=== PATIENT | female | born 1945 | race African-American/Black ===

== ENCOUNTER 2016-07-22 17:06 | Inpatient (IN) | payer MEDICARE, OTHER ==
[~2016-07-22] VITALS: Ht 162.6 cm; Wt 119.9 kg
[~2016-07-22 17:06] MED LIST: AMLO10TA2 PO; BENZ0.5T PO; BUDE10.2 IH; CA C1TAB28 PO; CARV12.52 PO; CLON1PAT3 TD; DICL100G7 TOP; DICL100G7 TP; DIVA500T9 PO; DOCU-27 PO; FLUT16SP2 NS; FURO40TA4 PO; HYDR-2869 PO; IPRA3AMP23 IH; LEVE100020 PO; LEVE500T56 PO; LIPITOR80 MG PO; LISI-334 PO; NEO/5DRO5 OP; PALI6TAB3 PO; POLY17PO29 PO; POTA20TA4 PO; symbicort
[2016-07-22 17:48] LABS: BASO % 1 % (0-3); EOS % 2 % (0-3); HEMATOCRIT 29.7 % (36.0-47.0); HEMOGLOBIN 9.6 g/dL (12.0-15.5); LYMPH # 1.4 x10^3/uL (1.0-4.8); LYMPH % 23 % (24-48); MEAN CORPUSCULAR HEMOGLOBIN 27 pg (25-35); MEAN CORPUSCULAR HGB CONC 32 g/dL (31-37); MEAN CORPUSCULAR VOLUME 84 fL (79-100); MONO % 13 % (0-9); NEUT % 62 % (31-73); PLATELET COUNT 206 x10^3/uL (140-400); RED BLOOD COUNT 3.54 x10^6/uL (3.50-5.40); RED CELL DISTRIBUTION WIDTH 16.4 % (11.5-14.5); WHITE BLOOD COUNT 6.2 x10^3/uL (4.0-11.0)
[2016-07-22 17:59] LABS: CALCIUM 9.2 mg/dL (8.5-10.1); GFR 66.7; POTASSIUM 4.7 mmol/L (3.5-5.1)
[2016-07-22 18:17] LABS: PROTHROMBIN TIME PATIENT 12.1 SEC (11.7-14.0)
--- NOTE | 2016-07-22 18:21 | RAD ---
PROCEDURE Bilateral lower extremity venous Doppler ultrasound HISTORY Bilateral leg pain greater on the right COMPARISON None FINDINGS Multiple grayscale, color, and duplex spectral analysis waveform images were acquired of the lower extremity veins bilaterally. There is normal compression and color flow from the common femoral to the popliteal veins, normal phasicity. There is normal color flow of the proximal greater saphenous and profunda femoris veins. Calf veins are not well visualized due to patient's body habitus. IMPRESSION 1. There is no evidence of deep venous thrombosis from the common femoral to the popliteal veins of either lower extremity. Calf veins are not well visualized on this exam due to patient's body habitus. Electronically signed by: Deon Henderson MD (July 22, 2016 18:19:58)
--- NOTE | 2016-07-22 18:58 | PHYS DOC ---
Past Medical History Past Medical History: Arthritis, CHF, Diabetes-Type II, High Cholesterol, Hypertension, Seizure, Schizophrenia Additional Past Medical Histor: obesity Past Surgical History: Appendectomy, Cholecystectomy, Hysterectomy Additional Past Surgical Histo: hernia Alcohol Use: None Drug Use: None Adult General Chief Complaint Chief Complaint: KNEE SWELLING HPI HPI Patient is a 70 year old female who presents from primary care doctor's clinic for concern of her right greater than left lower extremity swelling. She has mild pain associated with the swelling, but really complains more about chronic joint pain. Her swelling has been gradual in onset over the past couple of weeks. Her family member is here to help her with history. She was seen by Dr. Nino today, who increased her daily Lasix from 40 mg to 80 mg. She was sent here to rule out DVT. She denies chest pain, orthopnea, palpitations, cough, hemoptysis, abdominal swelling, nausea or vomiting, fever or chills. Review of Systems Review of Systems Constitutional: Denies fever or chills [] Eyes: Denies change in visual acuity, redness, or eye pain [] HENT: Denies nasal congestion or sore throat [] Respiratory: Denies cough or shortness of breath [] Cardiovascular: No additional information not addressed in HPI [] GI: Denies abdominal pain, nausea, vomiting, bloody stools or diarrhea [] : Denies dysuria or hematuria [] Musculoskeletal: Denies back pain [] Integument: Denies rash or skin lesions [] Neurologic: Denies headache, focal weakness or sensory changes [] Endocrine: Denies polyuria or polydipsia [] Current Medications Current Medications Current Medications Medications (Trade) Dose Ordered Sig/Johnny Start Time Stop Time Status Last Admin Dose Admin Info (Do NOT chart on this entry -- for MONITORING) 1 each PRN DAILY PRN 07/22/16 19:30 07/24/16 19:29 Iohexol (Omnipaque 350 Mg/ml) 100 ml 1X ONCE 07/22/16 19:15 07/22/16 19:16 DC Allergies Allergies Allergies Coded Allergies Type Severity Reaction Last Updated Verified TIGRE Inhibitors Allergy Intermediate 07/18/13 Yes NSAIDS (Non-Steroidal Anti-Inflamma Allergy Intermediate 07/18/13 Yes alcohol Allergy Intermediate 07/18/13 Yes ibuprofen Allergy Intermediate 07/18/13 Yes lisinopril Allergy Unknown Swelling 12/21/13 Yes Physical Exam Physical Exam Constitutional: Well developed, well nourished, no acute distress, non-toxic appearance. [] HENT: Normocephalic, atraumatic, bilateral external ears normal, oropharynx moist, nose normal. [] Eyes: PERRLA, EOMI. [] Neck: Normal range of motion, supple. [] Cardiovascular:Heart rate regular rhythm [] Lungs & Thorax: Bilateral breath sounds clear to auscultation [] Abdomen: Bowel sounds normal, soft, no tenderness. [] Skin: Warm, dry, no erythema, no rash. [] Back: Normal range of motion. [] Extremities: Mild right calf tenderness, no left calf tenderness, ROM intact, right greater than left 2+ lower extremity edema, slight rubor to right leg compared to left. No induration, crepitance, or fluctuance. Compartments are soft. No pain with range of motion other than chronic joint pain. [] Neurologic: Alert and oriented X 3, normal motor function, normal sensory function, no focal deficits noted. [] Psychologic: Affect normal, judgement normal, mood normal. [] Current Patient Data Vital Signs Vital Signs Date Time Temp Pulse Resp B/P (MAP) Pulse Ox O2 Delivery O2 Flow Rate FiO2 07/22/16 18:22 66 20 147/81 (103) 97 Room Air 07/22/16 17:06 98.0 98.0 Lab Values Laboratory Tests Test 07/22/16 17:30 White Blood Count 6.2 x10^3/uL (4.0-11.0) Red Blood Count 3.54 x10^6/uL (3.50-5.40) Hemoglobin 9.6 g/dL (12.0-15.5) L Hematocrit 29.7 % (36.0-47.0) L Mean Corpuscular Volume 84 fL (79-100) Mean Corpuscular Hemoglobin 27 pg (25-35) Mean Corpuscular Hemoglobin Concent 32 g/dL (31-37) Red Cell Distribution Width 16.4 % (11.5-14.5) H Platelet Count 206 x10^3/uL (140-400) Neutrophils (%) (Auto) 62 % (31-73) Lymphocytes (%) (Auto) 23 % (24-48) L Monocytes (%) (Auto) 13 % (0-9) H Eosinophils (%) (Auto) 2 % (0-3) Basophils (%) (Auto) 1 % (0-3) Neutrophils # (Auto) 3.8 x10^3uL (1.8-7.7) Lymphocytes # (Auto) 1.4 x10^3/uL (1.0-4.8) Monocytes # (Auto) 0.8 x10^3/uL (0.0-1.1) Eosinophils # (Auto) 0.1 x10^3/uL (0.0-0.7) Basophils # (Auto) 0.0 x10^3/uL (0.0-0.2) Prothrombin Time 12.1 SEC (11.7-14.0) Prothrombin Time INR 1.0 (0.8-1.1) D-Dimer (Rosario) 1.79 ug/mlFEU (0.00-0.50) H Sodium Level 136 mmol/L (136-145) Potassium Level 4.7 mmol/L (3.5-5.1) Chloride Level 97 mmol/L (98-107) L Carbon Dioxide Level 32 mmol/L (21-32) Anion Gap 7 (6-14) Blood Urea Nitrogen 17 mg/dL (7-20) Creatinine 1.0 mg/dL (0.6-1.0) Estimated GFR (Cockcroft-Gault) 66.7 Glucose Level 108 mg/dL (70-99) H Calcium Level 9.2 mg/dL (8.5-10.1) II-Lqz-V-Type Natriuretic Peptide 124 pg/mL (0-124) Laboratory Tests 07/22/16 17:30 Laboratory Tests 07/22/16 17:30 EKG EKG EKG as interpreted by me as normal sinus rhythm, rate 68, no ST-T changes, normal intervals, no ectopy Radiology/Procedures Radiology/Procedures Chest xray as interpreted by me with no acute cardiopulmonary disease process Ultrasound venous Doppler bilateral lower extremity IMPRESSION 1. There is no evidence of deep venous thrombosis from the common femoral to the popliteal veins of either lower extremity. Calf veins are not well visualized on this exam due to patient's body habitus. Electronically signed by: Deon Henderson MD (July 22, 2016 18:19:58) CT lower extremity with contrast IMPRESSION 1. Artery and veins are not accurately evaluated on this exam. There is diffuse nonspecific edema of the soft tissues of the lower extremities bilaterally greater on the right. 2. There is advanced osteoarthritic change of the bilateral knees. Electronically signed by: Deon Henderson MD (July 22, 2016 21:56:35) Course & Med Decision Making Course & Med Decision Making Pertinent Labs and Imaging studies reviewed. (See chart for details) Has elevated d-dimer, but imaging is inconclusive and workup is otherwise unremarkable with no suspicion for PE at this time. Clinically suspect DVT. Discussed case with Dr. Nino, who will admit and recommends anticoagulation and admission for further evaluation. Dragon Disclaimer Dragon Disclaimer This electronic medical record was generated, in whole or in part, using a voice recognition dictation system. Departure Departure Impression: Primary Impression: Pain and swelling of lower leg Disposition: ADMITTED INPATIENT Condition: STABLE Referrals: JOSE NINO MD (PCP) Problem Qualifiers Primary Impression: Pain and swelling of lower leg Laterality: unspecified laterality Qualified Codes: M79.669 - Pain in unspecified lower leg; M79.89 - Other specified soft tissue disorders Lynda SIMMONS MD July 22, 2016 18:58
[2016-07-22] MEDS ORDERED: IOHEXOL 350 MG/ML 100 ML VIAL. IV ONE (19:15)
[2016-07-22] MEDS ORDERED: CONTRAST GIVEN MC PRN (19:30)
--- NOTE | 2016-07-22 21:58 | RAD ---
PROCEDURE CT lower extremities bilaterally with contrast. HISTORY Right greater than left swelling COMPARISON Venous ultrasound earlier the same day TECHNIQUE After the administration of intravenous contrast, CT imaging was performed of the lower extremities bilaterally, multiplanar reconstruction images submitted. Exposure: One or more of the following individualized dose reduction techniques were utilized for this exam: 1. Automated exposure control. 2. Adjustment of the mA and/or kV according to patient size. 3. Use of iterative reconstruction technique. Contrast: 80 cc Omnipaque 350 FINDINGS Arteries and veins are not well opacified with contrast for accurate evaluation. There is diffuse edema of the lower extremities bilaterally greater beyond the knees. No obvious focal drainable fluid collection is identified. There is advanced tricompartmental osteoarthritic change of the bilateral knees. There is some distention of the visualized urinary bladder. IMPRESSION 1. Artery and veins are not accurately evaluated on this exam. There is diffuse nonspecific edema of the soft tissues of the lower extremities bilaterally greater on the right. 2. There is advanced osteoarthritic change of the bilateral knees. Electronically signed by: Deon Henderson MD (July 22, 2016 21:56:35)
[2016-07-23] VITALS (7 sets, daily range): BP systolic 109–149; BP diastolic 59–93
[2016-07-23] MEDS ORDERED: DIVA500T9 PO (03:16)
--- NOTE | 2016-07-23 03:22 | ACF ---
Admission Forms Criteria DEEP VENOUS THROMBOSIS OF LOWER EXTREMITIES Clinical Indications for Admission to Inpatient Care ( Place 'X' for any and all applicable criteria): Admission is indicated for ANY ONE of the following (1)(2)(3)(4): [ ]I. Documented extensive thrombosis (e.g., clot in vena cava or above iliofemoral bifurcation) [ ]II. Limb-threatening thrombosis (e.g., phlegmasia cerulea dolens) [ ]III. Active bleeding [ ]IV. Recent surgery (e.g., within 6 weeks) [ ]V. Active peptic ulcer disease [ ]. Thrombosis while on anticoagulation [ ]VII. [X ]VIII. Appropriate monitoring and therapy cannot be provided in home or outpatient setting [ ]IX. Thrombolysis (e.g., catheter-directed) or pharmaco mechanical thrombectomy needed (3) [ ]X. Vena cava filter placement planned (3) [ ]XI. Severely diminished cardiopulmonary reserve (e.g., pulmonary hypertension) [ ]XII. Severe renal failure (e.g., GFR less than 30 mL/min/1.73m2 (0.5 mL/sec /1.73m2)) [ ]XIII. Known clotting abnormality or deficiency (antithrombin III, protein C , or protein S) [ ]XIV. History of heparin-induced thrombocytopenia [ ]XV . Personal or family history of bleeding tendency or familial bleeding disorder that requires inpatient admission rather than observation care (Also use Deep Venous Thrombosis of Lower Extremities: Observation Care as appropriate) because of ANY ONE of the following: [ ]a) Significant allergic, autoimmune (thrombocytopenia), or coagulopathic reaction occurs in response to anticoagulation [ ]b) Other significant finding or clinical condition judged not to be within the scope of observation care Extended stay beyond goal length of stay may be needed for(1)(19): [ ]a) Hemorrhage or recent surgery(3) [ ]b) Inadequate oral anticoagulation [ ]c) Recurrent thromboembolism(3) [ ]d) Heparin-induced thrombocytopenia(14) The original [facility] content created by [facility] has been revised. The portions of the content which have been revised are identified through the use of italic text or in bold, and [facility] has neither reviewed nor approved the modified material. All other unmodified content is copyright [facility]. Please see references footnoted in the original [facility] edition 2016 Admission Criteria Met?: Yes MOIRA ALDANA July 23, 2016 03:22
[2016-07-23] MEDS ORDERED: CYAN10005 PO (03:24)
[2016-07-23] MEDS ORDERED: TRIH2TAB3 PO (03:24)
[2016-07-23] MEDS ORDERED: FOLI1TAB16 PO (03:24)
[2016-07-23] MEDS ORDERED: BREO ELLIPTA 11 EACH IH (03:24)
[2016-07-23] MEDS ORDERED: VENTOLIN HFA18 GM INH (03:28)
--- NOTE | 2016-07-23 07:31 | EKG ---
[facility] [address] [place] [address] Test Date: 2016-07-22 Test Time: 18:19:44 Pat Name: ELSI GARCIA Department: Room: 526 1 Gender: F Geophysical Prospector: : 1945 Requested By: Lynda SIMMONS Order Number: [id number] Reading MD: Cheryl Liu Measurements Intervals Corinne Rate: 68 P: 36 RI: 184 QRS: 8 QRSD: 80 T: 47 QT: 452 QTc: 481 Interpretive Statements SINUS RHYTHM PROLONGED QT Electronically Signed On 07-25-2016 20:46:44 CDT by Cheryl Liu
--- NOTE | 2016-07-23 08:17 | RAD ---
Indication bilateral leg edema. A single view of the chest was obtained. Comparison is made to an examination 04/28/2013. Cardiomegaly is noted, stable. There is no congestive heart failure. Tortuous thoracic aorta is noted appearing similar. An acute parenchymal infiltrate is not seen. There is no significant pleural fluid. Overall there has not been a significant change compared to the previous exam IMPRESSION: No acute or focal process. No significant change.
[2016-07-23] MEDS: FLUTICASONE 50MCG/NASAL SPRAY 16GM BOTTLE. NS SCH ×2 (09:00→21:39)
[2016-07-23] MEDS ORDERED: ALBUTEROL SULFATE 2.5 MG/3 ML NEBU. NEB PRN (09:00)
[2016-07-23] MEDS ORDERED: cloNIDine TTS-3 1 PATCH PATCH.TDWK TD SCH (09:00)
[2016-07-23] MEDS ORDERED: levETIRAcetam 500 MG TABLET PO SCH (09:00)
[2016-07-23] MEDS ORDERED: FUROSEMIDE 40 MG TABLET. PO SCH (09:00)
[2016-07-23] MEDS: FUROSEMIDE 40 MG/4 ML VIAL. IVP SCH ×2 (09:34→14:00)
[2016-07-23] MEDS: POLYETHYLENE GLYCOL 3350 17 GM PACKET. PO SCH (09:36)
[2016-07-23] MEDS: levETIRAcetam 500 MG TABLET PO SCH (09:38)
[2016-07-23] MEDS: CYANOCOBALAMIN (VITAMIN B-12) 1,000 MCG TABLET. PO SCH (09:41)
[2016-07-23] MEDS: DOCUSATE SODIUM 100 MG CAPSULE. PO SCH (09:41)
[2016-07-23] MEDS: FOLIC ACID 1 MG TABLET. PO SCH (09:42)
[2016-07-23] MEDS: DIVALPROEX DELAYED RELEASE 250 MG TABLET.DR. PO SCH (09:42)
[2016-07-23] MEDS: CHOLECALCIFEROL (VITAMIN D3) 1,000 UNIT TABLET PO SCH (09:42)
[2016-07-23] MEDS: risperiDONE 1 MG TABLET. PO SCH ×2 (09:44→21:39)
[2016-07-23] MEDS: POTASSIUM CHLORIDE 20 MEQ TABLET.ER. PO SCH ×2 (09:44→17:09)
[2016-07-23] MEDS: CARVEDILOL 12.5 MG TABLET. PO SCH ×2 (09:44→17:09)
[2016-07-23] MEDS: ENOXAPARIN 40 MG/0.4 ML SYRINGE. SQ SCH ×2 (09:47→21:42)
--- NOTE | 2016-07-23 10:33 | PDOC ---
Provider Note Provider Note Pt seen, H&P to be dictated JOSE WILLINGHAM MD July 23, 2016 10:33
[2016-07-23] MEDS: IPRATRPIUM/ALBUTEROL 0.5/2.5MG 3 ML NEBU. IH SCH ×3 (12:11→20:24)
--- NOTE | 2016-07-23 12:12 | PDOC2 ---
NELLY MONTIEL [employer]OP ASSOCIATE 07/23/16 1212: CARDIAC CONSULT DATE OF CONSULT Date of Consult DATE: 07/23/16 TIME: 12:07 REASON FOR CONSULT Reason for Consult: venous insufficiency REFERRING PHYSICIAN Referring Physician: Mica SOURCE Source: Caregiver (sister), Chart review, Patient HISTORY OF PRESENT ILLNESS HISTORY OF PRESENT ILLNESS This is a pleasant 70 yo female admitted for complains of increasing leg swelling. She lives in an apartment with 24 hr caregiver care. She is sedentary and WC bound and the most activity she does is transferring from chair to bed. She has gained about 50 pounds in the last several months accdg to her sister mainly due in part to increased calorie intake. Also noted by sister is her sodium intake also has been increased mainly from processed food and snacks. Pt reports that her bilateral knee has been bothering her and she does have significant arthritis. She also noticed that both of her legs have become more swollen, more to the right and it progresses throughout the day. Denies any symptoms of paresthesia or sensory issues. She went to her PCP yesterday and has recommended to come to the hospital for further testing and to rule out any leg blood clots. Denies any SOA, palpitations, diarrhea, nausea. She does feel bloated sometimes but her appetite has not changed, ithas always been good. Denies any recent falls or injury. She does have hx of diastolic CHF and she typically takes lasix and was recently increased. The last time she was hospitalized was 4 yrs ago. She is closely supervised at home by 24 hour caregiver but also been overseen by her sister. Denies any CAD, VTE in the past. PAST MEDICAL HISTORY Cardiovascular: CHF (diastolic), HTN, Hyperlipidemia Pulmonary: COPD, Other (BATSHEVA- uses O2 at night) CENTRAL NERVOUS SYSTEM: Seizure Heme/Onc: Anemia NOS Psych: Anxiety, Bipolar, Depression, Schizophrenia Musculoskeletal: Osteoarthritis, Other (morbid obesity) Rheumatologic: No pertinent hx Infectious disease: No pertinent hx ENT: No pertinent hx Renal/: Other (hyponatremia (med induced SIADH)) Endocrine: Hypothyroidism Dermatology: No pertinent hx PAST SURGICAL HISTORY Past Surgical History: Hernia Repair, Hysterectomy, Other FAMILY HISTORY Family History: Coronary Artery Disease, Other (DVT x1 sister) SOCIAL HISTORY Smoke: No ALCOHOL: none Drugs: None Lives: Alone CURRENT MEDICATIONS CURRENT MEDICATIONS Current Medications Medications (Trade) Dose Ordered Sig/Johnny Route PRN Reason Start Time Stop Time Status Last Admin Dose Admin Enoxaparin Sodium (Lovenox 120mg Syringe) 120 mg 1X ONCE SQ 07/22/16 22:30 07/22/16 22:31 DC 07/23/16 01:12 Carvedilol (Coreg) 12.5 mg BIDWMEALS PO 07/23/16 09:00 07/23/16 09:44 Clonidine HCl (Catapres Tts-3) 1 patch WEEKLY TD 07/23/16 09:00 07/23/16 09:40 Cyanocobalamin (Vitamin B-12) 1,000 mcg DAILY PO 07/23/16 09:00 07/23/16 09:41 Divalproex Sodium (Depakote) 250 mg DAILY PO 07/23/16 09:00 07/23/16 09:42 Docusate Sodium (Colace) 100 mg DAILY PO 07/23/16 09:00 07/23/16 09:41 Folic Acid (Folic Acid) 1 mg DAILY PO 07/23/16 09:00 07/23/16 09:42 Hydralazine HCl (Apresoline) 50 mg BID PO 07/23/16 09:00 07/23/16 09:42 Polyethylene Glycol (miraLAX PACKET) 17 gm DAILY PO 07/23/16 09:00 07/23/16 09:36 Potassium Chloride (Klor-Con) 20 meq BIDWMEALS PO 07/23/16 09:00 07/23/16 09:44 Vitamin D (Vitamin D3) 1,000 unit DAILY PO 07/23/16 09:00 07/23/16 09:42 Risperidone (RisperDAL) 1 mg BID PO 07/23/16 09:00 07/23/16 09:44 Furosemide (Lasix) 40 mg BID92 IVP 07/23/16 09:00 07/23/16 09:34 Enoxaparin Sodium (Lovenox 40mg Syringe) 40 mg Q12HR SQ 07/23/16 09:30 07/23/16 09:47 Levetiracetam (Keppra) 2,000 mg BID PO 07/23/16 09:01 07/23/16 09:38 ALLERGIES ALLERGIES: Coded Allergies: TIGRE Inhibitors (Verified Allergy, Intermediate, 07/18/13) NSAIDS (Non-Steroidal Anti-Inflamma (Verified Allergy, Intermediate, ) alcohol (Verified Allergy, Intermediate, 07/18/13) ibuprofen (Verified Allergy, Intermediate, 07/18/13) lisinopril (Verified Allergy, Unknown, Swelling, 12/21/13) ROS Review of System 14 point ROS evaluated with pertinent positives noted per HPI PHYSICAL EXAM General: Alert, Oriented X3, Cooperative, No acute distress HEENT: Atraumatic, Mucous membr. moist/pink Lungs: Clear to auscultation, Normal air movement Heart: Regular rate, Normal S1, Normal S2, Other (2/6 systolic murmur to LLS border and EDVIN border) Extremities: No cyanosis, Other (2+ to RLE and 1+ to LLE; skin to bilateral LE are warm equally from feet to thigh) Skin: No breakdown, No significant lesion Neuro: Normal speech, Sensation intact Psych/Mental Status: Mental status NL, Mood NL MUSCULOSKELETAL: Osteoarthritic changes both hands, Other (possible bilateral knee effusion) VITALS VITALS Vital Signs Date Time Temp Pulse Resp B/P (MAP) Pulse Ox O2 Delivery O2 Flow Rate FiO2 07/23/16 11:00 97.4 82 18 123/67 (85) 96 Room Air 97.4 LABS Lab: Laboratory Tests Test 07/22/16 17:30 White Blood Count 6.2 x10^3/uL (4.0-11.0) Red Blood Count 3.54 x10^6/uL (3.50-5.40) Hemoglobin 9.6 g/dL (12.0-15.5) Hematocrit 29.7 % (36.0-47.0) Mean Corpuscular Volume 84 fL (79-100) Mean Corpuscular Hemoglobin 27 pg (25-35) Mean Corpuscular Hemoglobin Concent 32 g/dL (31-37) Red Cell Distribution Width 16.4 % (11.5-14.5) Platelet Count 206 x10^3/uL (140-400) Neutrophils (%) (Auto) 62 % (31-73) Lymphocytes (%) (Auto) 23 % (24-48) Monocytes (%) (Auto) 13 % (0-9) Eosinophils (%) (Auto) 2 % (0-3) Basophils (%) (Auto) 1 % (0-3) Neutrophils # (Auto) 3.8 x10^3uL (1.8-7.7) Lymphocytes # (Auto) 1.4 x10^3/uL (1.0-4.8) Monocytes # (Auto) 0.8 x10^3/uL (0.0-1.1) Eosinophils # (Auto) 0.1 x10^3/uL (0.0-0.7) Basophils # (Auto) 0.0 x10^3/uL (0.0-0.2) Prothrombin Time 12.1 SEC (11.7-14.0) Prothromb Time International Ratio 1.0 (0.8-1.1) D-Dimer (Rosario) 1.79 ug/mlFEU (0.00-0.50) Sodium Level 136 mmol/L (136-145) Potassium Level 4.7 mmol/L (3.5-5.1) Chloride Level 97 mmol/L (98-107) Carbon Dioxide Level 32 mmol/L (21-32) Anion Gap 7 (6-14) Blood Urea Nitrogen 17 mg/dL (7-20) Creatinine 1.0 mg/dL (0.6-1.0) Estimated GFR (Cockcroft-Gault) 66.7 Glucose Level 108 mg/dL (70-99) Calcium Level 9.2 mg/dL (8.5-10.1) IM-Uwg-Y-Type Natriuretic Peptide 124 pg/mL (0-124) ASSESSMENT/PLAN ASSESSMENT/PLAN 1. Leg swelling with bilateral knee pain: More to RLE than LLE. Imaging inconclusive of VTE with limitation as noted below. a. venous doppler There is no evidence of deep venous thrombosis from the common femoral to the popliteal veins of either lower extremity. Calf veins are not well visualized on this exam due to patient's body habitus. b. CT LE: basically ending up with noncontrast study due to poor opacification likely from poor IV access 2. Elevated DDIMER: 1.79, unclear etiology, defer to PCP 3. Morbid obesity/sedentary: BMI 47 4. Chronic diastolic CHF: Normal pro NT BNP. compensated 5. HTN: controlled 6. HLP 7. Hx of seizures Recommendations 1. Will obtain baseline TTE and note any contributing cardiac factors as well as to check PAP. 2. Discussed with ultrasound in regards to arterial filling and noted no inconsistency that would possibly indicate arterial defects. Leg swelling is likely multifactorial with combination of severe knee OA, weight gain, increased sodium ingestion, venous insufficiency predisposed by limited mobility and truncal obesity inducing venous compression. With inconclusive LE studies, DVT would still be part of the differential. Will discuss with staff to obtain good IV access and will consider repeat CT of LE with contrast vs venogram likely tomorrow since unclear amount of contrast injected with poor IV access, will discuss with primary machine preservative filler. Problems: RAFAELA NEGRON MD 07/23/16 2213: CARDIAC CONSULT ALLERGIES ALLERGIES: Coded Allergies: TIGRE Inhibitors (Verified Allergy, Intermediate, 07/18/13) NSAIDS (Non-Steroidal Anti-Inflamma (Verified Allergy, Intermediate, ) alcohol (Verified Allergy, Intermediate, 07/18/13) ibuprofen (Verified Allergy, Intermediate, 07/18/13) lisinopril (Verified Allergy, Unknown, Swelling, 12/21/13) ASSESSMENT/PLAN ASSESSMENT/PLAN Pt. seen and examined. Agree with above ELEVATOR REPAIRER HELPER note. 70 y.o female presenting with LE edema. R > L On exam her right leg is warm, bigger than the left. Patient has no chest pain/ dyspnea. labs/imaging reviewed. Consider anticoagulation given high risk for DVT and plan for CT LE repeat. echo pending Problems: NELLY MONTIEL APRN July 23, 2016 12:12 RAFAELA NEGRON MD July 23, 2016 22:13
[2016-07-23 12:35] LABS: ALBUMIN 2.9 g/dL (3.4-5.0); ALBUMIN/GLOBULIN RATIO 0.8 (1.0-1.7); CALCIUM 8.7 mg/dL (8.5-10.1); CREATININE 0.9 mg/dL (0.6-1.0); GFR 75.3; POTASSIUM 3.7 mmol/L (3.5-5.1); TOTAL BILIRUBIN 0.4 mg/dL (0.2-1.0); TOTAL PROTEIN 6.6 g/dL (6.4-8.2)
[2016-07-23] MEDS: BUDESONIDE 0.5 MG/2 ML NEBU. NEB SCH (20:24)
[2016-07-23] MEDS: ATORVASTATIN CALCIUM 40 MG TABLET. PO SCH (21:38)
[2016-07-23] MEDS: TRIHEXYPHENIDYL 2 MG TABLET. PO SCH (21:39)
[2016-07-23] MEDS: DIVALPROEX DELAYED RELEASE 500 MG TABLET.DR. PO SCH (21:39)
[2016-07-24 03:00] VITALS: BP 117/62
[2016-07-24 04:40] LABS: BASO % 1 % (0-3); EOS % 1 % (0-3); HEMATOCRIT 26.1 % (36.0-47.0); HEMOGLOBIN 8.8 g/dL (12.0-15.5); LYMPH # 1.4 x10^3/uL (1.0-4.8); LYMPH % 25 % (24-48); MEAN CORPUSCULAR HEMOGLOBIN 28 pg (25-35); MEAN CORPUSCULAR HGB CONC 34 g/dL (31-37); MEAN CORPUSCULAR VOLUME 82 fL (79-100); MONO % 13 % (0-9); NEUT % 60 % (31-73); PLATELET COUNT 193 x10^3/uL (140-400); RED BLOOD COUNT 3.18 x10^6/uL (3.50-5.40); RED CELL DISTRIBUTION WIDTH 16.5 % (11.5-14.5); WHITE BLOOD COUNT 5.8 x10^3/uL (4.0-11.0)
[2016-07-24 04:58] LABS: CALCIUM 8.5 mg/dL (8.5-10.1); CREATININE 1.2 mg/dL (0.6-1.0); GFR 54.1
[2016-07-24 05:16] LABS: CHOLESTEROL/HDL RATIO 2.5
[2016-07-24 07:00] VITALS: BP 121/71
--- NOTE | 2016-07-24 07:05 | HP ---
ADMIT DATE: 07/23/2016 PATIENT LOCATION: 526 REASON FOR ADMISSION TO THE HOSPITAL: Swelling, right lower extremity. HISTORY OF PRESENT ILLNESS: The patient is a 70-year-old female with a history of morbid obesity, hypertension, hyperlipidemia, diastolic heart failure, COPD, sleep apnea, seizures, depression, bipolar and hypothyroidism and she was noticed to have more swelling of the right lower leg when compared to the left leg; in fact, I measured, it was 2 inches larger than the left, 3+ edema right, 2+ on the left and there was a question of DVT, sent to the Emergency Room. Venous Doppler was negative. Had a CT of the legs, shows soft tissue edema. The patient was admitted for aggressive diuresis, was given IV Lasix. PAST MEDICAL HISTORY: As mentioned above, has morbid obesity, obstructive sleep apnea, arthritis, hypertension, hyperlipidemia, seizures and bipolar. PAST SURGICAL HISTORY: Hernia repair, hysterectomy. FAMILY HISTORY: Coronary artery disease in the sister, blood clots in 1 sister. SOCIAL HISTORY: No history of smoking, alcohol or drug abuse. ALLERGIES: NONSTEROIDALS, IBUPROFEN, ALCOHOL, LISINOPRIL, TIGRE INHIBITORS CAUSE EDEMA. MEDICATIONS AT HOME: The patient is on inhaler albuterol 2 puffs 4 times daily, atorvastatin 80 mg daily, calcium with vitamin D daily, Coreg 12.5 twice a day, clonidine once a week, TTS-3 patch, B12 1000 mcg twice a day, Depakote 500 mg at bedtime and 250 in the morning, Colace 100 mg daily, Flonase 1 spray twice a day, folic acid 1 mg daily, Lasix 40 mg daily, hydralazine 50 mg twice a day, DuoNeb 4 times daily, Keppra 1000 mg tablets 2000 mg twice a day, Invega 6 mg tablets 24 mg at bedtime, MiraLax 17 grams daily, potassium 20 mEq twice a day, resperidol 2 mg at bedtime. REVIEW OF SYMPTOMS: Complains of swelling in the lower legs, complains of pain in the knee. She was given Voltaren Gel and she has had Cardizem injections in the past. PHYSICAL EXAMINATION: VITAL SIGNS: Temperature 98, pulse 66, respirations 16, blood pressure 167/83, 95% on room air. HEENT: Head is atraumatic. Pupils equal. Oral cavity: No congestion. NECK: Supple. Thyroid not enlarged. JVD not elevated. CHEST: Symmetrical. CARDIOVASCULAR: S1, S2. LUNGS: A few crackles at the bases. ABDOMEN: Obese. No mass palpable. EXTERNAL GENITALIA: No Ji. RECTAL: Deferred. EXTREMITIES: Has 2+ edema left leg, 3+ in the right leg. Right leg is 2 inches larger than the left at calf , no ulcerations on the feet. NEUROLOGIC: Cranial nerves intact. Power 5/5 in all extremities. LABORATORY DATA: Shows a white count of 6, hemoglobin 9.6, platelets 206. Electrolytes show sodium 136, potassium 4.7, chloride 97, bicarb 32, BUN 17, creatinine 1.0, glucose 108. INR is 1.0. D-dimer 1.79. Had a chest x-ray, no acute process. Ultrasound of the lower legs, no definitive DVT. CT of the lower extremities shows edema. FINAL IMPRESSION: 1. Edema, lower extremities, more on the right than the left. 2. Morbid obesity. 3. Sleep apnea. 4. Heart failure, diastolic. 5. Hypertension. 6. Hyperlipidemia. 7. History of bipolar. PLAN: At this time, admit to the hospital, Echo, Cardiology consult. Had a venous Doppler r/o DVT, CT leg .we will give Lasix and see how the swelling comes down. Further recommendations to follow. JOSE WILLINGHAM MD DR: JUDI/shahram JOB#: [id number] / [id number] ALLISON
[2016-07-24] MEDS: BUDESONIDE 0.5 MG/2 ML NEBU. NEB SCH ×2 (08:23→19:19)
[2016-07-24] MEDS: IPRATRPIUM/ALBUTEROL 0.5/2.5MG 3 ML NEBU. IH SCH ×4 (08:23→19:19)
[2016-07-24] MEDS: FUROSEMIDE 40 MG/4 ML VIAL. IVP SCH ×2 (09:00→13:26)
[2016-07-24] MEDS: CARVEDILOL 12.5 MG TABLET. PO SCH ×2 (10:00→17:24)
[2016-07-24] MEDS ORDERED: CONTRAST GIVEN MC PRN (10:00)
[2016-07-24] MEDS: ENOXAPARIN 40 MG/0.4 ML SYRINGE. SQ SCH ×2 (10:00→21:29)
[2016-07-24] MEDS ORDERED: IOHEXOL 350 MG/ML 100 ML VIAL. IV ONE (10:00)
--- NOTE | 2016-07-24 10:27 | PDOC ---
PROGRESS NOTES Subjective Subjective swelling down ,pt smiling today Objective Objective Vital Signs Date Time Temp Pulse Resp B/P (MAP) Pulse Ox O2 Delivery O2 Flow Rate FiO2 07/24/16 08:30 96 Room Air 07/24/16 07:00 97.7 73 20 121/71 (88) 97.7 Intake and Output 07/24/16 07:00 Intake Total 1536 ml Output Total 2425 ml Balance -889 ml Intake Oral 1536 ml Output Urine Total 2425 ml # Voids 1 # Bowel Movements 1 Physical Exam Heart: Regular rate, Normal S1, Normal S2, Other (2/6 systolic murmur to LLS border and EDVIN border) Extremities: No cyanosis, Other (2+ to RLE and 1+ to LLE; skin to bilateral LE are warm equally from feet to thigh) General: Alert, Oriented X3, Cooperative, No acute distress HEENT: Atraumatic, Mucous membr. moist/pink Lungs: Clear to auscultation, Normal air movement MUSCULOSKELETAL: Osteoarthritic changes both hands, Other (possible bilateral knee effusion) Neuro: Normal speech, Sensation intact Psych/Mental Status: Mental status NL, Mood NL Skin: No breakdown, No significant lesion COMMENT leg swelling down significantly Diagnosis Problem List Problems Medical Problems: (1) Pain and swelling of lower leg Status: Acute Assessment Assessment Problems Medical Problems: (1) Pain and swelling of lower leg Status: Acute FINAL IMPRESSION: 1. Edema, lower extremities, more on the right than the left. 2. Morbid obesity. 3. Sleep apnea. 4. Heart failure, diastolic. 5. Hypertension. 6. Hyperlipidemia. 7. History of bipolar. PLAN: IV lasix pt/ot compression wraps. repeat venous doppler leg. At this time, admit to the hospital, [facility] leg neg, Cardiology consult. Had a venous Doppler, CT Leg . will give iv Lasix and see how the swelling comes down. Further recommendations to follow. started on Lovenox bid dose, scaled down dose, repeat venous doppler today. anemia of ch diseases Problems: Plan Plan of Care Problems Medical Problems: (1) Pain and swelling of lower leg Status: Acute Comment Review of Relevant I have reviewed the following items mleanie (where applicable) has been applied. Labs Laboratory Tests Test 07/23/16 11:40 07/24/16 03:13 Sodium Level 139 mmol/L (136-145) 141 mmol/L (136-145) Potassium Level 3.7 mmol/L (3.5-5.1) 4.0 mmol/L (3.5-5.1) Chloride Level 99 mmol/L (98-107) 102 mmol/L (98-107) Carbon Dioxide Level 32 mmol/L (21-32) 32 mmol/L (21-32) Anion Gap 8 (6-14) 7 (6-14) Blood Urea Nitrogen 12 mg/dL (7-20) 19 mg/dL (7-20) Creatinine 0.9 mg/dL (0.6-1.0) 1.2 mg/dL (0.6-1.0) Estimated GFR (Cockcroft-Gault) 75.3 54.1 BUN/Creatinine Ratio 13 (6-20) Glucose Level 137 mg/dL (70-99) 93 mg/dL (70-99) Hemoglobin A1c 4.7 % (4.8-5.6) Calcium Level 8.7 mg/dL (8.5-10.1) 8.5 mg/dL (8.5-10.1) Total Bilirubin 0.4 mg/dL (0.2-1.0) Aspartate Amino Transf (AST/SGOT) 14 U/L (15-37) Alanine Aminotransferase (ALT/SGPT) 16 U/L (14-59) Alkaline Phosphatase 74 U/L (46-116) Total Protein 6.6 g/dL (6.4-8.2) Albumin 2.9 g/dL (3.4-5.0) Albumin/Globulin Ratio 0.8 (1.0-1.7) White Blood Count 5.8 x10^3/uL (4.0-11.0) Red Blood Count 3.18 x10^6/uL (3.50-5.40) Hemoglobin 8.8 g/dL (12.0-15.5) Hematocrit 26.1 % (36.0-47.0) Mean Corpuscular Volume 82 fL (79-100) Mean Corpuscular Hemoglobin 28 pg (25-35) Mean Corpuscular Hemoglobin Concent 34 g/dL (31-37) Red Cell Distribution Width 16.5 % (11.5-14.5) Platelet Count 193 x10^3/uL (140-400) Neutrophils (%) (Auto) 60 % (31-73) Lymphocytes (%) (Auto) 25 % (24-48) Monocytes (%) (Auto) 13 % (0-9) Eosinophils (%) (Auto) 1 % (0-3) Basophils (%) (Auto) 1 % (0-3) Neutrophils # (Auto) 3.5 x10^3uL (1.8-7.7) Lymphocytes # (Auto) 1.4 x10^3/uL (1.0-4.8) Monocytes # (Auto) 0.8 x10^3/uL (0.0-1.1) Eosinophils # (Auto) 0.1 x10^3/uL (0.0-0.7) Basophils # (Auto) 0.0 x10^3/uL (0.0-0.2) Triglycerides Level 40 mg/dL (0-150) Cholesterol Level 154 mg/dL (0-200) LDL Cholesterol, Calculated 85 mg/dL (0-100) VLDL Cholesterol, Calculated 8 mg/dL (0-40) Non-HDL Cholesterol Calculated 93 mg/dL (0-129) HDL Cholesterol 61 mg/dL (40-60) Cholesterol/HDL Ratio 2.5 Thyroid Stimulating Hormone (TSH) 3.984 uIU/mL (0.358-3.74) Medications Current Medications Albuterol/ Ipratropium (Duoneb) 3 ml RTQID IH Last administered on 07/24/16 08 :23; Start 07/23/16 at 12:00 Atorvastatin Calcium (Lipitor) 80 mg QHS PO Last administered on 07/23/16 21: 38; Start 07/23/16 at 21:00 Budesonide (Pulmicort) 0.5 mg RTBID NEB Last administered on 07/24/16 08:23; Start 07/23/16 at 20:00 Divalproex Sodium (Depakote) 500 mg HS PO Last administered on 07/23/16 21:39 ; Start 07/23/16 at 21:00 Info (Do NOT chart on this entry -- for MONITORING) 1 each PRN DAILY PRN MC SEE COMMENTS; Start 07/24/16 at 10:00; Stop 07/26/16 at 09:59 Iohexol (Omnipaque 350 Mg/ml) 75 ml 1X ONCE IV ; Start 07/24/16 at 10:00; Stop 07/24/16 at 10:01; Status DC Trihexyphenidyl HCl (Artane) 2 mg HS PO Last administered on 07/23/16t 21:39; Start 07/23/16 at 21:00 Vitals/I & O Vital Sign - Last 24 Hours 07/23/16 07/23/16 07/23/16 07/23/16 11:00 12:11 15:00 15:09 Temp 97.4 98.3 97.4 98.3 Pulse 82 79 Resp 18 18 B/P (MAP) 123/67 (85) 121/67 (85) Pulse Ox 96 97 93 O2 Delivery Room Air Room Air Room Air Room Air 07/23/16 07/23/16 07/23/16 07/23/16 17:09 19:00 20:24 20:27 Temp 98.1 98.1 Pulse 79 79 Resp 18 B/P (MAP) 121/67 129/73 (91) Pulse Ox 95 98 98 O2 Delivery Room Air Room Air Room Air 07/23/16 07/23/16 07/24/16 07/24/16 21:39 23:00 03:00 07:00 Temp 99.5 97.9 97.7 99.5 97.9 97.7 Pulse 79 77 80 73 Resp 18 18 20 B/P (MAP) 129/73 109/59 (76) 117/62 (80) 121/71 (88) Pulse Ox 92 93 99 O2 Delivery Room Air Room Air Room Air 07/24/16 07/24/16 08:24 08:30 Pulse Ox 96 96 O2 Delivery Room Air Room Air Intake and Output 07/23/16 07/23/16 07/24/16 15:00 23:00 07:00 Intake Total 1336 ml 200 ml Output Total 800 ml 1000 ml 625 ml Balance -800 ml 336 ml -425 ml JOSE WILLINGHAM MD July 24, 2016 10:27
[2016-07-24] MEDS: DIVALPROEX DELAYED RELEASE 250 MG TABLET.DR. PO SCH (10:44)
[2016-07-24] MEDS: POLYETHYLENE GLYCOL 3350 17 GM PACKET. PO SCH (10:44)
[2016-07-24] MEDS: levETIRAcetam 500 MG TABLET PO SCH ×2 (10:44→21:19)
[2016-07-24] MEDS: DOCUSATE SODIUM 100 MG CAPSULE. PO SCH (10:45)
[2016-07-24] MEDS: FLUTICASONE 50MCG/NASAL SPRAY 16GM BOTTLE. NS SCH ×2 (10:45→21:18)
[2016-07-24] MEDS: CHOLECALCIFEROL (VITAMIN D3) 1,000 UNIT TABLET PO SCH (10:45)
[2016-07-24] MEDS: FOLIC ACID 1 MG TABLET. PO SCH (10:45)
[2016-07-24] MEDS: POTASSIUM CHLORIDE 20 MEQ TABLET.ER. PO SCH ×2 (10:45→17:25)
[2016-07-24] MEDS: risperiDONE 1 MG TABLET. PO SCH ×2 (10:45→21:18)
[2016-07-24 11:00] VITALS: BP 112/62
--- NOTE | 2016-07-24 11:09 | PDOC ---
CARDIO Progress Notes Date and Time Date of Service 07/24/2016 Time of Evaluation 1045 Subjective Subjective: No Chest Pain, No shortness of breath, No Palpitations, No Dizziness, Other (leg pain better) Vitals Vitals Vital Signs Date Time Temp Pulse Resp B/P (MAP) Pulse Ox O2 Delivery O2 Flow Rate FiO2 07/24/16 10:53 64 112/62 07/24/16 08:30 96 Room Air 07/24/16 07:00 97.7 20 97.7 Weight Weight [ ] Input and Output Intake and Output Intake and Output 07/24/16 07:00 Intake Total 1536 ml Output Total 2425 ml Balance -889 ml Intake Oral 1536 ml Output Urine Total 2425 ml # Voids 1 # Bowel Movements 1 Laboratory Labs Laboratory Tests Test 07/23/16 11:40 07/24/16 03:13 Sodium Level 139 mmol/L (136-145) 141 mmol/L (136-145) Potassium Level 3.7 mmol/L (3.5-5.1) 4.0 mmol/L (3.5-5.1) Chloride Level 99 mmol/L (98-107) 102 mmol/L (98-107) Carbon Dioxide Level 32 mmol/L (21-32) 32 mmol/L (21-32) Anion Gap 8 (6-14) 7 (6-14) Blood Urea Nitrogen 12 mg/dL (7-20) 19 mg/dL (7-20) Creatinine 0.9 mg/dL (0.6-1.0) 1.2 mg/dL (0.6-1.0) Estimated GFR (Cockcroft-Gault) 75.3 54.1 BUN/Creatinine Ratio 13 (6-20) Glucose Level 137 mg/dL (70-99) 93 mg/dL (70-99) Hemoglobin A1c 4.7 % (4.8-5.6) Calcium Level 8.7 mg/dL (8.5-10.1) 8.5 mg/dL (8.5-10.1) Total Bilirubin 0.4 mg/dL (0.2-1.0) Aspartate Amino Transf (AST/SGOT) 14 U/L (15-37) Alanine Aminotransferase (ALT/SGPT) 16 U/L (14-59) Alkaline Phosphatase 74 U/L (46-116) Total Protein 6.6 g/dL (6.4-8.2) Albumin 2.9 g/dL (3.4-5.0) Albumin/Globulin Ratio 0.8 (1.0-1.7) White Blood Count 5.8 x10^3/uL (4.0-11.0) Red Blood Count 3.18 x10^6/uL (3.50-5.40) Hemoglobin 8.8 g/dL (12.0-15.5) Hematocrit 26.1 % (36.0-47.0) Mean Corpuscular Volume 82 fL (79-100) Mean Corpuscular Hemoglobin 28 pg (25-35) Mean Corpuscular Hemoglobin Concent 34 g/dL (31-37) Red Cell Distribution Width 16.5 % (11.5-14.5) Platelet Count 193 x10^3/uL (140-400) Neutrophils (%) (Auto) 60 % (31-73) Lymphocytes (%) (Auto) 25 % (24-48) Monocytes (%) (Auto) 13 % (0-9) Eosinophils (%) (Auto) 1 % (0-3) Basophils (%) (Auto) 1 % (0-3) Neutrophils # (Auto) 3.5 x10^3uL (1.8-7.7) Lymphocytes # (Auto) 1.4 x10^3/uL (1.0-4.8) Monocytes # (Auto) 0.8 x10^3/uL (0.0-1.1) Eosinophils # (Auto) 0.1 x10^3/uL (0.0-0.7) Basophils # (Auto) 0.0 x10^3/uL (0.0-0.2) Triglycerides Level 40 mg/dL (0-150) Cholesterol Level 154 mg/dL (0-200) LDL Cholesterol, Calculated 85 mg/dL (0-100) VLDL Cholesterol, Calculated 8 mg/dL (0-40) Non-HDL Cholesterol Calculated 93 mg/dL (0-129) HDL Cholesterol 61 mg/dL (40-60) Cholesterol/HDL Ratio 2.5 Thyroid Stimulating Hormone (TSH) 3.984 uIU/mL (0.358-3.74) Physical Exam HEENT: Neck Supple W Full Motion Chest: Symmetric LUNGS: Other (diminished bases) Heart: S1S2, RRR Abdomen: Soft N/T, Other (truncal obesity) Extremities: Other (mild tenderness to bilateral LE, 2+ RLE pitting edema and 1 + to LLE) Neurology: alert, oriented, follow commands Assessment Assessment 1. Leg swelling with bilateral knee pain: RLE more to LLE Possibly multifactorial as noted previously such as weight gain/truncal obesity venous compression/OA/high salt intake but would also need to rule out VTE Limited study results as described previously. Mod to high risk wells criteria. DDIMER elevated, will rule out DVT 2. Morbid obesity/sedentary: BMI 47 3. Chronic diastolic CHF: compensated. TTE preliminary with estimated 55-60% normal wall motion, normal RV size 4. HTN: controlled 5. HLP 6. Hx of seizures Recommendations 1. Will check with PCP if PICC is ok as peripheral IV access remains to be difficult and will carry out CT to LE 2. Lasix therapy per PCP, continue with home regimen. 3. VTE prophylaxis ongoing. 4. Cr from 0.9 to 1.2. Will start on maintenance IVF in preparation to contrast. Hold IV lasix today. 5. Discussed with sister and pt in regards to possible etiologies as noted above 6. Sodium restriction, leg elevations, FRANKLIN hose once DVT ruled out. Difficult to manage any weight loss regimen due to limited LE mobility but would enforce decrease caloric intake NELLY MONTIEL APRN July 24, 2016 11:09
[2016-07-24] MEDS: IV NORMAL SALINE 1000ML BAG 1,000 ML IV SCH (11:15)
--- NOTE | 2016-07-24 11:29 | CARD ---
APPROVED REPORT EXAM: Two-dimensional and M-mode echocardiogram with Doppler and color Doppler. Other Information Quality : Technically LimitedHR: 64bpm Rhythm : NSRTechnically limited study due to positioning limitations of the patient INDICATION Congestive Heart Failure Edema RISK FACTORS Obesity 2D DIMENSIONS RVDd1.9 (2.9-3.5cm)Left Atrium(2D)2.5 (1.6-4.0cm) IVSd1.0 (0.7-1.1cm)Aortic Root(2D)3.3 (2.0-3.7cm) LVDd5.6 (3.9-5.9cm)LVOT Diameter2.0 (1.8-2.4cm) PWd0.9 (0.7-1.1cm)LVDs3.5 (2.5-4.0cm) FS (%) 37.5 %SV104.1 ml LVEF(%)66.9 (>50%) Aortic Valve AoV Peak Dm.119.8cm/sAoV VTI25.2cm AO Peak GR.5.7mmHgLVOT Peak Dm.103.4cm/s AO Mean GR.4mmHgAVA (VMAX)2.81cm2 Mitral Valve MV E Ucadskcl45.6cm/sMV E Peak Gr.3mmHg MV DECEL [id number] A Cozrspmn83.8cm/s MV E Mean Gr.1mmHgE/A Ratio0.7 MV A [id number] Pulmonary Valve PV Peak Ccjhujxb30.2cm/s LEFT VENTRICLE The left ventricle is normal size. There is normal left ventricular wall thickness. The left ventricu lar systolic function is normal and the ejection fraction is within normal range. The Ejection Fracti on is 55-60%. There is normal LV segmental wall motion. Transmitral Doppler flow pattern is Grade I-a bnormal relaxation pattern. RIGHT VENTRICLE The right ventricle is normal size. There is normal right ventricular wall thickness. The right ventr icular systolic function is normal. ATRIA The left atrium size is normal. The right atrium size is normal. The interatrial septum is intact wit h no evidence for an atrial septal defect or patent foramen ovale as noted on 2-D or Doppler imaging. AORTIC VALVE The aortic valve is mildly The aortic valve is trileaflet. Doppler and Color Flow revealed trace aort ic regurgitation. There is no significant aortic valvular stenosis. MITRAL VALVE The mitral valve is normal in structure and function. There is no evidence of mitral valve prolapse. There is no mitral valve stenosis. Doppler and Color Flow revealed no mitral valve regurgitation note d. TRICUSPID VALVE Doppler and Color Flow revealed no tricuspid valve regurgitation noted. There is no pulmonary hyperte nsion. PULMONIC VALVE Doppler and Color Flow revealed no pulmonic valvular regurgitation. There is no pulmonic valvular adam nosis. GREAT VESSELS The aortic root is normal in size. The ascending aorta is normal in size. The pulmonary artery is nor mal. The IVC was not visualized. PERICARDIAL EFFUSION There is no evidence of significant pericardial effusion. Critical Notification Critical Value: No <Conclusion> The left ventricular systolic function is normal and the ejection fraction is within normal range. Th e Ejection Fraction is 55-60%. There is normal LV segmental wall motion. The right ventricular systolic function is normal. Doppler and Color Flow revealed no tricuspid valve regurgitation noted. There is no pulmonary hyperte nsion.
--- NOTE | 2016-07-24 13:45 | RAD ---
Left lower extremity venous ultrasound, 07/24/2016 : History: Left leg pain and swelling Duplex evaluation including grayscale, color flow and spectral Doppler analysis was performed. The femoral and popliteal veins show no filling defects to suggest DVT. The visualized calf veins are unremarkable. IMPRESSION: There is no sonographic evidence of deep vein thrombosis in the left lower extremity
[2016-07-24] MEDS: CYANOCOBALAMIN (VITAMIN B-12) 1,000 MCG TABLET. PO SCH (13:59)
[2016-07-24 15:20] VITALS: BP 115/70
[2016-07-24 19:00] VITALS: BP 151/83
[2016-07-24] MEDS: DIVALPROEX DELAYED RELEASE 500 MG TABLET.DR. PO SCH (21:18)
[2016-07-24] MEDS: ATORVASTATIN CALCIUM 40 MG TABLET. PO SCH (21:18)
[2016-07-24] MEDS: TRIHEXYPHENIDYL 2 MG TABLET. PO SCH (21:19)
[2016-07-24 23:00] VITALS: BP 133/73
[2016-07-25] MEDS: IV NORMAL SALINE 1000ML BAG 1,000 ML IV SCH (00:35)
[2016-07-25 03:00] VITALS: BP 158/83
[2016-07-25 06:28] LABS: CALCIUM 9.2 mg/dL (8.5-10.1); CREATININE 0.8 mg/dL (0.6-1.0); GFR 86.3; POTASSIUM 4.2 mmol/L (3.5-5.1)
[2016-07-25 07:00] VITALS: BP 154/75
[2016-07-25] MEDS: IPRATRPIUM/ALBUTEROL 0.5/2.5MG 3 ML NEBU. IH SCH ×3 (07:43→15:38)
[2016-07-25] MEDS: BUDESONIDE 0.5 MG/2 ML NEBU. NEB SCH (07:43)
--- NOTE | 2016-07-25 08:28 | RAD ---
Right lower extremity venous ultrasound, 07/25/2016 : History: Right lower extremity swelling Duplex evaluation including grayscale, color flow and spectral Doppler analysis was performed. The femoral and popliteal veins show no filling defects to suggest DVT. The visualized calf veins are unremarkable. IMPRESSION: There is no sonographic evidence of deep vein thrombosis in the right lower extremity
[2016-07-25] MEDS: POLYETHYLENE GLYCOL 3350 17 GM PACKET. PO SCH (08:41)
[2016-07-25] MEDS: ENOXAPARIN 40 MG/0.4 ML SYRINGE. SQ SCH (08:41)
[2016-07-25] MEDS: FOLIC ACID 1 MG TABLET. PO SCH (08:42)
[2016-07-25] MEDS: CYANOCOBALAMIN (VITAMIN B-12) 1,000 MCG TABLET. PO SCH (08:42)
[2016-07-25] MEDS: CHOLECALCIFEROL (VITAMIN D3) 1,000 UNIT TABLET PO SCH (08:42)
[2016-07-25] MEDS: DOCUSATE SODIUM 100 MG CAPSULE. PO SCH (08:42)
[2016-07-25] MEDS: risperiDONE 1 MG TABLET. PO SCH (08:42)
[2016-07-25] MEDS: levETIRAcetam 500 MG TABLET PO SCH (08:42)
[2016-07-25] MEDS: CARVEDILOL 12.5 MG TABLET. PO SCH ×2 (08:43→17:00)
[2016-07-25] MEDS: POTASSIUM CHLORIDE 20 MEQ TABLET.ER. PO SCH ×2 (08:44→17:00)
[2016-07-25] MEDS: DIVALPROEX DELAYED RELEASE 250 MG TABLET.DR. PO SCH (08:44)
[2016-07-25] MEDS: FLUTICASONE 50MCG/NASAL SPRAY 16GM BOTTLE. NS SCH (09:00)
[2016-07-25 11:00] VITALS: BP 100/55
[2016-07-25 13:40] LABS: % SAT IRON 21 % (15-34); IRON,SERUM 57 ug/dL (50-170)
[2016-07-25 13:43] LABS: VITAMIN-B12 1647 pg/mL (247-911)
[2016-07-25] MEDS: FUROSEMIDE 40 MG/4 ML VIAL. IVP SCH (13:54)
[2016-07-25 14:56] LABS: FOLATE > 24.00 ng/ml (3.2-20.0)
[2016-07-25 15:00] VITALS: BP 99/60
[2016-07-25] MEDS ORDERED: FURO80TA72 PO (16:59)
--- NOTE | 2016-07-25 17:03 | PDOC ---
PROGRESS NOTES Subjective Subjective doing well,ready to g o home Objective Objective Vital Signs Date Time Temp Pulse Resp B/P (MAP) Pulse Ox O2 Delivery O2 Flow Rate FiO2 07/25/16 15:39 Room Air 07/25/16 15:00 97.7 64 16 99/60 (73) 95 97.7 Intake and Output 07/25/16 07:00 Intake Total 2580 ml Output Total 1050 ml Balance 1530 ml Intake Oral 2580 ml Output Urine Total 1050 ml Physical Exam Heart: Regular rate, Normal S1, Normal S2, Other (2/6 systolic murmur to LLS border and EDVIN border) Extremities: No cyanosis, Other (2+ to RLE and 1+ to LLE; skin to bilateral LE are warm equally from feet to thigh) General: Alert, Oriented X3, Cooperative, No acute distress HEENT: Atraumatic, Mucous membr. moist/pink Lungs: Clear to auscultation, Normal air movement MUSCULOSKELETAL: Osteoarthritic changes both hands, Other (possible bilateral knee effusion) Neuro: Normal speech, Sensation intact Psych/Mental Status: Mental status NL, Mood NL Skin: No breakdown, No significant lesion COMMENT leg swelling down significantly Diagnosis Problem List Problems Medical Problems: (1) Pain and swelling of lower leg Status: Acute Assessment Assessment Problems Medical Problems: (1) Pain and swelling of lower leg Status: Acute FINAL IMPRESSION: 1. Edema, lower extremities, improved. 2. Morbid obesity. 3. Sleep apnea. 4. Heart failure, diastolic. 5. Hypertension. 6. Hyperlipidemia. 7. History of bipolar. PLAN:po lasix 80 mg bid pt/ot compression wraps. repeat venous doppler leg neg for dvt. At this time, admit to the hospital, dopller leg neg, Cardiology consult. Had a venous Doppler, CT Leg . will give iv Lasix and see how the swelling comes down. Further recommendations to follow. started on Lovenox bid dose, scaled down dose, repeat venous doppler today. anemia of ch diseases Problems: Plan Plan of Care Problems Medical Problems: (1) Pain and swelling of lower leg Status: Acute Comment Review of Relevant I have reviewed the following items melanie (where applicable) has been applied. Labs Laboratory Tests Test 07/25/16 05:45 07/25/16 12:30 Sodium Level 137 mmol/L (136-145) Potassium Level 4.2 mmol/L (3.5-5.1) Chloride Level 100 mmol/L (98-107) Carbon Dioxide Level 28 mmol/L (21-32) Anion Gap 9 (6-14) Blood Urea Nitrogen 17 mg/dL (7-20) Creatinine 0.8 mg/dL (0.6-1.0) Estimated GFR (Cockcroft-Gault) 86.3 Glucose Level 86 mg/dL (70-99) Calcium Level 9.2 mg/dL (8.5-10.1) Reticulocyte Count (auto) 1.8 % (0.5-2.5) Iron Level 57 ug/dL (50-170) Total Iron Binding Capacity 268 ug/dL (250-450) Iron Saturation 21 % (15-34) Ferritin 376 ng/mL (8-252) Vitamin B12 Level 1647 pg/mL (247-911) Serum Folate > 24.00 ng/ml (3.2-20.0) Vitals/I & O Vital Sign - Last 24 Hours 07/24/16 07/24/16 07/24/16 07/24/16 17:24 19:00 19:20 19:21 Temp 97.5 97.5 Pulse 63 68 Resp 18 B/P (MAP) 115/70 151/83 (105) Pulse Ox 97 O2 Delivery Room Air Room Air Room Air 07/24/16 07/24/16 07/24/16 07/25/16 20:00 21:18 23:00 03:00 Temp 97.5 96.4 97.5 96.4 Pulse 68 68 69 Resp 18 18 B/P (MAP) 151/83 133/73 (93) 158/83 (108) Pulse Ox 96 99 O2 Delivery Room Air Room Air Room Air 07/25/16 07/25/16 07/25/16 07/25/16 07:00 07:44 08:00 08:43 Temp 96.4 96.4 Pulse 61 61 Resp 18 B/P (MAP) 154/75 (101) 154/75 Pulse Ox 95 96 O2 Delivery Room Air Room Air Room Air 07/25/16 07/25/16 07/25/16 07/25/16 08:43 11:00 15:00 15:39 Temp 97.7 97.7 97.7 97.7 Pulse 61 64 64 Resp 16 16 B/P (MAP) 154/75 100/55 (70) 99/60 (73) Pulse Ox 94 95 O2 Delivery Room Air Room Air Room Air Intake and Output 07/24/16 07/24/16 07/25/16 15:00 23:00 07:00 Intake Total 500 ml 2080 ml Output Total 1050 ml Balance 500 ml 2080 ml -1050 ml JOSE WILLINGHAM MD July 25, 2016 17:03
--- NOTE | 2016-07-26 02:03 | CONS ---
DATE OF CONSULTATION: 07/25/2016 REQUESTING PHYSICIAN: Dr. Del Nino. REASON FOR CONSULTATION: Anemia. HISTORY OF PRESENT ILLNESS: The patient is a 70-year-old -[place] female who has multiple comorbidities including morbid obesity, hypertension, hyperlipidemia, diastolic heart failure, COPD, sleep apnea, seizures, depression, bipolar disorder, hypothyroidism and she was admitted to [facility] on 07/23/2016 with worsening pedal edema. She underwent venous Doppler and that was negative for DVT. She also had a CT scan of the legs that showed soft tissue edema. Cardiology was also consulted. During this admission, she was noted to have anemia and hence I was consulted for further evaluation. She denies nosebleeds or gum bleeding. No hematemesis, melena, hematochezia. No hemoptysis or hematuria. No loss of weight or loss of appetite. She denies fevers, chills or night sweats. PAST MEDICAL HISTORY: Hypertension, hyperlipidemia, sleep apnea as described above. SOCIAL HISTORY: No smoking or alcohol abuse. FAMILY HISTORY: Negative for any primary hematologic disorders. REVIEW OF SYSTEMS: A 12-point review of system was performed. Pertinent positives are mentioned in the history of present illness. Rest of the system review is negative. PHYSICAL EXAMINATION: GENERAL APPEARANCE: The patient is a 70-year-old -[place] female who appears obese and in no acute cardiorespiratory distress. VITAL SIGNS: Blood pressure 99/60, temperature 97.7, heart rate 64. HEENT: Atraumatic, normocephalic. Eyes: No icterus. NECK: Supple. CHEST: Bilaterally symmetrical. No crepitations or rhonchi heard. HEART: S1, S2 normal. ABDOMEN: Soft, nontender. CENTRAL NERVOUS SYSTEM: No focal deficits. LYMPHATICS: No lymphadenopathy. SKIN: No rashes. PSYCHOLOGIC: Mood and affect are appropriate. MUSCULOSKELETAL: She has pedal edema. LABORATORY DATA: From 07/24/2016, WBC 5.8, hemoglobin 8.8, MCV 82, platelet count 193, reticulocyte count 1.8. Iron is 57, TIBC 268, iron saturation 21 and ferritin 376, B12 of 1647, folic acid more than 24. TSH 3.984, creatinine 0.8. IMPRESSION AND PLAN: 1. Normochromic, normocytic anemia secondary to anemia of chronic disease. Hemoglobin was 9.6 on 07/22/2016 and 8.8 on 07/24/2016. Review of the old records indicates that she has chronic anemia and in 2013, it was 10.5 and in 2014, it was 10.4. Considering the chronicity of the anemia and overall stable hemoglobin, I suspect that this is due to anemia of chronic disease. She has multiple comorbid conditions. Since her WBC count and platelets are normal and MCV is normal, it is unlikely that she has a primary hematologic disorder. In addition, her iron studies, B12, reticulocyte count, There is no clinical evidence to suggest hemolysis. There is no evidence of bleeding. I have advised to continue follow up with Dr. Nino for monitoring CBC as outpatient. If her hemoglobin stabilizes, then no further workup would be needed. However, if her hemoglobin gets worse, then I would consider a bone marrow biopsy to rule out a primary bone marrow disorder. I discussed in detail with the patient and she understands and agrees with the plan. I discussed with Dr. Nino. 2. Diastolic heart failure. Appreciate Cardiology consultation and management. I discussed with Dr. Nino. GRAYSON MUÑIZ MD DR: COLLINS/shahram JOB#: [id number] / [id number] ALLISON
== END 2016-07-25 17:20 | disposition home or self-care (01) | DRG 292 ==
LOC: ER 17:06 → 5 NORTH 22:15
PROVIDERS: ADMIT Internal Medicine; ATTEND Internal Medicine
DX: I11.0 Hypertensive heart disease with heart failure (principal); Z68.42 Body mass index [BMI] 45.0-49.9, adult; E44.0 Moderate protein-calorie malnutrition; I50.33 Acute on chronic diastolic (congestive) heart failure; E66.01 Morbid (severe) obesity due to excess calories; D63.8 Anemia in other chronic diseases classified elsewhere; E03.9 Hypothyroidism, unspecified; E11.9 Type 2 diabetes mellitus without complications; E78.00 Pure hypercholesterolemia, unspecified; F20.9 Schizophrenia, unspecified; E78.5 Hyperlipidemia, unspecified; F31.9 Bipolar disorder, unspecified; M25.562 Pain in left knee; M25.561 Pain in right knee; G47.33 Obstructive sleep apnea (adult) (pediatric); G89.29 Other chronic pain; G40.909 Epilepsy, unspecified, not intractable, without status epilepticus; F41.9 Anxiety disorder, unspecified; J44.9 Chronic obstructive pulmonary disease, unspecified; M19.90 Unspecified osteoarthritis, unspecified site; Z99.3 Dependence on wheelchair; Z90.710 Acquired absence of both cervix and uterus; Z90.49 Acquired absence of other specified parts of digestive tract; Z99.81 Dependence on supplemental oxygen; Z88.8 Allergy status to other drugs, medicaments and biological substances; Z91.09 Other allergy status, other than to drugs and biological substances; Z82.49 Family history of ischemic heart disease and other diseases of the circulatory system
CPT/HCPCS: 36415; 71010; 73701; 80048; 80053; 80061; 82607; 82728; 82746; 83036; 83540; 83550; 83880; 84443; 85027; 85045; 85379; 85610; 93005; 93306; 93970; 93971; 94640; J1650; J1940; J7620; 97110; 97530; 99285-25

== ENCOUNTER → 2016-11-07 | Outpatient (CLI) | payer MEDICARE, OTHER ==
[~2016-11-07] MED LIST changes: +BREO ELLIPTA 11 EACH IH; +CYAN10005 PO; +DICL100G18 TOP; +DICL100G18 TP; -DICL100G7 TOP; -DICL100G7 TP; +DOCU-109 PO; -DOCU-27 PO; +FOLI1TAB16 PO; +FURO80TA72 PO; +TRIH2TAB3 PO; +VENTOLIN HFA18 GM INH
== END | disposition home or self-care (01) ==
LOC: PMGWOUND 09:07
PROVIDERS: ATTEND Emergency Medicine Undersea and Hyperbaric Medicine
DX: E11.622 Type 2 diabetes mellitus with other skin ulcer (principal); L98.411 Non-pressure chronic ulcer of buttock limited to breakdown of skin; L89.323 Pressure ulcer of left buttock, stage 3; F41.9 Anxiety disorder, unspecified; F31.9 Bipolar disorder, unspecified; J44.9 Chronic obstructive pulmonary disease, unspecified; E78.5 Hyperlipidemia, unspecified; I11.0 Hypertensive heart disease with heart failure; I50.9 Heart failure, unspecified; E03.9 Hypothyroidism, unspecified; E66.01 Morbid (severe) obesity due to excess calories; M19.90 Unspecified osteoarthritis, unspecified site; Z68.42 Body mass index [BMI] 45.0-49.9, adult; Z99.3 Dependence on wheelchair; Z90.49 Acquired absence of other specified parts of digestive tract; Z90.710 Acquired absence of both cervix and uterus
CPT/HCPCS: 97597

== ENCOUNTER → 2016-11-21 | Outpatient (CLI) | payer MEDICARE, OTHER | END | disposition home or self-care (01) | LOC: PMGWOUND 09:33 | PROVIDERS: ATTEND Emergency Medicine Undersea and Hyperbaric Medicine | DX: L89.323 Pressure ulcer of left buttock, stage 3 (principal); E11.622 Type 2 diabetes mellitus with other skin ulcer; L98.411 Non-pressure chronic ulcer of buttock limited to breakdown of skin; F41.9 Anxiety disorder, unspecified; F31.9 Bipolar disorder, unspecified; J44.9 Chronic obstructive pulmonary disease, unspecified; I11.0 Hypertensive heart disease with heart failure; I50.9 Heart failure, unspecified; E78.5 Hyperlipidemia, unspecified; E03.9 Hypothyroidism, unspecified; E66.01 Morbid (severe) obesity due to excess calories; M19.90 Unspecified osteoarthritis, unspecified site; Z68.42 Body mass index [BMI] 45.0-49.9, adult; Z90.49 Acquired absence of other specified parts of digestive tract; Z90.710 Acquired absence of both cervix and uterus; Z99.3 Dependence on wheelchair | CPT/HCPCS: 99214 ==

== ENCOUNTER → 2016-12-12 | Outpatient (CLI) | payer OTHER ==
--- NOTE | 2016-12-12 15:22 | RAD ---
DATE: 12/12/2016 EXAM: DIGITAL SCREEN BILAT W/CAD HISTORY: Screening COMPARISON: One year earlier This study was interpreted with the benefit of Computerized Aided Detection (CAD). FINDINGS: Breast Density: SCATTERED The breast parenchyma shows scattered fibroglandular densities. Breast parenchyma level B. There has not been a significant change in the appearance of the breasts compared to the previous exam. IMPRESSION: Benign findings BI-RADS CATEGORY: 2 BENIGN FINDING(S) RECOMMENDED FOLLOW-UP: 12M 12 MONTH FOLLOW-UP PQRS compliance statement: Patient information was entered into a reminder system with a target due date 12/12/2017 for the next mammogram. Mammography is a sensitive method for finding small breast cancers, but it does not detect them all and is not a substitute for careful clinical examination. A negative mammogram does not negate a clinically suspicious finding and should not result in delay in biopsying a clinically suspicious abnormality. "Our facility is accredited by the [employer] Mammography Program."
== END | disposition home or self-care (01) ==
LOC: MAMMO 09:11
PROVIDERS: ATTEND Internal Medicine
DX: Z12.31 Encounter for screening mammogram for malignant neoplasm of breast (principal)
CPT/HCPCS: G0202; 77067

== ENCOUNTER → 2017-08-07 | Outpatient (CLI) | payer OTHER | END | disposition home or self-care (01) | LOC: PMGWOUND 08:45 | DX: L89.323 Pressure ulcer of left buttock, stage 3 (principal); F31.9 Bipolar disorder, unspecified; F41.9 Anxiety disorder, unspecified; J44.9 Chronic obstructive pulmonary disease, unspecified; E66.01 Morbid (severe) obesity due to excess calories; I11.0 Hypertensive heart disease with heart failure; I50.9 Heart failure, unspecified; E03.9 Hypothyroidism, unspecified; M19.90 Unspecified osteoarthritis, unspecified site; E78.5 Hyperlipidemia, unspecified; F32.9 Major depressive disorder, single episode, unspecified; F20.9 Schizophrenia, unspecified; I25.2 Old myocardial infarction; Z90.710 Acquired absence of both cervix and uterus; Z90.49 Acquired absence of other specified parts of digestive tract; Z68.42 Body mass index [BMI] 45.0-49.9, adult | CPT/HCPCS: 99214 ==

== ENCOUNTER → 2017-08-29 | Outpatient (CLI) | payer OTHER | END | disposition home or self-care (01) | LOC: PMGWOUND 08:37 | DX: L89.323 Pressure ulcer of left buttock, stage 3 (principal); F41.9 Anxiety disorder, unspecified; F31.9 Bipolar disorder, unspecified; J44.9 Chronic obstructive pulmonary disease, unspecified; I11.0 Hypertensive heart disease with heart failure; I50.9 Heart failure, unspecified; E78.5 Hyperlipidemia, unspecified; E03.9 Hypothyroidism, unspecified; F32.9 Major depressive disorder, single episode, unspecified; E66.01 Morbid (severe) obesity due to excess calories; I25.2 Old myocardial infarction; F20.9 Schizophrenia, unspecified; M19.90 Unspecified osteoarthritis, unspecified site; G47.30 Sleep apnea, unspecified; Z90.710 Acquired absence of both cervix and uterus; Z90.49 Acquired absence of other specified parts of digestive tract; Z68.42 Body mass index [BMI] 45.0-49.9, adult | CPT/HCPCS: 99214 ==

== ENCOUNTER → 2017-12-16 | Outpatient (CLI) | payer OTHER ==
[~2017-12-16] MED LIST changes: -AMLO10TA2 PO; +AMLO10TA6 PO; -BENZ0.5T PO; +BENZ0.5T32 PO; +DIVA-53 PO; -DIVA500T9 PO
--- NOTE | 2017-12-16 13:51 | RAD ---
DATE: December 16, 2017 EXAM: DIGITAL SCREEN BILAT W/CAD HISTORY: Screening study. COMPARISON: 2015 and 2017 This study was interpreted with the benefit of Computerized Aided Detection (CAD). FINDINGS: Breast Density: SCATTERED The breast parenchyma shows scattered fibroglandular densities. Breast parenchyma level B.. There are no dominant suspicious masses, suspicious microcalcifications or evidence of architectural distortion. IMPRESSION: No mammographic indicators for malignancy. BI-RADS CATEGORY: 1 NEGATIVE RECOMMENDED FOLLOW-UP: 12M 12 MONTH FOLLOW-UP PQRS compliance statement: Patient information was entered into a reminder system with a target due date December 17, 2018 for the next mammogram. Mammography is a sensitive method for finding small breast cancers, but it does not detect them all and is not a substitute for careful clinical examination. A negative mammogram does not negate a clinically suspicious finding and should not result in delay in biopsying a clinically suspicious abnormality. "Our facility is accredited by the [employer] Mammography Program." The patient's breast density may affect the ability of mammography to detect breast cancer. There are 4 categories of breast density, A, B, C and D. Breast density A means that most of the breast tissue is replaced with adipose tissue and therefore is not dense. Breast density B means that the breast tissue is mildly dense and scattered. Breast density C means that the breast tissue is heterogeneously dense. Breast density D means that the breast tissue is very dense. Breast densities especially C and D may decrease the sensitivity of mammography to detect breast cancer. Therefore, the patient may benefit from 3-D breast mammography (3D breast tomography) as a part of their screening mammogram. Insurance may or may not pay for this additional imaging. The patient's breast density based on today's mammogram is category B.
== END | disposition home or self-care (01) ==
LOC: MAMMO 10:22
PROVIDERS: ATTEND Internal Medicine
DX: Z12.31 Encounter for screening mammogram for malignant neoplasm of breast (principal)
CPT/HCPCS: 77067

== ENCOUNTER → 2018-12-17 | Outpatient (CLI) | payer OTHER ==
[~2018-12-17] MED LIST changes: -AMLO10TA6 PO; +AMLO10TA8 PO; +CARV12.511 PO; -CARV12.52 PO; +CYAN-25 PO; -CYAN10005 PO
--- NOTE | 2018-12-17 14:27 | RAD ---
DATE: 12/17/2018 EXAM: DIGITAL SCREEN BILAT W/CAD HISTORY: Routine screening COMPARISON: 12/06/2015, 12/12/2016, 12/16/2017 mammographic exams This study was interpreted with the benefit of Computerized Aided Detection (CAD). Breast Density: HETERO The breast parenchyma is heterogenously dense, which could reduce sensitivity of mammography. Breast parenchyma level C. FINDINGS: Benign calcifications bilaterally are present. No masses or distortion. There is suggestion of increase of a calcification cluster at the far posterior left cc image in the retroareolar aspect approximately 8.3 cm from the nipple. This was not included on multiple prior exams due to its far posterior location. IMPRESSION: Indeterminate calcifications at the far posterior left CC image. BI-RADS CATEGORY: 0 INCOMPLETE: NEEDS ADDITIONAL IMAGING EVALUATION AND/OR PRIOR MAMMOGRAMS FOR COMPARISON. RECOMMENDED FOLLOW-UP: ADD ADDITIONAL IMAGING. Spot magnification imaging is recommended in the CC projection. Additional spot magnification images may be needed. Ultrasound may be needed. PQRS compliance statement: Patient information was entered into a reminder system with a target due date for the next mammogram. Mammography is a sensitive method for finding small breast cancers, but it does not detect them all and is not a substitute for careful clinical examination. A negative mammogram does not negate a clinically suspicious finding and should not result in delay in biopsying a clinically suspicious abnormality. "Our facility is accredited by the [employer] Mammography Program."
== END | disposition home or self-care (01) ==
LOC: MAMMO 11:10
PROVIDERS: ATTEND Internal Medicine
DX: Z12.31 Encounter for screening mammogram for malignant neoplasm of breast (principal); N64.89 Other specified disorders of breast
CPT/HCPCS: 77067

== ENCOUNTER → 2018-12-28 | Outpatient (CLI) | payer OTHER ==
--- NOTE | 2018-12-28 15:54 | RAD ---
Reason for Exam: ABNORMAL MAMMOGRAM CALLBACK EXAM: DIGITAL DIAGNOSTIC LT. HISTORY: Diagnostic left breast mammogram with spot compression views.. COMPARISON: November 17, 2018.. This study was interpreted with the benefit of Computerized Aided Detection (CAD). FINDINGS: Breast Density: Heterogeneously dense, which could reduce sensitivity of mammogram. Breast parenchymal level C. Spot compression views were unable to be obtained posteriorly enough due to patient's immobility status. ML and repeat CC views demonstrated the cluster of microcalcifications within the left breast posterior depth retroareolar. ML view obtained more posteriorly in demonstrates the calcifications retroareolar. Impression: Cluster microcalcifications left breast retroareolar far posterior depth, unchanged. BI-RADS CATEGORY: BI-RADS Category 3: Probably benign finding(s). RECOMMENDED FOLLOW-UP: Short term follow up with a diagnostic left breast mammogram in 6 month is recommended. PQRS compliance statement: Patient information was entered into a reminder system. Mammography is a sensitive method for finding small breast cancers, but it does not detect them all and is not a substitute for careful clinical examination. A negative mammogram does not negate a clinically suspicious finding and should not result in delay in biopsying a clinically suspicious abnormality. "Our facility is accredited by the [employer] Mammography Program." Dictated by: Dictated Date/Time: Signed by: ROSSI BAIRD Date/Time: 12/28/2018 1:04 PM ALLISON
== END | disposition home or self-care (01) ==
LOC: MAMMO 09:58
PROVIDERS: ATTEND Internal Medicine
DX: R92.0 Mammographic microcalcification found on diagnostic imaging of breast (principal)
CPT/HCPCS: 77065

== ENCOUNTER → 2019-05-20 | Outpatient (CLI) | payer OTHER ==
--- NOTE | 2019-05-20 16:49 | RAD ---
Examination: Left digital diagnostic mammogram. INDICATION: 73-year-old woman presents for short-term follow-up left breast calcifications. Technologist reports the patient is wheelchair-bound and of limited mobility. COMPARISON: Left diagnostic mammogram of December 28, 2018, screening mammogram of December 17, 2018, December 16, 2017, December 12, 2016 and December 06, 2015. TECHNIQUE: CC and MLO views of the left breast were obtained with 2-D technique and reviewed with computer-aided detection. FINDINGS: Scattered fibroglandular densities. Multiple round and punctate calcifications scattered throughout the left breast. Some calcifications are coarse and popcorn like in morphology, consistent with benign dystrophic fat necrosis. The cluster of calcifications recalled from screening in the far posterior left breast is redemonstrated and appears to represent a coarse cluster of calcifications that likely represent a hyalinizing fibroadenoma. IMPRESSION: Probably benign cluster of calcifications in the far posterior central left breast, best seen on cc view. Recommend six-month follow-up left diagnostic mammogram. BI-RADS Category 3 Probably benign findings Six-month left mammogram recommended. Patient entered into a reminder system with target due date for next mammogram. BI-RADS 3 -- probably benign, 6-month follow-up
== END | disposition home or self-care (01) ==
LOC: MAMMO 10:25
PROVIDERS: ATTEND Internal Medicine
DX: R92.1 Mammographic calcification found on diagnostic imaging of breast (principal)
CPT/HCPCS: 77065

== ENCOUNTER 2020-11-22 11:00 | Inpatient (IN) | payer OTHER ==
[~2020-11-22] VITALS: Ht 162.6 cm; Wt 90.9 kg
[~2020-11-22 11:00] MED LIST changes: +ALBU2.5V8 IH; +AMLO-187 PO; -AMLO10TA8 PO; +ASPI-886 PO; -DICL100G18 TOP; -DICL100G18 TP; +DICL100G54 TOP; +DICL100G54 TP; +DICL150D9 TP; +ENOX40DI3 SQ; +LANS30TA6 PO; +LEVE250T30 PO; +LEVO500T8 PO; -LISI-334 PO; +LISI20TA18 PO; +POTA-121 PO; -POTA20TA4 PO; +PRED-220 PO; +VALP250S4 PO
[2020-11-22] MEDS ORDERED: IV NORMAL SALINE 1000ML BAG 1,000 ML IV ONE ×3 (11:15→15:30)
[2020-11-22] MEDS ORDERED: SUCCINYLCHOLINE 200 MG/10 ML VIAL. ONE (11:17)
[2020-11-22] MEDS ORDERED: ETOMIDATE 20 MG/10 ML VIAL. IV ONE (11:17)
--- NOTE | 2020-11-22 11:41 | PHYS DOC ---
Past Medical History Past Medical History: Arthritis, CHF, Diabetes-Type II, High Cholesterol, Hypertension, Seizure, Schizophrenia Additional Past Medical Histor: obesity Past Surgical History: Other Additional Past Surgical Histo: unknown Smoking Status: Never Smoker Alcohol Use: None Drug Use: None General Adult EDM: Chief Complaint: SEIZURE HPI: HPI: 75-year-old female presents to the ED with her sister, concern for multiple episodes of seizures earlier this morning. Shortly after ED arrival patient was actively seizing, unable to stop with IV Ativan. Review of Systems: Review of Systems: Review of systems unobtainable due to medical condition Heart Score: C/O Chest Pain: N/A Risk Factors: Risk Factors: DM, Current or recent (<one month) smoker, HTN, HLP, family history of CAD, obesity. Risk Scores: Score 0 - 3: 2.5% MACE over next 6 weeks - Discharge Home Score 4 - 6: 20.3% MACE over next 6 weeks - Admit for Clinical Observation Score 7 - 10: 72.7% MACE over next 6 weeks - Early Invasive Strategies Current Medications: Current Medications Medications (Trade) Dose Ordered Sig/Johnny Start Time Stop Time Status Last Admin Dose Admin Etomidate (Amidate) 20 mg STK-MED ONCE 11/22/20 11:17 11/22/20 11:17 DC Levetiracetam 1000 mg/Dextrose 110 ml @ 440 mls/hr 1X ONCE 11/22/20 11:45 11/22/20 11:59 Lorazepam (Ativan Inj) 2 mg STK-MED ONCE 11/22/20 11:12 11/22/20 11:12 DC Sodium Chloride 1,000 ml @ 1,000 mls/hr 1X ONCE 11/22/20 11:30 11/22/20 12:29 Succinylcholine Chloride (Anectine) 200 mg STK-MED ONCE 11/22/20 11:17 11/22/20 11:18 DC Allergies: Allergies: Allergies Coded Allergies Type Severity Reaction Last Updated Verified lisinopril Allergy Severe Swelling/angioedema 10/10/20 Yes NSAIDS (Non-Steroidal Anti-Inflamma Allergy Intermediate 07/18/13 Yes ibuprofen Allergy Intermediate 07/18/13 Yes isopropyl alcohol Allergy Intermediate 10/12/20 Yes Physical Exam: PE: Constitutional: Afebrile, postictal on arrival-nonverbal HENT: Normocephalic, atraumatic, moist mucous membranes, no teeth, no oral bleeding Eyes: PERRLA, EOMI, conjunctiva normal, no discharge. Neck: Normal range of motion, supple, Cardiovascular: S1/2 present, bradycardic Lungs & Thorax: Bilateral breath sounds upon arrival, during seizure became apneic requiring NRB and oral airway Abdomen: soft, no distention, obese Skin: Warm, dry, Extremities: No deformity, no cyanosis, Neurologic: Mild tonic-clonic seizure activity within minutes of arrival, cannot assess mental status Psychologic: Calm/no agitation : in diaper, Current Patient Data: Vital Signs: Vital Signs Date Time Temp Pulse Resp B/P (MAP) Pulse Ox O2 Delivery O2 Flow Rate FiO2 11/22/20 11:04 97.5 54 12 83/60 (68) 92 Nasal Cannula 97.5 EKG: EKG: Sinus pericardia 52 bpm, right axis right axis deviation, QTC 484, T wave inversion aVL, no ST elevation or ST depression Radiology/Procedures: Radiology/Procedures: IMAGING REPORT Signed PATIENT: ELSI GARCIA ACCOUNT: [id number] : 1945 LOCATION: ER AGE: 75 SEX: F EXAM STATUS: REG ER ORD. PHYSICIAN: CHASTITY JURADO APRN REASON: AMS, seizures/ ER to intubate first will call PROCEDURE: PORTABLE CHEST 1V XR CHEST 1V History: Reason: AMS, seizures/ ER to intubate first will call / Spl. Instructions: / History: Comparison: October 17, 2020 Findings: Status post intubation with endotracheal tube 4 cm above the cheo. Enteric tube with tip beyond the image below the diaphragm. Side-port within the distal esophagus. Small bilateral pleural effusions, right greater than left. Interstitial thickening with ill-defined opacities, right greater than left. Calcified pulmonary nodule within the left midlung, unchanged likely related to prior granulomatous disease. No pneumothorax. Impression: 1. Status post intubation. 2. Enteric tube with side-port in the distal esophagus. Consider advancement. 3. Diffuse septal thickening with ill-defined opacities, right greater than left. Findings may represent pulmonary edema or infection. 4. Small bilateral pleural effusions, right greater than left. Electronically signed by: Lebron España DO (11/22/2020 11:58 AM) [id number] DICTATED and SIGNED BY: LEBRON ESPAÑA DO DATE: 11/22/20 [id number] Indication: Respiratory failure Consent: Unable to give consent due to emergent nature. Medications Used: see nursing note Procedure: The patient was placed in the appropriate position. Intubation was performed regular endoscopy, 7 5 ET tube, secured with RTIs. Initial confirmation of placement included adequate colorimetry, bilateral breath sounds, tube fogging, adequate chest rise, adequate pulse oximetry reading. A c hest x-ray to verify correct placement of the tube showed appropriate tube position. The patient tolerated the procedure well. Complications: none. IMAGING REPORT Signed PATIENT: ELSI GARCIA ACCOUNT: [id number] : 1945 LOCATION: [address] [place] [address] AGE: 75 SEX: F EXAM STATUS: ADM IN ORD. PHYSICIAN: CHASTITY JURADO APRN REASON: AMS, seizures PROCEDURE: CT HEAD WO CONTRAST EXAMINATION: CT head without IV contrast INDICATION:75 years, Female, altered mental status, seizures. COMPARISON: MRI brain from 10/15/[address] head from 10/09/2020 TECHNIQUE: Spiral acquisition of contiguous images from the skull base to the vertex were obtained. Sagittal and coronal 2D reformatted series were provided by the technologist. Soft tissue and bone window algorithms were reviewed. Exposure: One or more of the following individualized dose reduction techniques were utilized for this examination: 1. Automated exposure control 2. Adjustment of the mA and/or kV according to patient size 3. Use of iterative reconstruction technique. FINDINGS: Neither mass, midline shift, intracranial hemorrhage, acute/subacute ischemic changes, nor extraaxial fluid collections are seen. Similar mild parenchymal volume loss. Supratentorial periventricular white matter hypodensities, indeterminate but most likely representing chronic microangiopathic disease. The paranasal sinuses, mastoid air cells, and middle ears are clear. Mucus/edil ris within the visualized nasopharynx. The orbital contents appear within normal limits. Similar postsurgical changes of the left lens IMPRESSION: 1. No evidence of acute intracranial abnormality. 2. Supratentorial periventricular white matter hypodensities, indeterminate but most likely representing chronic microangiopathic disease. Electronically signed by: Bernadette Bernal DO (11/22/2020 12:24 PM) [id number] DICTATED and SIGNED BY: BERNADETTE BERNAL DO DATE: 11/22/20 [id number] 0 Course & Med Decision Making: Course & Med Decision Making Pertinent Labs and Imaging studies reviewed. (See chart for details) Concern for status epilepticus in the setting of bradycardia and apnea that requ ired intubation for airway protection. Pt also with bradycardia but no hypotension, unclear etiology. Sister does not have medication list with her. I d/w Dr. Willingham who agrees with keppra loading dose-requests levels for Depakote and Keppra neurology consultation. Will admit to medicine for further medical management. Patient was stable at time of admission and patient's daughter agrees with this plan. I have spoken with the patient and/or caregivers. I have explained the patient's condition, diagnosis and treatment plan based on the information available to me at this time. I have answered the patient's and/or caregivers questions and answered any concerns. The patient and/or caregivers have as good an understanding of the patient's diagnosis, condition and treatment plan as can be expected at this point. The patient has been stabilized within the capability of the emergency department. The patient will be transported for further care and management or will be moved to an observation or inpatient se rvice. I have communicated with the staff or medical practitioner taking over this patient's care. Critical Care: Authorized and Performed by: Hong Feliz DO Total critical care time: approximately 45 minutes Due to a high probability of clinically significant, life threatening deterioration, the patient required my highest level of preparedness to intervene emergently and I personally spent this critical care time directly and personally managing the patient. This critical care time included obtaining a history; examining the patient; pulse oximetry; ventilator management if necessary; ordering and review of studies; arranging urgent treatment with development of a management plan; evaluation of patient's response to treatment; frequent reassessment; discussion with patient/family; and, discussions with other providers. This critical care time was performed to assess and manage the high probability of imminent, life-threatening deterioration that could result in multi-organ failure. It was exclusive of separately billable procedures and treating other patients and teaching time. Please see MDM section and the rest of the note for further information on patient assessment and treatment. Dragon Disclaimer: Dragon Disclaimer: This electronic medical record was generated, in whole or in part, using a voice recognition dictation system. Departure Departure Impression: Primary Impression: Status epilepticus Additional Impressions: Sinus bradycardia Acute respiratory failure with hypoxia Disposition: ADMITTED INPATIENT Admitting Physician: Del Willingham Condition: CRITICAL Referrals: [facility]INGHAM [facility] (PCP[facility] Nov 22, 2020 11:41
[2020-11-22] MEDS ORDERED: levETIRAcetam 1,000 MG in IV DEXTROSE 5% 100ML 100 ML IV ONE (11:45)
[2020-11-22 11:48] LABS: BASO % 0 % (0-3); EOS % 1 % (0-3); HEMATOCRIT 25.6 % (36.0-47.0); HEMOGLOBIN 8.4 g/dL (12.0-15.5); LYMPH # 0.7 x10^3/uL (1.0-4.8); LYMPH % 19 % (24-48); MEAN CORPUSCULAR HEMOGLOBIN 30 pg (25-35); MEAN CORPUSCULAR HGB CONC 33 g/dL (31-37); MEAN CORPUSCULAR VOLUME 90 fL (79-100); MONO # 0.3 x10^3/uL (0.0-1.1); MONO % 8 % (0-9); NEUT # 2.8 x10^3/uL (1.8-7.7); NEUT % 73 % (31-73); RED BLOOD COUNT 2.85 x10^6/uL (3.50-5.40); WHITE BLOOD COUNT 3.8 x10^3/uL (4.0-11.0)
--- NOTE | 2020-11-22 12:00 | RAD ---
XR CHEST 1V History: Reason: AMS, seizures/ ER to intubate first will call / Spl. Instructions: / History: Comparison: October 17, 2020 Findings: Status post intubation with endotracheal tube 4 cm above the cheo. Enteric tube with tip beyond the image below the diaphragm. Side-port within the distal esophagus. Small bilateral pleural effusions, right greater than left. Interstitial thickening with ill-defined opacities, right greater than left . Calcified pulmonary nodule within the left midlung, unchanged likely related to prior granulomatous disease. No pneumothorax. Impression: 1. Status post intubation. 2. Enteric tube with side-port in the distal esophagus. Consider advancement. 3. Diffuse septal thickening with ill-defined opacities, right greater than left. Findings may repre sent pulmonary edema or infection. 4. Small bilateral pleural effusions, right greater than left. Electronically signed by: Lebron España DO (11/22/2020 11:58 AM) [id number]
[2020-11-22 12:02] LABS: CALCIUM 8.3 mg/dL (8.5-10.1); CREATININE 0.6 mg/dL (0.6-1.0); GFR 118.6; POTASSIUM 5.3 mmol/L (3.5-5.1)
[2020-11-22 12:09] LABS: CREATINE KINASE 129 U/L (26-192)
[2020-11-22 12:10] LABS: VAL ACID 46 mcg/mL (50-100)
[2020-11-22 12:14] LABS: PLATELET COUNT 55 x10^3/uL (140-400)
[2020-11-22 12:15] LABS: ALBUMIN 2.1 g/dL (3.4-5.0); ALBUMIN/GLOBULIN RATIO 0.6 (1.0-1.7); MAGNESIUM 1.7 mg/dL (1.8-2.4); TOTAL BILIRUBIN 0.3 mg/dL (0.2-1.0); TOTAL PROTEIN 5.6 g/dL (6.4-8.2)
[2020-11-22] MEDS: MIDAZOLAM 100mg/100ml NS BAG 100 ML IV PRN (12:22)
--- NOTE | 2020-11-22 12:26 | RAD ---
EXAMINATION: CT head without IV contrast INDICATION:75 years, Female, altered mental status, seizures. COMPARISON: MRI brain from 10/15/[address] head from 10/09/2020 TECHNIQUE: Spiral acquisition of contiguous images from the skull base to the vertex were obtained. S agittal and coronal 2D reformatted series were provided by the technologist. Soft tissue and bone win mario algorithms were reviewed. Exposure: One or more of the following individualized dose reduction techniques were utilized for thi s examination: 1. Automated exposure control 2. Adjustment of the mA and/or kV according to patient size 3. Use of iterative reconstruction technique. FINDINGS: Neither mass, midline shift, intracranial hemorrhage, acute/subacute ischemic changes, nor extraaxial fluid collections are seen. Similar mild parenchymal volume loss. Supratentorial periventricular whi te matter hypodensities, indeterminate but most likely representing chronic microangiopathic disease. The paranasal sinuses, mastoid air cells, and middle ears are clear. Mucus/debris within the visualiz ed nasopharynx. The orbital contents appear within normal limits. Similar postsurgical changes of the left lens IMPRESSION: 1. No evidence of acute intracranial abnormality. 2. Supratentorial periventricular white matter hypodensities, indeterminate but most likely represen ting chronic microangiopathic disease. Electronically signed by: Kuldeep Bernal DO (11/22/2020 12:24 PM) [id number]
[2020-11-22 12:37] LABS: BILIRUBIN,URINE NEGATIVE (NEG); CLARITY,URINE CLEAR; COLOR,URINE YELLOW; NITRITE,URINE NEGATIVE (NEG); PH,URINE 6.5 (<5.0-8.0); PROTEIN,URINE NEGATIVE (NEG-TRACE); UROBILINOGEN,URINE 0.2 mg/dL (0.2 mg/dL)
[2020-11-22 12:42] LABS: BARBITURATES NEG (NEG); BENZODIAZEPINES NEG (NEG); CANNABINOIDS NEG (NEG); COCAINE NEG (NEG); METHADONE NEG (NEG); OPIATES NEG (NEG); PHENCYCLIDINE NEG (NEG)
[2020-11-22 12:45] LABS: AMPHETAMINE/METHAMPHETAMINE NEG (NEG)
[2020-11-22 13:08] LABS: BACTERIA,URINE 0 /HPF (0-FEW); RBC,URINE OCC /HPF (0-2); WBC,URINE 0 /HPF (0-4)
--- NOTE | 2020-11-22 14:40 | EKG ---
[facility] [address] [place] [address] Test Date: 2020-11-22 Test Time: 11:34:16 Pat Name: ELSI GARCIA Department: Room: Gender: F Form Stripper: : 1945 Requested By: CHASTITY JURADO Order Number: [id number] Reading MD: Measurements Intervals [place] Rate: 52 P: 90 DC: 196 QRS: 137 QRSD: 84 T: 151 QT: 518 QTc: 484 Interpretive Statements SINUS RHYTHM ABNORMAL RIGHT AXIS DEVIATION LOW LIMB LEAD VOLTAGE QRS(T) CONTOUR ABNORMALITY CONSISTENT WITH HIGH LATERAL INFARCT AGE UNDETERMINED ABNORMAL ECG RI6.02 No previous ECG available for comparison
[2020-11-22] MEDS ORDERED: VALPROIC ACID (AS SODIUM SALT) 750 MG in IV DEXTROSE 5% 50 ML IV STA (15:24)
--- NOTE | 2020-11-22 15:24 | PDOC2 ---
NEUROLOGY CONSULT Date of Service DOS: DATE: 11/22/20 TIME: 15:14 Reason for Consult Reason for Consult: status epilepticus Referring Physician Referring Physician: Dr. Nino Source Source: Chart review History of Present Illness History of Present Illness The patient is a 75-year-old right-handed female who presented this morning with several seizures and was intubated in the emergency room. I just saw her last month for metabolic encephalopathy due to hyponatremia, sepsis, bradycardia, hypotension, hypothermia, respiratory failure, thrombocytopenia, elevated transaminases, and Covid in July 2020. She has longstanding epilepsy currently on Depakote 500 mg twice daily and levetiracetam 1000 mg twice daily. At the last admission her levetiracetam level was elevated, but dose was already reduced early in the hospital stay. She also has a long history of psychiatric issues, schizophrenia, and has some tardive dyskinesia.we did a brain MRI last time, which was negative.. At baseline she lives at home with caregivers and family and is wheelchair-bound. She has a history of stroke at some point with left hemiparesis Past Medical History Cardiovascular: CAD, CHF, HTN, Hyperlipidemia Pulmonary: COPD, Pneumonia, Other (Sleep apnea) CENTRAL NERVOUS SYSTEM: CVA, Dementia, Seizure, Other (Tardive dyskinesia) Heme/Onc: Anemia NOS Psych: Schizophrenia Musculoskeletal: Osteoarthritis Endocrine: Diabetes, Hypothyroidism, Osteoporosis Past Surgical History Past Surgical History: Hysterectomy, Other (Bone marrow biopsy) Family History Family History: Hypertension, Other (Depression) Social History Social History Single, unemployed, no alcohol or tobacco Current Medications Current Medications Current Medications Lorazepam (Ativan Inj) 2 mg 1X ONCE IVP Last administered on 11/22/20at 12:23; Start 11/22/20 at 11:15; Stop 11/22/20 at 11:16; Status DC Sodium Chloride 1,000 ml @ 1,000 mls/hr 1X ONCE IV Last administered on 11/22/20at 11:15; Start 11/22/20 at 11:15; Stop 11/22/20 at 12:14; Status DC Lorazepam (Ativan Inj) 2 mg STK-MED ONCE .ROUTE ; Start 11/22/20 at 11:12; Stop 11/22/20 at 11:12; Status DC Etomidate (Amidate) 20 mg STK-MED ONCE IV ; Start 11/22/20 at 11:17; Stop 11/22/20 at 11:17; Status DC Succinylcholine Chloride (Anectine) 200 mg STK-MED ONCE .ROUTE ; Start 11/22/20 at 11:17; Stop 11/22/20 at 11:18; Status DC Sodium Chloride 1,000 ml @ 1,000 mls/hr 1X ONCE IV Last administered on 11/22/20at 11:30; Start 11/22/20 at 11:30; Stop 11/22/20 at 12:29; Status DC Levetiracetam 1000 mg/Dextrose 110 ml @ 440 mls/hr 1X ONCE IV Last administered on 11/22/20at 11:45; Start 11/22/20 at 11:45; Stop 11/22/20 at 11:59; Status DC Midazolam HCl 100 ml @ 1 mls/hr CONT PRN IV SEE I/O RECORD Last administered on 11/22/20at 12:22; Start 11/22/20 at 12:00 Active Scripts Active Prednisone (Prednisone) 10 Mg Tablet 5 Mg PO DAILY 5 Days Prevacid (Lansoprazole) 30 Mg Tab.rap.dr 30 Mg PO DAILYAC MDD 30 30 Days Valproic Acid (Valproic Acid (As Sodium Salt)) 250 Mg/5 Ml Solution 500 Mg PO BID 30 Days Keppra (Levetiracetam) 500 Mg Tablet 1,000 Mg PO BID 30 Days Enoxaparin Sodium 40 Mg/0.4 Ml Disp.syrin 40 Mg SQ Q24H 14 Days Levofloxacin 500 Mg Tablet 500 Mg PO DAILY06 5 Days Reported Proair Hfa (Albuterol Sulfate) 8.5 Gm Hfa.aer.ad 2 Puff IH PRN Q4HRS PRN 21 Days Keppra (Levetiracetam) 250 Mg Tablet 1 Tab PO BID 30 Days Furosemide 40 Mg Tablet 1 Tab PO DAILY Diclofenac Sodium 150 Ml Drops 1 Christopher TP QID 30 Days Aspirin Ec (Aspirin) 81 Mg Tablet.dr 1 Tab PO DAILY Breo Ellipta 100-25 Mcg Inh (Fluticasone/Vilanterol) 1 Each Aer.pow.ba 1 Puff IH DAILY Folic Acid 1 Mg Tablet 400 Mcg PO BID Vitamin B-12 (Cyanocobalamin (Vitamin B-12)) 1,000 Mcg Tablet 500 Mcg PO BID Trihexyphenidyl Hcl 2 Mg Tablet 2 Mg PO HS Divalproex Sodium 500 Mg Tablet.dr 250 Mg PO DAILY Lipitor (Atorvastatin Calcium) 80 Mg Tablet 80 Mg PO HS Duoneb 0.5 Mg-3 Mg/3 Ml Soln (Ipratropium/Albuterol Sulfate) 3 Ml Ampul.neb 3 Ml IH TID Miralax (Polyethylene Glycol 3350) 17 Gm Powd.pack 17 Gm PO DAILY Invega (Paliperidone) 6 Mg Tab.er.24 6 Mg PO HS Carvedilol (Carvedilol) 12.5 Mg Tablet 12.5 Mg PO BID Hydralazine Hcl 50 Mg Tablet 50 Mg PO BID Clonidine Tts-3 (Clonidine) 1 Each Patch.tdwk 1 Each TD WEEKLY Klor-Con M20 (Potassium Chloride) 20 Meq Tab.er.prt 20 Meq PO BID Divalproex Sodium 500 Mg Tablet.dr 500 Mg PO HS Amlodipine Besylate 10 Mg Tablet 10 Mg PO DAILY Vitamin D3 1,000 Unit Tablet (Ca Cmb No.1/Vit D3/B-6/Fa/B12) 1 Each Tablet 1 Each PO DAILY Flonase (Fluticasone Propionate) 16 Gm [place].susp 1 Spr NS BID Allergies Allergies: Coded Allergies: lisinopril (Verified Allergy, Severe, Swelling/angioedema, 11/22/20) NSAIDS (Non-Steroidal Anti-Inflamma (Verified Allergy, Intermediate, 11/22/20) ibuprofen (Verified Allergy, Intermediate, 11/22/20) isopropyl alcohol (Verified Allergy, Intermediate, 11/22/20) ROS Review of System Negative for fever, chills, weight loss, shortness of breath, chest pain, indigestion, hematochezia, melena, and dysuria. Full 14-point review of systems is negative. Physical Exam Physical Examination General: Well-developed, well-nourished black female in no acute distress HEENT: Normocephalic andatraumatic. emporal arteriespulsatile and nontender. Neck: Supple without bruit, no meningismus Musculoskeletal: Stability:see neurologic. Gait exam:see neurologic. Tone:see neurologic.Strength:see neurologic. Neurological: Mental Status:orientation, memory, attention span/concentration, language, fund of knowledge: Eyes open, intubated, does not respond to visual threat or verbal stimulation. Cranial Nerves:Pupils equal and reactive to light, extraocular movements areintact. There is no facial asymmetry. There are some nonrhythmic chewing movements of the face consistent with her tardive dyskinesia. All other cranial related problems are negative except as mentioned before.Reflexes:1+ and symmetric with silent plantar responses. Motor:Minimal withdrawal to pain, increased tone in both side. Coordination and gait:Not cooperative. Sensory:Not cooperative. Vitals VITALS Vital Signs Date Time Temp Pulse Resp B/P (MAP) Pulse Ox O2 Delivery O2 Flow Rate FiO2 11/22/20 14:45 44 13 111/75 (87) 99 Ventilator 11/22/20 11:22 15.0 11/22/20 11:04 97.5 97.5 Labs Labs Laboratory Tests Test 11/22/20 11:35 11/22/20 12:30 11/22/20 13:10 White Blood Count 3.8 x10^3/uL (4.0-11.0) Red Blood Count 2.85 x10^6/uL (3.50-5.40) Hemoglobin 8.4 g/dL (12.0-15.5) Hematocrit 25.6 % (36.0-47.0) Mean Corpuscular Volume 90 fL (79-100) Mean Corpuscular Hemoglobin 30 pg (25-35) Mean Corpuscular Hemoglobin Concent 33 g/dL (31-37) Red Cell Distribution Width 18.0 % (11.5-14.5) Platelet Count 55 x10^3/uL (140-400) Neutrophils (%) (Auto) 73 % (31-73) Lymphocytes (%) (Auto) 19 % (24-48) Monocytes (%) (Auto) 8 % (0-9) Eosinophils (%) (Auto) 1 % (0-3) Basophils (%) (Auto) 0 % (0-3) Neutrophils # (Auto) 2.8 x10^3/uL (1.8-7.7) Lymphocytes # (Auto) 0.7 x10^3/uL (1.0-4.8) Monocytes # (Auto) 0.3 x10^3/uL (0.0-1.1) Eosinophils # (Auto) 0.0 x10^3/uL (0.0-0.7) Basophils # (Auto) 0.0 x10^3/uL (0.0-0.2) Sodium Level 124 mmol/L (136-145) Potassium Level 5.3 mmol/L (3.5-5.1) Chloride Level 90 mmol/L (98-107) Carbon Dioxide Level 33 mmol/L (21-32) Anion Gap 1 (6-14) Blood Urea Nitrogen 10 mg/dL (7-20) Creatinine 0.6 mg/dL (0.6-1.0) Estimated GFR (Cockcroft-Gault) 118.6 BUN/Creatinine Ratio 17 (6-20) Glucose Level 86 mg/dL (70-99) Lactic Acid Level 1.0 mmol/L (0.4-2.0) Calcium Level 8.3 mg/dL (8.5-10.1) Magnesium Level 1.7 mg/dL (1.8-2.4) Total Bilirubin 0.3 mg/dL (0.2-1.0) Aspartate Amino Transf (AST/SGOT) 27 U/L (15-37) Alanine Aminotransferase (ALT/SGPT) 21 U/L (14-59) Alkaline Phosphatase 67 U/L (46-116) Creatine Kinase 129 U/L (26-192) Troponin I Quantitative < 0.017 ng/mL (0.000-0.055) ES-Bpv-U-Type Natriuretic Peptide 581 pg/mL (0-124) Total Protein 5.6 g/dL (6.4-8.2) Albumin 2.1 g/dL (3.4-5.0) Albumin/Globulin Ratio 0.6 (1.0-1.7) Procalcitonin < 0.10 ng/mL (0.00-0.10) Thyroid Stimulating Hormone (TSH) 7.883 uIU/mL (0.358-3.74) Valproic Acid (Depakene) Level 46 mcg/mL (50-100) Valproic Acid Last Dose Date 11/22/20 Valproic Acid Last Dose Time 0800 Urine Collection Type Unknown Urine Color Yellow Urine Clarity Clear Urine pH 6.5 (<5.0-8.0) Urine Specific Grants 1.010 (1.000-1.030) Urine Protein Negative mg/dL (NEG-TRACE) Urine Glucose (UA) Negative mg/dL (NEG) Urine Ketones (Stick) Negative mg/dL (NEG) Urine Blood Negative (NEG) Urine Nitrite Negative (NEG) Urine Bilirubin Negative (NEG) Urine Urobilinogen Dipstick 0.2 mg/dL (0.2 mg/dL) Urine Leukocyte Esterase Negative (NEG) Urine RBC Occ /HPF (0-2) Urine WBC 0 /HPF (0-4) Urine Squamous Epithelial Cells Occ /LPF Urine Bacteria 0 /HPF (0-FEW) Urine Opiates Screen Neg (NEG) Urine Methadone Screen Neg (NEG) Urine Barbiturates Neg (NEG) Urine Phencyclidine Screen Neg (NEG) Urine Amphetamine/Methamphetamine Neg (NEG) Urine Benzodiazepines Screen Neg (NEG) Urine Cocaine Screen Neg (NEG) Urine Cannabinoids Screen Neg (NEG) Urine Ethyl Alcohol Neg (NEG) SARS-CoV-2 Antigen (Rapid) Negative (NEGATIVE) Laboratory Tests Test 11/22/20 11:35 11/22/20 12:30 11/22/20 13:10 White Blood Count 3.8 x10^3/uL (4.0-11.0) Red Blood Count 2.85 x10^6/uL (3.50-5.40) Hemoglobin 8.4 g/dL (12.0-15.5) Hematocrit 25.6 % (36.0-47.0) Mean Corpuscular Volume 90 fL (79-100) Mean Corpuscular Hemoglobin 30 pg (25-35) Mean Corpuscular Hemoglobin Concent 33 g/dL (31-37) Red Cell Distribution Width 18.0 % (11.5-14.5) Platelet Count 55 x10^3/uL (140-400) Neutrophils (%) (Auto) 73 % (31-73) Lymphocytes (%) (Auto) 19 % (24-48) Monocytes (%) (Auto) 8 % (0-9) Eosinophils (%) (Auto) 1 % (0-3) Basophils (%) (Auto) 0 % (0-3) Neutrophils # (Auto) 2.8 x10^3/uL (1.8-7.7) Lymphocytes # (Auto) 0.7 x10^3/uL (1.0-4.8) Monocytes # (Auto) 0.3 x10^3/uL (0.0-1.1) Eosinophils # (Auto) 0.0 x10^3/uL (0.0-0.7) Basophils # (Auto) 0.0 x10^3/uL (0.0-0.2) Sodium Level 124 mmol/L (136-145) Potassium Level 5.3 mmol/L (3.5-5.1) Chloride Level 90 mmol/L (98-107) Carbon Dioxide Level 33 mmol/L (21-32) Anion Gap 1 (6-14) Blood Urea Nitrogen 10 mg/dL (7-20) Creatinine 0.6 mg/dL (0.6-1.0) Estimated GFR (Cockcroft-Gault) 118.6 BUN/Creatinine Ratio 17 (6-20) Glucose Level 86 mg/dL (70-99) Lactic Acid Level 1.0 mmol/L (0.4-2.0) Calcium Level 8.3 mg/dL (8.5-10.1) Magnesium Level 1.7 mg/dL (1.8-2.4) Total Bilirubin 0.3 mg/dL (0.2-1.0) Aspartate Amino Transf (AST/SGOT) 27 U/L (15-37) Alanine Aminotransferase (ALT/SGPT) 21 U/L (14-59) Alkaline Phosphatase 67 U/L (46-116) Creatine Kinase 129 U/L (26-192) Troponin I Quantitative < 0.017 ng/mL (0.000-0.055) DV-Juv-B-Type Natriuretic Peptide 581 pg/mL (0-124) Total Protein 5.6 g/dL (6.4-8.2) Albumin 2.1 g/dL (3.4-5.0) Albumin/Globulin Ratio 0.6 (1.0-1.7) Procalcitonin < 0.10 ng/mL (0.00-0.10) Thyroid Stimulating Hormone (TSH) 7.883 uIU/mL (0.358-3.74) Valproic Acid (Depakene) Level 46 mcg/mL (50-100) Valproic Acid Last Dose Date 11/22/20 Valproic Acid Last Dose Time 0800 Urine Collection Type Unknown Urine Color Yellow Urine Clarity Clear Urine pH 6.5 (<5.0-8.0) Urine Specific Grants 1.010 (1.000-1.030) Urine Protein Negative mg/dL (NEG-TRACE) Urine Glucose (UA) Negative mg/dL (NEG) Urine Ketones (Stick) Negative mg/dL (NEG) Urine Blood Negative (NEG) Urine Nitrite Negative (NEG) Urine Bilirubin Negative (NEG) Urine Urobilinogen Dipstick 0.2 mg/dL (0.2 mg/dL) Urine Leukocyte Esterase Negative (NEG) Urine RBC Occ /HPF (0-2) Urine WBC 0 /HPF (0-4) Urine Squamous Epithelial Cells Occ /LPF Urine Bacteria 0 /HPF (0-FEW) Urine Opiates Screen Neg (NEG) Urine Methadone Screen Neg (NEG) Urine Barbiturates Neg (NEG) Urine Phencyclidine Screen Neg (NEG) Urine Amphetamine/Methamphetamine Neg (NEG) Urine Benzodiazepines Screen Neg (NEG) Urine Cocaine Screen Neg (NEG) Urine Cannabinoids Screen Neg (NEG) Urine Ethyl Alcohol Neg (NEG) SARS-CoV-2 Antigen (Rapid) Negative (NEGATIVE) Images Images CT head without IV contrast INDICATION:75 years, Female, altered mental status, seizures. COMPARISON: MRI brain from 10/15/[address] head from 10/09/2020 TECHNIQUE: Spiral acquisition of contiguous images from the skull base to the vertex were obtained. Sagittal and coronal 2D reformatted series were provided by the technologist. Soft tissue and bone window algorithms were reviewed. Exposure: One or more of the following individualized dose reduction techniques were utilized for this examination: 1. Automated exposure control 2. Adjustment of the mA and/or kV according to patient size 3. Use of iterative reconstruction technique. FINDINGS: Neither mass, midline shift, intracranial hemorrhage, acute/subacute ischemic changes, nor extraaxial fluid collections are seen. Similar mild parenchymal volume loss. Supratentorial periventricular white matter hypodensities, indeterminate but most likely representing chronic microangiopathic disease. The paranasal sinuses, mastoid air cells, and middle ears are clear. Mucus/debris within the visualized nasopharynx. The orbital contents appear within normal limits. Similar postsurgical changes of the left lens IMPRESSION: 1. No evidence of acute intracranial abnormality. 2. Supratentorial periventricular white matter hypodensities, indeterminate but most likely representing chronic microangiopathic disease. Assessment/Plan Assessment/Plan Impression: Epilepsy, breakthrough seizures, does have a subtherapeutic valproic acid level Note hyponatremia, hyperkalemia, hypocalcemia, hypomagnesemia Recommendations: Increase Depakote dose Continue levetiracetam and await level Treat medical issues ICU monitoring Thank you for letting me help with the patient's care. KRISTINE GLEZ MD Nov 22, 2020 15:24
[2020-11-22] MEDS ORDERED: PIP/TAZO PER PHARMACY MC PRN (15:45)
[2020-11-22 15:50] LABS: BASE EXCESS ABG 10 mmol/L (-3-3); HCO3 ABG 32 mmol/L (21-28); PCO2 ABG 31 mmHg (35-46); PO2 ABG 499 mmHg (65-108); SAT O2 ABG 100 % (92-99)
[2020-11-22 16:01] LABS: FIO2 ABG 100
[2020-11-22] MEDS ORDERED: MAGNESIUM SULFATE 2GM 50 ML IV ONE (16:30)
[2020-11-22] MEDS ORDERED: methylPREDNISolone SOD SUCC PF 125 MG/2 ML VIAL. IV ONE (18:30)
[2020-11-22] MEDS ORDERED: PANTOPRAZOLE IV PUSH 40 MG VIAL. IVP ONE (18:30)
[2020-11-22] MEDS ORDERED: DEXTROSE 50% 25 GM / 50ML DISP.SYRIN. IV PRN (18:30)
--- NOTE | 2020-11-22 18:30 | NUR ---
Patient received from ED per cart to rm 114, orally intubated with OG tube present and placed to LIS after moved to ICU bed. Ji to DD. Vent settings: TV 450, AC 10, PEEP 5, 40% FiO2. Suctioned large amt clear oral secretions. Patient does not open eyes, follow commands or make any purposeful movements. Responds to painful stimuli when edema of lower extremities palpated. Pt SBrady with 1st degree block. NS infusing at 100c/hr and Versed drip at 4mg/hr.
--- NOTE | 2020-11-22 18:33 | PDOC ---
Provider Note Date of Service: DATE: 11/22/20 TIME: 18:26 Provider Note Pt seen in ER ,H&P dictated .#[id number]. Justifications for Admission Other Justification JOSE WILLINGHAM MD Nov 22, 2020 18:33
[2020-11-22 18:42] VITALS: BP 117/71
[2020-11-22 19:00] VITALS: BP 89/62
[2020-11-22 20:00] VITALS: BP 86/63
[2020-11-22] MEDS ORDERED: NOREPINEPHRINE VIAL 8 MG in IV DEXTROSE 5% 250 ML IV PRN (20:15)
--- NOTE | 2020-11-22 20:37 | HP ---
ADMIT DATE: 11/22/2020 REASON FOR ADMISSION TO THE HOSPITAL: Status epilepticus. HISTORY OF PRESENT ILLNESS: The patient is a 75-year-old female. The patient was brought to the ER because of multiple seizures, seen in the Emergency Room, was intubated in the Emergency Room and the patient had a CT scan, it was negative. The patient has a history of seizures for which she takes Depakote and Keppra and the patient was intubated, was admitted to the ICU. The patient was seen by Neurology. Depakote levels were slightly low. She was given a dose of Keppra to control seizures. PAST MEDICAL HISTORY: The patient was in the hospital last month for similar problem. She had a seizure so at that time, she was intubated, was in the ICU with hyponatremia, bradycardia, hypotension, sepsis, thrombocytopenia, all things got better over the course of 2-3 weeks and she went back to her assisted, her apartment. In the previous admission, her Keppra levels were high, so it was cut down to 1000 mg twice daily from 1500 b.i.d. She was also on Depakote 500 mg twice daily. She also has a history of schizophrenia, tardive dyskinesia, hypertension, heart failure, morbid obesity, reflux and a history of previous stroke. Past medical history as mentioned, has heart failure, hypertension, hyperlipidemia, COPD, sleep apnea, dementia, seizures, tardive dyskinesia, schizophrenia, borderline diabetes, thyroid, osteoporosis. PAST SURGICAL HISTORY: Had a hysterectomy, had a workup for anemia in the past, was anemia of chronic disease. FAMILY HISTORY: Hypertension. SOCIAL HISTORY: Lives in an apartment. She is a wheelchair level activity, has caregivers almost around the clock most of the day. No history of smoking, alcohol, drug abuse. ALLERGIES: NONSTEROIDALS, IBUPROFEN, ISOPROPYL ALCOHOL, LISINOPRIL. MEDICATIONS: In the previous admission, the patient is on Keppra 1000 b.i.d., Lasix 40 mg daily, aspirin 81 mg daily, Breo Ellipta daily, folic acid 1 mg daily, B complex 1 daily, trihexyphenidyl 2 mg at bedtime, Depakote 500 mg twice daily, Lipitor 80 mg daily, DuoNeb 4 times daily, MiraLax 17 grams daily, Invega 6 mg daily, Coreg 12.5 twice a day, hydralazine 50 mg twice a day, clonidine TTS patch weekly, potassium 20 mEq twice a day, amlodipine 10 mg daily, vitamin D 1000 daily, Flonase daily. REVIEW OF SYMPTOMS: Not able to because the patient is on the ventilator. PHYSICAL EXAMINATION: GENERAL: The patient is seen in the ER, the patient is on ventilator, unresponsive. She is on Versed. VITAL SIGNS: Temperature 95, pulse of 54, respirations 12, blood pressure 83/60 went up to 104/68, on ventilator 50% now. HEENT: Head, no injuries. Pupils very sluggish. Oral cavity, orally intubated. NECK: No mass palpable. CHEST: Symmetrical. CARDIOVASCULAR: S1, S2, crackles at the bases. ABDOMEN: Soft. No mass palpable. EXTERNAL GENITALIA: Ji present, placed in the ER. RECTAL: Deferred. EXTREMITIES: Trace edema. NEUROLOGIC: The patient is sedated, on Versed. LABORATORY DATA: Shows a white count of 3.8, hemoglobin 8.4, platelets 55. Blood gas shows pH 7.63, pCO2 of 31, pO2 499, bicarb 32, FiO2 100%. Urine negative for leukocytes, nitrites. Toxicology negative. Valproic acid is 46, normal is 50-125, slightly low. COVID test is negative. CT head negative for acute stroke. Chest x-ray, mild CHF. EKG, negative for ischemia. Sodium 124, potassium 5.3, chloride 90, bicarb 30, BUN 10, creatinine 0.6 and COVID test negative. FINAL IMPRESSION: 1. Status epilepticus. 2. Respiratory failure requiring intubation on mechanical ventilator. 3. Schizophrenia. 4. Hyponatremia 5. Hypertension. 6. Hyperlipidemia. 7. Chronic schizophrenia. 8. Anemia of chronic disease. 9. Morbid obesity. 10.Low Platelets 50,000 PLAN: At this time was admitted to the hospital, was admitted to the ICU, ventilator, Pulmonary consult. The patient seen by Neurology, Dr. Mcdonald, given extra dose of Keppra and we will give her IV fluids see how she does in the next 24 hours. The patient may start some tube feedings from tomorrow and the patient's prolactin, lactic acid was normal, does not look any infection at this time. We will hold off on the antibiotics. Prognosis is guarded. Low platelets. JUDI/HUSSAIN/ROMAINE DR: JUDI/shahram TID: [id number] MTDD
[2020-11-22] MEDS: levETIRAcetam 1,000 MG in IV DEXTROSE 5% 100ML 100 ML IV SCH (20:51)
[2020-11-22] MEDS: VALPROIC ACID (AS SODIUM SALT) 750 MG in IV DEXTROSE 5% 50 ML IV SCH (20:51)
[2020-11-22 21:00] VITALS: BP 98/58
[2020-11-22 22:00] VITALS: BP 100/55
[2020-11-22] MEDS ORDERED: LANS30CA PO (22:19)
[2020-11-22] MEDS ORDERED: DICL100G28 TP (22:19)
--- NOTE | 2020-11-22 22:35 | CONS ---
DATE OF CONSULTATION: 11/22/2020 ATTENDING PHYSICIAN: Del Nino MD REASON FOR CONSULTATION: The patient is seen in pulmonary consultation at the request of Dr. Nino for respiratory failure, vent management. HISTORY OF PRESENT ILLNESS: The patient is a 75-year-old with comorbidities of schizophrenia, mental health disorder, seizures, hypertension, hyperlipidemia, chronic heart failure. She also had COVID-19 several months back and was actually hospitalized here at [facility] back in early part of October with acute respiratory failure and encephalopathy. She had a seizure. She was postictal. She also had hyponatremia at that time. The patient was seen in the Emergency Department with respiratory failure. She is sedated. She was on 100% FiO2, 5 of PEEP. Respiratory rate of 18, tidal volume 500. No history was obtained by the patient from the patient herself. Dr. Mcdonald saw the patient in consultation for breakthrough seizures. She did have a subtherapeutic valproic acid level. The patient presented to the Emergency Room with seizures. PAST MEDICAL HISTORY: As indicated above. She has had previous admissions for seizures and encephalopathy. There is a history of chronic heart failure, mental disorder, tardive dyskinesia, CVA, pneumonia, schizophrenia, hypothyroidism, osteoporosis and diabetes. PAST SURGICAL HISTORY: Status post hysterectomy. FAMILY HISTORY: Hypertension. SOCIAL HISTORY: No history of tobacco use. CURRENT MEDICATIONS: List was reviewed. ALLERGIES: LISTED TO NONSTEROIDALS AND LISINOPRIL. PHYSICAL EXAMINATION: GENERAL: The patient was seen in the Emergency Department on the above settings on assist control ventilation, sedated with IV Versed. VITAL SIGNS: Temperature is 97.5. HEENT: Eyes, the sclerae were nonicteric. NECK: Jugular venous distention was not elevated. No lymphadenopathy. CHEST: Full expansion. LUNGS: Adequate flow with no wheezes. CARDIOVASCULAR: Regular rate and rhythm with S1, S2, no S3. ABDOMEN: Soft. EXTREMITIES: No clubbing, cyanosis or pitting edema. LABORATORY DATA: Reviewed. White count was low at 3.8, hemoglobin and hematocrit were low. Electrolytes were noted. TSH was elevated. Sodium was 124, potassium was 5.3, magnesium was low. Serology rapid test for COVID-19 was negative. Toxicology screen was negative. Valproic acid level was low. IMPRESSION: 1. Acute hypoxemic respiratory failure secondary to breakthrough seizures. 2. Breakthrough seizures. 3. Electrolyte abnormalities including hyponatremia, hypomagnesemia. 4. Severe protein malnutrition, present upon admission. 5. Multiple other comorbidities including schizophrenia, hypertension, hypothyroidism, sleep apnea, tardive dyskinesia. PLAN: 1. We will continue current vent settings. 2. Repeat arterial blood gas. 3. Follow neurology input. 4. Continue home meds. 5. Initiate normal saline. 6. Nutritional support. 7. Replace magnesium. I do appreciate the privilege in sharing in the patient's care. ANGELINA/SANDEEP DR: Neel TID: [id number]
[2020-11-22 23:00] VITALS: BP 109/64
[2020-11-22] MEDS ORDERED: C.DIFF MED SCREEN BY RX. MC ONE (23:00)
[2020-11-22] MEDS ORDERED: INFLUENZA VAX SCREEN BY RX. MC ONE (23:00)
[2020-11-22] MEDS ORDERED: INFLUENZA VAX SCREEN BY RX. MC PRN (23:15)
[2020-11-22] MEDS: PIPERACILLIN/TAZOBACTAM 3.375 GM in IV NORMAL SALINE 50ML 50 ML IV SCH ×2 (23:44→23:53)
[2020-11-22] MEDS: INSULIN LISPRO 300 UNITS/3 ML VIAL. SQ SCH (23:53)
[2020-11-23] VITALS (24 sets, daily range): BP systolic 85–140; BP diastolic 46–96
[2020-11-23 04:36] LABS: BASO % 0 % (0-3); EOS % 1 % (0-3); HEMATOCRIT 21.7 % (36.0-47.0); HEMOGLOBIN 7.3 g/dL (12.0-15.5); LYMPH # 0.6 x10^3/uL (1.0-4.8); LYMPH % 23 % (24-48); MEAN CORPUSCULAR HEMOGLOBIN 30 pg (25-35); MEAN CORPUSCULAR HGB CONC 33 g/dL (31-37); MEAN CORPUSCULAR VOLUME 89 fL (79-100); MONO # 0.3 x10^3/uL (0.0-1.1); MONO % 12 % (0-9); NEUT # 1.8 x10^3/uL (1.8-7.7); NEUT % 64 % (31-73); PLATELET COUNT 38 x10^3/uL (140-400); RED BLOOD COUNT 2.44 x10^6/uL (3.50-5.40); WHITE BLOOD COUNT 2.8 x10^3/uL (4.0-11.0)
[2020-11-23 04:56] LABS: CALCIUM 7.9 mg/dL (8.5-10.1); CREATININE 0.5 mg/dL (0.6-1.0); GFR 146.3; POTASSIUM 3.2 mmol/L (3.5-5.1)
[2020-11-23] MEDS: INSULIN LISPRO 300 UNITS/3 ML VIAL. SQ SCH ×3 (05:15→18:00)
[2020-11-23] MEDS: PIPERACILLIN/TAZOBACTAM 3.375 GM in IV NORMAL SALINE 50ML 50 ML IV SCH ×3 (05:49→18:02)
--- NOTE | 2020-11-23 07:50 | PDOC ---
PROGRESS NOTES Date of Service: DATE: 11/23/20 TIME: 07:50 Subjective Subjective on vent , hypothermia Temp 89 Objective Objective Vital Signs Date Time Temp Pulse Resp B/P (MAP) Pulse Ox O2 Delivery O2 Flow Rate FiO2 11/23/20 07:18 100 Ventilator 11/23/20 06:00 40 15 95/65 (75) 11/23/20 03:00 98.1 98.1 11/22/20 11:22 15.0 Intake and Output 11/23/20 07:00 Intake Total 196 ml Output Total 1175 ml Balance -979 ml Intake IV Total 196 ml Output Urine Total 1175 ml Physical Exam Abdomen: Soft Heart: Regular rate, Normal S1, Normal S2 Lungs: Normal air movement MUSCULOSKELETAL: No deformity, No swelling Neck: No JVD Neuro: Other (vent, unresponsive) Diagnosis Problem List Problems Medical Problems: (1) Acute respiratory failure with hypoxia Status: Acute (2) Sinus bradycardia Status: Acute (3) Status epilepticus Status: Acute Assessment Assessment Problems Medical Problems: (1) Acute respiratory failure with hypoxia Status: Acute (2) Sinus bradycardia Status: Acute (3) Status epilepticus Status: Acute FINAL IMPRESSION:Hypothermia and hypotension 1. Status epilepticus. 2. Respiratory failure requiring intubation on mechanical ventilator. 3. Schizophrenia. 4. Hyponatremia 5. Hypertension. 6. Hyperlipidemia. 7. Chronic schizophrenia. 8. Anemia of chronic disease. 9. Morbid obesity. 10.Low Platelets 50,000 PLAN: HR improved to 60 from 40. Bear hugger for hypothermia. ventilatory support. IV zosyn . low platelets 30,000 monitor. poor prognosis. At this time was admitted to the hospital, was admitted to the ICU, ventilator, Pulmonary consult. The patient seen by Neurology, Dr. Mcdonald, given extra dose of Keppra and we will give her IV fluids see how she does in the next 24 hours. The patient may start some tube feedings from tomorrow and the patient's prolactin, lactic acid was normal, does not look any infection at this time. We will hold off on the antibiotics. Prognosis is guarded. Low platelets. Plan Plan of Care Problems Medical Problems: (1) Acute respiratory failure with hypoxia Status: Acute (2) Sinus bradycardia Status: Acute (3) Status epilepticus Status: Acute Comment Review of Relevant I have reviewed the following items melanie (where applicable) has been applied. Labs Laboratory Tests Test 11/22/20 11:35 11/22/20 12:30 11/22/20 13:10 11/22/20 15:45 White Blood Count 3.8 x10^3/uL (4.0-11.0) Red Blood Count 2.85 x10^6/uL (3.50-5.40) Hemoglobin 8.4 g/dL (12.0-15.5) Hematocrit 25.6 % (36.0-47.0) Mean Corpuscular Volume 90 fL (79-100) Mean Corpuscular Hemoglobin 30 pg (25-35) Mean Corpuscular Hemoglobin Concent 33 g/dL (31-37) Red Cell Distribution Width 18.0 % (11.5-14.5) Platelet Count 55 x10^3/uL (140-400) Neutrophils (%) (Auto) 73 % (31-73) Lymphocytes (%) (Auto) 19 % (24-48) Monocytes (%) (Auto) 8 % (0-9) Eosinophils (%) (Auto) 1 % (0-3) Basophils (%) (Auto) 0 % (0-3) Neutrophils # (Auto) 2.8 x10^3/uL (1.8-7.7) Lymphocytes # (Auto) 0.7 x10^3/uL (1.0-4.8) Monocytes # (Auto) 0.3 x10^3/uL (0.0-1.1) Eosinophils # (Auto) 0.0 x10^3/uL (0.0-0.7) Basophils # (Auto) 0.0 x10^3/uL (0.0-0.2) Sodium Level 124 mmol/L (136-145) Potassium Level 5.3 mmol/L (3.5-5.1) Chloride Level 90 mmol/L (98-107) Carbon Dioxide Level 33 mmol/L (21-32) Anion Gap 1 (6-14) Blood Urea Nitrogen 10 mg/dL (7-20) Creatinine 0.6 mg/dL (0.6-1.0) Estimated GFR (Cockcroft-Gault) 118.6 BUN/Creatinine Ratio 17 (6-20) Glucose Level 86 mg/dL (70-99) Lactic Acid Level 1.0 mmol/L (0.4-2.0) Calcium Level 8.3 mg/dL (8.5-10.1) Magnesium Level 1.7 mg/dL (1.8-2.4) Total Bilirubin 0.3 mg/dL (0.2-1.0) Aspartate Amino Transf (AST/SGOT) 27 U/L (15-37) Alanine Aminotransferase (ALT/SGPT) 21 U/L (14-59) Alkaline Phosphatase 67 U/L (46-116) Creatine Kinase 129 U/L (26-192) Troponin I Quantitative < 0.017 ng/mL (0.000-0.055) [id number]-[id number]-Type Natriuretic Peptide 581 pg/mL (0-124) Total Protein 5.6 g/dL (6.4-8.2) Albumin 2.1 g/dL (3.4-5.0) Albumin/Globulin Ratio 0.6 (1.0-1.7) Procalcitonin < 0.10 ng/mL (0.00-0.10) Thyroid Stimulating Hormone (TSH) 7.883 uIU/mL (0.358-3.74) Free Triiodothyronine (T3) pg/mL 0.95 pg/mL (2.18-3.98) Valproic Acid (Depakene) Level 46 mcg/mL (50-100) Valproic Acid Last Dose Date 11/22/20 Valproic Acid Last Dose Time 0800 Urine Collection Type Unknown Urine Color Yellow Urine Clarity Clear Urine pH 6.5 (<5.0-8.0) Urine Specific [place] 1.010 (1.000-1.030) Urine Protein Negative mg/dL (NEG-TRACE) Urine Glucose (UA) Negative mg/dL (NEG) Urine Ketones (Stick) Negative mg/dL (NEG) Urine Blood Negative (NEG) Urine Nitrite Negative (NEG) Urine Bilirubin Negative (NEG) Urine Urobilinogen Dipstick 0.2 mg/dL (0.2 mg/dL) Urine Leukocyte Esterase Negative (NEG) Urine RBC Occ /HPF (0-2) Urine WBC 0 /HPF (0-4) Urine Squamous Epithelial Cells Occ /LPF Urine Bacteria 0 /HPF (0-FEW) Urine Opiates Screen Neg (NEG) Urine Methadone Screen Neg (NEG) Urine Barbiturates Neg (NEG) Urine Phencyclidine Screen Neg (NEG) Urine Amphetamine/Methamphetamine Neg (NEG) Urine Benzodiazepines Screen Neg (NEG) Urine Cocaine Screen Neg (NEG) Urine Cannabinoids Screen Neg (NEG) Urine Ethyl Alcohol Neg (NEG) SARS-CoV-2 Antigen (Rapid) Negative (NEGATIVE) O2 Saturation 100 % (92-99) Arterial Blood pH 7.63 (7.35-7.45) Arterial Blood pCO2 at Patient Temp 31 mmHg (35-46) Arterial Blood pO2 at Patient Temp 499 mmHg (65-108) Arterial Blood HCO3 32 mmol/L (21-28) Arterial Blood Base Excess 10 mmol/L (-3-3) FiO2 100 Test 11/22/20 23:48 11/23/20 04:00 Glucose (Fingerstick) 112 mg/dL (70-99) White Blood Count 2.8 x10^3/uL (4.0-11.0) Red Blood Count 2.44 x10^6/uL (3.50-5.40) Hemoglobin 7.3 g/dL (12.0-15.5) Hematocrit 21.7 % (36.0-47.0) Mean Corpuscular Volume 89 fL (79-100) Mean Corpuscular Hemoglobin 30 pg (25-35) Mean Corpuscular Hemoglobin Concent 33 g/dL (31-37) Red Cell Distribution Width 18.0 % (11.5-14.5) Platelet Count 38 x10^3/uL (140-400) Neutrophils (%) (Auto) 64 % (31-73) Lymphocytes (%) (Auto) 23 % (24-48) Monocytes (%) (Auto) 12 % (0-9) Eosinophils (%) (Auto) 1 % (0-3) Basophils (%) (Auto) 0 % (0-3) Neutrophils # (Auto) 1.8 x10^3/uL (1.8-7.7) Lymphocytes # (Auto) 0.6 x10^3/uL (1.0-4.8) Monocytes # (Auto) 0.3 x10^3/uL (0.0-1.1) Eosinophils # (Auto) 0.0 x10^3/uL (0.0-0.7) Basophils # (Auto) 0.0 x10^3/uL (0.0-0.2) Sodium Level 128 mmol/L (136-145) Potassium Level 3.2 mmol/L (3.5-5.1) Chloride Level 95 mmol/L (98-107) Carbon Dioxide Level 31 mmol/L (21-32) Anion Gap 2 (6-14) Blood Urea Nitrogen 10 mg/dL (7-20) Creatinine 0.5 mg/dL (0.6-1.0) Estimated GFR (Cockcroft-Gault) 146.3 Glucose Level 76 mg/dL (70-99) Calcium Level 7.9 mg/dL (8.5-10.1) Magnesium Level 1.8 mg/dL (1.8-2.4) Ammonia 17 mcmol/L (11-34) Troponin I Quantitative 0.023 ng/mL (0.000-0.055) Medications Current Medications Dextrose (Dextrose 50%-Water Syringe) 12.5 gm PRN Q15MIN PRN IV SEE COMMENTS; Start 11/22/20 at 18:30 Etomidate (Amidate) 20 mg STK-MED ONCE IV ; Start 11/22/20 at 11:17; Stop 11/22/20 at 11:17; Status DC Info (FLU VACCINE SCREEN per RX) 1 each 1X ONCE MC ; Start 11/22/20 at 23:00; Stop 11/22/20 at 23:01; Status Cancel Info (FLU VACCINE SCREEN per RX) 1 each PRN DAILY PRN MC SEE COMMENTS; Start 11/22/20 at 23:15 Insulin Human Lispro (HumaLOG) 0-7 UNITS Q6HRS SQ ; Start 11/23/20 at 00:00 Levetiracetam 1000 mg/Dextrose 110 ml @ 440 mls/hr 1X ONCE IV Last administered on 11/22/20at 11:45; Start 11/22/20 at 11:45; Stop 11/22/20 at 11:59; Status DC Levetiracetam 1000 mg/Dextrose 110 ml @ 440 mls/hr Q12HR IV Last administered on 11/22/20at 20:51; Start 11/22/20 at 21:00 Lorazepam (Ativan Inj) 2 mg 1X ONCE IVP Last administered on 11/22/20at 12:23; Start 11/22/20 at 11:15; Stop 11/22/20 at 11:16; Status DC Lorazepam (Ativan Inj) 2 mg STK-MED ONCE .ROUTE ; Start 11/22/20 at 11:12; Stop 11/22/20 at 11:12; Status DC Magnesium Sulfate 50 ml @ 25 mls/hr 1X ONCE IV Last administered on 11/22/20at 16:42; Start 11/22/20 at 16:30; Stop 11/22/20 at 18:29; Status DC Methylprednisolone Sodium Succinate (SOLU-Medrol 40MG VIAL) 40 mg Q12HR IV ; Start 11/23/20 at 09:00 Methylprednisolone Sodium Succinate (SOLU-Medrol 125MG VIAL) 125 mg 1X ONCE IV ; Start 11/22/20 at 18:30; Stop 11/22/20 at 18:35; Status DC Midazolam HCl 100 ml @ 1 mls/hr CONT PRN IV SEE I/O RECORD Last administered on 11/22/20at 12:22; Start 11/22/20 at 12:00 Norepinephrine Bitartrate 8 mg/ Dextrose 258 ml @ 17.996 mls/ hr CONT PRN IV PER PROTOCOL; Start 11/22/20 at 20:15 Pantoprazole Sodium (PROTONIX VIAL for IV PUSH) 40 mg 1X ONCE IVP ; Start 11/22/20 at 18:30; Stop 11/22/20 at 18:35; Status DC Pantoprazole Sodium (PROTONIX VIAL for IV PUSH) 40 mg DAILYAC IVP ; Start 11/23/20 at 07:30 Pharmacy Consult (C.diff Med Screen By Rx) 1 each 1X ONCE MC ; Start 11/22/20 at 23:00; Stop 11/22/20 at 23:01; Status DC Piperacillin Sod/ Tazobactam Sod (Zosyn Per Pharmacy) 1 each PRN DAILY PRN MC SEE COMMENTS; Start 11/22/20 at 15:45 Piperacillin Sod/ Tazobactam Sod 3.375 gm/Sodium Chloride 50 ml @ 100 mls/hr Q6HRS IV Last administered on 11/23/20at 05:49; Start 11/22/20 at 17:00 Sodium Chloride 1,000 ml @ 125 mls/hr 1X ONCE IV Last administered on 11/22/20at 15:30; Start 11/22/20 at 15:30; Stop 11/22/20 at 23:29; Status DC Sodium Chloride 1,000 ml @ 1,000 mls/hr 1X ONCE IV Last administered on 11/22/20at 11:15; Start 11/22/20 at 11:15; Stop 11/22/20 at 12:14; Status DC Sodium Chloride 1,000 ml @ 1,000 mls/hr 1X ONCE IV Last administered on 11/22/20at 11:30; Start 11/22/20 at 11:30; Stop 11/22/20 at 12:29; Status DC Succinylcholine Chloride (Anectine) 200 mg STK-MED ONCE .ROUTE ; Start 11/22/20 at 11:17; Stop 11/22/20 at 11:18; Status DC Valproic Acid 750 mg/Dextrose 57.5 ml @ 55 mls/hr 1X STAT IV Last administered on 11/22/20at 15:24; Start 11/22/20 at 15:24; Stop 11/22/20 at 16:26; Status DC Valproic Acid 750 mg/Dextrose 57.5 ml @ 55 mls/hr Q12HR IV Last administered on 11/22/20at 20:51; Start 11/22/20 at 21:00 Vitals/I & O Vital Sign - Last 24 Hours 11/22/20 11/22/20 11/22/20 11/22/20 11:04 11:20 11:22 11:39 Temp 97.5 97.5 Pulse 54 58 46 Resp 12 12 14 B/P (MAP) 83/60 (68) 71/50 (57) 91/72 (78) Pulse Ox 92 100 95 100 O2 Delivery Nasal Cannula Ventilator Bag Valve Mask Ventilator O2 Flow Rate 15.0 11/22/20 11/22/20 11/22/20 11/22/20 12:10 12:50 13:43 14:45 Pulse 44 42 44 44 Resp 13 13 13 13 B/P (MAP) 104/68 (80) 104/60 (75) 114/70 (85) 111/75 (87) Pulse Ox 100 99 100 99 O2 Delivery Ventilator Ventilator Ventilator Ventilator 11/22/20 11/22/20 11/22/20 11/22/20 15:30 16:01 17:27 18:42 Pulse 44 41 40 Resp 15 12 12 B/P (MAP) 112/76 (88) 100/56 (71) 117/71 (86) Pulse Ox 100 98 100 100 O2 Delivery Ventilator Ventilator Ventilator 11/22/20 11/22/20 11/22/20 11/22/20 19:00 20:00 20:00 20:00 Temp 98.0 98.0 Pulse 42 43 Resp 12 12 B/P (MAP) 89/62 (71) 86/63 (71) Pulse Ox 99 99 99 O2 Delivery Ventilator Ventilator Mechanical Ventilator Ventilator 11/22/20 11/22/20 11/22/20 11/22/20 21:00 22:00 22:35 23:00 Pulse 41 44 41 Resp 14 14 13 B/P (MAP) 98/58 (71) 100/55 (70) 109/64 (79) Pulse Ox 99 99 100 99 O2 Delivery Ventilator Ventilator Ventilator Ventilator 11/22/20 11/23/20 11/23/20 11/23/20 23:59 01:00 01:50 02:00 Pulse 40 44 Resp 13 16 B/P (MAP) 95/53 (67) 97/64 (75) Pulse Ox 99 100 99 O2 Delivery Mechanical Ventilator Ventilator Ventilator Ventilator 11/23/20 11/23/20 11/23/20 11/23/20 03:00 04:00 04:00 05:00 Temp 98.1 98.1 Pulse 39 42 38 Resp 16 16 12 B/P (MAP) 105/96 (99) 112/69 (83) 108/72 (84) Pulse Ox 99 99 99 O2 Delivery Ventilator Mechanical Ventilator Ventilator Ventilator 11/23/20 11/23/20 11/23/20 05:15 06:00 07:18 Pulse 40 Resp 15 B/P (MAP) 95/65 (75) Pulse Ox 100 99 100 O2 Delivery Ventilator Ventilator Ventilator l Intake and Output 11/22/20 11/22/20 11/23/20 15:00 23:00 07:00 Intake Total 196 ml Output Total 625 ml 550 ml Balance -625 ml -354 ml Justifications for Admission Other Justification JOSE WILLINGHAM MD Nov 23, 2020 07:50
[2020-11-23 07:55] LABS: BASE EXCESS ABG 5 mmol/L (-3-3); HCO3 ABG 28 mmol/L (21-28); PCO2 ABG 35 mmHg (35-46); PO2 ABG 139 mmHg (65-108); SAT O2 ABG 99 % (92-99)
[2020-11-23] MEDS ORDERED: POTASSIUM CHLORIDE 20MEQ 100 ML IV ONE (08:00)
--- NOTE | 2020-11-23 08:18 | RAD ---
XR CHEST 1V History: Reason: Seizures aspiration;114 / Spl. Instructions: / History: Comparison: November 22, 2020 Findings: Decreased interstitial thickening and ill-defined opacities. Small bilateral pleural effusions, incre ased on the left. Enlarged cardiac size, unchanged. Stable endotracheal tube. Enteric tube with tip b elow the diaphragm beyond the image and side port within the distal esophagus. No pneumothorax. Impression: 1. Decreased interstitial thickening and ill-defined opacities. 2. Small bilateral pleural effusions, increase in the left. 3. Enteric tube with side-port projecting over the distal esophagus. Consider advancement. Electronically signed by: Lebron España DO (11/23/2020 8:16 AM) [id number]
[2020-11-23 08:26] LABS: FIO2 ABG 40
[2020-11-23] MEDS: PANTOPRAZOLE IV PUSH 40 MG VIAL. IVP SCH (09:09)
[2020-11-23] MEDS: methylPREDNISolone SOD SUCC PF 40 MG/ML VIAL. IV SCH ×2 (09:09→21:55)
[2020-11-23] MEDS: levETIRAcetam 1,000 MG in IV DEXTROSE 5% 100ML 100 ML IV SCH ×2 (09:10→21:00)
[2020-11-23] MEDS: VALPROIC ACID (AS SODIUM SALT) 750 MG in IV DEXTROSE 5% 50 ML IV SCH ×2 (09:10→21:00)
[2020-11-23] MEDS: MIDAZOLAM 100mg/100ml NS BAG 100 ML IV PRN (09:11)
--- NOTE | 2020-11-23 10:12 | PDOC2 ---
[employer] 11/23/20 1012: CARDIAC CONSULT DATE OF CONSULT Date of Consult DATE: 11/23/20 TIME: 10:09 REASON FOR CONSULT Reason for Consult: CHF REFERRING PHYSICIAN Referring Physician: Dr. Nino SOURCE Source: Chart review HISTORY OF PRESENT ILLNESS HISTORY OF PRESENT ILLNESS This is a 75 yo female who presented secondary multiple seizures on morning of arrival. EMS was called. Repeat seizure following EMS arrival. IV Atvian was administered. Was intubated upon ED arrival for airway protection. PAST MEDICAL HISTORY Past Medical History Cardiovascular: CHF, HTN, Hyperlipidemia Pulmonary: COPD, Other (BATSHEVA) CENTRAL NERVOUS SYSTEM: Seizure Heme/Onc: Anemia NOS Psych: Schizophrenia Musculoskeletal: Osteoarthritis Renal/: Other (hyponatremia ) Endocrine: Diabetes, Hypothyroidism PAST SURGICAL HISTORY Past Surgical History Hernia Repair, Hysterectomy FAMILY HISTORY Family History: Heart Disease SOCIAL HISTORY Social History Smoke: No ALCOHOL: none Drugs: None Lives: with Family CURRENT MEDICATIONS CURRENT MEDICATIONS Current Medications Medications (Trade) Dose Ordered Sig/Johnny Route PRN Reason Start Time Stop Time Status Last Admin Dose Admin Lorazepam (Ativan Inj) 2 mg 1X ONCE IVP 11/22/20 11:15 11/22/20 11:16 DC 11/22/20 12:23 Sodium Chloride 1,000 ml @ 1,000 mls/hr 1X ONCE IV 11/22/20 11:15 11/22/20 12:14 DC 11/22/20 11:15 Sodium Chloride 1,000 ml @ 1,000 mls/hr 1X ONCE IV 11/22/20 11:30 11/22/20 12:29 DC 11/22/20 11:30 Levetiracetam 1000 mg/Dextrose 110 ml @ 440 mls/hr 1X ONCE IV 11/22/20 11:45 11/22/20 11:59 DC 11/22/20 11:45 Midazolam HCl 100 ml @ 1 mls/hr CONT PRN IV SEE I/O RECORD 11/22/20 12:00 11/23/20 09:11 Valproic Acid 750 mg/Dextrose 57.5 ml @ 55 mls/hr 1X STAT IV 11/22/20 15:24 11/22/20 16:26 DC 11/22/20 15:24 Valproic Acid 750 mg/Dextrose 57.5 ml @ 55 mls/hr Q12HR IV 11/22/20 21:00 11/23/20 09:10 Levetiracetam 1000 mg/Dextrose 110 ml @ 440 mls/hr Q12HR IV 11/22/20 21:00 11/23/20 09:10 Sodium Chloride 1,000 ml @ 125 mls/hr 1X ONCE IV 11/22/20 15:30 11/22/20 23:29 DC 11/22/20 15:30 Magnesium Sulfate 50 ml @ 25 mls/hr 1X ONCE IV 11/22/20 16:30 11/22/20 18:29 DC 11/22/20 16:42 Piperacillin Sod/ Tazobactam Sod 3.375 gm/Sodium Chloride 50 ml @ 100 mls/hr Q6HRS IV 11/22/20 17:00 11/23/20 05:49 Methylprednisolone Sodium Succinate (SOLU-Medrol 40MG VIAL) 40 mg Q12HR IV 11/23/20 09:00 11/23/20 09:09 Pantoprazole Sodium (PROTONIX VIAL for IV PUSH) 40 mg DAILYAC IVP 11/23/20 07:30 11/23/20 09:09 Potassium Chloride/Water 100 ml @ 100 mls/hr 1X ONCE IV 11/23/20 08:00 11/23/20 08:59 DC 11/23/20 09:11 ALLERGIES ALLERGIES: Coded Allergies: lisinopril (Verified Allergy, Severe, Swelling/angioedema, 11/22/20) NSAIDS (Non-Steroidal Anti-Inflamma (Verified Allergy, Intermediate, 11/22/20) ibuprofen (Verified Allergy, Intermediate, 11/22/20) isopropyl alcohol (Verified Allergy, Intermediate, 11/22/20) ROS Review of System unobtainable PHYSICAL EXAM General: Other (intubated ) HEENT: Atraumatic, Mucous membr. moist/pink Heart: Other (SB rate upper 30's ) Abdomen: Soft Extremities: Other (no edema ) Skin: No significant lesion Psych/Mental Status: Other (unable to assess) MUSCULOSKELETAL: Osteoarthritic changes both hands VITALS/I&O VITALS/I&O: Vital Signs Date Time Temp Pulse Resp B/P (MAP) Pulse Ox O2 Delivery O2 Flow Rate FiO2 11/23/20 10:06 100 Ventilator 11/23/20 09:00 86.5 36 10 86/64 (71) 86.5 9/22/21 11:22 15.0 I & O 11/22/20 11/22/20 11/23/20 15:00 23:00 07:00 Intake Total 196 ml Output Total 625 ml 550 ml Balance -625 ml -354 ml LABS Lab: Laboratory Tests Test 11/22/20 11:35 11/22/20 12:30 11/22/20 13:10 11/22/20 15:45 White Blood Count 3.8 x10^3/uL (4.0-11.0) L Red Blood Count 2.85 x10^6/uL (3.50-5.40) L Hemoglobin 8.4 g/dL (12.0-15.5) L Hematocrit 25.6 % (36.0-47.0) L Mean Corpuscular Volume 90 fL (79-100) Mean Corpuscular Hemoglobin 30 pg (25-35) Mean Corpuscular Hemoglobin Concent 33 g/dL (31-37) Red Cell Distribution Width 18.0 % (11.5-14.5) H Platelet Count 55 x10^3/uL (140-400) L Neutrophils (%) (Auto) 73 % (31-73) Lymphocytes (%) (Auto) 19 % (24-48) L Monocytes (%) (Auto) 8 % (0-9) Eosinophils (%) (Auto) 1 % (0-3) Basophils (%) (Auto) 0 % (0-3) Neutrophils # (Auto) 2.8 x10^3/uL (1.8-7.7) Lymphocytes # (Auto) 0.7 x10^3/uL (1.0-4.8) L Monocytes # (Auto) 0.3 x10^3/uL (0.0-1.1) Eosinophils # (Auto) 0.0 x10^3/uL (0.0-0.7) Basophils # (Auto) 0.0 x10^3/uL (0.0-0.2) Sodium Level 124 mmol/L (136-145) L Potassium Level 5.3 mmol/L (3.5-5.1) H Chloride Level 90 mmol/L (98-107) L Carbon Dioxide Level 33 mmol/L (21-32) H Anion Gap 1 (6-14) L Blood Urea Nitrogen 10 mg/dL (7-20) Creatinine 0.6 mg/dL (0.6-1.0) Estimated GFR (Cockcroft-Gault) 118.6 BUN/Creatinine Ratio 17 (6-20) Glucose Level 86 mg/dL (70-99) Lactic Acid Level 1.0 mmol/L (0.4-2.0) Calcium Level 8.3 mg/dL (8.5-10.1) L Magnesium Level 1.7 mg/dL (1.8-2.4) L Total Bilirubin 0.3 mg/dL (0.2-1.0) Aspartate Amino Transferase (AST) 27 U/L (15-37) Alanine Aminotransferase (ALT) 21 U/L (14-59) Alkaline Phosphatase 67 U/L (46-116) Creatine Kinase 129 U/L (26-192) Troponin I Quantitative < 0.017 ng/mL (0.000-0.055) ME-Prf-S-Type Natriuretic Peptide 581 pg/mL (0-124) H Total Protein 5.6 g/dL (6.4-8.2) L Albumin 2.1 g/dL (3.4-5.0) L Albumin/Globulin Ratio 0.6 (1.0-1.7) L Procalcitonin < 0.10 ng/mL (0.00-0.10) Thyroid Stimulating Hormone (TSH) 7.883 uIU/mL (0.358-3.74) H Free Triiodothyronine (T3) pg/mL 0.95 pg/mL (2.18-3.98) L Valproic Acid Level 46 mcg/mL (50-100) L Valproic Acid Last Dose Date 11/22/20 Valproic Acid Last Dose Time 0800 Urine Collection Type Unknown Urine Color Yellow Urine Clarity Clear Urine pH 6.5 (<5.0-8.0) Urine Specific [place] 1.010 (1.000-1.030) Urine Protein Negative mg/dL (NEG-TRACE) Urine Glucose (UA) Negative mg/dL (NEG) Urine Ketones (Stick) Negative mg/dL (NEG) Urine Blood Negative (NEG) Urine Nitrite Negative (NEG) Urine Bilirubin Negative (NEG) Urine Urobilinogen Dipstick 0.2 mg/dL (0.2 mg/dL) Urine Leukocyte Esterase Negative (NEG) Urine RBC Occ /HPF (0-2) Urine WBC 0 /HPF (0-4) Urine Squamous Epithelial Cells Occ /LPF Urine Bacteria 0 /HPF (0-FEW) Urine Opiates Screen Neg (NEG) Urine Methadone Screen Neg (NEG) Urine Barbiturates Neg (NEG) Urine Phencyclidine Screen Neg (NEG) Urine Amphetamine/Methamphetamine Neg (NEG) Urine Benzodiazepines Screen Neg (NEG) Urine Cocaine Screen Neg (NEG) Urine Cannabinoids Screen Neg (NEG) Urine Ethyl Alcohol Neg (NEG) SARS-CoV-2 RNA (DAVID) Negative (Negative) SARS-CoV-2 Antigen (Rapid) Negative (NEGATIVE) O2 Saturation 100 % (92-99) H Arterial Blood pH 7.63 (7.35-7.45) *H Arterial Blood pCO2 at Patient Temp 31 mmHg (35-46) L Arterial Blood pO2 at Patient Temp 499 mmHg (65-108) H Arterial Blood HCO3 32 mmol/L (21-28) H Arterial Blood Base Excess 10 mmol/L (-3-3) H FiO2 100 Test 11/22/20 23:48 11/23/20 04:00 11/23/20 07:49 Glucose (Fingerstick) 112 mg/dL (70-99) H White Blood Count 2.8 x10^3/uL (4.0-11.0) L Red Blood Count 2.44 x10^6/uL (3.50-5.40) L Hemoglobin 7.3 g/dL (12.0-15.5) L Hematocrit 21.7 % (36.0-47.0) L Mean Corpuscular Volume 89 fL (79-100) Mean Corpuscular Hemoglobin 30 pg (25-35) Mean Corpuscular Hemoglobin Concent 33 g/dL (31-37) Red Cell Distribution Width 18.0 % (11.5-14.5) H Platelet Count 38 x10^3/uL (140-400) L Neutrophils (%) (Auto) 64 % (31-73) Lymphocytes (%) (Auto) 23 % (24-48) L Monocytes (%) (Auto) 12 % (0-9) H Eosinophils (%) (Auto) 1 % (0-3) Basophils (%) (Auto) 0 % (0-3) Neutrophils # (Auto) 1.8 x10^3/uL (1.8-7.7) Lymphocytes # (Auto) 0.6 x10^3/uL (1.0-4.8) L Monocytes # (Auto) 0.3 x10^3/uL (0.0-1.1) Eosinophils # (Auto) 0.0 x10^3/uL (0.0-0.7) Basophils # (Auto) 0.0 x10^3/uL (0.0-0.2) Sodium Level 128 mmol/L (136-145) L Potassium Level 3.2 mmol/L (3.5-5.1) #L Chloride Level 95 mmol/L (98-107) L Carbon Dioxide Level 31 mmol/L (21-32) Anion Gap 2 (6-14) L Blood Urea Nitrogen 10 mg/dL (7-20) Creatinine 0.5 mg/dL (0.6-1.0) L Estimated GFR (Cockcroft-Gault) 146.3 Glucose Level 76 mg/dL (70-99) Calcium Level 7.9 mg/dL (8.5-10.1) L Magnesium Level 1.8 mg/dL (1.8-2.4) Ammonia 17 mcmol/L (11-34) Troponin I Quantitative 0.023 ng/mL (0.000-0.055) O2 Saturation 99 % (92-99) Arterial Blood pH 7.53 (7.35-7.45) H Arterial Blood pCO2 at Patient Temp 35 mmHg (35-46) Arterial Blood pO2 at Patient Temp 139 mmHg (65-108) H Arterial Blood HCO3 28 mmol/L (21-28) Arterial Blood Base Excess 5 mmol/L (-3-3) H FiO2 40 Laboratory Tests 11/22/20 11:35 11/23/20 04:00 Laboratory Tests 11/22/20 11:35 11/23/20 04:00 ECHOCARDIOGRAM ECHOCARDIOGRAM <Conclusion> Technically difficult study. The left ventricular systolic function is normal. Estimated ejection fraction 55-60%. There is normal LV segmental wall motion. Mild aortic regurgitation. Trace mitral regurgitation. Trace tricuspid regurgitation. Estimapted PAP 30-35 mmHg. There is no evidence of significant pericardial effusion. DATE: 10/11/20 [id number] 0 ASSESSMENT/PLAN ASSESSMENT/PLAN 1. Acute on chronic seizures 2. Acute respiratory failure; secondary to above. s/p intubation 3. Hypothermia; Patrizia hugger in place 4. Pancytopenia 5. Sinus bradycardia; maintaining in upper 30's, low 40's. No pauses. Likely secondary to above. No indication for PPM at this time 6. Mild acute on chronic diastolic CHF 7. Hyponatremia, hypokalemia 8. Hypertension; controlled 9. Hyperlipidemia 10. Bipolar, schizophrenia Recommendations Coreg held Remove clonidine patch now Avoid AV emir blocking agents Monitor rhythm May start Dopamine as warranted if hemodynamically unstable Rewarming Lasix PRN Follow neuro recs Supportive care MILE SCOTT MD 11/23/20 1713: CARDIAC CONSULT ASSESSMENT/PLAN ASSESSMENT/PLAN Patient seen and examined. Agree with INTERNET RESEARCHER's assessment and plan. Mild acute on chronic diastolic heart failure better compensated. Sinus bradycardia most probably secondary to hypothermia. No pauses noted on telemetry. Agree with holding Coreg Neurology following procedures Continue vent management per pulmonary team Thank you for your consultation CARMEL DIAZ APRN Nov 23, 2020 10:12 MILE SCOTT MD Nov 23, 2020 17:13
--- NOTE | 2020-11-23 10:48 | NUR ---
SS following for discharge planning. SS reviewed pt chart and discussed with pt RN. Pt is from home with 24 hour care. COVID19 negative. Pt is currently on the vent at 35%. Pt on IV Solu-Medrol, IV Keppra, IV Valproic Acid, IV Zosyn, and Versed. SS will continue to follow for discharge planning.
--- NOTE | 2020-11-23 12:17 | PDOC ---
PULMONARY PROGRESS NOTES DATE: 11/23/20 TIME: 12:17 Subjective Patient sedated on assist control ventilation Vitals Vital Signs Date Time Temp Pulse Resp B/P (MAP) Pulse Ox O2 Delivery O2 Flow Rate FiO2 11/23/20 11:37 100 Ventilator 11/23/20 11:00 86.7 36 10 100/68 (79) 86.7 11/22/20 11:22 15.0 Lungs: Clear Cardiovascular: S1 Abdomen: Soft, Non-tender Extremities: Other (Some edema) Labs Laboratory Tests Test 11/22/20 11:35 11/22/20 12:30 11/22/20 13:10 11/22/20 15:45 White Blood Count 3.8 x10^3/uL (4.0-11.0) Red Blood Count 2.85 x10^6/uL (3.50-5.40) Hemoglobin 8.4 g/dL (12.0-15.5) Hematocrit 25.6 % (36.0-47.0) Mean Corpuscular Volume 90 fL (79-100) Mean Corpuscular Hemoglobin 30 pg (25-35) Mean Corpuscular Hemoglobin Concent 33 g/dL (31-37) Red Cell Distribution Width 18.0 % (11.5-14.5) Platelet Count 55 x10^3/uL (140-400) Neutrophils (%) (Auto) 73 % (31-73) Lymphocytes (%) (Auto) 19 % (24-48) Monocytes (%) (Auto) 8 % (0-9) Eosinophils (%) (Auto) 1 % (0-3) Basophils (%) (Auto) 0 % (0-3) Neutrophils # (Auto) 2.8 x10^3/uL (1.8-7.7) Lymphocytes # (Auto) 0.7 x10^3/uL (1.0-4.8) Monocytes # (Auto) 0.3 x10^3/uL (0.0-1.1) Eosinophils # (Auto) 0.0 x10^3/uL (0.0-0.7) Basophils # (Auto) 0.0 x10^3/uL (0.0-0.2) Sodium Level 124 mmol/L (136-145) Potassium Level 5.3 mmol/L (3.5-5.1) Chloride Level 90 mmol/L (98-107) Carbon Dioxide Level 33 mmol/L (21-32) Anion Gap 1 (6-14) Blood Urea Nitrogen 10 mg/dL (7-20) Creatinine 0.6 mg/dL (0.6-1.0) Estimated GFR (Cockcroft-Gault) 118.6 BUN/Creatinine Ratio 17 (6-20) Glucose Level 86 mg/dL (70-99) Lactic Acid Level 1.0 mmol/L (0.4-2.0) Calcium Level 8.3 mg/dL (8.5-10.1) Magnesium Level 1.7 mg/dL (1.8-2.4) Total Bilirubin 0.3 mg/dL (0.2-1.0) Aspartate Amino Transf (AST/SGOT) 27 U/L (15-37) Alanine Aminotransferase (ALT/SGPT) 21 U/L (14-59) Alkaline Phosphatase 67 U/L (46-116) Creatine Kinase 129 U/L (26-192) Troponin I Quantitative < 0.017 ng/mL (0.000-0.055) FA-[place]-L-Type Natriuretic Peptide 581 pg/mL (0-124) Total Protein 5.6 g/dL (6.4-8.2) Albumin 2.1 g/dL (3.4-5.0) Albumin/Globulin Ratio 0.6 (1.0-1.7) Procalcitonin < 0.10 ng/mL (0.00-0.10) Thyroid Stimulating Hormone (TSH) 7.883 uIU/mL (0.358-3.74) Free Triiodothyronine (T3) pg/mL 0.95 pg/mL (2.18-3.98) Valproic Acid (Depakene) Level 46 mcg/mL (50-100) Valproic Acid Last Dose Date 11/22/20 Valproic Acid Last Dose Time 0800 Urine Collection Type Unknown Urine Color Yellow Urine Clarity Clear Urine pH 6.5 (<5.0-8.0) Urine Specific [place] 1.010 (1.000-1.030) Urine Protein Negative mg/dL (NEG-TRACE) Urine Glucose (UA) Negative mg/dL (NEG) Urine Ketones (Stick) Negative mg/dL (NEG) Urine Blood Negative (NEG) Urine Nitrite Negative (NEG) Urine Bilirubin Negative (NEG) Urine Urobilinogen Dipstick 0.2 mg/dL (0.2 mg/dL) Urine Leukocyte Esterase Negative (NEG) Urine RBC Occ /HPF (0-2) Urine WBC 0 /HPF (0-4) Urine Squamous Epithelial Cells Occ /LPF Urine Bacteria 0 /HPF (0-FEW) Urine Opiates Screen Neg (NEG) Urine Methadone Screen Neg (NEG) Urine Barbiturates Neg (NEG) Urine Phencyclidine Screen Neg (NEG) Urine Amphetamine/Methamphetamine Neg (NEG) Urine Benzodiazepines Screen Neg (NEG) Urine Cocaine Screen Neg (NEG) Urine Cannabinoids Screen Neg (NEG) Urine Ethyl Alcohol Neg (NEG) SARS-CoV-2 RNA (DAVID) Negative (Negative) SARS-CoV-2 Antigen (Rapid) Negative (NEGATIVE) O2 Saturation 100 % (92-99) Arterial Blood pH 7.63 (7.35-7.45) Arterial Blood pCO2 at Patient Temp 31 mmHg (35-46) Arterial Blood pO2 at Patient Temp 499 mmHg (65-108) Arterial Blood HCO3 32 mmol/L (21-28) Arterial Blood Base Excess 10 mmol/L (-3-3) FiO2 100 Test 11/22/20 23:48 11/23/20 04:00 11/23/20 07:49 Glucose (Fingerstick) 112 mg/dL (70-99) White Blood Count 2.8 x10^3/uL (4.0-11.0) Red Blood Count 2.44 x10^6/uL (3.50-5.40) Hemoglobin 7.3 g/dL (12.0-15.5) Hematocrit 21.7 % (36.0-47.0) Mean Corpuscular Volume 89 fL (79-100) Mean Corpuscular Hemoglobin 30 pg (25-35) Mean Corpuscular Hemoglobin Concent 33 g/dL (31-37) Red Cell Distribution Width 18.0 % (11.5-14.5) Platelet Count 38 x10^3/uL (140-400) Neutrophils (%) (Auto) 64 % (31-73) Lymphocytes (%) (Auto) 23 % (24-48) Monocytes (%) (Auto) 12 % (0-9) Eosinophils (%) (Auto) 1 % (0-3) Basophils (%) (Auto) 0 % (0-3) Neutrophils # (Auto) 1.8 x10^3/uL (1.8-7.7) Lymphocytes # (Auto) 0.6 x10^3/uL (1.0-4.8) Monocytes # (Auto) 0.3 x10^3/uL (0.0-1.1) Eosinophils # (Auto) 0.0 x10^3/uL (0.0-0.7) Basophils # (Auto) 0.0 x10^3/uL (0.0-0.2) Sodium Level 128 mmol/L (136-145) Potassium Level 3.2 mmol/L (3.5-5.1) Chloride Level 95 mmol/L (98-107) Carbon Dioxide Level 31 mmol/L (21-32) Anion Gap 2 (6-14) Blood Urea Nitrogen 10 mg/dL (7-20) Creatinine 0.5 mg/dL (0.6-1.0) Estimated GFR (Cockcroft-Gault) 146.3 Glucose Level 76 mg/dL (70-99) Calcium Level 7.9 mg/dL (8.5-10.1) Magnesium Level 1.8 mg/dL (1.8-2.4) Ammonia 17 mcmol/L (11-34) Troponin I Quantitative 0.023 ng/mL (0.000-0.055) O2 Saturation 99 % (92-99) Arterial Blood pH 7.53 (7.35-7.45) Arterial Blood pCO2 at Patient Temp 35 mmHg (35-46) Arterial Blood pO2 at Patient Temp 139 mmHg (65-108) Arterial Blood HCO3 28 mmol/L (21-28) Arterial Blood Base Excess 5 mmol/L (-3-3) FiO2 40 Laboratory Tests Test 11/22/20 12:30 11/22/20 13:10 11/22/20 15:45 11/22/20 23:48 Urine Collection Type Unknown Urine Color Yellow Urine Clarity Clear Urine pH 6.5 (<5.0-8.0) Urine Specific [place] 1.010 (1.000-1.030) Urine Protein Negative mg/dL (NEG-TRACE) Urine Glucose (UA) Negative mg/dL (NEG) Urine Ketones (Stick) Negative mg/dL (NEG) Urine Blood Negative (NEG) Urine Nitrite Negative (NEG) Urine Bilirubin Negative (NEG) Urine Urobilinogen Dipstick 0.2 mg/dL (0.2 mg/dL) Urine Leukocyte Esterase Negative (NEG) Urine RBC Occ /HPF (0-2) Urine WBC 0 /HPF (0-4) Urine Squamous Epithelial Cells Occ /LPF Urine Bacteria 0 /HPF (0-FEW) Urine Opiates Screen Neg (NEG) Urine Methadone Screen Neg (NEG) Urine Barbiturates Neg (NEG) Urine Phencyclidine Screen Neg (NEG) Urine Amphetamine/Methamphetamine Neg (NEG) Urine Benzodiazepines Screen Neg (NEG) Urine Cocaine Screen Neg (NEG) Urine Cannabinoids Screen Neg (NEG) Urine Ethyl Alcohol Neg (NEG) SARS-CoV-2 RNA (DAVID) Negative (Negative) SARS-CoV-2 Antigen (Rapid) Negative (NEGATIVE) O2 Saturation 100 % (92-99) Arterial Blood pH 7.63 (7.35-7.45) Arterial Blood pCO2 at Patient Temp 31 mmHg (35-46) Arterial Blood pO2 at Patient Temp 499 mmHg (65-108) Arterial Blood HCO3 32 mmol/L (21-28) Arterial Blood Base Excess 10 mmol/L (-3-3) FiO2 100 Glucose (Fingerstick) 112 mg/dL (70-99) Test 11/23/20 04:00 11/23/20 07:49 White Blood Count 2.8 x10^3/uL (4.0-11.0) Red Blood Count 2.44 x10^6/uL (3.50-5.40) Hemoglobin 7.3 g/dL (12.0-15.5) Hematocrit 21.7 % (36.0-47.0) Mean Corpuscular Volume 89 fL (79-100) Mean Corpuscular Hemoglobin 30 pg (25-35) Mean Corpuscular Hemoglobin Concent 33 g/dL (31-37) Red Cell Distribution Width 18.0 % (11.5-14.5) Platelet Count 38 x10^3/uL (140-400) Neutrophils (%) (Auto) 64 % (31-73) Lymphocytes (%) (Auto) 23 % (24-48) Monocytes (%) (Auto) 12 % (0-9) Eosinophils (%) (Auto) 1 % (0-3) Basophils (%) (Auto) 0 % (0-3) Neutrophils # (Auto) 1.8 x10^3/uL (1.8-7.7) Lymphocytes # (Auto) 0.6 x10^3/uL (1.0-4.8) Monocytes # (Auto) 0.3 x10^3/uL (0.0-1.1) Eosinophils # (Auto) 0.0 x10^3/uL (0.0-0.7) Basophils # (Auto) 0.0 x10^3/uL (0.0-0.2) Sodium Level 128 mmol/L (136-145) Potassium Level 3.2 mmol/L (3.5-5.1) Chloride Level 95 mmol/L (98-107) Carbon Dioxide Level 31 mmol/L (21-32) Anion Gap 2 (6-14) Blood Urea Nitrogen 10 mg/dL (7-20) Creatinine 0.5 mg/dL (0.6-1.0) Estimated GFR (Cockcroft-Gault) 146.3 Glucose Level 76 mg/dL (70-99) Calcium Level 7.9 mg/dL (8.5-10.1) Magnesium Level 1.8 mg/dL (1.8-2.4) Ammonia 17 mcmol/L (11-34) Troponin I Quantitative 0.023 ng/mL (0.000-0.055) O2 Saturation 99 % (92-99) Arterial Blood pH 7.53 (7.35-7.45) Arterial Blood pCO2 at Patient Temp 35 mmHg (35-46) Arterial Blood pO2 at Patient Temp 139 mmHg (65-108) Arterial Blood HCO3 28 mmol/L (21-28) Arterial Blood Base Excess 5 mmol/L (-3-3) FiO2 40 Medications Active Scripts Medications Dose Route/Sig Max Daily Dose Days Date Category Lansoprazole 30 Mg Capsule.dr 1 Cap PO DAILY 11/22/20 Reported Diclofenac Sodium 100 Gm Gel..gram. 4 Gm TP QID 11/22/20 Reported Prednisone (Prednisone) 10 Mg Tablet 5 Mg PO DAILY 5 10/26/20 Rx Valproic Acid (Valproic Acid (As Sodium Salt)) 250 Mg/5 Ml Solution 500 Mg PO BID 30 10/26/20 Rx Keppra (Levetiracetam) 500 Mg Tablet 1,000 Mg PO BID 10/26/20 Rx Proair Hfa (Albuterol Sulfate) 8.5 Gm Hfa.aer.ad 2 Puff IH PRN Q4HRS PRN 21 10/10/20 Reported Keppra (Levetiracetam) 250 Mg Tablet 1 Tab PO BID 30 10/10/20 Reported Furosemide 40 Mg Tablet 1 Tab PO DAILY 10/10/20 Reported Aspirin Ec (Aspirin) 81 Mg Tablet.dr 1 Tab PO DAILY 10/10/20 Reported Breo Ellipta 100-25 Mcg Inh (Fluticasone/Vilanterol) 1 Each Aer.pow.ba 1 Puff IH DAILY 07/23/16 Reported Folic Acid 1 Mg Tablet 400 Mcg PO BID 07/23/16 Reported Vitamin B-12 (Cyanocobalamin (Vitamin B-12)) 1,000 Mcg Tablet 500 Mcg PO BID 07/23/16 Reported Trihexyphenidyl Hcl 2 Mg Tablet 2 Mg PO HS 07/23/16 Reported Divalproex Sodium 500 Mg Tablet. 250 Mg PO DAILY 07/23/16 Reported Lipitor (Atorvastatin Calcium) 80 Mg Tablet 80 Mg PO HS 12/21/13 Reported Duoneb 0.5 Mg-3 Mg/3 Ml Soln (Ipratropium/Albuterol Sulfate) 3 Ml Ampul.neb 3 Ml IH TID 04/28/13 Reported Miralax (Polyethylene Glycol 3350) 17 Gm Powd.pack 17 Gm PO DAILY 04/28/13 Reported Invega (Paliperidone) 6 Mg Tab.er.24 6 Mg PO HS 04/28/13 Reported Carvedilol (Carvedilol) 12.5 Mg Tablet 12.5 Mg PO BID 04/28/13 Reported Hydralazine Hcl 50 Mg Tablet 50 Mg PO BID 04/28/13 Reported Clonidine Tts-3 (Clonidine) 1 Each Patch.tdwk 1 Each TD WEEKLY 04/28/13 Reported Klor-Con M20 (Potassium Chloride) 20 Meq Tab.er.prt 20 Meq PO BID 04/28/13 Reported Divalproex Sodium 500 Mg Tablet.dr 500 Mg PO HS 04/28/13 Reported Amlodipine Besylate 10 Mg Tablet 10 Mg PO DAILY 04/28/13 Reported Vitamin D3 1,000 Unit Tablet (Ca Cmb No.1/Vit D3/B-6/Fa/B12) 1 Each Tablet 1 Each PO DAILY 04/28/13 Reported Flonase (Fluticasone Propionate) 16 Gm [place].susp 1 Spr NS BID 04/28/13 Reported Impression . IMPRESSION: 1. Acute hypoxemic respiratory failure secondary to breakthrough seizures. 2. Breakthrough seizures. 3. Electrolyte abnormalities including hyponatremia, hypomagnesemia. 4. Severe protein malnutrition, present upon admission. 5. Multiple other comorbidities including schizophrenia, hypertension, hypothyroidism, sleep apnea, tardive dyskinesia. Plan . Updated 11/23 Continue current support Follow neurology input Replace electrolyte Monitor H&H ABG noted pH is 7.53 adjustments were made on vent settings Sodium today 128 PLAN: 11/22 1. We will continue current vent settings. 2. Repeat arterial blood gas. 3. Follow neurology input. 4. Continue home meds. 5. Initiate normal saline. 6. Nutritional support. 7. Replace magnesium. I do appreciate the privilege in sharing in the patient's care. PETER GARDUNO MD Nov 23, 2020 12:17
--- NOTE | 2020-11-23 13:42 | PDOC ---
PROGRESS NOTES Date of Service DATE: 11/23/20 TIME: 13:39 Assessment Problems Medical Problems: (1) Acute respiratory failure with hypoxia Status: Acute (2) Sinus bradycardia Status: Acute (3) Status epilepticus Status: Acute Epilepsy, breakthrough seizures, had a subtherapeutic valproic acid level, levetiracetam level pending This morning has developed severe hypothermia and bradycardia At admission had hyponatremia, hyperkalemia, hypocalcemia, hypomagnesemia Plan Increased Depakote dose Continue levetiracetam and await level Treat medical issues ICU monitoring Subjective None Objective Vital Signs Date Time Temp Pulse Resp B/P (MAP) Pulse Ox O2 Delivery O2 Flow Rate FiO2 11/23/20 12:00 88.2 48 10 118/85 (96) 100 Ventilator 88.2 11/22/20 11:22 15.0 Intake and Output 11/23/20 07:00 Intake Total 196 ml Output Total 1175 ml Balance -979 ml Intake IV Total 196 ml Output Urine Total 1175 ml PHYSICAL EXAM On vent, mildly sedated, still hypothermic PERRL. EOMI. CN: no focal findings. Muscle tone: normal. Muscle strength: No withdrawal to pain DTR: 1+ Plantar reflex: Silent Gait: not examined in bed. Sensory exam: Not cooperative. Cerebellar: not cooperative Review of Relevant I have reviewed the following items melanie (where applicable) has been applied. Labs Laboratory Tests Test 11/22/20 11:35 11/22/20 12:30 11/22/20 13:10 11/22/20 15:45 White Blood Count 3.8 x10^3/uL (4.0-11.0) Red Blood Count 2.85 x10^6/uL (3.50-5.40) Hemoglobin 8.4 g/dL (12.0-15.5) Hematocrit 25.6 % (36.0-47.0) Mean Corpuscular Volume 90 fL (79-100) Mean Corpuscular Hemoglobin 30 pg (25-35) Mean Corpuscular Hemoglobin Concent 33 g/dL (31-37) Red Cell Distribution Width 18.0 % (11.5-14.5) Platelet Count 55 x10^3/uL (140-400) Neutrophils (%) (Auto) 73 % (31-73) Lymphocytes (%) (Auto) 19 % (24-48) Monocytes (%) (Auto) 8 % (0-9) Eosinophils (%) (Auto) 1 % (0-3) Basophils (%) (Auto) 0 % (0-3) Neutrophils # (Auto) 2.8 x10^3/uL (1.8-7.7) Lymphocytes # (Auto) 0.7 x10^3/uL (1.0-4.8) Monocytes # (Auto) 0.3 x10^3/uL (0.0-1.1) Eosinophils # (Auto) 0.0 x10^3/uL (0.0-0.7) Basophils # (Auto) 0.0 x10^3/uL (0.0-0.2) Sodium Level 124 mmol/L (136-145) Potassium Level 5.3 mmol/L (3.5-5.1) Chloride Level 90 mmol/L (98-107) Carbon Dioxide Level 33 mmol/L (21-32) Anion Gap 1 (6-14) Blood Urea Nitrogen 10 mg/dL (7-20) Creatinine 0.6 mg/dL (0.6-1.0) Estimated GFR (Cockcroft-Gault) 118.6 BUN/Creatinine Ratio 17 (6-20) Glucose Level 86 mg/dL (70-99) Lactic Acid Level 1.0 mmol/L (0.4-2.0) Calcium Level 8.3 mg/dL (8.5-10.1) Magnesium Level 1.7 mg/dL (1.8-2.4) Total Bilirubin 0.3 mg/dL (0.2-1.0) Aspartate Amino Transf (AST/SGOT) 27 U/L (15-37) Alanine Aminotransferase (ALT/SGPT) 21 U/L (14-59) Alkaline Phosphatase 67 U/L (46-116) Creatine Kinase 129 U/L (26-192) Troponin I Quantitative < 0.017 ng/mL (0.000-0.055) RL-Omi-E-Type Natriuretic Peptide 581 pg/mL (0-124) Total Protein 5.6 g/dL (6.4-8.2) Albumin 2.1 g/dL (3.4-5.0) Albumin/Globulin Ratio 0.6 (1.0-1.7) Procalcitonin < 0.10 ng/mL (0.00-0.10) Thyroid Stimulating Hormone (TSH) 7.883 uIU/mL (0.358-3.74) Free Triiodothyronine (T3) pg/mL 0.95 pg/mL (2.18-3.98) Valproic Acid (Depakene) Level 46 mcg/mL (50-100) Valproic Acid Last Dose Date 11/22/20 Valproic Acid Last Dose Time 0800 Urine Collection Type Unknown Urine Color Yellow Urine Clarity Clear Urine pH 6.5 (<5.0-8.0) Urine Specific [place] 1.010 (1.000-1.030) Urine Protein Negative mg/dL (NEG-TRACE) Urine Glucose (UA) Negative mg/dL (NEG) Urine Ketones (Stick) Negative mg/dL (NEG) Urine Blood Negative (NEG) Urine Nitrite Negative (NEG) Urine Bilirubin Negative (NEG) Urine Urobilinogen Dipstick 0.2 mg/dL (0.2 mg/dL) Urine Leukocyte Esterase Negative (NEG) Urine RBC Occ /HPF (0-2) Urine WBC 0 /HPF (0-4) Urine Squamous Epithelial Cells Occ /LPF Urine Bacteria 0 /HPF (0-FEW) Urine Opiates Screen Neg (NEG) Urine Methadone Screen Neg (NEG) Urine Barbiturates Neg (NEG) Urine Phencyclidine Screen Neg (NEG) Urine Amphetamine/Methamphetamine Neg (NEG) Urine Benzodiazepines Screen Neg (NEG) Urine Cocaine Screen Neg (NEG) Urine Cannabinoids Screen Neg (NEG) Urine Ethyl Alcohol Neg (NEG) SARS-CoV-2 RNA (DAVID) Negative (Negative) SARS-CoV-2 Antigen (Rapid) Negative (NEGATIVE) O2 Saturation 100 % (92-99) Arterial Blood pH 7.63 (7.35-7.45) Arterial Blood pCO2 at Patient Temp 31 mmHg (35-46) Arterial Blood pO2 at Patient Temp 499 mmHg (65-108) Arterial Blood HCO3 32 mmol/L (21-28) Arterial Blood Base Excess 10 mmol/L (-3-3) FiO2 100 Test 11/22/20 23:48 11/23/20 04:00 11/23/20 07:49 11/23/20 13:33 Glucose (Fingerstick) 112 mg/dL (70-99) 86 mg/dL (70-99) White Blood Count 2.8 x10^3/uL (4.0-11.0) Red Blood Count 2.44 x10^6/uL (3.50-5.40) Hemoglobin 7.3 g/dL (12.0-15.5) Hematocrit 21.7 % (36.0-47.0) Mean Corpuscular Volume 89 fL (79-100) Mean Corpuscular Hemoglobin 30 pg (25-35) Mean Corpuscular Hemoglobin Concent 33 g/dL (31-37) Red Cell Distribution Width 18.0 % (11.5-14.5) Platelet Count 38 x10^3/uL (140-400) Neutrophils (%) (Auto) 64 % (31-73) Lymphocytes (%) (Auto) 23 % (24-48) Monocytes (%) (Auto) 12 % (0-9) Eosinophils (%) (Auto) 1 % (0-3) Basophils (%) (Auto) 0 % (0-3) Neutrophils # (Auto) 1.8 x10^3/uL (1.8-7.7) Lymphocytes # (Auto) 0.6 x10^3/uL (1.0-4.8) Monocytes # (Auto) 0.3 x10^3/uL (0.0-1.1) Eosinophils # (Auto) 0.0 x10^3/uL (0.0-0.7) Basophils # (Auto) 0.0 x10^3/uL (0.0-0.2) Sodium Level 128 mmol/L (136-145) Potassium Level 3.2 mmol/L (3.5-5.1) Chloride Level 95 mmol/L (98-107) Carbon Dioxide Level 31 mmol/L (21-32) Anion Gap 2 (6-14) Blood Urea Nitrogen 10 mg/dL (7-20) Creatinine 0.5 mg/dL (0.6-1.0) Estimated GFR (Cockcroft-Gault) 146.3 Glucose Level 76 mg/dL (70-99) Calcium Level 7.9 mg/dL (8.5-10.1) Magnesium Level 1.8 mg/dL (1.8-2.4) Ammonia 17 mcmol/L (11-34) Troponin I Quantitative 0.023 ng/mL (0.000-0.055) O2 Saturation 99 % (92-99) Arterial Blood pH 7.53 (7.35-7.45) Arterial Blood pCO2 at Patient Temp 35 mmHg (35-46) Arterial Blood pO2 at Patient Temp 139 mmHg (65-108) Arterial Blood HCO3 28 mmol/L (21-28) Arterial Blood Base Excess 5 mmol/L (-3-3) FiO2 40 Laboratory Tests Test 11/22/20 15:45 11/22/20 23:48 11/23/20 04:00 11/23/20 07:49 O2 Saturation 100 % (92-99) 99 % (92-99) Arterial Blood pH 7.63 (7.35-7.45) 7.53 (7.35-7.45) Arterial Blood pCO2 at Patient Temp 31 mmHg (35-46) 35 mmHg (35-46) Arterial Blood pO2 at Patient Temp 499 mmHg (65-108) 139 mmHg (65-108) Arterial Blood HCO3 32 mmol/L (21-28) 28 mmol/L (21-28) Arterial Blood Base Excess 10 mmol/L (-3-3) 5 mmol/L (-3-3) FiO2 100 40 Glucose (Fingerstick) 112 mg/dL (70-99) White Blood Count 2.8 x10^3/uL (4.0-11.0) Red Blood Count 2.44 x10^6/uL (3.50-5.40) Hemoglobin 7.3 g/dL (12.0-15.5) Hematocrit 21.7 % (36.0-47.0) Mean Corpuscular Volume 89 fL (79-100) Mean Corpuscular Hemoglobin 30 pg (25-35) Mean Corpuscular Hemoglobin Concent 33 g/dL (31-37) Red Cell Distribution Width 18.0 % (11.5-14.5) Platelet Count 38 x10^3/uL (140-400) Neutrophils (%) (Auto) 64 % (31-73) Lymphocytes (%) (Auto) 23 % (24-48) Monocytes (%) (Auto) 12 % (0-9) Eosinophils (%) (Auto) 1 % (0-3) Basophils (%) (Auto) 0 % (0-3) Neutrophils # (Auto) 1.8 x10^3/uL (1.8-7.7) Lymphocytes # (Auto) 0.6 x10^3/uL (1.0-4.8) Monocytes # (Auto) 0.3 x10^3/uL (0.0-1.1) Eosinophils # (Auto) 0.0 x10^3/uL (0.0-0.7) Basophils # (Auto) 0.0 x10^3/uL (0.0-0.2) Sodium Level 128 mmol/L (136-145) Potassium Level 3.2 mmol/L (3.5-5.1) Chloride Level 95 mmol/L (98-107) Carbon Dioxide Level 31 mmol/L (21-32) Anion Gap 2 (6-14) Blood Urea Nitrogen 10 mg/dL (7-20) Creatinine 0.5 mg/dL (0.6-1.0) Estimated GFR (Cockcroft-Gault) 146.3 Glucose Level 76 mg/dL (70-99) Calcium Level 7.9 mg/dL (8.5-10.1) Magnesium Level 1.8 mg/dL (1.8-2.4) Ammonia 17 mcmol/L (11-34) Troponin I Quantitative 0.023 ng/mL (0.000-0.055) Test 11/23/20 13:33 Glucose (Fingerstick) 86 mg/dL (70-99) Medications Current Medications Lorazepam (Ativan Inj) 2 mg 1X ONCE IVP Last administered on 11/22/20at 12:23; Start 11/22/20 at 11:15; Stop 11/22/20 at 11:16; Status DC Sodium Chloride 1,000 ml @ 1,000 mls/hr 1X ONCE IV Last administered on 11/22/20at 11:15; Start 11/22/20 at 11:15; Stop 11/22/20 at 12:14; Status DC Lorazepam (Ativan Inj) 2 mg STK-MED ONCE .ROUTE ; Start 11/22/20 at 11:12; Stop 11/22/20 at 11:12; Status DC Etomidate (Amidate) 20 mg STK-MED ONCE IV ; Start 11/22/20 at 11:17; Stop 11/22/20 at 11:17; Status DC Succinylcholine Chloride (Anectine) 200 mg STK-MED ONCE .ROUTE ; Start 11/22/20 at 11:17; Stop 11/22/20 at 11:18; Status DC Sodium Chloride 1,000 ml @ 1,000 mls/hr 1X ONCE IV Last administered on 11/22/20at 11:30; Start 11/22/20 at 11:30; Stop 11/22/20 at 12:29; Status DC Levetiracetam 1000 mg/Dextrose 110 ml @ 440 mls/hr 1X ONCE IV Last administered on 11/22/20at 11:45; Start 11/22/20 at 11:45; Stop 11/22/20 at 11:59; Status DC Midazolam HCl 100 ml @ 1 mls/hr CONT PRN IV SEE I/O RECORD Last administered on 11/23/20at 09:11; Start 11/22/20 at 12:00 Valproic Acid 750 mg/Dextrose 57.5 ml @ 55 mls/hr 1X STAT IV Last administered on 11/22/20at 15:24; Start 11/22/20 at 15:24; Stop 11/22/20 at 16:26; Status DC Valproic Acid 750 mg/Dextrose 57.5 ml @ 55 mls/hr Q12HR IV Last administered on 11/23/20at 09:10; Start 11/22/20 at 21:00 Levetiracetam 1000 mg/Dextrose 110 ml @ 440 mls/hr Q12HR IV Last administered on 11/23/20at 09:10; Start 11/22/20 at 21:00 Sodium Chloride 1,000 ml @ 125 mls/hr 1X ONCE IV Last administered on 11/22/20at 15:30; Start 11/22/20 at 15:30; Stop 11/22/20 at 23:29; Status DC Magnesium Sulfate 50 ml @ 25 mls/hr 1X ONCE IV Last administered on 11/22/20at 16:42; Start 11/22/20 at 16:30; Stop 11/22/20 at 18:29; Status DC Piperacillin Sod/ Tazobactam Sod (Zosyn Per Pharmacy) 1 each PRN DAILY PRN MC SEE COMMENTS; Start 11/22/20 at 15:45 Piperacillin Sod/ Tazobactam Sod 3.375 gm/Sodium Chloride 50 ml @ 100 mls/hr Q6HRS IV Last administered on 11/23/20at 13:25; Start 11/22/20 at 17:00 Methylprednisolone Sodium Succinate (SOLU-Medrol 125MG VIAL) 125 mg 1X ONCE IV ; Start 11/22/20 at 18:30; Stop 11/22/20 at 18:35; Status DC Methylprednisolone Sodium Succinate (SOLU-Medrol 40MG VIAL) 40 mg Q12HR IV Last administered on 11/23/20at 09:09; Start 11/23/20 at 09:00 Pantoprazole Sodium (PROTONIX VIAL for IV PUSH) 40 mg DAILYAC IVP Last administered on 11/23/20at 09:09; Start 11/23/20 at 07:30 Pantoprazole Sodium (PROTONIX VIAL for IV PUSH) 40 mg 1X ONCE IVP ; Start 11/22/20 at 18:30; Stop 11/22/20 at 18:35; Status DC Insulin Human Lispro (HumaLOG) 0-7 UNITS Q6HRS SQ ; Start 11/23/20 at 00:00 Dextrose (Dextrose 50%-Water Syringe) 12.5 gm PRN Q15MIN PRN IV SEE COMMENTS; Start 11/22/20 at 18:30 Norepinephrine Bitartrate 8 mg/ Dextrose 258 ml @ 17.996 mls/ hr CONT PRN IV PER PROTOCOL; Start 11/22/20 at 20:15 Info (FLU VACCINE SCREEN per RX) 1 each 1X ONCE MC ; Start 11/22/20 at 23:00; Stop 11/22/20 at 23:01; Status Cancel Pharmacy Consult (C.diff Med Screen By Rx) 1 each 1X ONCE MC ; Start 11/22/20 at 23:00; Stop 11/22/20 at 23:01; Status DC Info (FLU VACCINE SCREEN per RX) 1 each PRN DAILY PRN MC SEE COMMENTS; Start 11/22/20 at 23:15 Potassium Chloride/Water 100 ml @ 100 mls/hr 1X ONCE IV Last administered on 11/23/20at 09:11; Start 11/23/20 at 08:00; Stop 11/23/20 at 08:59; Status DC Active Scripts Active Prednisone (Prednisone) 10 Mg Tablet 5 Mg PO DAILY 5 Days Valproic Acid (Valproic Acid (As Sodium Salt)) 250 Mg/5 Ml Solution 500 Mg PO BID 30 Days Keppra (Levetiracetam) 500 Mg Tablet 1,000 Mg PO BID 30 Days Reported Lansoprazole 30 Mg Capsule.dr 1 Cap PO DAILY Diclofenac Sodium 100 Gm Gel..gram. 4 Gm TP QID Proair Hfa (Albuterol Sulfate) 8.5 Gm Hfa.aer.ad 2 Puff IH PRN Q4HRS PRN 21 Days Keppra (Levetiracetam) 250 Mg Tablet 1 Tab PO BID 30 Days Furosemide 40 Mg Tablet 1 Tab PO DAILY Aspirin Ec (Aspirin) 81 Mg Tablet.dr 1 Tab PO DAILY Breo Ellipta 100-25 Mcg Inh (Fluticasone/Vilanterol) 1 Each Aer.pow.ba 1 Puff IH DAILY Folic Acid 1 Mg Tablet 400 Mcg PO BID Vitamin B-12 (Cyanocobalamin (Vitamin B-12)) 1,000 Mcg Tablet 500 Mcg PO BID Trihexyphenidyl Hcl 2 Mg Tablet 2 Mg PO HS Divalproex Sodium 500 Mg Tablet.dr 250 Mg PO DAILY Lipitor (Atorvastatin Calcium) 80 Mg Tablet 80 Mg PO HS Duoneb 0.5 Mg-3 Mg/3 Ml Soln (Ipratropium/Albuterol Sulfate) 3 Ml Ampul.neb 3 Ml IH TID Miralax (Polyethylene Glycol 3350) 17 Gm Powd.pack 17 Gm PO DAILY Invega (Paliperidone) 6 Mg Tab.er.24 6 Mg PO HS Carvedilol (Carvedilol) 12.5 Mg Tablet 12.5 Mg PO BID Hydralazine Hcl 50 Mg Tablet 50 Mg PO BID Clonidine Tts-3 (Clonidine) 1 Each Patch.tdwk 1 Each TD WEEKLY Klor-Con M20 (Potassium Chloride) 20 Meq Tab.er.prt 20 Meq PO BID Divalproex Sodium 500 Mg Tablet.dr 500 Mg PO HS Amlodipine Besylate 10 Mg Tablet 10 Mg PO DAILY Vitamin D3 1,000 Unit Tablet (Ca Cmb No.1/Vit D3/B-6/Fa/B12) 1 Each Tablet 1 Each PO DAILY Flonase (Fluticasone Propionate) 16 Gm [place].susp 1 Spr NS BID Vitals/I & O Vital Sign - Last 24 Hours 11/22/20 11/22/20 11/22/20 11/22/20 13:43 14:45 15:30 16:01 Pulse 44 44 44 Resp 13 13 15 B/P (MAP) 114/70 (85) 111/75 (87) 112/76 (88) Pulse Ox 100 99 100 98 O2 Delivery Ventilator Ventilator Ventilator 11/22/20 11/22/20 11/22/20 11/22/20 17:27 18:42 19:00 20:00 Temp 98.0 98.0 Pulse 41 40 42 Resp 12 12 12 B/P (MAP) 100/56 (71) 117/71 (86) 89/62 (71) Pulse Ox 100 100 99 99 O2 Delivery Ventilator Ventilator Ventilator Ventilator 11/22/20 11/22/20 11/22/20 11/22/20 20:00 20:00 21:00 22:00 Pulse 43 41 44 Resp 12 14 14 B/P (MAP) 86/63 (71) 98/58 (71) 100/55 (70) Pulse Ox 99 99 99 O2 Delivery Mechanical Ventilator Ventilator Ventilator Ventilator 11/22/20 11/22/20 11/22/20 11/23/20 22:35 23:00 23:59 01:00 Pulse 41 40 Resp 13 13 B/P (MAP) 109/64 (79) 95/53 (67) Pulse Ox 100 99 99 O2 Delivery Ventilator Ventilator Mechanical Ventilator Ventilator 11/23/20 11/23/20 11/23/20 11/23/20 01:50 02:00 03:00 04:00 Temp 98.1 98.1 Pulse 44 39 Resp 16 16 B/P (MAP) 97/64 (75) 105/96 (99) Pulse Ox 100 99 99 O2 Delivery Ventilator Ventilator Ventilator Mechanical Ventilator 11/23/20 11/23/20 11/23/20 11/23/20 04:00 05:00 05:15 06:00 Pulse 42 38 40 Resp 16 12 15 B/P (MAP) 112/69 (83) 108/72 (84) 95/65 (75) Pulse Ox 99 99 100 99 O2 Delivery Ventilator Ventilator Ventilator Ventilator 11/23/20 11/23/20 11/23/20 11/23/20 07:00 07:18 08:00 08:00 Pulse 36 36 Resp 10 10 B/P (MAP) 85/61 (69) 92/69 (77) Pulse Ox 100 100 100 O2 Delivery Ventilator Ventilator Ventilator Mechanical Ventilator 11/23/20 11/23/20 11/23/20/23/21 09:00 10:00 10:06 11:00 Temp 86.5 86.4 86.7 86.5 86.4 86.7 Pulse 36 36 36 Resp 10 10 10 B/P (MAP) 86/64 (71) 97/62 (74) 100/68 (79) Pulse Ox 100 100 100 100 O2 Delivery Ventilator Ventilator Ventilator Ventilator 11/23/20 11/23/20 11/23/20 11:37 12:00 12:00 Temp 88.2 88.2 Pulse 48 Resp 10 B/P (MAP) 118/85 (96) Pulse Ox 100 100 O2 Delivery Ventilator Mechanical Ventilator Ventilator Intake and Output 11/22/20 11/22/20 11/23/20 15:00 23:00 07:00 Intake Total 196 ml Output Total 625 ml 550 ml Balance -625 ml -354 ml Justicifation of Admission Dx: Justifications for Admission: Justification of Admission Dx: Yes KRISTINE GLEZ MD Nov 23, 2020 13:42
--- NOTE | 2020-11-23 15:51 | NUR ---
Wound/Ostomy Care Wound Type/Assessment: Patient seen per wound care consult. See wound assessment. Tube feeding placed on hold. Patient has a stage III pressure ulcer to coccyx. Wound is sloughy, but does have some granulation and epithelization showing. Wound cleansed and assessed. Treatment Recommendations/Plan: Recommendations for honey alginate to wound bed and cover with foam dressing. Change on 11/26/20 and 11/28/20. Education provided: Unable to educated due to vent. Offloading surface/device: Patient is currently on an ICU bed. Recommended Referrals/Tests: N/A Discharge Recommendations for dressings: Continue current treatment. Dressing change instructions left in room as well as honey alginate. No other wounds noted. Wound care will follow up on 11/30/20.
[2020-11-24] VITALS (22 sets, daily range): BP systolic 80–109; BP diastolic 50–72
[2020-11-24] MEDS: PIPERACILLIN/TAZOBACTAM 3.375 GM in IV NORMAL SALINE 50ML 50 ML IV SCH ×4 (00:02→18:01)
[2020-11-24 05:44] LABS: BASO % 0 % (0-3); EOS % 0 % (0-3); HEMATOCRIT 25.6 % (36.0-47.0); HEMOGLOBIN 8.5 g/dL (12.0-15.5); LYMPH # 0.4 x10^3/uL (1.0-4.8); LYMPH % 9 % (24-48); MEAN CORPUSCULAR HEMOGLOBIN 30 pg (25-35); MEAN CORPUSCULAR HGB CONC 33 g/dL (31-37); MEAN CORPUSCULAR VOLUME 89 fL (79-100); MONO # 0.1 x10^3/uL (0.0-1.1); MONO % 1 % (0-9); NEUT # 4.2 x10^3/uL (1.8-7.7); NEUT % 90 % (31-73); PLATELET COUNT 51 x10^3/uL (140-400); RED BLOOD COUNT 2.86 x10^6/uL (3.50-5.40); RED CELL DISTRIBUTION WIDTH 18.2 % (11.5-14.5); WHITE BLOOD COUNT 4.7 x10^3/uL (4.0-11.0)
[2020-11-24 05:45] LABS: CALCIUM 8.1 mg/dL (8.5-10.1); GFR 65.8; POTASSIUM 3.8 mmol/L (3.5-5.1)
[2020-11-24] MEDS: INSULIN LISPRO 300 UNITS/3 ML VIAL. SQ SCH ×4 (05:48→18:00)
--- NOTE | 2020-11-24 07:53 | RAD ---
XR CHEST 1V INDICATION: pneumonia 114 / Spl. Instructions: / History: . COMPARISON STUDY: 11/23/2020. FINDINGS: Life Support Devices: Stable endotracheal tube. Enteric tube courses into the stomach and beyond the inferior [id number]. Lungs: Normal lung volume. Stable bilateral basilar predominant opacities. Pleura: Stable small bilateral pleural effusions. Heart and Mediastinum: Stable cardiomediastinal silhouette and great vessels. Bones and Soft Tissues: Stable regional skeleton and soft tissues. IMPRESSION: 1. Stable bilateral basilar predominant opacities. 2. Stable small bilateral pleural effusions. 3. Life support devices as above Electronically signed by: Rory Narayanan MD (11/24/2020 7:51 AM) [id number]
[2020-11-24 08:13] LABS: BASE EXCESS ABG 2 mmol/L (-3-3); HCO3 ABG 26 mmol/L (21-28); PCO2 ABG 36 mmHg (35-46); PO2 ABG 92 mmHg (65-108); SAT O2 ABG 97 % (92-99)
[2020-11-24 08:32] LABS: FIO2 ABG 30
--- NOTE | 2020-11-24 08:48 | PDOC ---
PULMONARY PROGRESS NOTES DATE: 11/24/20 TIME: 08:48 Subjective Patient currently on assist control, sedated, no overnight events no seizures Vitals Vital Signs Date Time Temp Pulse Resp B/P (MAP) Pulse Ox O2 Delivery O2 Flow Rate FiO2 11/24/20 07:38 99 Ventilator 11/24/20 06:00 65 10 80/51 (61) 11/24/20 04:00 99.1 99.1 Lungs: Clear Cardiovascular: S1 Abdomen: Soft, Non-tender Extremities: Other (Some edema) Labs Laboratory Tests Test 11/22/20 11:35 11/22/20 12:30 11/22/20 13:10 11/22/20 15:45 White Blood Count 3.8 x10^3/uL (4.0-11.0) Red Blood Count 2.85 x10^6/uL (3.50-5.40) Hemoglobin 8.4 g/dL (12.0-15.5) Hematocrit 25.6 % (36.0-47.0) Mean Corpuscular Volume 90 fL (79-100) Mean Corpuscular Hemoglobin 30 pg (25-35) Mean Corpuscular Hemoglobin Concent 33 g/dL (31-37) Red Cell Distribution Width 18.0 % (11.5-14.5) Platelet Count 55 x10^3/uL (140-400) Neutrophils (%) (Auto) 73 % (31-73) Lymphocytes (%) (Auto) 19 % (24-48) Monocytes (%) (Auto) 8 % (0-9) Eosinophils (%) (Auto) 1 % (0-3) Basophils (%) (Auto) 0 % (0-3) Neutrophils # (Auto) 2.8 x10^3/uL (1.8-7.7) Lymphocytes # (Auto) 0.7 x10^3/uL (1.0-4.8) Monocytes # (Auto) 0.3 x10^3/uL (0.0-1.1) Eosinophils # (Auto) 0.0 x10^3/uL (0.0-0.7) Basophils # (Auto) 0.0 x10^3/uL (0.0-0.2) Sodium Level 124 mmol/L (136-145) Potassium Level 5.3 mmol/L (3.5-5.1) Chloride Level 90 mmol/L (98-107) Carbon Dioxide Level 33 mmol/L (21-32) Anion Gap 1 (6-14) Blood Urea Nitrogen 10 mg/dL (7-20) Creatinine 0.6 mg/dL (0.6-1.0) Estimated GFR (Cockcroft-Gault) 118.6 BUN/Creatinine Ratio 17 (6-20) Glucose Level 86 mg/dL (70-99) Lactic Acid Level 1.0 mmol/L (0.4-2.0) Calcium Level 8.3 mg/dL (8.5-10.1) Magnesium Level 1.7 mg/dL (1.8-2.4) Total Bilirubin 0.3 mg/dL (0.2-1.0) Aspartate Amino Transf (AST/SGOT) 27 U/L (15-37) Alanine Aminotransferase (ALT/SGPT) 21 U/L (14-59) Alkaline Phosphatase 67 U/L (46-116) Creatine Kinase 129 U/L (26-192) Troponin I Quantitative < 0.017 ng/mL (0.000-0.055) IP-Aml-C-Type Natriuretic Peptide 581 pg/mL (0-124) Total Protein 5.6 g/dL (6.4-8.2) Albumin 2.1 g/dL (3.4-5.0) Albumin/Globulin Ratio 0.6 (1.0-1.7) Procalcitonin < 0.10 ng/mL (0.00-0.10) Thyroid Stimulating Hormone (TSH) 7.883 uIU/mL (0.358-3.74) Free Triiodothyronine (T3) pg/mL 0.95 pg/mL (2.18-3.98) Valproic Acid (Depakene) Level 46 mcg/mL (50-100) Valproic Acid Last Dose Date 11/22/20 Valproic Acid Last Dose Time 0800 Urine Collection Type Unknown Urine Color Yellow Urine Clarity Clear Urine pH 6.5 (<5.0-8.0) Urine Specific [place] 1.010 (1.000-1.030) Urine Protein Negative mg/dL (NEG-TRACE) Urine Glucose (UA) Negative mg/dL (NEG) Urine Ketones (Stick) Negative mg/dL (NEG) Urine Blood Negative (NEG) Urine Nitrite Negative (NEG) Urine Bilirubin Negative (NEG) Urine Urobilinogen Dipstick 0.2 mg/dL (0.2 mg/dL) Urine Leukocyte Esterase Negative (NEG) Urine RBC Occ /HPF (0-2) Urine WBC 0 /HPF (0-4) Urine Squamous Epithelial Cells Occ /LPF Urine Bacteria 0 /HPF (0-FEW) Urine Opiates Screen Neg (NEG) Urine Methadone Screen Neg (NEG) Urine Barbiturates Neg (NEG) Urine Phencyclidine Screen Neg (NEG) Urine Amphetamine/Methamphetamine Neg (NEG) Urine Benzodiazepines Screen Neg (NEG) Urine Cocaine Screen Neg (NEG) Urine Cannabinoids Screen Neg (NEG) Urine Ethyl Alcohol Neg (NEG) SARS-CoV-2 RNA (DAVID) Negative (Negative) SARS-CoV-2 Antigen (Rapid) Negative (NEGATIVE) O2 Saturation 100 % (92-99) Arterial Blood pH 7.63 (7.35-7.45) Arterial Blood pCO2 at Patient Temp 31 mmHg (35-46) Arterial Blood pO2 at Patient Temp 499 mmHg (65-108) Arterial Blood HCO3 32 mmol/L (21-28) Arterial Blood Base Excess 10 mmol/L (-3-3) FiO2 100 Test 11/22/20 23:48 11/23/20 04:00 11/23/20 07:49 11/23/20 13:33 Glucose (Fingerstick) 112 mg/dL (70-99) 86 mg/dL (70-99) White Blood Count 2.8 x10^3/uL (4.0-11.0) Red Blood Count 2.44 x10^6/uL (3.50-5.40) Hemoglobin 7.3 g/dL (12.0-15.5) Hematocrit 21.7 % (36.0-47.0) Mean Corpuscular Volume 89 fL (79-100) Mean Corpuscular Hemoglobin 30 pg (25-35) Mean Corpuscular Hemoglobin Concent 33 g/dL (31-37) Red Cell Distribution Width 18.0 % (11.5-14.5) Platelet Count 38 x10^3/uL (140-400) Neutrophils (%) (Auto) 64 % (31-73) Lymphocytes (%) (Auto) 23 % (24-48) Monocytes (%) (Auto) 12 % (0-9) Eosinophils (%) (Auto) 1 % (0-3) Basophils (%) (Auto) 0 % (0-3) Neutrophils # (Auto) 1.8 x10^3/uL (1.8-7.7) Lymphocytes # (Auto) 0.6 x10^3/uL (1.0-4.8) Monocytes # (Auto) 0.3 x10^3/uL (0.0-1.1) Eosinophils # (Auto) 0.0 x10^3/uL (0.0-0.7) Basophils # (Auto) 0.0 x10^3/uL (0.0-0.2) Sodium Level 128 mmol/L (136-145) Potassium Level 3.2 mmol/L (3.5-5.1) Chloride Level 95 mmol/L (98-107) Carbon Dioxide Level 31 mmol/L (21-32) Anion Gap 2 (6-14) Blood Urea Nitrogen 10 mg/dL (7-20) Creatinine 0.5 mg/dL (0.6-1.0) Estimated GFR (Cockcroft-Gault) 146.3 Glucose Level 76 mg/dL (70-99) Calcium Level 7.9 mg/dL (8.5-10.1) Magnesium Level 1.8 mg/dL (1.8-2.4) Ammonia 17 mcmol/L (11-34) Troponin I Quantitative 0.023 ng/mL (0.000-0.055) O2 Saturation 99 % (92-99) Arterial Blood pH 7.53 (7.35-7.45) Arterial Blood pCO2 at Patient Temp 35 mmHg (35-46) Arterial Blood pO2 at Patient Temp 139 mmHg (65-108) Arterial Blood HCO3 28 mmol/L (21-28) Arterial Blood Base Excess 5 mmol/L (-3-3) FiO2 40 Test 11/23/20 18:05 11/24/20 00:00 11/24/20 04:45 11/24/20 08:07 Glucose (Fingerstick) 106 mg/dL (70-99) 134 mg/dL (70-99) White Blood Count 4.7 x10^3/uL (4.0-11.0) Red Blood Count 2.86 x10^6/uL (3.50-5.40) Hemoglobin 8.5 g/dL (12.0-15.5) Hematocrit 25.6 % (36.0-47.0) Mean Corpuscular Volume 89 fL (79-100) Mean Corpuscular Hemoglobin 30 pg (25-35) Mean Corpuscular Hemoglobin Concent 33 g/dL (31-37) Red Cell Distribution Width 18.2 % (11.5-14.5) Platelet Count 51 x10^3/uL (140-400) Neutrophils (%) (Auto) 90 % (31-73) Lymphocytes (%) (Auto) 9 % (24-48) Monocytes (%) (Auto) 1 % (0-9) Eosinophils (%) (Auto) 0 % (0-3) Basophils (%) (Auto) 0 % (0-3) Neutrophils # (Auto) 4.2 x10^3/uL (1.8-7.7) Lymphocytes # (Auto) 0.4 x10^3/uL (1.0-4.8) Monocytes # (Auto) 0.1 x10^3/uL (0.0-1.1) Eosinophils # (Auto) 0.0 x10^3/uL (0.0-0.7) Basophils # (Auto) 0.0 x10^3/uL (0.0-0.2) Sodium Level 131 mmol/L (136-145) Potassium Level 3.8 mmol/L (3.5-5.1) Chloride Level 97 mmol/L (98-107) Carbon Dioxide Level 28 mmol/L (21-32) Anion Gap 6 (6-14) Blood Urea Nitrogen 12 mg/dL (7-20) Creatinine 1.0 mg/dL (0.6-1.0) Estimated GFR (Cockcroft-Gault) 65.8 Glucose Level 117 mg/dL (70-99) Calcium Level 8.1 mg/dL (8.5-10.1) O2 Saturation 97 % (92-99) Arterial Blood pH 7.48 (7.35-7.45) Arterial Blood pCO2 at Patient Temp 36 mmHg (35-46) Arterial Blood pO2 at Patient Temp 92 mmHg (65-108) Arterial Blood HCO3 26 mmol/L (21-28) Arterial Blood Base Excess 2 mmol/L (-3-3) FiO2 30 Laboratory Tests Test 11/23/20 13:33 11/23/20 18:05 11/24/20 00:00 11/24/20 04:45 Glucose (Fingerstick) 86 mg/dL (70-99) 106 mg/dL (70-99) 134 mg/dL (70-99) White Blood Count 4.7 x10^3/uL (4.0-11.0) Red Blood Count 2.86 x10^6/uL (3.50-5.40) Hemoglobin 8.5 g/dL (12.0-15.5) Hematocrit 25.6 % (36.0-47.0) Mean Corpuscular Volume 89 fL (79-100) Mean Corpuscular Hemoglobin 30 pg (25-35) Mean Corpuscular Hemoglobin Concent 33 g/dL (31-37) Red Cell Distribution Width 18.2 % (11.5-14.5) Platelet Count 51 x10^3/uL (140-400) Neutrophils (%) (Auto) 90 % (31-73) Lymphocytes (%) (Auto) 9 % (24-48) Monocytes (%) (Auto) 1 % (0-9) Eosinophils (%) (Auto) 0 % (0-3) Basophils (%) (Auto) 0 % (0-3) Neutrophils # (Auto) 4.2 x10^3/uL (1.8-7.7) Lymphocytes # (Auto) 0.4 x10^3/uL (1.0-4.8) Monocytes # (Auto) 0.1 x10^3/uL (0.0-1.1) Eosinophils # (Auto) 0.0 x10^3/uL (0.0-0.7) Basophils # (Auto) 0.0 x10^3/uL (0.0-0.2) Sodium Level 131 mmol/L (136-145) Potassium Level 3.8 mmol/L (3.5-5.1) Chloride Level 97 mmol/L (98-107) Carbon Dioxide Level 28 mmol/L (21-32) Anion Gap 6 (6-14) Blood Urea Nitrogen 12 mg/dL (7-20) Creatinine 1.0 mg/dL (0.6-1.0) Estimated GFR (Cockcroft-Gault) 65.8 Glucose Level 117 mg/dL (70-99) Calcium Level 8.1 mg/dL (8.5-10.1) Test 11/24/20 08:07 O2 Saturation 97 % (92-99) Arterial Blood pH 7.48 (7.35-7.45) Arterial Blood pCO2 at Patient Temp 36 mmHg (35-46) Arterial Blood pO2 at Patient Temp 92 mmHg (65-108) Arterial Blood HCO3 26 mmol/L (21-28) Arterial Blood Base Excess 2 mmol/L (-3-3) FiO2 30 Medications Active Scripts Medications Dose Route/Sig Max Daily Dose Days Date Category Lansoprazole 30 Mg Capsule.dr 1 Cap PO DAILY 11/22/20 Reported Diclofenac Sodium 100 Gm Gel..gram. 4 Gm TP QID 11/22/20 Reported Prednisone (Prednisone) 10 Mg Tablet 5 Mg PO DAILY 10/26/20 Rx Valproic Acid (Valproic Acid (As Sodium Salt)) 250 Mg/5 Ml Solution 500 Mg PO BID 30 10/26/20 Rx Keppra (Levetiracetam) 500 Mg Tablet 1,000 Mg PO BID 30 10/26/20 Rx Proair Hfa (Albuterol Sulfate) 8.5 Gm Hfa.aer.ad 2 Puff IH PRN Q4HRS PRN 10/10/20 Reported Keppra (Levetiracetam) 250 Mg Tablet 1 Tab PO BID 30 10/10/20 Reported Furosemide 40 Mg Tablet 1 Tab PO DAILY 10/10/20 Reported Aspirin Ec (Aspirin) 81 Mg Tablet.dr 1 Tab PO DAILY 10/10/20 Reported Breo Ellipta 100-25 Mcg Inh (Fluticasone/Vilanterol) 1 Each Aer.pow.ba 1 Puff IH DAILY 07/23/16 Reported Folic Acid 1 Mg Tablet 400 Mcg PO BID 07/23/16 Reported Vitamin B-12 (Cyanocobalamin (Vitamin B-12)) 1,000 Mcg Tablet 500 Mcg PO BID 07/23/16 Reported Trihexyphenidyl Hcl 2 Mg Tablet 2 Mg PO HS 07/23/16 Reported Divalproex Sodium 500 Mg Tablet. 250 Mg PO DAILY 07/23/16 Reported Lipitor (Atorvastatin Calcium) 80 Mg Tablet 80 Mg PO HS 12/21/13 Reported Duoneb 0.5 Mg-3 Mg/3 Ml Soln (Ipratropium/Albuterol Sulfate) 3 Ml Ampul.neb 3 Ml IH TID 04/28/13 Reported Miralax (Polyethylene Glycol 3350) 17 Gm Powd.pack 17 Gm PO DAILY 04/28/13 Reported Invega (Paliperidone) 6 Mg Tab.er.24 6 Mg PO HS 04/28/13 Reported Carvedilol (Carvedilol) 12.5 Mg Tablet 12.5 Mg PO BID 04/28/13 Reported Hydralazine Hcl 50 Mg Tablet 50 Mg PO BID 04/28/13 Reported Clonidine Tts-3 (Clonidine) 1 Each Patch.tdwk 1 Each TD WEEKLY 04/28/13 Reported Klor-Con M20 (Potassium Chloride) 20 Meq Tab.er.prt 20 Meq PO BID 04/28/13 Reported Divalproex Sodium 500 Mg Tablet.dr 500 Mg PO HS 04/28/13 Reported Amlodipine Besylate 10 Mg Tablet 10 Mg PO DAILY 04/28/13 Reported Vitamin D3 1,000 Unit Tablet (Ca Cmb No.1/Vit D3/B-6/Fa/B12) 1 Each Tablet 1 Each PO DAILY 04/28/13 Reported Flonase (Fluticasone Propionate) 16 Gm [place].susp 1 Spr NS BID 04/28/13 Reported Impression . IMPRESSION: 1. Acute hypoxemic respiratory failure secondary to breakthrough seizures. 2. Breakthrough seizures. 3. Electrolyte abnormalities including hyponatremia, hypomagnesemia. 4. Severe protein malnutrition, present upon admission. 5. Multiple other comorbidities including schizophrenia, hypertension, hypothyroidism, sleep apnea, tardive dyskinesia. Plan . Updated 11/24 Discussed with RN and RT will DC sedation trial Follow neurology input Monitor electrolytes ABG noted Updated 11/23 Continue current support Follow neurology input Replace electrolyte Monitor H&H ABG noted pH is 7.53 adjustments were made on vent settings Sodium today 128 PLAN: 11/22 1. We will continue current vent settings. 2. Repeat arterial blood gas. 3. Follow neurology input. 4. Continue home meds. 5. Initiate normal saline. 6. Nutritional support. 7. Replace magnesium. I do appreciate the privilege in sharing in the patient's care. PETER GARDUNO MD Nov 24, 2020 08:48
[2020-11-24] MEDS: PANTOPRAZOLE IV PUSH 40 MG VIAL. IVP SCH (08:49)
[2020-11-24] MEDS: levETIRAcetam 1,000 MG in IV DEXTROSE 5% 100ML 100 ML IV SCH ×2 (08:50→21:09)
[2020-11-24] MEDS: methylPREDNISolone SOD SUCC PF 40 MG/ML VIAL. IV SCH ×2 (08:50→21:09)
[2020-11-24] MEDS: VALPROIC ACID (AS SODIUM SALT) 750 MG in IV DEXTROSE 5% 50 ML IV SCH ×2 (08:51→21:09)
--- NOTE | 2020-11-24 09:23 | PDOC ---
PROGRESS NOTES Date of Service DATE: 11/24/20 TIME: 09: Assessment Problems Medical Problems: (1) Acute respiratory failure with hypoxia Status: Acute (2) Sinus bradycardia Status: Acute (3) Status epilepticus Status: Acute Epilepsy, breakthrough seizures, had a subtherapeutic valproic acid level, levetiracetam level pending Morning of 11/23 developed severe hypothermia and bradycardia At admission had hyponatremia, hyperkalemia, hypocalcemia, hypomagnesemia Plan Increased Depakote dose Continue levetiracetam and await level Treat medical issues ICU monitoring Subjective none Objective Vital Signs Date Time Temp Pulse Resp B/P (MAP) Pulse Ox O2 Delivery O2 Flow Rate FiO2 11/24/20 07:38 99 Ventilator 11/24/20 06:00 65 10 80/51 (61) 11/24/20 04:00 99.1 99.1 Intake and Output 11/24/20 07:00 Intake Total 1396.5 ml Output Total 1280 ml Balance 116.5 ml Intake IV Total 516.5 ml Tube Feeding 780 ml Blood Product 100 ml Output Urine Total 1280 ml PHYSICAL EXAM On vent, mildly sedated Opens eyes to voice, eyes are in upgaze PERRL. EOMI. CN: no focal findings. Muscle tone: normal. Muscle strength: No withdrawal to pain DTR: 1+ Plantar reflex: Silent Gait: not examined in bed. Sensory exam: Not cooperative. Cerebellar: not cooperative Review of Relevant I have reviewed the following items melanie (where applicable) has been applied. Labs Laboratory Tests Test 11/22/20 11:35 11/22/20 12:30 11/22/20 13:10 11/22/20 15:45 White Blood Count 3.8 x10^3/uL (4.0-11.0) Red Blood Count 2.85 x10^6/uL (3.50-5.40) Hemoglobin 8.4 g/dL (12.0-15.5) Hematocrit 25.6 % (36.0-47.0) Mean Corpuscular Volume 90 fL (79-100) Mean Corpuscular Hemoglobin 30 pg (25-35) Mean Corpuscular Hemoglobin Concent 33 g/dL (31-37) Red Cell Distribution Width 18.0 % (11.5-14.5) Platelet Count 55 x10^3/uL (140-400) Neutrophils (%) (Auto) 73 % (31-73) Lymphocytes (%) (Auto) 19 % (24-48) Monocytes (%) (Auto) 8 % (0-9) Eosinophils (%) (Auto) 1 % (0-3) Basophils (%) (Auto) 0 % (0-3) Neutrophils # (Auto) 2.8 x10^3/uL (1.8-7.7) Lymphocytes # (Auto) 0.7 x10^3/uL (1.0-4.8) Monocytes # (Auto) 0.3 x10^3/uL (0.0-1.1) Eosinophils # (Auto) 0.0 x10^3/uL (0.0-0.7) Basophils # (Auto) 0.0 x10^3/uL (0.0-0.2) Sodium Level 124 mmol/L (136-145) Potassium Level 5.3 mmol/L (3.5-5.1) Chloride Level 90 mmol/L (98-107) Carbon Dioxide Level 33 mmol/L (21-32) Anion Gap 1 (6-14) Blood Urea Nitrogen 10 mg/dL (7-20) Creatinine 0.6 mg/dL (0.6-1.0) Estimated GFR (Cockcroft-Gault) 118.6 BUN/Creatinine Ratio 17 (6-20) Glucose Level 86 mg/dL (70-99) Lactic Acid Level 1.0 mmol/L (0.4-2.0) Calcium Level 8.3 mg/dL (8.5-10.1) Magnesium Level 1.7 mg/dL (1.8-2.4) Total Bilirubin 0.3 mg/dL (0.2-1.0) Aspartate Amino Transf (AST/SGOT) 27 U/L (15-37) Alanine Aminotransferase (ALT/SGPT) 21 U/L (14-59) Alkaline Phosphatase 67 U/L (46-116) Creatine Kinase 129 U/L (26-192) Troponin I Quantitative < 0.017 ng/mL (0.000-0.055) JW-Uhq-A-Type Natriuretic Peptide 581 pg/mL (0-124) Total Protein 5.6 g/dL (6.4-8.2) Albumin 2.1 g/dL (3.4-5.0) Albumin/Globulin Ratio 0.6 (1.0-1.7) Procalcitonin < 0.10 ng/mL (0.00-0.10) Thyroid Stimulating Hormone (TSH) 7.883 uIU/mL (0.358-3.74) Free Triiodothyronine (T3) pg/mL 0.95 pg/mL (2.18-3.98) Valproic Acid (Depakene) Level 46 mcg/mL (50-100) Valproic Acid Last Dose Date 11/22/20 Valproic Acid Last Dose Time 0800 Urine Collection Type Unknown Urine Color Yellow Urine Clarity Clear Urine pH 6.5 (<5.0-8.0) Urine Specific [place] 1.010 (1.000-1.030) Urine Protein Negative mg/dL (NEG-TRACE) Urine Glucose (UA) Negative mg/dL (NEG) Urine Ketones (Stick) Negative mg/dL (NEG) Urine Blood Negative (NEG) Urine Nitrite Negative (NEG) Urine Bilirubin Negative (NEG) Urine Urobilinogen Dipstick 0.2 mg/dL (0.2 mg/dL) Urine Leukocyte Esterase Negative (NEG) Urine RBC Occ /HPF (0-2) Urine WBC 0 /HPF (0-4) Urine Squamous Epithelial Cells Occ /LPF Urine Bacteria 0 /HPF (0-FEW) Urine Opiates Screen Neg (NEG) Urine Methadone Screen Neg (NEG) Urine Barbiturates Neg (NEG) Urine Phencyclidine Screen Neg (NEG) Urine Amphetamine/Methamphetamine Neg (NEG) Urine Benzodiazepines Screen Neg (NEG) Urine Cocaine Screen Neg (NEG) Urine Cannabinoids Screen Neg (NEG) Urine Ethyl Alcohol Neg (NEG) SARS-CoV-2 RNA (DAVID) Negative (Negative) SARS-CoV-2 Antigen (Rapid) Negative (NEGATIVE) O2 Saturation 100 % (92-99) Arterial Blood pH 7.63 (7.35-7.45) Arterial Blood pCO2 at Patient Temp 31 mmHg (35-46) Arterial Blood pO2 at Patient Temp 499 mmHg (65-108) Arterial Blood HCO3 32 mmol/L (21-28) Arterial Blood Base Excess 10 mmol/L (-3-3) FiO2 100 Test 11/22/20 23:48 11/23/20 04:00 11/23/20 07:49 11/23/20 13:33 Glucose (Fingerstick) 112 mg/dL (70-99) 86 mg/dL (70-99) White Blood Count 2.8 x10^3/uL (4.0-11.0) Red Blood Count 2.44 x10^6/uL (3.50-5.40) Hemoglobin 7.3 g/dL (12.0-15.5) Hematocrit 21.7 % (36.0-47.0) Mean Corpuscular Volume 89 fL (79-100) Mean Corpuscular Hemoglobin 30 pg (25-35) Mean Corpuscular Hemoglobin Concent 33 g/dL (31-37) Red Cell Distribution Width 18.0 % (11.5-14.5) Platelet Count 38 x10^3/uL (140-400) Neutrophils (%) (Auto) 64 % (31-73) Lymphocytes (%) (Auto) 23 % (24-48) Monocytes (%) (Auto) 12 % (0-9) Eosinophils (%) (Auto) 1 % (0-3) Basophils (%) (Auto) 0 % (0-3) Neutrophils # (Auto) 1.8 x10^3/uL (1.8-7.7) Lymphocytes # (Auto) 0.6 x10^3/uL (1.0-4.8) Monocytes # (Auto) 0.3 x10^3/uL (0.0-1.1) Eosinophils # (Auto) 0.0 x10^3/uL (0.0-0.7) Basophils # (Auto) 0.0 x10^3/uL (0.0-0.2) Sodium Level 128 mmol/L (136-145) Potassium Level 3.2 mmol/L (3.5-5.1) Chloride Level 95 mmol/L (98-107) Carbon Dioxide Level 31 mmol/L (21-32) Anion Gap 2 (6-14) Blood Urea Nitrogen 10 mg/dL (7-20) Creatinine 0.5 mg/dL (0.6-1.0) Estimated GFR (Cockcroft-Gault) 146.3 Glucose Level 76 mg/dL (70-99) Calcium Level 7.9 mg/dL (8.5-10.1) Magnesium Level 1.8 mg/dL (1.8-2.4) Ammonia 17 mcmol/L (11-34) Troponin I Quantitative 0.023 ng/mL (0.000-0.055) O2 Saturation 99 % (92-99) Arterial Blood pH 7.53 (7.35-7.45) Arterial Blood pCO2 at Patient Temp 35 mmHg (35-46) Arterial Blood pO2 at Patient Temp 139 mmHg (65-108) Arterial Blood HCO3 28 mmol/L (21-28) Arterial Blood Base Excess 5 mmol/L (-3-3) FiO2 40 Test 11/23/20 18:05 11/24/20 00:00 11/24/20 04:45 11/24/20 08:07 Glucose (Fingerstick) 106 mg/dL (70-99) 134 mg/dL (70-99) White Blood Count 4.7 x10^3/uL (4.0-11.0) Red Blood Count 2.86 x10^6/uL (3.50-5.40) Hemoglobin 8.5 g/dL (12.0-15.5) Hematocrit 25.6 % (36.0-47.0) Mean Corpuscular Volume 89 fL (79-100) Mean Corpuscular Hemoglobin 30 pg (25-35) Mean Corpuscular Hemoglobin Concent 33 g/dL (31-37) Red Cell Distribution Width 18.2 % (11.5-14.5) Platelet Count 51 x10^3/uL (140-400) Neutrophils (%) (Auto) 90 % (31-73) Lymphocytes (%) (Auto) 9 % (24-48) Monocytes (%) (Auto) 1 % (0-9) Eosinophils (%) (Auto) 0 % (0-3) Basophils (%) (Auto) 0 % (0-3) Neutrophils # (Auto) 4.2 x10^3/uL (1.8-7.7) Lymphocytes # (Auto) 0.4 x10^3/uL (1.0-4.8) Monocytes # (Auto) 0.1 x10^3/uL (0.0-1.1) Eosinophils # (Auto) 0.0 x10^3/uL (0.0-0.7) Basophils # (Auto) 0.0 x10^3/uL (0.0-0.2) Sodium Level 131 mmol/L (136-145) Potassium Level 3.8 mmol/L (3.5-5.1) Chloride Level 97 mmol/L (98-107) Carbon Dioxide Level 28 mmol/L (21-32) Anion Gap 6 (6-14) Blood Urea Nitrogen 12 mg/dL (7-20) Creatinine 1.0 mg/dL (0.6-1.0) Estimated GFR (Cockcroft-Gault) 65.8 Glucose Level 117 mg/dL (70-99) Calcium Level 8.1 mg/dL (8.5-10.1) O2 Saturation 97 % (92-99) Arterial Blood pH 7.48 (7.35-7.45) Arterial Blood pCO2 at Patient Temp 36 mmHg (35-46) Arterial Blood pO2 at Patient Temp 92 mmHg (65-108) Arterial Blood HCO3 26 mmol/L (21-28) Arterial Blood Base Excess 2 mmol/L (-3-3) FiO2 30 Laboratory Tests Test 11/23/20 13:33 11/23/20 18:05 11/24/20 00:00 11/24/20 04:45 Glucose (Fingerstick) 86 mg/dL (70-99) 106 mg/dL (70-99) 134 mg/dL (70-99) White Blood Count 4.7 x10^3/uL (4.0-11.0) Red Blood Count 2.86 x10^6/uL (3.50-5.40) Hemoglobin 8.5 g/dL (12.0-15.5) Hematocrit 25.6 % (36.0-47.0) Mean Corpuscular Volume 89 fL (79-100) Mean Corpuscular Hemoglobin 30 pg (25-35) Mean Corpuscular Hemoglobin Concent 33 g/dL (31-37) Red Cell Distribution Width 18.2 % (11.5-14.5) Platelet Count 51 x10^3/uL (140-400) Neutrophils (%) (Auto) 90 % (31-73) Lymphocytes (%) (Auto) 9 % (24-48) Monocytes (%) (Auto) 1 % (0-9) Eosinophils (%) (Auto) 0 % (0-3) Basophils (%) (Auto) 0 % (0-3) Neutrophils # (Auto) 4.2 x10^3/uL (1.8-7.7) Lymphocytes # (Auto) 0.4 x10^3/uL (1.0-4.8) Monocytes # (Auto) 0.1 x10^3/uL (0.0-1.1) Eosinophils # (Auto) 0.0 x10^3/uL (0.0-0.7) Basophils # (Auto) 0.0 x10^3/uL (0.0-0.2) Sodium Level 131 mmol/L (136-145) Potassium Level 3.8 mmol/L (3.5-5.1) Chloride Level 97 mmol/L (98-107) Carbon Dioxide Level 28 mmol/L (21-32) Anion Gap 6 (6-14) Blood Urea Nitrogen 12 mg/dL (7-20) Creatinine 1.0 mg/dL (0.6-1.0) Estimated GFR (Cockcroft-Gault) 65.8 Glucose Level 117 mg/dL (70-99) Calcium Level 8.1 mg/dL (8.5-10.1) Test 11/24/20 08:07 O2 Saturation 97 % (92-99) Arterial Blood pH 7.48 (7.35-7.45) Arterial Blood pCO2 at Patient Temp 36 mmHg (35-46) Arterial Blood pO2 at Patient Temp 92 mmHg (65-108) Arterial Blood HCO3 26 mmol/L (21-28) Arterial Blood Base Excess 2 mmol/L (-3-3) FiO2 30 Microbiology 11/22/20 Blood Culture - Preliminary, Resulted NO GROWTH AFTER 1 DAY Medications Current Medications Lorazepam (Ativan Inj) 2 mg 1X ONCE IVP Last administered on 11/22/20at 12:23; Start 11/22/20 at 11:15; Stop 11/22/20 at 11:16; Status DC Sodium Chloride 1,000 ml @ 1,000 mls/hr 1X ONCE IV Last administered on 11/22/20at 11:15; Start 11/22/20 at 11:15; Stop 11/22/20 at 12:14; Status DC Lorazepam (Ativan Inj) 2 mg STK-MED ONCE .ROUTE ; Start 11/22/20 at 11:12; Stop 11/22/20 at 11:12; Status DC Etomidate (Amidate) 20 mg STK-MED ONCE IV ; Start 11/22/20 at 11:17; Stop 11/22/20 at 11:17; Status DC Succinylcholine Chloride (Anectine) 200 mg STK-MED ONCE .ROUTE ; Start 11/22/20 at 11:17; Stop 11/22/20 at 11:18; Status DC Sodium Chloride 1,000 ml @ 1,000 mls/hr 1X ONCE IV Last administered on 11/22/20at 11:30; Start 11/22/20 at 11:30; Stop 11/22/20 at 12:29; Status DC Levetiracetam 1000 mg/Dextrose 110 ml @ 440 mls/hr 1X ONCE IV Last administered on 11/22/20at 11:45; Start 11/22/20 at 11:45; Stop 11/22/20 at 11:59 ; Status DC Midazolam HCl 100 ml @ 1 mls/hr CONT PRN IV SEE I/O RECORD Last administered on 11/23/20at 09:11; Start 11/22/20 at 12:00 Valproic Acid 750 mg/Dextrose 57.5 ml @ 55 mls/hr 1X STAT IV Last administered on 11/22/20at 15:24; Start 11/22/20 at 15:24; Stop 11/22/20 at 16:26; Status DC Valproic Acid 750 mg/Dextrose 57.5 ml @ 55 mls/hr Q12HR IV Last administered on 11/24/20at 08:51; Start 11/22/20 at 21:00 Levetiracetam 1000 mg/Dextrose 110 ml @ 440 mls/hr Q12HR IV Last administered on 11/24/20at 08:50; Start 11/22/20 at 21:00 Sodium Chloride 1,000 ml @ 125 mls/hr 1X ONCE IV Last administered on 11/22/20at 15:30; Start 11/22/20 at 15:30; Stop 11/22/20 at 23:29; Status DC Magnesium Sulfate 50 ml @ 25 mls/hr 1X ONCE IV Last administered on 11/22/20at 16:42; Start 11/22/20 at 16:30; Stop 11/22/20 at 18:29; Status DC Piperacillin Sod/ Tazobactam Sod (Zosyn Per Pharmacy) 1 each PRN DAILY PRN MC SEE COMMENTS; Start 11/22/20 at 15:45 Piperacillin Sod/ Tazobactam Sod 3.375 gm/Sodium Chloride 50 ml @ 100 mls/hr Q6HRS IV Last administered on 11/24/20at 05:49; Start 11/22/20 at 17:00 Methylprednisolone Sodium Succinate (SOLU-Medrol 125MG VIAL) 125 mg 1X ONCE IV ; Start 11/22/20 at 18:30; Stop 11/22/20 at 18:35; Status DC Methylprednisolone Sodium Succinate (SOLU-Medrol 40MG VIAL) 40 mg Q12HR IV Last administered on 11/24/20at 08:50; Start 11/23/20 at 09:00 Pantoprazole Sodium (PROTONIX VIAL for IV PUSH) 40 mg DAILYAC IVP Last administered on 11/24/20at 08:49; Start 11/23/20 at 07:30 Pantoprazole Sodium (PROTONIX VIAL for IV PUSH) 40 mg 1X ONCE IVP ; Start 11/22/20 at 18:30; Stop 11/22/20 at 18:35; Status DC Insulin Human Lispro (HumaLOG) 0-7 UNITS Q6HRS SQ ; Start 11/23/20 at 00:00 Dextrose (Dextrose 50%-Water Syringe) 12.5 gm PRN Q15MIN PRN IV SEE COMMENTS; Start 11/22/20 at 18:30 Norepinephrine Bitartrate 8 mg/ Dextrose 258 ml @ 17.996 mls/ hr CONT PRN IV PER PROTOCOL; Start 11/22/20 at 20:15 Info (FLU VACCINE SCREEN per RX) 1 each 1X ONCE MC ; Start 11/22/20 at 23:00; Stop 11/22/20 at 23:01; Status Cancel Pharmacy Consult (C.diff Med Screen By Rx) 1 each 1X ONCE MC ; Start 11/22/20 at 23:00; Stop 11/22/20 at 23:01; Status DC Info (FLU VACCINE SCREEN per RX) 1 each PRN DAILY PRN MC SEE COMMENTS; Start 11/22/20 at 23:15 Potassium Chloride/Water 100 ml @ 100 mls/hr 1X ONCE IV Last administered on 11/23/20at 09:11; Start 11/23/20 at 08:00; Stop 11/23/20 at 08:59; Status DC Active Scripts Active Prednisone (Prednisone) 10 Mg Tablet 5 Mg PO DAILY 5 Days Valproic Acid (Valproic Acid (As Sodium Salt)) 250 Mg/5 Ml Solution 500 Mg PO BID 30 Days Keppra (Levetiracetam) 500 Mg Tablet 1,000 Mg PO BID 30 Days Reported Lansoprazole 30 Mg Capsule.dr 1 Cap PO DAILY Diclofenac Sodium 100 Gm Gel..gram. 4 Gm TP QID Proair Hfa (Albuterol Sulfate) 8.5 Gm Hfa.aer.ad 2 Puff IH PRN Q4HRS PRN 21 Days Keppra (Levetiracetam) 250 Mg Tablet 1 Tab PO BID 30 Days Furosemide 40 Mg Tablet 1 Tab PO DAILY Aspirin Ec (Aspirin) 81 Mg Tablet.dr 1 Tab PO DAILY Breo Ellipta 100-25 Mcg Inh (Fluticasone/Vilanterol) 1 Each Aer.pow.ba 1 Puff IH DAILY Folic Acid 1 Mg Tablet 400 Mcg PO BID Vitamin B-12 (Cyanocobalamin (Vitamin B-12)) 1,000 Mcg Tablet 500 Mcg PO BID Trihexyphenidyl Hcl 2 Mg Tablet 2 Mg PO HS Divalproex Sodium 500 Mg Tablet. 250 Mg PO DAILY Lipitor (Atorvastatin Calcium) 80 Mg Tablet 80 Mg PO HS Duoneb 0.5 Mg-3 Mg/3 Ml Soln (Ipratropium/Albuterol Sulfate) 3 Ml Ampul.neb 3 Ml IH TID Miralax (Polyethylene Glycol 3350) 17 Gm Powd.pack 17 Gm PO DAILY Invega (Paliperidone) 6 Mg Tab.er.24 6 Mg PO HS Carvedilol (Carvedilol) 12.5 Mg Tablet 12.5 Mg PO BID Hydralazine Hcl 50 Mg Tablet 50 Mg PO BID Clonidine Tts-3 (Clonidine) 1 Each Patch.tdwk 1 Each TD WEEKLY Klor-Con M20 (Potassium Chloride) 20 Meq Tab.er.prt 20 Meq PO BID Divalproex Sodium 500 Mg Tablet.dr 500 Mg PO HS Amlodipine Besylate 10 Mg Tablet 10 Mg PO DAILY Vitamin D3 1,000 Unit Tablet (Ca Cmb No.1/Vit D3/B-6/Fa/B12) 1 Each Tablet 1 Each PO DAILY Flonase (Fluticasone Propionate) 16 Gm Anderson.susp 1 Spr NS BID Vitals/I & O Vital Sign - Last 24 Hours 11/23/20 11/23/20 11/23/20 11/23/20 10:00 10:06 11:00 11:37 Temp 86.4 86.7 86.4 86.7 Pulse 36 36 Resp 10 10 B/P (MAP) 97/62 (74) 100/68 (79) Pulse Ox 100 100 100 100 O2 Delivery Ventilator Ventilator Ventilator Ventilator 11/23/20 11/23/20 11/23/20 11/23/20 12:00 12:00 13:00 13:20 Temp 88.2 88.7 88.2 88.7 Pulse 48 47 Resp 10 10 B/P (MAP) 118/85 (96) 120/82 (95) Pulse Ox 100 99 100 O2 Delivery Mechanical Ventilator Ventilator Ventilator Ventilator 11/23/20 11/23/20 11/23/20 11/23/20 14:00 15:00 15:36 16:00 Temp 89.8 90.3 89.8 90.3 Pulse 48 54 Resp 10 10 B/P (MAP) 95/64 (74) 104/71 (82) Pulse Ox 99 100 100 O2 Delivery Ventilator Ventilator Ventilator Mechanical Ventilator 11/23/20 11/23/20 11/23/20 11/23/20 16:00 17:00 17:20 18:00 Temp 91.0 92.5 93.2 91.0 92.5 93.2 Pulse 54 59 62 Resp 10 10 10 B/P (MAP) 106/73 (84) 105/69 (81) 99/68 (78) Pulse Ox 100 100 100 100 O2 Delivery Ventilator Ventilator Ventilator Ventilator 11/23/20 11/23/20 11/23/20 11/23/20 19:00 20:00 20:00 21:00 Temp 94.0 94.0 Pulse 50 68 64 Resp 10 10 10 B/P (MAP) 99/64 (76) 97/71 (80) 88/60 (69) Pulse Ox 99 99 99 O2 Delivery Ventilator Ventilator Mechanical Ventilator Ventilator 11/23/20 11/23/20 11/23/20 11/23/20 21:05 22:00 23:00 23:29 Temp 97.5 97.5 Pulse 63 65 Resp 10 10 B/P (MAP) 95/46 (62) 140/57 (84) Pulse Ox 100 100 100 100 O2 Delivery Ventilator Ventilator Ventilator Ventilator 11/23/20 11/23/20 11/24/20 11/24/20 23:59 23:59 01:00 01:15 Temp 97.9 97.9 Pulse 61 64 Resp 10 10 B/P (MAP) 96/59 (71) 96/62 (73) Pulse Ox 100 100 100 O2 Delivery Mechanical Ventilator Ventilator Ventilator Ventilator 11/24/20 11/24/20 11/24/20 11/24/20 02:00 03:00 03:42 04:00 Temp 99.1 99.1 Pulse 64 64 68 Resp 10 12 10 B/P (MAP) 94/62 (73) 92/58 (69) 90/58 (69) Pulse Ox 100 100 99 100 O2 Delivery Ventilator Ventilator Ventilator Ventilator 11/24/20 11/24/20 11/24/20 11/24/20 04:00 05:00 06:00 07:38 Pulse 50 65 Resp 10 10 B/P (MAP) 98/52 (67) 80/51 (61) Pulse Ox 100 100 99 O2 Delivery Mechanical Ventilator Ventilator Ventilator Ventilator Intake and Output 11/23/20 11/23/20 11/24/20 15:00 23:00 07:00 Intake Total 100 ml 799.5 ml 497 ml Output Total 645 ml 345 ml 290 ml Balance -545 ml 454.5 ml 207 ml Justicifation of Admission Dx: Justifications for Admission: Justification of Admission Dx: Yes KRISTINE GLEZ MD Nov 24, 2020 09:23
--- NOTE | 2020-11-24 09:44 | PDOC ---
PROGRESS NOTES Date of Service: DATE: 11/24/20 TIME: 09:41 Subjective Subjective on vent Objective Objective Vital Signs Date Time Temp Pulse Resp B/P (MAP) Pulse Ox O2 Delivery O2 Flow Rate FiO2 11/24/20 07:38 99 Ventilator 11/24/20 06:00 65 10 80/51 (61) 11/24/20 04:00 99.1 99.1 Intake and Output 11/24/20 07:00 Intake Total 1396.5 ml Output Total 1280 ml Balance 116.5 ml Intake IV Total 516.5 ml Tube Feeding 780 ml Blood Product 100 ml Output Urine Total 1280 ml Physical Exam Abdomen: Soft Heart: Regular rate, Normal S1, Normal S2 Extremities: Other (no edema ) General: Other (intubated ) HEENT: Atraumatic, Mucous membr. moist/pink Lungs: Normal air movement MUSCULOSKELETAL: Osteoarthritic changes both hands Neck: No JVD Neuro: Other (vent, unresponsive) Psych/Mental Status: Other (unable to assess) Skin: No significant lesion Diagnosis Problem List Problems Medical Problems: (1) Acute respiratory failure with hypoxia Status: Acute (2) Sinus bradycardia Status: Acute (3) Status epilepticus Status: Acute Assessment Assessment Problems Medical Problems: (1) Acute respiratory failure with hypoxia Status: Acute (2) Sinus bradycardia Status: Acute (3) Status epilepticus Status: Acute FINAL IMPRESSION:Hypothermia and hypotension resolved 1. Status epilepticus. 2. Respiratory failure requiring intubation on mechanical ventilator. 3. Schizophrenia. 4. Hyponatremia 5. Hypertension. 6. Hyperlipidemia. 7. Chronic schizophrenia. 8. Anemia of chronic disease. 9. Morbid obesity. 10.Low Platelets 50,000 PLAN: BP improving hypothermia improved platelets 51,000 improving spoke with sister at bed side HR improved to 60 from 40. tube feedings started ventilatory support. IV zosyn . iv keppra +Depokate poor prognosis. At this time was admitted to the hospital, was admitted to the ICU, ventilator, Pulmonary consult. The patient seen by Neurology, Dr. Mcdonald, given extra dose of Keppra and we will give her IV fluids see how she does in the next 24 hours. The patient may start some tube feedings from tomorrow and the patient's prolactin, lactic acid was normal, does not look any infection at this time. We will hold off on the antibiotics. Prognosis is guarded. Low platelets. Plan Plan of Care Problems Medical Problems: (1) Acute respiratory failure with hypoxia Status: Acute (2) Sinus bradycardia Status: Acute (3) Status epilepticus Status: Acute Comment Review of Relevant I have reviewed the following items melanie (where applicable) has been applied. Labs Laboratory Tests Test 11/23/20 13:33 11/23/20 18:05 11/24/20 00:00 11/24/20 04:45 Glucose (Fingerstick) 86 mg/dL (70-99) 106 mg/dL (70-99) 134 mg/dL (70-99) White Blood Count 4.7 x10^3/uL (4.0-11.0) Red Blood Count 2.86 x10^6/uL (3.50-5.40) Hemoglobin 8.5 g/dL (12.0-15.5) Hematocrit 25.6 % (36.0-47.0) Mean Corpuscular Volume 89 fL (79-100) Mean Corpuscular Hemoglobin 30 pg (25-35) Mean Corpuscular Hemoglobin Concent 33 g/dL (31-37) Red Cell Distribution Width 18.2 % (11.5-14.5) Platelet Count 51 x10^3/uL (140-400) Neutrophils (%) (Auto) 90 % (31-73) Lymphocytes (%) (Auto) 9 % (24-48) Monocytes (%) (Auto) 1 % (0-9) Eosinophils (%) (Auto) 0 % (0-3) Basophils (%) (Auto) 0 % (0-3) Neutrophils # (Auto) 4.2 x10^3/uL (1.8-7.7) Lymphocytes # (Auto) 0.4 x10^3/uL (1.0-4.8) Monocytes # (Auto) 0.1 x10^3/uL (0.0-1.1) Eosinophils # (Auto) 0.0 x10^3/uL (0.0-0.7) Basophils # (Auto) 0.0 x10^3/uL (0.0-0.2) Sodium Level 131 mmol/L (136-145) Potassium Level 3.8 mmol/L (3.5-5.1) Chloride Level 97 mmol/L (98-107) Carbon Dioxide Level 28 mmol/L (21-32) Anion Gap 6 (6-14) Blood Urea Nitrogen 12 mg/dL (7-20) Creatinine 1.0 mg/dL (0.6-1.0) Estimated GFR (Cockcroft-Gault) 65.8 Glucose Level 117 mg/dL (70-99) Calcium Level 8.1 mg/dL (8.5-10.1) Test 11/24/20 08:07 O2 Saturation 97 % (92-99) Arterial Blood pH 7.48 (7.35-7.45) Arterial Blood pCO2 at Patient Temp 36 mmHg (35-46) Arterial Blood pO2 at Patient Temp 92 mmHg (65-108) Arterial Blood HCO3 26 mmol/L (21-28) Arterial Blood Base Excess 2 mmol/L (-3-3) FiO2 30 Microbiology 11/22/20 Blood Culture - Preliminary, Resulted NO GROWTH AFTER 1 DAY Vitals/I & O Vital Sign - Last 24 Hours 11/23/20 11/23/20 11/23/20 11/23/20 10:00 10:06 11:00 11:37 Temp 86.4 86.7 86.4 86.7 Pulse 36 36 Resp 10 10 B/P (MAP) 97/62 (74) 100/68 (79) Pulse Ox 100 100 100 100 O2 Delivery Ventilator Ventilator Ventilator Ventilator 11/23/20 11/23/20 11/23/20 11/23/20 12:00 12:00 13:00 13:20 Temp 88.2 88.7 88.2 88.7 Pulse 48 47 Resp 10 10 B/P (MAP) 118/85 (96) 120/82 (95) Pulse Ox 100 99 100 O2 Delivery Mechanical Ventilator Ventilator Ventilator Ventilator 11/23/20 11/23/20 11/23/20 11/23/20 14:00 15:00 15:36 16:00 Temp 89.8 90.3 89.8 90.3 Pulse 48 54 Resp 10 10 B/P (MAP) 95/64 (74) 104/71 (82) Pulse Ox 99 100 100 O2 Delivery Ventilator Ventilator Ventilator Mechanical Ventilator 11/23/20 11/23/20 11/23/20 11/23/20 16:00 17:00 17:20 18:00 Temp 91.0 92.5 93.2 91.0 92.5 93.2 Pulse 54 59 62 Resp 10 10 10 B/P (MAP) 106/73 (84) 105/69 (81) 99/68 (78) Pulse Ox 100 100 100 100 O2 Delivery Ventilator Ventilator Ventilator Ventilator 11/23/20 11/23/20 11/23/20 11/23/20 19:00 20:00 20:00 21:00 Temp 94.0 94.0 Pulse 50 68 64 Resp 10 10 10 B/P (MAP) 99/64 (76) 97/71 (80) 88/60 (69) Pulse Ox 99 99 99 O2 Delivery Ventilator Ventilator Mechanical Ventilator Ventilator 11/23/20 11/23/20 11/23/20 11/23/20 21:05 22:00 23:00 23:29 Temp 97.5 97.5 Pulse 63 65 Resp 10 10 B/P (MAP) 95/46 (62) 140/57 (84) Pulse Ox 100 100 100 100 O2 Delivery Ventilator Ventilator Ventilator Ventilator 11/23/20 11/23/20 11/24/20 11/24/20 23:59 23:59 01:00 01:15 Temp 97.9 97.9 Pulse 61 64 Resp 10 10 B/P (MAP) 96/59 (71) 96/62 (73) Pulse Ox 100 100 100 O2 Delivery Mechanical Ventilator Ventilator Ventilator Ventilator 11/24/20 11/24/20 11/24/20 11/24/20 02:00 03:00 03:42 04:00 Temp 99.1 99.1 Pulse 64 64 68 Resp 10 12 10 B/P (MAP) 94/62 (73) 92/58 (69) 90/58 (69) Pulse Ox 100 100 99 100 O2 Delivery Ventilator Ventilator Ventilator Ventilator 11/24/20 11/24/20 11/24/20 11/24/20 04:00 05:00 06:00 07:38 Pulse 50 65 Resp 10 10 B/P (MAP) 98/52 (67) 80/51 (61) Pulse Ox 100 100 99 O2 Delivery Mechanical Ventilator Ventilator Ventilator Ventilator Intake and Output 11/23/20 11/23/20 11/24/20 15:00 23:00 07:00 Intake Total 100 ml 799.5 ml 497 ml Output Total 645 ml 345 ml 290 ml Balance -545 ml 454.5 ml 207 ml Justifications for Admission Other Justification JOSE WILLINGHAM MD Nov 24, 2020 09:44
[2020-11-24] MEDS: IV NORMAL SALINE 1000ML BAG 1,000 ML IV SCH ×2 (10:00→17:10)
--- NOTE | 2020-11-24 12:29 | PDOC ---
PROGRESS NOTES Date of Service: DATE: 11/24/20 TIME: 12:29 Subjective Subjective Intubated Objective Objective Vital Signs Date Time Temp Pulse Resp B/P (MAP) Pulse Ox O2 Delivery O2 Flow Rate FiO2 11/24/20 11:40 99 Ventilator 11/24/20 11:00 65 10 87/58 (68) 11/24/20 10:00 97.5 97.5 Intake and Output 11/24/20 07:00 Intake Total 1396.5 ml Output Total 1280 ml Balance 116.5 ml Intake IV Total 516.5 ml Tube Feeding 780 ml Blood Product 100 ml Output Urine Total 1280 ml Physical Exam Abdomen: Soft Heart: Regular rate, Normal S1, Normal S2 Extremities: Other (no edema ) General: Other (intubated ) HEENT: Atraumatic Lungs: Normal air movement Neck: No JVD Neuro: Other (vent, unresponsive) Psych/Mental Status: Other (unable to assess) Skin: No significant lesion Assessment Assessment 1. Seizures - neuro following 2. Acute respiratory failure; secondary to above. s/p intubation 3. Hypothermia; 4. Pancytopenia 5. Sinus bradycardia; probably due to hypothermia - tele did not show any pauses or evidence for SSS 6. Mild acute on chronic diastolic CHF - better compensated 7. Hyponatremia, hypokalemia - per IM 8. Hypertension; controlled 9. Hyperlipidemia 10. Bipolar, schizophrenia Plan Plan of Care Problems Medical Problems: (1) Acute respiratory failure with hypoxia Status: Acute (2) Sinus bradycardia Status: Acute (3) Status epilepticus Status: Acute Comment Review of Relevant I have reviewed the following items melanie (where applicable) has been applied. Labs Laboratory Tests Test 11/23/20 13:33 11/23/20 18:05 11/24/20 00:00 11/24/20 04:45 Glucose (Fingerstick) 86 mg/dL (70-99) 106 mg/dL (70-99) 134 mg/dL (70-99) White Blood Count 4.7 x10^3/uL (4.0-11.0) Red Blood Count 2.86 x10^6/uL (3.50-5.40) Hemoglobin 8.5 g/dL (12.0-15.5) Hematocrit 25.6 % (36.0-47.0) Mean Corpuscular Volume 89 fL (79-100) Mean Corpuscular Hemoglobin 30 pg (25-35) Mean Corpuscular Hemoglobin Concent 33 g/dL (31-37) Red Cell Distribution Width 18.2 % (11.5-14.5) Platelet Count 51 x10^3/uL (140-400) Neutrophils (%) (Auto) 90 % (31-73) Lymphocytes (%) (Auto) 9 % (24-48) Monocytes (%) (Auto) 1 % (0-9) Eosinophils (%) (Auto) 0 % (0-3) Basophils (%) (Auto) 0 % (0-3) Neutrophils # (Auto) 4.2 x10^3/uL (1.8-7.7) Lymphocytes # (Auto) 0.4 x10^3/uL (1.0-4.8) Monocytes # (Auto) 0.1 x10^3/uL (0.0-1.1) Eosinophils # (Auto) 0.0 x10^3/uL (0.0-0.7) Basophils # (Auto) 0.0 x10^3/uL (0.0-0.2) Sodium Level 131 mmol/L (136-145) Potassium Level 3.8 mmol/L (3.5-5.1) Chloride Level 97 mmol/L (98-107) Carbon Dioxide Level 28 mmol/L (21-32) Anion Gap 6 (6-14) Blood Urea Nitrogen 12 mg/dL (7-20) Creatinine 1.0 mg/dL (0.6-1.0) Estimated GFR (Cockcroft-Gault) 65.8 Glucose Level 117 mg/dL (70-99) Calcium Level 8.1 mg/dL (8.5-10.1) Test 11/24/20 08:07 O2 Saturation 97 % (92-99) Arterial Blood pH 7.48 (7.35-7.45) Arterial Blood pCO2 at Patient Temp 36 mmHg (35-46) Arterial Blood pO2 at Patient Temp 92 mmHg (65-108) Arterial Blood HCO3 26 mmol/L (21-28) Arterial Blood Base Excess 2 mmol/L (-3-3) FiO2 30 Microbiology 11/22/20 Blood Culture - Preliminary, Resulted NO GROWTH AFTER 1 DAY Vitals/I & O Vital Sign - Last 24 Hours 9/2311/23/20 11/23/20 11/23/20 13:00 13:20 14:00 15:00 Temp 88.7 89.8 90.3 88.7 89.8 90.3 Pulse 47 48 54 Resp 10 10 10 B/P (MAP) 120/82 (95) 95/64 (74) 104/71 (82) Pulse Ox 99 100 99 100 O2 Delivery Ventilator Ventilator Ventilator Ventilator 11/23/20 11/23/20 11/23/20 11/23/20 15:36 16:00 16:00 17:00 Temp 91.0 92.5 91.0 92.5 Pulse 54 59 Resp 10 10 B/P (MAP) 106/73 (84) 105/69 (81) Pulse Ox 100 100 100 O2 Delivery Ventilator Mechanical Ventilator Ventilator Ventilator 11/23/20 11/23/20 11/23/20 11/23/20 17:20 18:00 19:00 20:00 Temp 93.2 94.0 93.2 94.0 Pulse 62 50 68 Resp 10 10 10 B/P (MAP) 99/68 (78) 99/64 (76) 97/71 (80) Pulse Ox 100 100 99 99 O2 Delivery Ventilator Ventilator Ventilator Ventilator 11/23/20 11/23/20 11/23/20 11/23/20 20:00 21:00 21:05 22:00 Pulse 64 63 Resp 10 10 B/P (MAP) 88/60 (69) 95/46 (62) Pulse Ox 99 100 100 O2 Delivery Mechanical Ventilator Ventilator Ventilator Ventilator 11/23/20 11/23/20 11/23/20 11/23/20 23:00 23:29 23:59 23:59 Temp 97.5 97.9 97.5 97.9 Pulse 65 61 Resp 10 10 B/P (MAP) 140/57 (84) 96/59 (71) Pulse Ox 100 100 100 O2 Delivery Ventilator Ventilator Mechanical Ventilator Ventilator 11/24/20 11/24/20 11/24/20 11/24/20 01:00 01:15 02:00 03:00 Pulse 64 64 64 Resp 10 10 12 B/P (MAP) 96/62 (73) 94/62 (73) 92/58 (69) Pulse Ox 100 100 100 100 O2 Delivery Ventilator Ventilator Ventilator Ventilator 11/24/20 11/24/20 11/24/2021 03:42 04:00 04:00 05:00 Temp 99.1 99.1 Pulse 68 50 Resp 10 10 B/P (MAP) 90/58 (69) 98/52 (67) Pulse Ox 99 100 100 O2 Delivery Ventilator Ventilator Mechanical Ventilator Ventilator 11/24/20 11/24/20 11/24/20 11/24/20 06:00 07:38 08:00 08:00 Temp 98.2 98.2 Pulse 65 65 Resp 10 10 B/P (MAP) 80/51 (61) 82/54 (63) Pulse Ox 100 99 99 O2 Delivery Ventilator Ventilator Ventilator Mechanical Ventilator 11/24/20 11/24/20 11/24/20 11/24/20 09:00 10:00 11:00 11:40 Temp 97.5 97.5 Pulse 65 65 65 Resp 10 10 10 B/P (MAP) 81/56 (64) 87/50 (62) 87/58 (68) Pulse Ox 100 100 99 99 O2 Delivery Ventilator Ventilator Ventilator Ventilator Intake and Output 11/23/20 11/23/20 11/24/20 15:00 23:00 07:00 Intake Total 100 ml 799.5 ml 497 ml Output Total 645 ml 345 ml 290 ml Balance -545 ml 454.5 ml 207 ml MILE SCOTT MD Nov 24, 2020 12:29
--- NOTE | 2020-11-24 15:53 | NUR ---
SS following up with discharge planning. SS reviewed pt chart and discussed with pt RN. Pt is currently on the vent at 30%. COVID19 negative. Pt on IV Solu-Medrol, IV Keppra, IV Valproic Acid, and IV Zosyn. Sedation off. SS will continue to follow for discharge planning.
[2020-11-25] VITALS (25 sets, daily range): BP systolic 106–155; BP diastolic 70–87
[2020-11-25] MEDS: PIPERACILLIN/TAZOBACTAM 3.375 GM in IV NORMAL SALINE 50ML 50 ML IV SCH ×4 (00:09→18:15)
[2020-11-25 04:42] LABS: BASO % 0 % (0-3); EOS % 0 % (0-3); HEMATOCRIT 25.6 % (36.0-47.0); HEMOGLOBIN 8.7 g/dL (12.0-15.5); LYMPH # 0.5 x10^3/uL (1.0-4.8); LYMPH % 8 % (24-48); MEAN CORPUSCULAR HEMOGLOBIN 31 pg (25-35); MEAN CORPUSCULAR HGB CONC 34 g/dL (31-37); MEAN CORPUSCULAR VOLUME 90 fL (79-100); MONO # 0.1 x10^3/uL (0.0-1.1); MONO % 2 % (0-9); NEUT # 5.8 x10^3/uL (1.8-7.7); NEUT % 90 % (31-73); PLATELET COUNT 46 x10^3/uL (140-400); RED BLOOD COUNT 2.85 x10^6/uL (3.50-5.40); RED CELL DISTRIBUTION WIDTH 18.7 % (11.5-14.5); WHITE BLOOD COUNT 6.4 x10^3/uL (4.0-11.0)
[2020-11-25 04:58] LABS: CALCIUM 7.8 mg/dL (8.5-10.1); CREATININE 0.9 mg/dL (0.6-1.0); GFR 74.3; MAGNESIUM 1.9 mg/dL (1.8-2.4); POTASSIUM 3.7 mmol/L (3.5-5.1)
[2020-11-25] MEDS: INSULIN LISPRO 300 UNITS/3 ML VIAL. SQ SCH ×4 (06:00→18:00)
--- NOTE | 2020-11-25 06:52 | PDOC ---
PULMONARY PROGRESS NOTES DATE: 11/25/20 TIME: 06:49 Subjective Patient currently on assist control, peep 5 fio2 30% large ett secretion ? sz last night Vitals Vital Signs Date Time Temp Pulse Resp B/P (MAP) Pulse Ox O2 Delivery O2 Flow Rate FiO2 11/25/20 06:00 60 10 138/81 (100) 100 Ventilator 11/25/20 04:00 97.6 97.6 Comments ros unable to obtain on vent HEENT: Other (nc at perrl nose clear orally intubated neck no lad no thyromegaly) Lungs: Clear Cardiovascular: S1 Abdomen: Soft, Non-tender Extremities: Other (Some edema) Skin: Warm Labs Laboratory Tests Test 11/23/20 07:49 11/23/20 13:33 11/23/20 18:05 11/24/20 00:00 O2 Saturation 99 % (92-99) Arterial Blood pH 7.53 (7.35-7.45) Arterial Blood pCO2 at Patient Temp 35 mmHg (35-46) Arterial Blood pO2 at Patient Temp 139 mmHg (65-108) Arterial Blood HCO3 28 mmol/L (21-28) Arterial Blood Base Excess 5 mmol/L (-3-3) FiO2 40 Glucose (Fingerstick) 86 mg/dL (70-99) 106 mg/dL (70-99) 134 mg/dL (70-99) Test 11/24/20 04:45 11/24/20 08:07 11/24/20 14:52 11/24/20 18:04 White Blood Count 4.7 x10^3/uL (4.0-11.0) Red Blood Count 2.86 x10^6/uL (3.50-5.40) Hemoglobin 8.5 g/dL (12.0-15.5) Hematocrit 25.6 % (36.0-47.0) Mean Corpuscular Volume 89 fL (79-100) Mean Corpuscular Hemoglobin 30 pg (25-35) Mean Corpuscular Hemoglobin Concent 33 g/dL (31-37) Red Cell Distribution Width 18.2 % (11.5-14.5) Platelet Count 51 x10^3/uL (140-400) Neutrophils (%) (Auto) 90 % (31-73) Lymphocytes (%) (Auto) 9 % (24-48) Monocytes (%) (Auto) 1 % (0-9) Eosinophils (%) (Auto) 0 % (0-3) Basophils (%) (Auto) 0 % (0-3) Neutrophils # (Auto) 4.2 x10^3/uL (1.8-7.7) Lymphocytes # (Auto) 0.4 x10^3/uL (1.0-4.8) Monocytes # (Auto) 0.1 x10^3/uL (0.0-1.1) Eosinophils # (Auto) 0.0 x10^3/uL (0.0-0.7) Basophils # (Auto) 0.0 x10^3/uL (0.0-0.2) Sodium Level 131 mmol/L (136-145) Potassium Level 3.8 mmol/L (3.5-5.1) Chloride Level 97 mmol/L (98-107) Carbon Dioxide Level 28 mmol/L (21-32) Anion Gap 6 (6-14) Blood Urea Nitrogen 12 mg/dL (7-20) Creatinine 1.0 mg/dL (0.6-1.0) Estimated GFR (Cockcroft-Gault) 65.8 Glucose Level 117 mg/dL (70-99) Calcium Level 8.1 mg/dL (8.5-10.1) O2 Saturation 97 % (92-99) Arterial Blood pH 7.48 (7.35-7.45) Arterial Blood pCO2 at Patient Temp 36 mmHg (35-46) Arterial Blood pO2 at Patient Temp 92 mmHg (65-108) Arterial Blood HCO3 26 mmol/L (21-28) Arterial Blood Base Excess 2 mmol/L (-3-3) FiO2 30 Glucose (Fingerstick) 127 mg/dL (70-99) 124 mg/dL (70-99) Test 11/24/20 23:41 11/25/20 00:12 11/25/20 04:30 Glucose (Fingerstick) 160 mg/dL (70-99) 133 mg/dL (70-99) White Blood Count 6.4 x10^3/uL (4.0-11.0) Red Blood Count 2.85 x10^6/uL (3.50-5.40) Hemoglobin 8.7 g/dL (12.0-15.5) Hematocrit 25.6 % (36.0-47.0) Mean Corpuscular Volume 90 fL (79-100) Mean Corpuscular Hemoglobin 31 pg (25-35) Mean Corpuscular Hemoglobin Concent 34 g/dL (31-37) Red Cell Distribution Width 18.7 % (11.5-14.5) Platelet Count 46 x10^3/uL (140-400) Neutrophils (%) (Auto) 90 % (31-73) Lymphocytes (%) (Auto) 8 % (24-48) Monocytes (%) (Auto) 2 % (0-9) Eosinophils (%) (Auto) 0 % (0-3) Basophils (%) (Auto) 0 % (0-3) Neutrophils # (Auto) 5.8 x10^3/uL (1.8-7.7) Lymphocytes # (Auto) 0.5 x10^3/uL (1.0-4.8) Monocytes # (Auto) 0.1 x10^3/uL (0.0-1.1) Eosinophils # (Auto) 0.0 x10^3/uL (0.0-0.7) Basophils # (Auto) 0.0 x10^3/uL (0.0-0.2) Sodium Level 134 mmol/L (136-145) Potassium Level 3.7 mmol/L (3.5-5.1) Chloride Level 99 mmol/L (98-107) Carbon Dioxide Level 29 mmol/L (21-32) Anion Gap 6 (6-14) Blood Urea Nitrogen 15 mg/dL (7-20) Creatinine 0.9 mg/dL (0.6-1.0) Estimated GFR (Cockcroft-Gault) 74.3 Glucose Level 120 mg/dL (70-99) Calcium Level 7.8 mg/dL (8.5-10.1) Magnesium Level 1.9 mg/dL (1.8-2.4) Laboratory Tests Test 11/24/20 08:07 11/24/20 14:52 11/24/20 18:04 11/24/20 23:41 O2 Saturation 97 % (92-99) Arterial Blood pH 7.48 (7.35-7.45) Arterial Blood pCO2 at Patient Temp 36 mmHg (35-46) Arterial Blood pO2 at Patient Temp 92 mmHg (65-108) Arterial Blood HCO3 26 mmol/L (21-28) Arterial Blood Base Excess 2 mmol/L (-3-3) FiO2 30 Glucose (Fingerstick) 127 mg/dL (70-99) 124 mg/dL (70-99) 160 mg/dL (70-99) Test 11/25/20 00:12 11/25/20 04:30 Glucose (Fingerstick) 133 mg/dL (70-99) White Blood Count 6.4 x10^3/uL (4.0-11.0) Red Blood Count 2.85 x10^6/uL (3.50-5.40) Hemoglobin 8.7 g/dL (12.0-15.5) Hematocrit 25.6 % (36.0-47.0) Mean Corpuscular Volume 90 fL (79-100) Mean Corpuscular Hemoglobin 31 pg (25-35) Mean Corpuscular Hemoglobin Concent 34 g/dL (31-37) Red Cell Distribution Width 18.7 % (11.5-14.5) Platelet Count 46 x10^3/uL (140-400) Neutrophils (%) (Auto) 90 % (31-73) Lymphocytes (%) (Auto) 8 % (24-48) Monocytes (%) (Auto) 2 % (0-9) Eosinophils (%) (Auto) 0 % (0-3) Basophils (%) (Auto) 0 % (0-3) Neutrophils # (Auto) 5.8 x10^3/uL (1.8-7.7) Lymphocytes # (Auto) 0.5 x10^3/uL (1.0-4.8) Monocytes # (Auto) 0.1 x10^3/uL (0.0-1.1) Eosinophils # (Auto) 0.0 x10^3/uL (0.0-0.7) Basophils # (Auto) 0.0 x10^3/uL (0.0-0.2) Sodium Level 134 mmol/L (136-145) Potassium Level 3.7 mmol/L (3.5-5.1) Chloride Level 99 mmol/L (98-107) Carbon Dioxide Level 29 mmol/L (21-32) Anion Gap 6 (6-14) Blood Urea Nitrogen 15 mg/dL (7-20) Creatinine 0.9 mg/dL (0.6-1.0) Estimated GFR (Cockcroft-Gault) 74.3 Glucose Level 120 mg/dL (70-99) Calcium Level 7.8 mg/dL (8.5-10.1) Magnesium Level 1.9 mg/dL (1.8-2.4) Medications Active Scripts Medications Dose Route/Sig Max Daily Dose Days Date Category Lansoprazole 30 Mg Capsule.dr 1 Cap PO DAILY 11/22/20 Reported Diclofenac Sodium 100 Gm Gel..gram. 4 Gm TP QID 11/22/20 Reported Prednisone (Prednisone) 10 Mg Tablet 5 Mg PO DAILY 5 10/26/20 Rx Valproic Acid (Valproic Acid (As Sodium Salt)) 250 Mg/5 Ml Solution 500 Mg PO BID 30 10/26/20 Rx Keppra (Levetiracetam) 500 Mg Tablet 1,000 Mg PO BID 30 10/26/20 Rx Proair Hfa (Albuterol Sulfate) 8.5 Gm Hfa.aer.ad 2 Puff IH PRN Q4HRS PRN 21 10/10/20 Reported Keppra (Levetiracetam) 250 Mg Tablet 1 Tab PO BID 30 10/10/20 Reported Furosemide 40 Mg Tablet 1 Tab PO DAILY 10/10/20 Reported Aspirin Ec (Aspirin) 81 Mg Tablet.dr 1 Tab PO DAILY 10/10/20 Reported Breo Ellipta 100-25 Mcg Inh (Fluticasone/Vilanterol) 1 Each Aer.pow.ba 1 Puff IH DAILY 07/23/16 Reported Folic Acid 1 Mg Tablet 400 Mcg PO BID 07/23/16 Reported Vitamin B-12 (Cyanocobalamin (Vitamin B-12)) 1,000 Mcg Tablet 500 Mcg PO BID 07/23/16 Reported Trihexyphenidyl Hcl 2 Mg Tablet 2 Mg PO HS 07/23/16 Reported Divalproex Sodium 500 Mg Tablet. 250 Mg PO DAILY 07/23/16 Reported Lipitor (Atorvastatin Calcium) 80 Mg Tablet 80 Mg PO HS 12/21/13 Reported Duoneb 0.5 Mg-3 Mg/3 Ml Soln (Ipratropium/Albuterol Sulfate) 3 Ml Ampul.neb 3 Ml IH TID 04/28/13 Reported Miralax (Polyethylene Glycol 3350) 17 Gm Powd.pack 17 Gm PO DAILY 04/28/13 Reported Invega (Paliperidone) 6 Mg Tab.er.24 6 Mg PO HS 04/28/13 Reported Carvedilol (Carvedilol) 12.5 Mg Tablet 12.5 Mg PO BID 04/28/13 Reported Hydralazine Hcl 50 Mg Tablet 50 Mg PO BID 04/28/13 Reported Clonidine Tts-3 (Clonidine) 1 Each Patch.tdwk 1 Each TD WEEKLY 04/28/13 Reported Klor-Con M20 (Potassium Chloride) 20 Meq Tab.er.prt 20 Meq PO BID 04/28/13 Reported Divalproex Sodium 500 Mg Tablet.dr 500 Mg PO HS 04/28/13 Reported Amlodipine Besylate 10 Mg Tablet 10 Mg PO DAILY 04/28/13 Reported Vitamin D3 1,000 Unit Tablet (Ca Cmb No.1/Vit D3/B-6/Fa/B12) 1 Each Tablet 1 Each PO DAILY 04/28/13 Reported Flonase (Fluticasone Propionate) 16 Gm Valier.susp 1 Spr NS BID 04/28/13 Reported Comments cxr 11/24 reviewed 1. Stable bilateral basilar predominant opacities. 2. Stable small bilateral pleural effusions. ett ok Impression . IMPRESSION: 1. Acute hypoxemic respiratory failure secondary to breakthrough seizures. 2. Breakthrough seizures. 3. Electrolyte abnormalities including hyponatremia, hypomagnesemia. 4. Severe protein malnutrition, present upon admission. 5. Multiple other comorbidities including schizophrenia, hypertension, hypothyroidism, sleep apnea, tardive dyskinesia. Plan . 11/25 cont vent support setting reviewed off sedation sbt when fully awake Follow neurology input solumedrol 40 bid stress ulcer dvt prophylaxis elevate hob ABX discussed w rn rt Updated 11/24 Discussed with RN and RT will DC sedation trial Follow neurology input Monitor electrolytes ABG noted Updated 11/23 Continue current support Follow neurology input Replace electrolyte Monitor H&H ABG noted pH is 7.53 adjustments were made on vent settings Sodium today 128 PLAN: 11/22 1. We will continue current vent settings. 2. Repeat arterial blood gas. 3. Follow neurology input. 4. Continue home meds. 5. Initiate normal saline. 6. Nutritional support. 7. Replace magnesium. I do appreciate the privilege in sharing in the patient's care. CHRISTIANO MOORE MD Nov 25, 2020 06:52
[2020-11-25 07:53] LABS: BASE EXCESS ABG 5 mmol/L (-3-3); HCO3 ABG 30 mmol/L (21-28); PCO2 ABG 48 mmHg (35-46); PO2 ABG 89 mmHg (65-108); SAT O2 ABG 96 % (92-99)
[2020-11-25 07:55] LABS: FIO2 ABG 30% VENT
[2020-11-25] MEDS: PANTOPRAZOLE IV PUSH 40 MG VIAL. IVP SCH (09:32)
[2020-11-25] MEDS: levETIRAcetam 1,000 MG in IV DEXTROSE 5% 100ML 100 ML IV SCH ×2 (09:33→22:11)
[2020-11-25] MEDS: methylPREDNISolone SOD SUCC PF 40 MG/ML VIAL. IV SCH ×2 (09:34→22:09)
[2020-11-25] MEDS: VALPROIC ACID (AS SODIUM SALT) 750 MG in IV DEXTROSE 5% 50 ML IV SCH ×2 (09:34→23:07)
--- NOTE | 2020-11-25 10:33 | PDOC ---
PROGRESS NOTES Date of Service: DATE: 11/25/20 TIME: 10:30 Subjective Subjective weaning off sedation,on ventilator Objective Objective Vital Signs Date Time Temp Pulse Resp B/P (MAP) Pulse Ox O2 Delivery O2 Flow Rate FiO2 11/25/20 08:13 100 Ventilator 11/25/20 06:00 60 10 138/81 (100) 11/25/20 04:00 97.6 97.6 Intake and Output 11/25/20 07:00 Intake Total 5059.5 ml Output Total 1765 ml Balance 3294.5 ml Intake IV Total 3282.5 ml Tube Feeding 1477 ml Blood Product 300 ml Output Urine Total 1765 ml Physical Exam Physical Exam orally intubated Abdomen: Soft Heart: Regular rate, Normal S1, Normal S2 Extremities: Other (no edema ) General: Other (intubated ) HEENT: Atraumatic Lungs: Normal air movement Neck: No JVD Neuro: Other (vent, unresponsive) Psych/Mental Status: Other (unable to assess) Skin: No significant lesion Diagnosis Problem List Problems Medical Problems: (1) Acute respiratory failure with hypoxia Status: Acute (2) Sinus bradycardia Status: Acute (3) Status epilepticus Status: Acute Assessment Assessment Problems Medical Problems: (1) Acute respiratory failure with hypoxia Status: Acute (2) Sinus bradycardia Status: Acute (3) Status epilepticus Status: Acute FINAL IMPRESSION:Hypothermia and hypotension resolved 1. Status epilepticus. 2. Respiratory failure requiring intubation on mechanical ventilator. 3. Schizophrenia. 4. Hyponatremia 5. Hypertension. 6. Hyperlipidemia. 7. Chronic schizophrenia. 8. Anemia of chronic disease. 9. Morbid obesity. 10.Low Platelets 50,000 PLAN: weaning off sedation. still on ventilator. BP improved hypothermia improved platelets 48,000 still low spoke with RN HR improved to 60 from 40. tolerating tube feedings . ventilatory support. IV zosyn . iv keppra +Depokate poor prognosis. At this time was admitted to the hospital, was admitted to the ICU, ventilator, Pulmonary consult. The patient seen by Neurology, Dr. Mcdonald, given extra dose of Keppra and we will give her IV fluids see how she does in the next 24 hours. The patient may start some tube feedings from tomorrow and the patient's prolactin, lactic acid was normal, does not look any infection at this time. We will hold off on the antibiotics. Prognosis is guarded. Low platelets. Plan Plan of Care Problems Medical Problems: (1) Acute respiratory failure with hypoxia Status: Acute (2) Sinus bradycardia Status: Acute (3) Status epilepticus Status: Acute Comment Review of Relevant I have reviewed the following items melanie (where applicable) has been applied. Labs Laboratory Tests Test 11/24/20 14:52 11/24/20 18:04 11/24/20 23:41 11/25/20 00:12 Glucose (Fingerstick) 127 mg/dL (70-99) 124 mg/dL (70-99) 160 mg/dL (70-99) 133 mg/dL (70-99) Test 11/25/20 04:30 11/25/20 07:50 White Blood Count 6.4 x10^3/uL (4.0-11.0) Red Blood Count 2.85 x10^6/uL (3.50-5.40) Hemoglobin 8.7 g/dL (12.0-15.5) Hematocrit 25.6 % (36.0-47.0) Mean Corpuscular Volume 90 fL (79-100) Mean Corpuscular Hemoglobin 31 pg (25-35) Mean Corpuscular Hemoglobin Concent 34 g/dL (31-37) Red Cell Distribution Width 18.7 % (11.5-14.5) Platelet Count 46 x10^3/uL (140-400) Neutrophils (%) (Auto) 90 % (31-73) Lymphocytes (%) (Auto) 8 % (24-48) Monocytes (%) (Auto) 2 % (0-9) Eosinophils (%) (Auto) 0 % (0-3) Basophils (%) (Auto) 0 % (0-3) Neutrophils # (Auto) 5.8 x10^3/uL (1.8-7.7) Lymphocytes # (Auto) 0.5 x10^3/uL (1.0-4.8) Monocytes # (Auto) 0.1 x10^3/uL (0.0-1.1) Eosinophils # (Auto) 0.0 x10^3/uL (0.0-0.7) Basophils # (Auto) 0.0 x10^3/uL (0.0-0.2) Sodium Level 134 mmol/L (136-145) Potassium Level 3.7 mmol/L (3.5-5.1) Chloride Level 99 mmol/L (98-107) Carbon Dioxide Level 29 mmol/L (21-32) Anion Gap 6 (6-14) Blood Urea Nitrogen 15 mg/dL (7-20) Creatinine 0.9 mg/dL (0.6-1.0) Estimated GFR (Cockcroft-Gault) 74.3 Glucose Level 120 mg/dL (70-99) Calcium Level 7.8 mg/dL (8.5-10.1) Magnesium Level 1.9 mg/dL (1.8-2.4) O2 Saturation 96 % (92-99) Arterial Blood pH 7.41 (7.35-7.45) Arterial Blood pCO2 at Patient Temp 48 mmHg (35-46) Arterial Blood pO2 at Patient Temp 89 mmHg (65-108) Arterial Blood HCO3 30 mmol/L (21-28) Arterial Blood Base Excess 5 mmol/L (-3-3) FiO2 30% vent Microbiology 11/22/20 Blood Culture - Preliminary, Resulted NO GROWTH AFTER 2 DAYS Vitals/I & O Vital Sign - Last 24 Hours 11/24/20 11/24/20 11/24/20 11/24/20 11:00 11:40 12:00 12:00 Temp 97.9 97.9 Pulse 65 60 Resp 10 10 B/P (MAP) 87/58 (68) 102/65 (77) Pulse Ox 99 99 100 O2 Delivery Ventilator Ventilator Ventilator Mechanical Ventilator 11/24/20 11/24/20 11/24/20 11/24/20 12:40 13:00 14:00 15:00 Pulse 56 56 56 Resp 10 10 10 B/P (MAP) 95/62 (73) 99/67 (78) 106/70 (82) Pulse Ox 99 99 100 98 O2 Delivery Ventilator Ventilator Ventilator Ventilator 11/24/20 11/24/20 11/24/20 11/24/20 15:57 16:00 16:00 17:00 Temp 98.0 98.0 Pulse 65 54 Resp 10 10 B/P (MAP) 106/70 (82) 106/69 (81) Pulse Ox 98 99 100 O2 Delivery Ventilator Mechanical Ventilator Ventilator Ventilator 11/24/20 11/24/20 11/24/20 11/24/20 18:00 18:04 19:00 20:00 Pulse 52 61 Resp 10 10 B/P (MAP) 100/63 (75) 87/54 (65) Pulse Ox 100 99 100 O2 Delivery Ventilator Ventilator Ventilator Mechanical Ventilator 11/24/20 11/24/20 11/24/20 11/24/20 20:00 20:00 21:00 22:00 Temp 97.5 97.5 Pulse 59 60 59 Resp 10 10 10 B/P (MAP) 91/54 (66) 99/61 (74) 103/64 (77) Pulse Ox 99 100 100 100 O2 Delivery Ventilator Ventilator Ventilator Ventilator 11/24/20 11/24/20 11/24/20 11/25/20 23:00 23:50 23:59 00:00 Temp 97.8 97.8 Pulse 51 62 Resp 10 10 B/P (MAP) 109/72 (84) 124/75 (91) Pulse Ox 100 100 100 O2 Delivery Ventilator Ventilator Mechanical Ventilator Ventilator 11/25/20 11/25/20 11/25/20 11/25/20 01:00 02:00 02:00 03:00 Pulse 67 59 55 Resp 14 16 16 B/P (MAP) 106/79 (88) 123/75 (91) 125/76 (92) Pulse Ox 99 100 100 100 O2 Delivery Ventilator Ventilator Ventilator Ventilator 11/25/20 11/25/20 11/25/20 11/25/20 04:00 04:00 04:00 05:00 Temp 97.6 97.6 Pulse 49 57 Resp 16 16 B/P (MAP) 126/75 (92) 125/76 (92) Pulse Ox 100 100 100 O2 Delivery Ventilator Ventilator Mechanical Ventilator Ventilator 11/25/20 11/25/20 06:00 08:13 Pulse 60 Resp 10 B/P (MAP) 138/81 (100) Pulse Ox 100 100 O2 Delivery Ventilator Ventilator Intake and Output 11/24/20 11/24/20 11/25/20 15:00 23:00 07:00 Intake Total 417.5 ml 3038 ml 1604 ml Output Total 235 ml 850 ml 680 ml Balance 182.5 ml 2188 ml 924 ml Justifications for Admission Other Justification JOSE WILLINGHAM MD Nov 25, 2020 10:33
[2020-11-25 12:35] LABS: BASE EXCESS ABG 3 mmol/L (-3-3); HCO3 ABG 29 mmol/L (21-28); PCO2 ABG 51 mmHg (35-46); PO2 ABG 81 mmHg (65-108); SAT O2 ABG 95 % (92-99)
[2020-11-25 12:36] LABS: FIO2 ABG 30% PS 5 PEEP 5
[2020-11-25] MEDS ORDERED: FUROSEMIDE 20 MG/2 ML VIAL. IVP ONE (13:00)
[2020-11-26] VITALS (14 sets, daily range): BP systolic 135–173; BP diastolic 34–98
[2020-11-26] MEDS: INSULIN LISPRO 300 UNITS/3 ML VIAL. SQ SCH ×5 (00:16→23:58)
[2020-11-26] MEDS: PIPERACILLIN/TAZOBACTAM 3.375 GM in IV NORMAL SALINE 50ML 50 ML IV SCH ×5 (00:17→23:54)
[2020-11-26 05:44] LABS: BASO % 0 % (0-3); EOS % 0 % (0-3); HEMATOCRIT 26.1 % (36.0-47.0); HEMOGLOBIN 8.7 g/dL (12.0-15.5); LYMPH # 0.6 x10^3/uL (1.0-4.8); LYMPH % 8 % (24-48); MEAN CORPUSCULAR HEMOGLOBIN 30 pg (25-35); MEAN CORPUSCULAR HGB CONC 33 g/dL (31-37); MEAN CORPUSCULAR VOLUME 91 fL (79-100); MONO # 0.2 x10^3/uL (0.0-1.1); MONO % 2 % (0-9); NEUT # 6.6 x10^3/uL (1.8-7.7); NEUT % 89 % (31-73); PLATELET COUNT 57 x10^3/uL (140-400); RED BLOOD COUNT 2.88 x10^6/uL (3.50-5.40); RED CELL DISTRIBUTION WIDTH 18.9 % (11.5-14.5); WHITE BLOOD COUNT 7.4 x10^3/uL (4.0-11.0)
[2020-11-26 05:50] LABS: CALCIUM 8.6 mg/dL (8.5-10.1); CREATININE 0.8 mg/dL (0.6-1.0); GFR 85.1; POTASSIUM 3.4 mmol/L (3.5-5.1)
--- NOTE | 2020-11-26 07:05 | PDOC ---
PULMONARY PROGRESS NOTES DATE: 11/26/20 TIME: 07:03 Subjective extubated 11/25 on 02 1 lpm says she is ok slow in response Vitals Vital Signs Date Time Temp Pulse Resp B/P (MAP) Pulse Ox O2 Delivery O2 Flow Rate FiO2 11/26/20 07:00 77 16 151/76 (101) 98 Nasal Cannula 1.0 11/26/20 04:00 97.6 97.6 ROS: No Nausea General: Alert, No acute distress HEENT: Other (nc at perrl nose clear neck no lad no thyromegaly) Lungs: Clear Cardiovascular: S1 Abdomen: Soft, Non-tender Extremities: Other (Some edema) Skin: Warm Labs Laboratory Tests Test 11/24/20 08:07 11/24/20 14:52 11/24/20 18:04 11/24/20 23:41 O2 Saturation 97 % (92-99) Arterial Blood pH 7.48 (7.35-7.45) Arterial Blood pCO2 at Patient Temp 36 mmHg (35-46) Arterial Blood pO2 at Patient Temp 92 mmHg (65-108) Arterial Blood HCO3 26 mmol/L (21-28) Arterial Blood Base Excess 2 mmol/L (-3-3) FiO2 30 Glucose (Fingerstick) 127 mg/dL (70-99) 124 mg/dL (70-99) 160 mg/dL (70-99) Test 11/25/20 00:12 11/25/20 04:30 11/25/20 07:50 11/25/20 12:24 Glucose (Fingerstick) 133 mg/dL (70-99) White Blood Count 6.4 x10^3/uL (4.0-11.0) Red Blood Count 2.85 x10^6/uL (3.50-5.40) Hemoglobin 8.7 g/dL (12.0-15.5) Hematocrit 25.6 % (36.0-47.0) Mean Corpuscular Volume 90 fL (79-100) Mean Corpuscular Hemoglobin 31 pg (25-35) Mean Corpuscular Hemoglobin Concent 34 g/dL (31-37) Red Cell Distribution Width 18.7 % (11.5-14.5) Platelet Count 46 x10^3/uL (140-400) Neutrophils (%) (Auto) 90 % (31-73) Lymphocytes (%) (Auto) 8 % (24-48) Monocytes (%) (Auto) 2 % (0-9) Eosinophils (%) (Auto) 0 % (0-3) Basophils (%) (Auto) 0 % (0-3) Neutrophils # (Auto) 5.8 x10^3/uL (1.8-7.7) Lymphocytes # (Auto) 0.5 x10^3/uL (1.0-4.8) Monocytes # (Auto) 0.1 x10^3/uL (0.0-1.1) Eosinophils # (Auto) 0.0 x10^3/uL (0.0-0.7) Basophils # (Auto) 0.0 x10^3/uL (0.0-0.2) Sodium Level 134 mmol/L (136-145) Potassium Level 3.7 mmol/L (3.5-5.1) Chloride Level 99 mmol/L (98-107) Carbon Dioxide Level 29 mmol/L (21-32) Anion Gap 6 (6-14) Blood Urea Nitrogen 15 mg/dL (7-20) Creatinine 0.9 mg/dL (0.6-1.0) Estimated GFR (Cockcroft-Gault) 74.3 Glucose Level 120 mg/dL (70-99) Calcium Level 7.8 mg/dL (8.5-10.1) Magnesium Level 1.9 mg/dL (1.8-2.4) O2 Saturation 96 % (92-99) 95 % (92-99) Arterial Blood pH 7.41 (7.35-7.45) 7.38 (7.35-7.45) Arterial Blood pCO2 at Patient Temp 48 mmHg (35-46) 51 mmHg (35-46) Arterial Blood pO2 at Patient Temp 89 mmHg (65-108) 81 mmHg (65-108) Arterial Blood HCO3 30 mmol/L (21-28) 29 mmol/L (21-28) Arterial Blood Base Excess 5 mmol/L (-3-3) 3 mmol/L (-3-3) FiO2 30% vent 30% ps 5 peep 5 Test 11/25/20 13:33 11/25/20 18:19 11/26/20 00:16 11/26/20 05:10 Glucose (Fingerstick) 136 mg/dL (70-99) 120 mg/dL (70-99) 114 mg/dL (70-99) White Blood Count 7.4 x10^3/uL (4.0-11.0) Red Blood Count 2.88 x10^6/uL (3.50-5.40) Hemoglobin 8.7 g/dL (12.0-15.5) Hematocrit 26.1 % (36.0-47.0) Mean Corpuscular Volume 91 fL (79-100) Mean Corpuscular Hemoglobin 30 pg (25-35) Mean Corpuscular Hemoglobin Concent 33 g/dL (31-37) Red Cell Distribution Width 18.9 % (11.5-14.5) Platelet Count 57 x10^3/uL (140-400) Neutrophils (%) (Auto) 89 % (31-73) Lymphocytes (%) (Auto) 8 % (24-48) Monocytes (%) (Auto) 2 % (0-9) Eosinophils (%) (Auto) 0 % (0-3) Basophils (%) (Auto) 0 % (0-3) Neutrophils # (Auto) 6.6 x10^3/uL (1.8-7.7) Lymphocytes # (Auto) 0.6 x10^3/uL (1.0-4.8) Monocytes # (Auto) 0.2 x10^3/uL (0.0-1.1) Eosinophils # (Auto) 0.0 x10^3/uL (0.0-0.7) Basophils # (Auto) 0.0 x10^3/uL (0.0-0.2) Sodium Level 138 mmol/L (136-145) Potassium Level 3.4 mmol/L (3.5-5.1) Chloride Level 100 mmol/L (98-107) Carbon Dioxide Level 34 mmol/L (21-32) Anion Gap 4 (6-14) Blood Urea Nitrogen 11 mg/dL (7-20) Creatinine 0.8 mg/dL (0.6-1.0) Estimated GFR (Cockcroft-Gault) 85.1 Glucose Level 103 mg/dL (70-99) Calcium Level 8.6 mg/dL (8.5-10.1) Laboratory Tests Test 11/25/20 07:50 11/25/20 12:24 11/25/20 13:33 11/25/20 18:19 O2 Saturation 96 % (92-99) 95 % (92-99) Arterial Blood pH 7.41 (7.35-7.45) 7.38 (7.35-7.45) Arterial Blood pCO2 at Patient Temp 48 mmHg (35-46) 51 mmHg (35-46) Arterial Blood pO2 at Patient Temp 89 mmHg (65-108) 81 mmHg (65-108) Arterial Blood HCO3 30 mmol/L (21-28) 29 mmol/L (21-28) Arterial Blood Base Excess 5 mmol/L (-3-3) 3 mmol/L (-3-3) FiO2 30% vent 30% ps 5 peep 5 Glucose (Fingerstick) 136 mg/dL (70-99) 120 mg/dL (70-99) Test 11/26/20 00:16 11/26/20 05:10 Glucose (Fingerstick) 114 mg/dL (70-99) White Blood Count 7.4 x10^3/uL (4.0-11.0) Red Blood Count 2.88 x10^6/uL (3.50-5.40) Hemoglobin 8.7 g/dL (12.0-15.5) Hematocrit 26.1 % (36.0-47.0) Mean Corpuscular Volume 91 fL (79-100) Mean Corpuscular Hemoglobin 30 pg (25-35) Mean Corpuscular Hemoglobin Concent 33 g/dL (31-37) Red Cell Distribution Width 18.9 % (11.5-14.5) Platelet Count 57 x10^3/uL (140-400) Neutrophils (%) (Auto) 89 % (31-73) Lymphocytes (%) (Auto) 8 % (24-48) Monocytes (%) (Auto) 2 % (0-9) Eosinophils (%) (Auto) 0 % (0-3) Basophils (%) (Auto) 0 % (0-3) Neutrophils # (Auto) 6.6 x10^3/uL (1.8-7.7) Lymphocytes # (Auto) 0.6 x10^3/uL (1.0-4.8) Monocytes # (Auto) 0.2 x10^3/uL (0.0-1.1) Eosinophils # (Auto) 0.0 x10^3/uL (0.0-0.7) Basophils # (Auto) 0.0 x10^3/uL (0.0-0.2) Sodium Level 138 mmol/L (136-145) Potassium Level 3.4 mmol/L (3.5-5.1) Chloride Level 100 mmol/L (98-107) Carbon Dioxide Level 34 mmol/L (21-32) Anion Gap 4 (6-14) Blood Urea Nitrogen 11 mg/dL (7-20) Creatinine 0.8 mg/dL (0.6-1.0) Estimated GFR (Cockcroft-Gault) 85.1 Glucose Level 103 mg/dL (70-99) Calcium Level 8.6 mg/dL (8.5-10.1) Medications Active Scripts Medications Dose Route/Sig Max Daily Dose Days Date Category Lansoprazole 30 Mg Capsule. 1 Cap PO DAILY 11/22/20 Reported Diclofenac Sodium 100 Gm Gel..gram. 4 Gm TP QID 11/22/20 Reported Prednisone (Prednisone) 10 Mg Tablet 5 Mg PO DAILY 10/26/20 Rx Valproic Acid (Valproic Acid (As Sodium Salt)) 250 Mg/5 Ml Solution 500 Mg PO BID 10/26/20 Rx Keppra (Levetiracetam) 500 Mg Tablet 1,000 Mg PO BID 10/26/20 Rx Proair Hfa (Albuterol Sulfate) 8.5 Gm Hfa.aer.ad 2 Puff IH PRN Q4HRS PRN 10/10/20 Reported Keppra (Levetiracetam) 250 Mg Tablet 1 Tab PO BID 30 10/10/20 Reported Furosemide 40 Mg Tablet 1 Tab PO DAILY 10/10/20 Reported Aspirin Ec (Aspirin) 81 Mg Tablet. 1 Tab PO DAILY 10/10/20 Reported Breo Ellipta 100-25 Mcg Inh (Fluticasone/Vilanterol) 1 Each Aer.pow.ba 1 Puff IH DAILY 07/23/16 Reported Folic Acid 1 Mg Tablet 400 Mcg PO BID 07/23/16 Reported Vitamin B-12 (Cyanocobalamin (Vitamin B-12)) 1,000 Mcg Tablet 500 Mcg PO BID 07/23/16 Reported Trihexyphenidyl Hcl 2 Mg Tablet 2 Mg PO HS 07/23/16 Reported Divalproex Sodium 500 Mg Tablet.dr 250 Mg PO DAILY 07/23/16 Reported Lipitor (Atorvastatin Calcium) 80 Mg Tablet 80 Mg PO HS 12/21/13 Reported Duoneb 0.5 Mg-3 Mg/3 Ml Soln (Ipratropium/Albuterol Sulfate) 3 Ml Ampul.neb 3 Ml IH TID 04/28/13 Reported Miralax (Polyethylene Glycol 3350) 17 Gm Powd.pack 17 Gm PO DAILY 04/28/13 Reported Invega (Paliperidone) 6 Mg Tab.er.24 6 Mg PO HS 04/28/13 Reported Carvedilol (Carvedilol) 12.5 Mg Tablet 12.5 Mg PO BID 04/28/13 Reported Hydralazine Hcl 50 Mg Tablet 50 Mg PO BID 04/28/13 Reported Clonidine Tts-3 (Clonidine) 1 Each Patch.tdwk 1 Each TD WEEKLY 04/28/13 Reported Klor-Con M20 (Potassium Chloride) 20 Meq Tab.er.prt 20 Meq PO BID 04/28/13 Reported Divalproex Sodium 500 Mg Tablet.dr 500 Mg PO HS 04/28/13 Reported Amlodipine Besylate 10 Mg Tablet 10 Mg PO DAILY 04/28/13 Reported Vitamin D3 1,000 Unit Tablet (Ca Cmb No.1/Vit D3/B-6/Fa/B12) 1 Each Tablet 1 Each PO DAILY 04/28/13 Reported Flonase (Fluticasone Propionate) 16 Gm [place].susp 1 Spr NS BID 04/28/13 Reported Comments cxr 11/24 reviewed 1. Stable bilateral basilar predominant opacities. 2. Stable small bilateral pleural effusions. ett ok Impression . IMPRESSION: 1. Acute hypoxemic respiratory failure secondary to breakthrough seizures. 2. Breakthrough seizures. 3. Electrolyte abnormalities including hyponatremia, hypomagnesemia. 4. Severe protein malnutrition, present upon admission. 5. Multiple other comorbidities including schizophrenia, hypertension, hypothyroidism, sleep apnea, tardive dyskinesia. Plan . 11/26 extubated 11/25 on 02 1 lpm speech eval Follow neurology input solumedrol 40 bid stress ulcer dvt prophylaxis elevate hob ABX ? joselyn psg as out pt discussed w rn rt 11/25 cont vent support setting reviewed off sedation sbt when fully awake Follow neurology input solumedrol 40 bid stress ulcer dvt prophylaxis elevate hob ABX discussed w rn rt Updated 11/24 Discussed with RN and RT will DC sedation trial Follow neurology input Monitor electrolytes ABG noted Updated 11/23 Continue current support Follow neurology input Replace electrolyte Monitor H&H ABG noted pH is 7.53 adjustments were made on vent settings Sodium today 128 PLAN: 11/22 1. We will continue current vent settings. 2. Repeat arterial blood gas. 3. Follow neurology input. 4. Continue home meds. 5. Initiate normal saline. 6. Nutritional support. 7. Replace magnesium. I do appreciate the privilege in sharing in the patient's care. CHRISTIANO MOORE MD Nov 26, 2020 07:05
[2020-11-26] MEDS ORDERED: POTASSIUM CHLORIDE 20 MEQ TABLET.ER. PO SCH (09:15)
--- NOTE | 2020-11-26 09:16 | PDOC ---
IM PROGRESS NOTES- Subjective Subjective Patient is confused and nonverbal and not following any commands. Unable to do systems review. She was extubated this morning. She is on oxygen by nasal cannula. Objective Vitals/I&O Vital Signs Date Time Temp Pulse Resp B/P (MAP) Pulse Ox O2 Delivery O2 Flow Rate FiO2 11/26/20 07:00 77 16 151/76 (101) 98 Nasal Cannula 1.0 11/26/20 04:00 97.6 97.6 I & O 11/25/20 11/25/20 11/26/20 15:00 23:00 07:00 Intake Total 250 ml 630 ml 107.5 ml Output Total 1850 ml 1500 ml 1500 ml Balance -1600 ml -870 ml -1392.5 ml Physical Exam Physical Exam General Appearance -alert but confused. Nonverbal. She is moving her extremities without any purpose. Not following commands. Status post extubation on oxygen by nasal cannula. Chest - decreased breath sounds at bases Heart - S1 and S2 normal Abdomen - soft, non tender Neurological confused Musculoskeletal - generalized weakness Extremities - no edema Labs Laboratory Tests Test 11/25/20 12:24 11/25/20 13:33 11/25/20 18:19 11/26/20 00:16 O2 Saturation 95 % (92-99) Arterial Blood pH 7.38 (7.35-7.45) Arterial Blood pCO2 at Patient Temp 51 mmHg (35-46) H Arterial Blood pO2 at Patient Temp 81 mmHg (65-108) Arterial Blood HCO3 29 mmol/L (21-28) H Arterial Blood Base Excess 3 mmol/L (-3-3) FiO2 30% ps 5 peep 5 Glucose (Fingerstick) 136 mg/dL (70-99) H 120 mg/dL (70-99) H 114 mg/dL (70-99) H Test 11/26/20 05:10 White Blood Count 7.4 x10^3/uL (4.0-11.0) Red Blood Count 2.88 x10^6/uL (3.50-5.40) L Hemoglobin 8.7 g/dL (12.0-15.5) L Hematocrit 26.1 % (36.0-47.0) L Mean Corpuscular Volume 91 fL (79-100) Mean Corpuscular Hemoglobin 30 pg (25-35) Mean Corpuscular Hemoglobin Concent 33 g/dL (31-37) Red Cell Distribution Width 18.9 % (11.5-14.5) H Platelet Count 57 x10^3/uL (140-400) L Neutrophils (%) (Auto) 89 % (31-73) H Lymphocytes (%) (Auto) 8 % (24-48) L Monocytes (%) (Auto) 2 % (0-9) Eosinophils (%) (Auto) 0 % (0-3) Basophils (%) (Auto) 0 % (0-3) Neutrophils # (Auto) 6.6 x10^3/uL (1.8-7.7) Lymphocytes # (Auto) 0.6 x10^3/uL (1.0-4.8) L Monocytes # (Auto) 0.2 x10^3/uL (0.0-1.1) Eosinophils # (Auto) 0.0 x10^3/uL (0.0-0.7) Basophils # (Auto) 0.0 x10^3/uL (0.0-0.2) Sodium Level 138 mmol/L (136-145) Potassium Level 3.4 mmol/L (3.5-5.1) L Chloride Level 100 mmol/L (98-107) Carbon Dioxide Level 34 mmol/L (21-32) H Anion Gap 4 (6-14) L Blood Urea Nitrogen 11 mg/dL (7-20) Creatinine 0.8 mg/dL (0.6-1.0) Estimated GFR (Cockcroft-Gault) 85.1 Glucose Level 103 mg/dL (70-99) H Calcium Level 8.6 mg/dL (8.5-10.1) Laboratory Tests 11/26/20 05:10 Laboratory Tests 11/26/20 05:10 Meds Current Medications Medications (Trade) Dose Ordered Sig/Johnny Route PRN Reason Start Time Stop Time Status Last Admin Dose Admin Furosemide (Lasix) 20 mg 1X ONCE IVP 11/25/20 13:00 11/25/20 13:03 DC 11/25/20 13:28 Assessment Assessment Problems Medical Problems: (1) Acute respiratory failure with hypoxia Status: Acute (2) Sinus bradycardia Status: Acute (3) Status epilepticus Status: Acute FINAL IMPRESSION:Hypothermia and hypotension resolved 1. Status epilepticus. 2. Respiratory failure requiring intubation on mechanical ventilator. 3. Schizophrenia. 4. Hyponatremia 5. Hypertension. 6. Hyperlipidemia. 7. Chronic schizophrenia. 8. Anemia of chronic disease. 9. Morbid obesity. 10.Low Platelets 50,000 PLAN: Pneumonia -IV zosyn . Acute hypoxic respiratory failure-she has been extubated and is now on oxygen by nasal cannula. Continue IV steroids. Seizure disorder - iv keppra +Depokate Hypokalemia-replace potassium thrombocytopenia. Platelet count is 57,000. Hold DVT prophylaxis. Order SCDs. Prognosis of this patient is very poor. Continue ICU management. For details please refer to the orders. Plan Plan For more details regarding further plans, please refer to the orders. Justifications for Admission Other Justification VIKTOR FOLEY MD Nov 26, 2020 09:16
[2020-11-26] MEDS: PANTOPRAZOLE IV PUSH 40 MG VIAL. IVP SCH (09:34)
[2020-11-26] MEDS: VALPROIC ACID (AS SODIUM SALT) 750 MG in IV DEXTROSE 5% 50 ML IV SCH ×2 (09:34→21:44)
[2020-11-26] MEDS: methylPREDNISolone SOD SUCC PF 40 MG/ML VIAL. IV SCH ×2 (09:34→21:00)
[2020-11-26] MEDS: levETIRAcetam 1,000 MG in IV DEXTROSE 5% 100ML 100 ML IV SCH ×2 (09:35→21:01)
[2020-11-26] MEDS: POTASSIUM BICARB 20 MEQ EFFERVESCENT TABLET. PO SCH ×2 (11:00→17:00)
[2020-11-27] VITALS: BP 164/97
[2020-11-27 03:38] LABS: BASO % 0 % (0-3); EOS % 0 % (0-3); HEMOGLOBIN 9.7 g/dL (12.0-15.5); LYMPH # 0.9 x10^3/uL (1.0-4.8); LYMPH % 11 % (24-48); MEAN CORPUSCULAR HEMOGLOBIN 30 pg (25-35); MEAN CORPUSCULAR HGB CONC 33 g/dL (31-37); MEAN CORPUSCULAR VOLUME 91 fL (79-100); MONO # 0.2 x10^3/uL (0.0-1.1); MONO % 3 % (0-9); NEUT # 7.2 x10^3/uL (1.8-7.7); NEUT % 86 % (31-73); PLATELET COUNT 72 x10^3/uL (140-400); RED CELL DISTRIBUTION WIDTH 18.4 % (11.5-14.5); WHITE BLOOD COUNT 8.4 x10^3/uL (4.0-11.0)
[2020-11-27 03:56] LABS: ALBUMIN 2.1 g/dL (3.4-5.0); ALBUMIN/GLOBULIN RATIO 0.5 (1.0-1.7); CALCIUM 9.2 mg/dL (8.5-10.1); CREATININE 0.7 mg/dL (0.6-1.0); GFR 99.2; POTASSIUM 3.7 mmol/L (3.5-5.1); TOTAL BILIRUBIN 0.5 mg/dL (0.2-1.0); TOTAL PROTEIN 6.6 g/dL (6.4-8.2)
[2020-11-27 04:00] VITALS: BP 175/95
[2020-11-27 04:26] LABS: % BANDS 1 % (0-9); % LYMPHS 15 % (24-48); % MONOS 1 % (0-10); % SEGS 83 % (35-66); ANISOCYTOSIS SLIGHT; HYPOCHROMIA SLIGHT; NUCLEATED RBC 12; PLT ESTIMATE DECREASED (ADEQUATE); POIKILOCYTOSIS SLIGHT; POLYCHROMASIA SLIGHT; SPHEROCYTES OCC; TARGET CELLS OCC
[2020-11-27 04:27] LABS: BURR CELLS FEW; TOXIC GRANULATION MOD; TOXIC VACUOLATION SLIGHT
[2020-11-27] MEDS: PIPERACILLIN/TAZOBACTAM 3.375 GM in IV NORMAL SALINE 50ML 50 ML IV SCH ×3 (05:57→18:00)
[2020-11-27] MEDS: INSULIN LISPRO 300 UNITS/3 ML VIAL. SQ SCH ×3 (05:58→18:00)
[2020-11-27 08:00] VITALS: BP 179/86
--- NOTE | 2020-11-27 08:03 | PDOC ---
PULMONARY PROGRESS NOTES DATE: 11/27/20 TIME: 08:03 Subjective extubated 11/25 Patient now more short of Vitals Vital Signs Date Time Temp Pulse Resp B/P (MAP) Pulse Ox O2 Delivery O2 Flow Rate FiO2 11/27/20 04:00 97.4 62 15 175/95 (121) 100 Nasal Cannula 2.0 97.4 ROS: No Nausea, No Chest Pain, No Increase Cough General: Alert, No acute distress Lungs: Clear Cardiovascular: S1 Abdomen: Soft, Non-tender Extremities: Other (Some edema) Skin: Warm Labs Laboratory Tests Test 11/25/20 12:24 11/25/20 13:33 11/25/20 18:19 11/26/20 00:16 O2 Saturation 95 % (92-99) Arterial Blood pH 7.38 (7.35-7.45) Arterial Blood pCO2 at Patient Temp 51 mmHg (35-46) Arterial Blood pO2 at Patient Temp 81 mmHg (65-108) Arterial Blood HCO3 29 mmol/L (21-28) Arterial Blood Base Excess 3 mmol/L (-3-3) FiO2 30% ps 5 peep 5 Glucose (Fingerstick) 136 mg/dL (70-99) 120 mg/dL (70-99) 114 mg/dL (70-99) Test 11/26/20 05:10 11/26/20 12:27 11/26/20 23:57 11/27/20 03:25 White Blood Count 7.4 x10^3/uL (4.0-11.0) 8.4 x10^3/uL (4.0-11.0) Red Blood Count 2.88 x10^6/uL (3.50-5.40) 3.30 x10^6/uL (3.50-5.40) Hemoglobin 8.7 g/dL (12.0-15.5) 9.7 g/dL (12.0-15.5) Hematocrit 26.1 % (36.0-47.0) 30.0 % (36.0-47.0) Mean Corpuscular Volume 91 fL (79-100) 91 fL (79-100) Mean Corpuscular Hemoglobin 30 pg (25-35) 30 pg (25-35) Mean Corpuscular Hemoglobin Concent 33 g/dL (31-37) 33 g/dL (31-37) Red Cell Distribution Width 18.9 % (11.5-14.5) 18.4 % (11.5-14.5) Platelet Count 57 x10^3/uL (140-400) 72 x10^3/uL (140-400) Neutrophils (%) (Auto) 89 % (31-73) 86 % (31-73) Lymphocytes (%) (Auto) 8 % (24-48) 11 % (24-48) Monocytes (%) (Auto) 2 % (0-9) 3 % (0-9) Eosinophils (%) (Auto) 0 % (0-3) 0 % (0-3) Basophils (%) (Auto) 0 % (0-3) 0 % (0-3) Neutrophils # (Auto) 6.6 x10^3/uL (1.8-7.7) 7.2 x10^3/uL (1.8-7.7) Lymphocytes # (Auto) 0.6 x10^3/uL (1.0-4.8) 0.9 x10^3/uL (1.0-4.8) Monocytes # (Auto) 0.2 x10^3/uL (0.0-1.1) 0.2 x10^3/uL (0.0-1.1) Eosinophils # (Auto) 0.0 x10^3/uL (0.0-0.7) 0.0 x10^3/uL (0.0-0.7) Basophils # (Auto) 0.0 x10^3/uL (0.0-0.2) 0.0 x10^3/uL (0.0-0.2) Sodium Level 138 mmol/L (136-145) 134 mmol/L (136-145) Potassium Level 3.4 mmol/L (3.5-5.1) 3.7 mmol/L (3.5-5.1) Chloride Level 100 mmol/L (98-107) 97 mmol/L (98-107) Carbon Dioxide Level 34 mmol/L (21-32) 33 mmol/L (21-32) Anion Gap 4 (6-14) 4 (6-14) Blood Urea Nitrogen 11 mg/dL (7-20) 10 mg/dL (7-20) Creatinine 0.8 mg/dL (0.6-1.0) 0.7 mg/dL (0.6-1.0) Estimated GFR (Cockcroft-Gault) 85.1 99.2 Glucose Level 103 mg/dL (70-99) 102 mg/dL (70-99) Calcium Level 8.6 mg/dL (8.5-10.1) 9.2 mg/dL (8.5-10.1) Glucose (Fingerstick) 123 mg/dL (70-99) 100 mg/dL (70-99) Segmented Neutrophils % 83 % (35-66) Band Neutrophils % 1 % (0-9) Lymphocytes % 15 % (24-48) Monocytes % 1 % (0-10) Nucleated Red Blood Cells 12 Toxic Granulation Mod Toxic Vacuolation Slight Platelet Estimate Decreased (ADEQUATE) Polychromasia Slight Hypochromasia Slight Poikilocytosis Slight Basophilic Stippling Present Anisocytosis Slight Spherocytes Occ Target Cells Occ Zachery Cells Few Crenated Cell Present BUN/Creatinine Ratio 14 (6-20) Total Bilirubin 0.5 mg/dL (0.2-1.0) Aspartate Amino Transf (AST/SGOT) 36 U/L (15-37) Alanine Aminotransferase (ALT/SGPT) 30 U/L (14-59) Alkaline Phosphatase 55 U/L (46-116) Total Protein 6.6 g/dL (6.4-8.2) Albumin 2.1 g/dL (3.4-5.0) Albumin/Globulin Ratio 0.5 (1.0-1.7) Laboratory Tests Test 11/26/20 12:27 11/26/20 23:57 11/27/20 03:25 Glucose (Fingerstick) 123 mg/dL (70-99) 100 mg/dL (70-99) White Blood Count 8.4 x10^3/uL (4.0-11.0) Red Blood Count 3.30 x10^6/uL (3.50-5.40) Hemoglobin 9.7 g/dL (12.0-15.5) Hematocrit 30.0 % (36.0-47.0) Mean Corpuscular Volume 91 fL (79-100) Mean Corpuscular Hemoglobin 30 pg (25-35) Mean Corpuscular Hemoglobin Concent 33 g/dL (31-37) Red Cell Distribution Width 18.4 % (11.5-14.5) Platelet Count 72 x10^3/uL (140-400) Neutrophils (%) (Auto) 86 % (31-73) Lymphocytes (%) (Auto) 11 % (24-48) Monocytes (%) (Auto) 3 % (0-9) Eosinophils (%) (Auto) 0 % (0-3) Basophils (%) (Auto) 0 % (0-3) Neutrophils # (Auto) 7.2 x10^3/uL (1.8-7.7) Lymphocytes # (Auto) 0.9 x10^3/uL (1.0-4.8) Monocytes # (Auto) 0.2 x10^3/uL (0.0-1.1) Eosinophils # (Auto) 0.0 x10^3/uL (0.0-0.7) Basophils # (Auto) 0.0 x10^3/uL (0.0-0.2) Segmented Neutrophils % 83 % (35-66) Band Neutrophils % 1 % (0-9) Lymphocytes % 15 % (24-48) Monocytes % 1 % (0-10) Nucleated Red Blood Cells 12 Toxic Granulation Mod Toxic Vacuolation Slight Platelet Estimate Decreased (ADEQUATE) Polychromasia Slight Hypochromasia Slight Poikilocytosis Slight Basophilic Stippling Present Anisocytosis Slight Spherocytes Occ Target Cells Occ Zachery Cells Few Crenated Cell Present Sodium Level 134 mmol/L (136-145) Potassium Level 3.7 mmol/L (3.5-5.1) Chloride Level 97 mmol/L (98-107) Carbon Dioxide Level 33 mmol/L (21-32) Anion Gap 4 (6-14) Blood Urea Nitrogen 10 mg/dL (7-20) Creatinine 0.7 mg/dL (0.6-1.0) Estimated GFR (Cockcroft-Gault) 99.2 BUN/Creatinine Ratio 14 (6-20) Glucose Level 102 mg/dL (70-99) Calcium Level 9.2 mg/dL (8.5-10.1) Total Bilirubin 0.5 mg/dL (0.2-1.0) Aspartate Amino Transf (AST/SGOT) 36 U/L (15-37) Alanine Aminotransferase (ALT/SGPT) 30 U/L (14-59) Alkaline Phosphatase 55 U/L (46-116) Total Protein 6.6 g/dL (6.4-8.2) Albumin 2.1 g/dL (3.4-5.0) Albumin/Globulin Ratio 0.5 (1.0-1.7) Medications Active Scripts Medications Dose Route/Sig Max Daily Dose Days Date Category Lansoprazole 30 Mg Capsule.dr 1 Cap PO DAILY 11/22/20 Reported Diclofenac Sodium 100 Gm Gel..gram. 4 Gm TP QID 11/22/20 Reported Prednisone (Prednisone) 10 Mg Tablet 5 Mg PO DAILY 5 10/26/20 Rx Valproic Acid (Valproic Acid (As Sodium Salt)) 250 Mg/5 Ml Solution 500 Mg PO BID 30 10/26/20 Rx Keppra (Levetiracetam) 500 Mg Tablet 1,000 Mg PO BID 30 10/26/20 Rx Proair Hfa (Albuterol Sulfate) 8.5 Gm Hfa.aer.ad 2 Puff IH PRN Q4HRS PRN 21 10/10/20 Reported Keppra (Levetiracetam) 250 Mg Tablet 1 Tab PO BID 30 10/10/20 Reported Furosemide 40 Mg Tablet 1 Tab PO DAILY 10/10/20 Reported Aspirin Ec (Aspirin) 81 Mg Tablet.dr 1 Tab PO DAILY 10/10/20 Reported Breo Ellipta 100-25 Mcg Inh (Fluticasone/Vilanterol) 1 Each Aer.pow.ba 1 Puff IH DAILY 07/23/16 Reported Folic Acid 1 Mg Tablet 400 Mcg PO BID 07/23/16 Reported Vitamin B-12 (Cyanocobalamin (Vitamin B-12)) 1,000 Mcg Tablet 500 Mcg PO BID 07/23/16 Reported Trihexyphenidyl Hcl 2 Mg Tablet 2 Mg PO HS 07/23/16 Reported Divalproex Sodium 500 Mg Tablet. 250 Mg PO DAILY 07/23/16 Reported Lipitor (Atorvastatin Calcium) 80 Mg Tablet 80 Mg PO HS 12/21/13 Reported Duoneb 0.5 Mg-3 Mg/3 Ml Soln (Ipratropium/Albuterol Sulfate) 3 Ml Ampul.neb 3 Ml IH TID 04/28/13 Reported Miralax (Polyethylene Glycol 3350) 17 Gm Powd.pack 17 Gm PO DAILY 04/28/13 Reported Invega (Paliperidone) 6 Mg Tab.er.24 6 Mg PO HS 04/28/13 Reported Carvedilol (Carvedilol) 12.5 Mg Tablet 12.5 Mg PO BID 04/28/13 Reported Hydralazine Hcl 50 Mg Tablet 50 Mg PO BID 04/28/13 Reported Clonidine Tts-3 (Clonidine) 1 Each Patch.tdwk 1 Each TD WEEKLY 04/28/13 Reported Klor-Con M20 (Potassium Chloride) 20 Meq Tab.er.prt 20 Meq PO BID 04/28/13 Reported Divalproex Sodium 500 Mg Tablet.dr 500 Mg PO HS 04/28/13 Reported Amlodipine Besylate 10 Mg Tablet 10 Mg PO DAILY 04/28/13 Reported Vitamin D3 1,000 Unit Tablet (Ca Cmb No.1/Vit D3/B-6/Fa/B12) 1 Each Tablet 1 Each PO DAILY 04/28/13 Reported Flonase (Fluticasone Propionate) 16 Gm [place].susp 1 Spr NS BID 04/28/13 Reported Comments cxr 11/24 reviewed 1. Stable bilateral basilar predominant opacities. 2. Stable small bilateral pleural effusions. ett ok Impression . IMPRESSION: 1. Acute hypoxemic respiratory failure secondary to breakthrough seizures. 2. Breakthrough seizures. 3. Electrolyte abnormalities including hyponatremia, hypomagnesemia. 4. Severe protein malnutrition, present upon admission. 5. Multiple other comorbidities including schizophrenia, hypertension, hypothyroidism, sleep apnea, tardive dyskinesia. Plan . 11/02 26 Patient extubated 925 Transferred to the floor Advance diet Currently on oxygen supplementation per nasal cannula 11/26 extubated 11/25 on 02 1 lpm speech eval Follow neurology input solumedrol 40 bid stress ulcer dvt prophylaxis elevate hob ABX ? joselyn psg as out pt discussed w rn rt 11/25 cont vent support setting reviewed off sedation sbt when fully awake Follow neurology input solumedrol 40 bid stress ulcer dvt prophylaxis elevate hob ABX discussed w rn rt Updated 11/24 Discussed with RN and RT will DC sedation trial Follow neurology input Monitor electrolytes ABG noted PETER GARDUNO MD Nov 27, 2020 08:03
--- NOTE | 2020-11-27 08:59 | PDOC ---
PROGRESS NOTES Date of Service: DATE: 11/27/20 TIME: 08:55 Subjective Subjective extubated friday,pt awake saying one word answers Objective Objective Vital Signs Date Time Temp Pulse Resp B/P (MAP) Pulse Ox O2 Delivery O2 Flow Rate FiO2 11/27/20 08:00 97.6 78 14 179/86 (117) 92 Room Air 97.6 11/27/20 04:00 2.0 Intake and Output 11/27/20 07:00 Intake Total 685 ml Output Total 4570 ml Balance -3885 ml Intake Oral 200 ml IV Total 485 ml Output Urine Total 4570 ml Physical Exam Abdomen: Soft Heart: Regular rate, Normal S1, Normal S2 Extremities: Other (no edema ) General: Other (intubated ) HEENT: Atraumatic Lungs: Normal air movement Neck: No JVD Neuro: Other (vent, unresponsive) Psych/Mental Status: Mood NL, Other Skin: No significant lesion COMMENT pérez Diagnosis Problem List Problems Medical Problems: (1) Acute respiratory failure with hypoxia Status: Acute (2) Sinus bradycardia Status: Acute (3) Status epilepticus Status: Acute Assessment Assessment Problems Medical Problems: (1) Acute respiratory failure with hypoxia Status: Acute (2) Sinus bradycardia Status: Acute (3) Status epilepticus Status: Acute FINAL IMPRESSION:Hypothermia and hypotension resolved 1. Status epilepticus. 2. Respiratory failure requiring intubation on mechanical ventilator. 3. Schizophrenia. 4. Hyponatremia 5. Hypertension. 6. Hyperlipidemia. 7. Chronic schizophrenia. 8. Anemia of chronic disease. 9. Morbid obesity. 10.Low Platelets PLAN: Extubated over the weekend. speech consult cxr improvement. lab s noted platelets trending up 70,000 continue iv antibiotics keppra+depokate keppra leves 70 Continue ICU management. For details please refer to the orders. Plan Plan of Care Problems Medical Problems: (1) Acute respiratory failure with hypoxia Status: Acute (2) Sinus bradycardia Status: Acute (3) Status epilepticus Status: Acute Comment Review of Relevant I have reviewed the following items melanie (where applicable) has been applied. Labs Laboratory Tests Test 11/26/20 12:27 11/26/20 23:57 11/27/20 03:25 Glucose (Fingerstick) 123 mg/dL (70-99) 100 mg/dL (70-99) White Blood Count 8.4 x10^3/uL (4.0-11.0) Red Blood Count 3.30 x10^6/uL (3.50-5.40) Hemoglobin 9.7 g/dL (12.0-15.5) Hematocrit 30.0 % (36.0-47.0) Mean Corpuscular Volume 91 fL (79-100) Mean Corpuscular Hemoglobin 30 pg (25-35) Mean Corpuscular Hemoglobin Concent 33 g/dL (31-37) Red Cell Distribution Width 18.4 % (11.5-14.5) Platelet Count 72 x10^3/uL (140-400) Neutrophils (%) (Auto) 86 % (31-73) Lymphocytes (%) (Auto) 11 % (24-48) Monocytes (%) (Auto) 3 % (0-9) Eosinophils (%) (Auto) 0 % (0-3) Basophils (%) (Auto) 0 % (0-3) Neutrophils # (Auto) 7.2 x10^3/uL (1.8-7.7) Lymphocytes # (Auto) 0.9 x10^3/uL (1.0-4.8) Monocytes # (Auto) 0.2 x10^3/uL (0.0-1.1) Eosinophils # (Auto) 0.0 x10^3/uL (0.0-0.7) Basophils # (Auto) 0.0 x10^3/uL (0.0-0.2) Segmented Neutrophils % 83 % (35-66) Band Neutrophils % 1 % (0-9) Lymphocytes % 15 % (24-48) Monocytes % 1 % (0-10) Nucleated Red Blood Cells 12 Toxic Granulation Mod Toxic Vacuolation Slight Platelet Estimate Decreased (ADEQUATE) Polychromasia Slight Hypochromasia Slight Poikilocytosis Slight Basophilic Stippling Present Anisocytosis Slight Spherocytes Occ Target Cells Occ Beaver Cells Few Crenated Cell Present Sodium Level 134 mmol/L (136-145) Potassium Level 3.7 mmol/L (3.5-5.1) Chloride Level 97 mmol/L (98-107) Carbon Dioxide Level 33 mmol/L (21-32) Anion Gap 4 (6-14) Blood Urea Nitrogen 10 mg/dL (7-20) Creatinine 0.7 mg/dL (0.6-1.0) Estimated GFR (Cockcroft-Gault) 99.2 BUN/Creatinine Ratio 14 (6-20) Glucose Level 102 mg/dL (70-99) Calcium Level 9.2 mg/dL (8.5-10.1) Total Bilirubin 0.5 mg/dL (0.2-1.0) Aspartate Amino Transf (AST/SGOT) 36 U/L (15-37) Alanine Aminotransferase (ALT/SGPT) 30 U/L (14-59) Alkaline Phosphatase 55 U/L (46-116) Total Protein 6.6 g/dL (6.4-8.2) Albumin 2.1 g/dL (3.4-5.0) Albumin/Globulin Ratio 0.5 (1.0-1.7) Microbiology 11/22/20 Blood Culture - Preliminary, Resulted NO GROWTH AFTER 4 DAYS Medications Current Medications Levetiracetam 750 mg/Dextrose 107.5 ml @ 420 mls/hr Q12HR IV ; Start 11/27/20 at 21:00 Potassium Bicarbonate (Potassium Effervescent Tablet) 20 meq BIDWMEALS PO Last administered on 11/26/20at 17:00; Start 11/26/20 at 11:00 Potassium Chloride (Klor-Con) 20 meq BID92 PO Last administered on 11/26/20at 09:51; Start 11/26/20 at 09:15; Stop 11/26/20 at 10:12; Status DC Vitals/I & O Vital Sign - Last 24 Hours 11/26/20 11/26/20 11/26/20 11/26/20 09:00 10:00 12:00 12:00 Temp 97.5 97.5 Pulse 74 86 64 Resp 18 20 22 B/P (MAP) 143/88 (106) 137/85 (102) 162/89 (113) Pulse Ox 99 100 96 O2 Delivery Nasal Cannula Nasal Cannula Nasal Cannula Nasal Cannula O2 Flow Rate 1.0 1.0 1.0 1.0 11/26/20 11/26/20 11/26/20 11/26/20 13:00 16:00 20:00 20:00 Temp 97.6 98.2 97.6 98.2 Pulse 86 86 62 Resp 23 16 12 B/P (MAP) 159/78 (105) 173/68 (103) 158/90 (112) Pulse Ox 98 97 91 O2 Delivery Nasal Cannula Nasal Cannula Room Air Room Air O2 Flow Rate 1.0 1.0 11/27/20 11/27/20 11/27/20 00:00 04:00 08:00 Temp 97.6 97.4 97.6 97.6 97.4 97.6 Pulse 70 62 78 Resp 15 15 14 B/P (MAP) 164/97 (119) 175/95 (121) 179/86 (117) Pulse Ox 100 100 92 O2 Delivery Nasal Cannula Nasal Cannula Room Air O2 Flow Rate 2.0 2.0 Intake and Output 11/26/20 11/26/20 11/27/20 15:00 23:00 07:00 Intake Total 685 ml Output Total 1050 ml 2450 ml 1070 ml Balance -1050 ml -1765 ml -1070 ml Justifications for Admission Other Justification JOSE WILLINGHAM MD Nov 27, 2020 08:59
--- NOTE | 2020-11-27 09:28 | PDOC ---
PROGRESS NOTES Date of Service DATE: 11/27/20 TIME: 09:27 Assessment Problems Medical Problems: (1) Acute respiratory failure with hypoxia Status: Acute (2) Sinus bradycardia Status: Acute (3) Status epilepticus Status: Acute Epilepsy, breakthrough seizures, had a subtherapeutic valproic acid level, levetiracetam level elevated Morning of 11/23 developed severe hypothermia and bradycardia At admission had hyponatremia, hyperkalemia, hypocalcemia, hypomagnesemia Respiratory failure, extubated on 11/25 History of schizophrenia and tardive dyskinesia Plan Increased Depakote dose Decreased levetiracetam dose Treat medical issues Subjective Does not indicate any pain Objective Vital Signs Date Time Temp Pulse Resp B/P (MAP) Pulse Ox O2 Delivery O2 Flow Rate FiO2 11/27/20 08:00 97.6 78 14 179/86 (117) 92 Room Air 97.6 11/27/20 04:00 2.0 Intake and Output 11/27/20 07:00 Intake Total 685 ml Output Total 4570 ml Balance -3885 ml Intake Oral 200 ml IV Total 485 ml Output Urine Total 4570 ml PHYSICAL EXAM Alert, voices her name, follows commands, does not know date or location PERRL. EOMI. CN: no focal findings. Muscle tone: normal. Muscle strength: 3/5, weaker on left DTR: 1+ Plantar reflex: flexor Gait: not examined in bed. Sensory exam: no abnormal findings. No cerebellar signs elicited. Minimal oral dyskinesias. Review of Relevant I have reviewed the following items melanie (where applicable) has been applied. Labs Laboratory Tests Test 11/25/20 12:24 11/25/20 13:33 11/25/20 18:19 11/26/20 00:16 O2 Saturation 95 % (92-99) Arterial Blood pH 7.38 (7.35-7.45) Arterial Blood pCO2 at Patient Temp 51 mmHg (35-46) Arterial Blood pO2 at Patient Temp 81 mmHg (65-108) Arterial Blood HCO3 29 mmol/L (21-28) Arterial Blood Base Excess 3 mmol/L (-3-3) FiO2 30% ps 5 peep 5 Glucose (Fingerstick) 136 mg/dL (70-99) 120 mg/dL (70-99) 114 mg/dL (70-99) Test 11/26/20 05:10 11/26/20 12:27 11/26/20 23:57 11/27/20 03:25 White Blood Count 7.4 x10^3/uL (4.0-11.0) 8.4 x10^3/uL (4.0-11.0) Red Blood Count 2.88 x10^6/uL (3.50-5.40) 3.30 x10^6/uL (3.50-5.40) Hemoglobin 8.7 g/dL (12.0-15.5) 9.7 g/dL (12.0-15.5) Hematocrit 26.1 % (36.0-47.0) 30.0 % (36.0-47.0) Mean Corpuscular Volume 91 fL (79-100) 91 fL (79-100) Mean Corpuscular Hemoglobin 30 pg (25-35) 30 pg (25-35) Mean Corpuscular Hemoglobin Concent 33 g/dL (31-37) 33 g/dL (31-37) Red Cell Distribution Width 18.9 % (11.5-14.5) 18.4 % (11.5-14.5) Platelet Count 57 x10^3/uL (140-400) 72 x10^3/uL (140-400) Neutrophils (%) (Auto) 89 % (31-73) 86 % (31-73) Lymphocytes (%) (Auto) 8 % (24-48) 11 % (24-48) Monocytes (%) (Auto) 2 % (0-9) 3 % (0-9) Eosinophils (%) (Auto) 0 % (0-3) 0 % (0-3) Basophils (%) (Auto) 0 % (0-3) 0 % (0-3) Neutrophils # (Auto) 6.6 x10^3/uL (1.8-7.7) 7.2 x10^3/uL (1.8-7.7) Lymphocytes # (Auto) 0.6 x10^3/uL (1.0-4.8) 0.9 x10^3/uL (1.0-4.8) Monocytes # (Auto) 0.2 x10^3/uL (0.0-1.1) 0.2 x10^3/uL (0.0-1.1) Eosinophils # (Auto) 0.0 x10^3/uL (0.0-0.7) 0.0 x10^3/uL (0.0-0.7) Basophils # (Auto) 0.0 x10^3/uL (0.0-0.2) 0.0 x10^3/uL (0.0-0.2) Sodium Level 138 mmol/L (136-145) 134 mmol/L (136-145) Potassium Level 3.4 mmol/L (3.5-5.1) 3.7 mmol/L (3.5-5.1) Chloride Level 100 mmol/L (98-107) 97 mmol/L (98-107) Carbon Dioxide Level 34 mmol/L (21-32) 33 mmol/L (21-32) Anion Gap 4 (6-14) 4 (6-14) Blood Urea Nitrogen 11 mg/dL (7-20) 10 mg/dL (7-20) Creatinine 0.8 mg/dL (0.6-1.0) 0.7 mg/dL (0.6-1.0) Estimated GFR (Cockcroft-Gault) 85.1 99.2 Glucose Level 103 mg/dL (70-99) 102 mg/dL (70-99) Calcium Level 8.6 mg/dL (8.5-10.1) 9.2 mg/dL (8.5-10.1) Glucose (Fingerstick) 123 mg/dL (70-99) 100 mg/dL (70-99) Segmented Neutrophils % 83 % (35-66) Band Neutrophils % 1 % (0-9) Lymphocytes % 15 % (24-48) Monocytes % 1 % (0-10) Nucleated Red Blood Cells 12 Toxic Granulation Mod Toxic Vacuolation Slight Platelet Estimate Decreased (ADEQUATE) Polychromasia Slight Hypochromasia Slight Poikilocytosis Slight Basophilic Stippling Present Anisocytosis Slight Spherocytes Occ Target Cells Occ Reynolds Cells Few Crenated Cell Present BUN/Creatinine Ratio 14 (6-20) Total Bilirubin 0.5 mg/dL (0.2-1.0) Aspartate Amino Transf (AST/SGOT) 36 U/L (15-37) Alanine Aminotransferase (ALT/SGPT) 30 U/L (14-59) Alkaline Phosphatase 55 U/L (46-116) Total Protein 6.6 g/dL (6.4-8.2) Albumin 2.1 g/dL (3.4-5.0) Albumin/Globulin Ratio 0.5 (1.0-1.7) Laboratory Tests Test 11/26/20 12:27 11/26/20 23:57 11/27/20 03:25 Glucose (Fingerstick) 123 mg/dL (70-99) 100 mg/dL (70-99) White Blood Count 8.4 x10^3/uL (4.0-11.0) Red Blood Count 3.30 x10^6/uL (3.50-5.40) Hemoglobin 9.7 g/dL (12.0-15.5) Hematocrit 30.0 % (36.0-47.0) Mean Corpuscular Volume 91 fL (79-100) Mean Corpuscular Hemoglobin 30 pg (25-35) Mean Corpuscular Hemoglobin Concent 33 g/dL (31-37) Red Cell Distribution Width 18.4 % (11.5-14.5) Platelet Count 72 x10^3/uL (140-400) Neutrophils (%) (Auto) 86 % (31-73) Lymphocytes (%) (Auto) 11 % (24-48) Monocytes (%) (Auto) 3 % (0-9) Eosinophils (%) (Auto) 0 % (0-3) Basophils (%) (Auto) 0 % (0-3) Neutrophils # (Auto) 7.2 x10^3/uL (1.8-7.7) Lymphocytes # (Auto) 0.9 x10^3/uL (1.0-4.8) Monocytes # (Auto) 0.2 x10^3/uL (0.0-1.1) Eosinophils # (Auto) 0.0 x10^3/uL (0.0-0.7) Basophils # (Auto) 0.0 x10^3/uL (0.0-0.2) Segmented Neutrophils % 83 % (35-66) Band Neutrophils % 1 % (0-9) Lymphocytes % 15 % (24-48) Monocytes % 1 % (0-10) Nucleated Red Blood Cells 12 Toxic Granulation Mod Toxic Vacuolation Slight Platelet Estimate Decreased (ADEQUATE) Polychromasia Slight Hypochromasia Slight Poikilocytosis Slight Basophilic Stippling Present Anisocytosis Slight Spherocytes Occ Target Cells Occ Zachery Cells Few Crenated Cell Present Sodium Level 134 mmol/L (136-145) Potassium Level 3.7 mmol/L (3.5-5.1) Chloride Level 97 mmol/L (98-107) Carbon Dioxide Level 33 mmol/L (21-32) Anion Gap 4 (6-14) Blood Urea Nitrogen 10 mg/dL (7-20) Creatinine 0.7 mg/dL (0.6-1.0) Estimated GFR (Cockcroft-Gault) 99.2 BUN/Creatinine Ratio 14 (6-20) Glucose Level 102 mg/dL (70-99) Calcium Level 9.2 mg/dL (8.5-10.1) Total Bilirubin 0.5 mg/dL (0.2-1.0) Aspartate Amino Transf (AST/SGOT) 36 U/L (15-37) Alanine Aminotransferase (ALT/SGPT) 30 U/L (14-59) Alkaline Phosphatase 55 U/L (46-116) Total Protein 6.6 g/dL (6.4-8.2) Albumin 2.1 g/dL (3.4-5.0) Albumin/Globulin Ratio 0.5 (1.0-1.7) Microbiology 11/22/20 Blood Culture - Preliminary, Resulted NO GROWTH AFTER 4 DAYS Medications Current Medications Lorazepam (Ativan Inj) 2 mg 1X ONCE IVP Last administered on 11/22/20at 12:23; Start 11/22/20 at 11:15; Stop 11/22/20 at 11:16; Status DC Sodium Chloride 1,000 ml @ 1,000 mls/hr 1X ONCE IV Last administered on 11/22/20at 11:15; Start 11/22/20 at 11:15; Stop 11/22/20 at 12:14; Status DC Lorazepam (Ativan Inj) 2 mg STK-MED ONCE .ROUTE ; Start 11/22/20 at 11:12; Stop 11/22/20 at 11:12; Status DC Etomidate (Amidate) 20 mg STK-MED ONCE IV ; Start 11/22/20 at 11:17; Stop 11/22/20 at 11:17; Status DC Succinylcholine Chloride (Anectine) 200 mg STK-MED ONCE .ROUTE ; Start 11/22/20 at 11:17; Stop 11/22/20 at 11:18; Status DC Sodium Chloride 1,000 ml @ 1,000 mls/hr 1X ONCE IV Last administered on 11/22/20at 11:30; Start 11/22/20 at 11:30; Stop 11/22/20 at 12:29; Status DC Levetiracetam 1000 mg/Dextrose 110 ml @ 440 mls/hr 1X ONCE IV Last administered on 11/22/20at 11:45; Start 11/22/20 at 11:45; Stop 11/22/20 at 11:59; Status DC Midazolam HCl 100 ml @ 1 mls/hr CONT PRN IV SEE I/O RECORD Last administered on 11/23/20at 09:11; Start 11/22/20 at 12:00 Valproic Acid 750 mg/Dextrose 57.5 ml @ 55 mls/hr 1X STAT IV Last administered on 11/22/20at 15:24; Start 11/22/20 at 15:24; Stop 11/22/20 at 16:26; Status DC Valproic Acid 750 mg/Dextrose 57.5 ml @ 55 mls/hr Q12HR IV Last administered on 11/26/20at 21:44; Start 11/22/20 at 21:00 Levetiracetam 1000 mg/Dextrose 110 ml @ 440 mls/hr Q12HR IV Last administered on 11/26/20at 21:01; Start 11/22/20 at 21:00; Stop 11/26/20 at 23:44; Status DC Sodium Chloride 1,000 ml @ 125 mls/hr 1X ONCE IV Last administered on 11/22/20at 15:30; Start 11/22/20 at 15:30; Stop 11/22/20 at 23:29; Status DC Magnesium Sulfate 50 ml @ 25 mls/hr 1X ONCE IV Last administered on 11/22/20at 16:42; Start 11/22/20 at 16:30; Stop 11/22/20 at 18:29; Status DC Piperacillin Sod/ Tazobactam Sod (Zosyn Per Pharmacy) 1 each PRN DAILY PRN MC SEE COMMENTS; Start 11/22/20 at 15:45 Piperacillin Sod/ Tazobactam Sod 3.375 gm/Sodium Chloride 50 ml @ 100 mls/hr Q6HRS IV Last administered on 11/27/20at 05:57; Start 11/22/20 at 17:00 Methylprednisolone Sodium Succinate (SOLU-Medrol 125MG VIAL) 125 mg 1X ONCE IV ; Start 11/22/20 at 18:30; Stop 11/22/20 at 18:35; Status DC Methylprednisolone Sodium Succinate (SOLU-Medrol 40MG VIAL) 40 mg Q12HR IV Last administered on 11/26/20at 21:00; Start 11/23/20 at 09:00; Stop 11/27/20 at 21:00 Pantoprazole Sodium (PROTONIX VIAL for IV PUSH) 40 mg DAILYAC IVP Last administered on 11/26/20at 09:34; Start 11/23/20 at 07:30 Pantoprazole Sodium (PROTONIX VIAL for IV PUSH) 40 mg 1X ONCE IVP ; Start 11/22/20 at 18:30; Stop 11/22/20 at 18:35; Status DC Insulin Human Lispro (HumaLOG) 0-7 UNITS Q6HRS SQ ; Start 11/23/20 at 00:00 Dextrose (Dextrose 50%-Water Syringe) 12.5 gm PRN Q15MIN PRN IV SEE COMMENTS; Start 11/22/20 at 18:30 Norepinephrine Bitartrate 8 mg/ Dextrose 258 ml @ 17.996 mls/ hr CONT PRN IV PER PROTOCOL; Start 11/22/20 at 20:15 Info (FLU VACCINE SCREEN per RX) 1 each 1X ONCE MC ; Start 11/22/20 at 23:00; Stop 11/22/20 at 23:01; Status Cancel Pharmacy Consult (C.diff Med Screen By Rx) 1 each 1X ONCE MC ; Start 11/22/20 at 23:00; Stop 11/22/20 at 23:01; Status DC Info (FLU VACCINE SCREEN per RX) 1 each PRN DAILY PRN MC SEE COMMENTS; Start 11/22/20 at 23:15 Potassium Chloride/Water 100 ml @ 100 mls/hr 1X ONCE IV Last administered on 11/23/20at 09:11; Start 11/23/20 at 08:00; Stop 11/23/20 at 08:59; Status DC Sodium Chloride 1,000 ml @ 75 mls/hr [id number] IV Last administered on 11/24/20at 17:10; Start 11/24/20 at 10:00; Stop 11/25/20 at 11:13; Status DC Furosemide (Lasix) 20 mg 1X ONCE IVP Last administered on 11/25/20at 13:28; Start 11/25/20 at 13:00; Stop 11/25/20 at 13:03; Status DC Potassium Chloride (Klor-Con) 20 meq BID92 PO Last administered on 11/26/20at 09:51; Start 11/26/20 at 09:15; Stop 11/26/20 at 10:12; Status DC Potassium Bicarbonate (Potassium Effervescent Tablet) 20 meq BIDWMEALS PO Last administered on 11/26/20at 17:00; Start 11/26/20 at 11:00 Levetiracetam 750 mg/Dextrose 107.5 ml @ 420 mls/hr Q12HR IV ; Start 11/27/20 at 21:00 Methylprednisolone Sodium Succinate (SOLU-Medrol 40MG VIAL) 40 mg DAILY IV ; Start 11/28/20 at 09:00; Status UNV Active Scripts Active Prednisone (Prednisone) 10 Mg Tablet 5 Mg PO DAILY 5 Days Valproic Acid (Valproic Acid (As Sodium Salt)) 250 Mg/5 Ml Solution 500 Mg PO BID 30 Days Keppra (Levetiracetam) 500 Mg Tablet 1,000 Mg PO BID 30 Days Reported Lansoprazole 30 Mg Capsule.dr 1 Cap PO DAILY Diclofenac Sodium 100 Gm Gel..gram. 4 Gm TP QID Proair Hfa (Albuterol Sulfate) 8.5 Gm Hfa.aer.ad 2 Puff IH PRN Q4HRS PRN 21 Days Keppra (Levetiracetam) 250 Mg Tablet 1 Tab PO BID 30 Days Furosemide 40 Mg Tablet 1 Tab PO DAILY Aspirin Ec (Aspirin) 81 Mg Tablet.dr 1 Tab PO DAILY Breo Ellipta 100-25 Mcg Inh (Fluticasone/Vilanterol) 1 Each Aer.pow.ba 1 Puff IH DAILY Folic Acid 1 Mg Tablet 400 Mcg PO BID Vitamin B-12 (Cyanocobalamin (Vitamin B-12)) 1,000 Mcg Tablet 500 Mcg PO BID Trihexyphenidyl Hcl 2 Mg Tablet 2 Mg PO HS Divalproex Sodium 500 Mg Tablet.dr 250 Mg PO DAILY Lipitor (Atorvastatin Calcium) 80 Mg Tablet 80 Mg PO HS Duoneb 0.5 Mg-3 Mg/3 Ml Soln (Ipratropium/Albuterol Sulfate) 3 Ml Ampul.neb 3 Ml IH TID Miralax (Polyethylene Glycol 3350) 17 Gm Powd.pack 17 Gm PO DAILY Invega (Paliperidone) 6 Mg Tab.er.24 6 Mg PO HS Carvedilol (Carvedilol) 12.5 Mg Tablet 12.5 Mg PO BID Hydralazine Hcl 50 Mg Tablet 50 Mg PO BID Clonidine Tts-3 (Clonidine) 1 Each Patch.tdwk 1 Each TD WEEKLY Klor-Con M20 (Potassium Chloride) 20 Meq Tab.er.prt 20 Meq PO BID Divalproex Sodium 500 Mg Tablet.dr 500 Mg PO HS Amlodipine Besylate 10 Mg Tablet 10 Mg PO DAILY Vitamin D3 1,000 Unit Tablet (Ca Cmb No.1/Vit D3/B-6/Fa/B12) 1 Each Tablet 1 Each PO DAILY Flonase (Fluticasone Propionate) 16 Gm [place].susp 1 Spr NS BID Vitals/I & O Vital Sign - Last 24 Hours 11/26/20 11/26/20 11/26/20 11/26/20 10:00 12:00 12:00 13:00 Temp 97.5 97.5 Pulse 86 64 86 Resp 20 22 23 B/P (MAP) 137/85 (102) 162/89 (113) 159/78 (105) Pulse Ox 100 96 98 O2 Delivery Nasal Cannula Nasal Cannula Nasal Cannula Nasal Cannula O2 Flow Rate 1.0 1.0 1.0 1.0 11/26/20 11/26/20 11/26/20 11/27/20 16:00 20:00 20:00 00:00 Temp 97.6 98.2 97.6 97.6 98.2 97.6 Pulse 86 62 70 Resp 16 12 15 B/P (MAP) 173/68 (103) 158/90 (112) 164/97 (119) Pulse Ox 97 91 100 O2 Delivery Nasal Cannula Room Air Room Air Nasal Cannula O2 Flow Rate 1.0 2.0 11/27/20 11/27/20 04:00 08:00 Temp 97.4 97.6 97.4 97.6 Pulse 62 78 Resp 15 14 B/P (MAP) 175/95 (121) 179/86 (117) Pulse Ox 100 92 O2 Delivery Nasal Cannula Room Air O2 Flow Rate 2.0 Intake and Output 11/26/20 11/26/20 11/27/20 15:00 23:00 07:00 Intake Total 685 ml Output Total 1050 ml 2450 ml 1070 ml Balance -1050 ml -1765 ml -1070 ml Justicifation of Admission Dx: Justifications for Admission: Justification of Admission Dx: Yes KRISTINE GLEZ MD Nov 27, 2020 09:28
[2020-11-27] MEDS: PANTOPRAZOLE IV PUSH 40 MG VIAL. IVP SCH (09:35)
[2020-11-27] MEDS: POTASSIUM BICARB 20 MEQ EFFERVESCENT TABLET. PO SCH ×2 (09:35→17:00)
[2020-11-27] MEDS: methylPREDNISolone SOD SUCC PF 40 MG/ML VIAL. IV SCH ×2 (09:35→21:15)
[2020-11-27] MEDS: VALPROIC ACID (AS SODIUM SALT) 750 MG in IV DEXTROSE 5% 50 ML IV SCH ×2 (09:36→21:00)
--- NOTE | 2020-11-27 10:20 | NUR ---
SS following up with discharge planning. SS reviewed pt chart and discussed with pt RN. Pt is extubated and is currently requiring oxygen at two liters nasal canula. COVID19 negative. Pt on IV Solu-Medrol, IV Keppra, IV Valproic Acid, and IV Zosyn. ST ordered. Probable need for PT/OT when medically ready to participate. Pt upgraded to Med Tele. SS will continue to follow for discharge planning.
--- NOTE | 2020-11-27 11:04 | RAD ---
XR CHEST 1V INDICATION: pneumonia/chf f/u COMPARISON STUDY: 11/24/2020. FINDINGS: Life Support Devices: Endotracheal and enteric tube have been removed. Lungs: Normal lung volume. Improving bilateral opacities. Pleura: Improving small bilateral pleural effusions. Heart and Mediastinum: Stable cardiomediastinal silhouette and great vessels. IMPRESSION: Improving bilateral opacities and small pleural effusions Electronically signed by: Rory Narayanan MD (11/27/2020 11:01 AM) [id number]
--- NOTE | 2020-11-27 12:15 | NUR ---
Patient arrived on the unit per bed, comfort measures given, patient makes eye contact occasionally but no verbal responses given at this time. patient has a occasional moist cough (secretions swallowed), patient to remain npo until seen by the speech therapist to evaluate her swallow.
--- NOTE | 2020-11-27 13:10 | NUR ---
PATIENT SEEN BY SPEECH THERAPIST, TO REMAIN NPO AT THIS TIME, WILL REVISIT ON TOMORROW.
[2020-11-27] MEDS: IV DEXTROSE 5% - 0.9 % NACL 1,000 ML IV SCH (14:47)
[2020-11-27 16:00] VITALS: BP 173/104
[2020-11-27 19:00] VITALS: BP 143/88
[2020-11-27] MEDS: levETIRAcetam 750 MG in IV DEXTROSE 5% 100ML 100 ML IV SCH (21:00)
[2020-11-27 23:00] VITALS: BP 147/90
[2020-11-28 03:00] VITALS: BP 138/80
[2020-11-28] MEDS: PIPERACILLIN/TAZOBACTAM 3.375 GM in IV NORMAL SALINE 50ML 50 ML IV SCH ×4 (05:56→18:06)
[2020-11-28] MEDS: INSULIN LISPRO 300 UNITS/3 ML VIAL. SQ SCH ×4 (06:00→18:00)
[2020-11-28 07:29] LABS: BASO % 0 % (0-3); EOS % 0 % (0-3); HEMATOCRIT 29.4 % (36.0-47.0); HEMOGLOBIN 9.7 g/dL (12.0-15.5); LYMPH # 1.6 x10^3/uL (1.0-4.8); LYMPH % 20 % (24-48); MEAN CORPUSCULAR HEMOGLOBIN 30 pg (25-35); MEAN CORPUSCULAR HGB CONC 33 g/dL (31-37); MEAN CORPUSCULAR VOLUME 91 fL (79-100); MONO # 0.8 x10^3/uL (0.0-1.1); MONO % 10 % (0-9); NEUT # 5.6 x10^3/uL (1.8-7.7); NEUT % 69 % (31-73); PLATELET COUNT 67 x10^3/uL (140-400); RED BLOOD COUNT 3.23 x10^6/uL (3.50-5.40); RED CELL DISTRIBUTION WIDTH 18.7 % (11.5-14.5); WHITE BLOOD COUNT 8.1 x10^3/uL (4.0-11.0)
[2020-11-28 07:41] LABS: GFR 65.8; POTASSIUM 3.3 mmol/L (3.5-5.1)
[2020-11-28 08:00] VITALS: BP 137/82
[2020-11-28] MEDS: POTASSIUM BICARB 20 MEQ EFFERVESCENT TABLET. PO SCH (08:00)
--- NOTE | 2020-11-28 08:46 | PDOC ---
PROGRESS NOTES Date of Service DATE: 11/28/20 TIME: 08:45 Assessment Problems Medical Problems: (1) Acute respiratory failure with hypoxia Status: Acute (2) Sinus bradycardia Status: Acute (3) Status epilepticus Status: Acute Epilepsy, breakthrough seizures, had a subtherapeutic valproic acid level, levetiracetam level elevated Morning of 11/23 developed severe hypothermia and bradycardia At admission had hyponatremia, hyperkalemia, hypocalcemia, hypomagnesemia Respiratory failure, extubated on 11/25 History of schizophrenia and tardive dyskinesia Plan Increased Depakote dose Decreased levetiracetam dose Treat medical issues Subjective None Objective Vital Signs Date Time Temp Pulse Resp B/P (MAP) Pulse Ox O2 Delivery O2 Flow Rate FiO2 11/28/20 08:00 97.4 76 18 137/82 (100) 96 97.4 11/27/20 20:00 Nasal Cannula 2.0 Intake and Output 11/28/20 07:00 Intake Total 215.0 ml Output Total 3125 ml Balance -2910.0 ml IV Total 215.0 ml Output Urine Total 3125 ml PHYSICAL EXAM Alert, keeps repeating her name, follows commands, does not know date or location PERRL. EOMI. CN: no focal findings. Muscle tone: normal. Muscle strength: 3/5, weaker on left DTR: 1+ Plantar reflex: flexor Gait: not examined in bed. Sensory exam: no abnormal findings. No cerebellar signs elicited. Minimal oral dyskinesias. Review of Relevant I have reviewed the following items melanie (where applicable) has been applied. Labs Laboratory Tests Test 11/26/20 12:27 11/26/20 23:57 11/27/20 03:25 11/27/20 12:12 Glucose (Fingerstick) 123 mg/dL (70-99) 100 mg/dL (70-99) 102 mg/dL (70-99) White Blood Count 8.4 x10^3/uL (4.0-11.0) Red Blood Count 3.30 x10^6/uL (3.50-5.40) Hemoglobin 9.7 g/dL (12.0-15.5) Hematocrit 30.0 % (36.0-47.0) Mean Corpuscular Volume 91 fL (79-100) Mean Corpuscular Hemoglobin 30 pg (25-35) Mean Corpuscular Hemoglobin Concent 33 g/dL (31-37) Red Cell Distribution Width 18.4 % (11.5-14.5) Platelet Count 72 x10^3/uL (140-400) Neutrophils (%) (Auto) 86 % (31-73) Lymphocytes (%) (Auto) 11 % (24-48) Monocytes (%) (Auto) 3 % (0-9) Eosinophils (%) (Auto) 0 % (0-3) Basophils (%) (Auto) 0 % (0-3) Neutrophils # (Auto) 7.2 x10^3/uL (1.8-7.7) Lymphocytes # (Auto) 0.9 x10^3/uL (1.0-4.8) Monocytes # (Auto) 0.2 x10^3/uL (0.0-1.1) Eosinophils # (Auto) 0.0 x10^3/uL (0.0-0.7) Basophils # (Auto) 0.0 x10^3/uL (0.0-0.2) Segmented Neutrophils % 83 % (35-66) Band Neutrophils % 1 % (0-9) Lymphocytes % 15 % (24-48) Monocytes % 1 % (0-10) Nucleated Red Blood Cells 12 Toxic Granulation Mod Toxic Vacuolation Slight Platelet Estimate Decreased (ADEQUATE) Polychromasia Slight Hypochromasia Slight Poikilocytosis Slight Basophilic Stippling Present Anisocytosis Slight Spherocytes Occ Target Cells Occ Zachery Cells Few Crenated Cell Present Sodium Level 134 mmol/L (136-145) Potassium Level 3.7 mmol/L (3.5-5.1) Chloride Level 97 mmol/L (98-107) Carbon Dioxide Level 33 mmol/L (21-32) Anion Gap 4 (6-14) Blood Urea Nitrogen 10 mg/dL (7-20) Creatinine 0.7 mg/dL (0.6-1.0) Estimated GFR (Cockcroft-Gault) 99.2 BUN/Creatinine Ratio 14 (6-20) Glucose Level 102 mg/dL (70-99) Calcium Level 9.2 mg/dL (8.5-10.1) Total Bilirubin 0.5 mg/dL (0.2-1.0) Aspartate Amino Transf (AST/SGOT) 36 U/L (15-37) Alanine Aminotransferase (ALT/SGPT) 30 U/L (14-59) Alkaline Phosphatase 55 U/L (46-116) Total Protein 6.6 g/dL (6.4-8.2) Albumin 2.1 g/dL (3.4-5.0) Albumin/Globulin Ratio 0.5 (1.0-1.7) Test 11/27/20 18:35 11/27/20 19:04 11/28/20 00:08 11/28/20 06:15 Glucose (Fingerstick) 125 mg/dL (70-99) 81 mg/dL (70-99) 98 mg/dL (70-99) White Blood Count 8.1 x10^3/uL (4.0-11.0) Red Blood Count 3.23 x10^6/uL (3.50-5.40) Hemoglobin 9.7 g/dL (12.0-15.5) Hematocrit 29.4 % (36.0-47.0) Mean Corpuscular Volume 91 fL (79-100) Mean Corpuscular Hemoglobin 30 pg (25-35) Mean Corpuscular Hemoglobin Concent 33 g/dL (31-37) Red Cell Distribution Width 18.7 % (11.5-14.5) Platelet Count 67 x10^3/uL (140-400) Neutrophils (%) (Auto) 69 % (31-73) Lymphocytes (%) (Auto) 20 % (24-48) Monocytes (%) (Auto) 10 % (0-9) Eosinophils (%) (Auto) 0 % (0-3) Basophils (%) (Auto) 0 % (0-3) Neutrophils # (Auto) 5.6 x10^3/uL (1.8-7.7) Lymphocytes # (Auto) 1.6 x10^3/uL (1.0-4.8) Monocytes # (Auto) 0.8 x10^3/uL (0.0-1.1) Eosinophils # (Auto) 0.0 x10^3/uL (0.0-0.7) Basophils # (Auto) 0.0 x10^3/uL (0.0-0.2) Sodium Level 136 mmol/L (136-145) Potassium Level 3.3 mmol/L (3.5-5.1) Chloride Level 98 mmol/L (98-107) Carbon Dioxide Level 33 mmol/L (21-32) Anion Gap 5 (6-14) Blood Urea Nitrogen 22 mg/dL (7-20) Creatinine 1.0 mg/dL (0.6-1.0) Estimated GFR (Cockcroft-Gault) 65.8 Glucose Level 83 mg/dL (70-99) Calcium Level 9.0 mg/dL (8.5-10.1) Laboratory Tests Test 11/27/20 12:12 11/27/20 18:35 11/27/20 19:04 11/28/20 00:08 Glucose (Fingerstick) 102 mg/dL (70-99) 125 mg/dL (70-99) 81 mg/dL (70-99) 98 mg/dL (70-99) Test 11/28/20 06:15 White Blood Count 8.1 x10^3/uL (4.0-11.0) Red Blood Count 3.23 x10^6/uL (3.50-5.40) Hemoglobin 9.7 g/dL (12.0-15.5) Hematocrit 29.4 % (36.0-47.0) Mean Corpuscular Volume 91 fL (79-100) Mean Corpuscular Hemoglobin 30 pg (25-35) Mean Corpuscular Hemoglobin Concent 33 g/dL (31-37) Red Cell Distribution Width 18.7 % (11.5-14.5) Platelet Count 67 x10^3/uL (140-400) Neutrophils (%) (Auto) 69 % (31-73) Lymphocytes (%) (Auto) 20 % (24-48) Monocytes (%) (Auto) 10 % (0-9) Eosinophils (%) (Auto) 0 % (0-3) Basophils (%) (Auto) 0 % (0-3) Neutrophils # (Auto) 5.6 x10^3/uL (1.8-7.7) Lymphocytes # (Auto) 1.6 x10^3/uL (1.0-4.8) Monocytes # (Auto) 0.8 x10^3/uL (0.0-1.1) Eosinophils # (Auto) 0.0 x10^3/uL (0.0-0.7) Basophils # (Auto) 0.0 x10^3/uL (0.0-0.2) Sodium Level 136 mmol/L (136-145) Potassium Level 3.3 mmol/L (3.5-5.1) Chloride Level 98 mmol/L (98-107) Carbon Dioxide Level 33 mmol/L (21-32) Anion Gap 5 (6-14) Blood Urea Nitrogen 22 mg/dL (7-20) Creatinine 1.0 mg/dL (0.6-1.0) Estimated GFR (Cockcroft-Gault) 65.8 Glucose Level 83 mg/dL (70-99) Calcium Level 9.0 mg/dL (8.5-10.1) Microbiology 11/22/20 Blood Culture - Final, Complete NO GROWTH AFTER 5 DAYS Medications Current Medications Lorazepam (Ativan Inj) 2 mg 1X ONCE IVP Last administered on 11/22/20at 12:23; Start 11/22/20 at 11:15; Stop 11/22/20 at 11:16; Status DC Sodium Chloride 1,000 ml @ 1,000 mls/hr 1X ONCE IV Last administered on at 11:15; Start 11/22/20 at 11:15; Stop 11/22/20 at 12:14; Status DC Lorazepam (Ativan Inj) 2 mg STK-MED ONCE .ROUTE ; Start 11/22/20 at 11:12; Stop 11/22/20 at 11:12; Status DC Etomidate (Amidate) 20 mg STK-MED ONCE IV ; Start 11/22/20 at 11:17; Stop 11/22/20 at 11:17; Status DC Succinylcholine Chloride (Anectine) 200 mg STK-MED ONCE .ROUTE ; Start 11/22/20 at 11:17; Stop 11/22/20 at 11:18; Status DC Sodium Chloride 1,000 ml @ 1,000 mls/hr 1X ONCE IV Last administered on 11/22/20at 11:30; Start 11/22/20 at 11:30; Stop 11/22/20 at 12:29; Status DC Levetiracetam 1000 mg/Dextrose 110 ml @ 440 mls/hr 1X ONCE IV Last admi nistered on 11/22/20at 11:45; Start 11/22/20 at 11:45; Stop 11/22/20 at 11:59; Status DC Midazolam HCl 100 ml @ 1 mls/hr CONT PRN IV SEE I/O RECORD Last administered on 11/23/20at 09:11; Start 11/22/20 at 12:00; Stop 11/27/20 at 11:56; Status DC Valproic Acid 750 mg/Dextrose 57.5 ml @ 55 mls/hr 1X STAT IV Last administered on 11/22/20at 15:24; Start 11/22/20 at 15:24; Stop 11/22/20 at 16:26; Status DC Valproic Acid 750 mg/Dextrose 57.5 ml @ 55 mls/hr Q12HR IV Last administered on 11/27/20at 21:00; Start 11/22/20 at 21:00 Levetiracetam 1000 mg/Dextrose 110 ml @ 440 mls/hr Q12HR IV Last administered on 11/26/20at 21:01; Start 11/22/20 at 21:00; Stop 11/26/20 at 23:44; Status DC Sodium Chloride 1,000 ml @ 125 mls/hr 1X ONCE IV Last administered on 11/02 04/23at 15:30; Start 11/22/20 at 15:30; Stop 11/22/20 at 23:29; Status DC Magnesium Sulfate 50 ml @ 25 mls/hr 1X ONCE IV Last administered on 11/22/20at 16:42; Start 11/22/20 at 16:30; Stop 11/22/20 at 18:29; Status DC Piperacillin Sod/ Tazobactam Sod (Zosyn Per Pharmacy) 1 each PRN DAILY PRN MC SEE COMMENTS; Start 11/22/20 at 15:45 Piperacillin Sod/ Tazobactam Sod 3.375 gm/Sodium Chloride 50 ml @ 100 mls/hr Q6HRS IV Last administered on 11/28/20at 05:56; Start 11/22/20 at 17:00 Methylprednisolone Sodium Succinate (SOLU-Medrol 125MG VIAL) 125 mg 1X ONCE IV ; Start 11/22/20 at 18:30; Stop 11/22/20 at 18:35; Status DC Methylprednisolone Sodium Succinate (SOLU-Medrol 40MG VIAL) 40 mg Q12HR IV Last administered on 11/27/20at 21:15; Start 11/23/20 at 09:00; Stop 11/27/20 at 21:00; Status DC Pantoprazole Sodium (PROTONIX VIAL for IV PUSH) 40 mg DAILYAC IVP Last administered on 11/27/20at 09:35; Start 11/23/20 at 07:30 Pantoprazole Sodium (PROTONIX VIAL for IV PUSH) 40 mg 1X ONCE IVP ; Start 11/22/20 at 18:30; Stop 11/22/20 at 18:35; Status DC Insulin Human Lispro (HumaLOG) 0-7 UNITS Q6HRS SQ ; Start 11/23/20 at 00:00 Dextrose (Dextrose 50%-Water Syringe) 12.5 gm PRN Q15MIN PRN IV SEE COMMENTS; Start 11/22/20 at 18:30 Norepinephrine Bitartrate 8 mg/ Dextrose 258 ml @ 17.996 mls/ hr CONT PRN IV PER PROTOCOL; Start 11/22/20 at 20:15; Stop 11/27/20 at 11:56; Status DC Info (FLU VACCINE SCREEN per RX) 1 each 1X ONCE MC ; Start 11/22/20 at 23:00; Stop 11/22/20 at 23:01; Status Cancel Pharmacy Consult (C.diff Med Screen By Rx) 1 each 1X ONCE MC ; Start 11/22/20 at 23:00; Stop 11/22/20 at 23:01; Status DC Info (FLU VACCINE SCREEN per RX) 1 each PRN DAILY PRN MC SEE COMMENTS; Start 11/22/20 at 23:15 Potassium Chloride/Water 100 ml @ 100 mls/hr 1X ONCE IV Last administered on 11/23/20at 09:11; Start 11/23/20 at 08:00; Stop 11/23/20 at 08:59; Status DC Sodium Chloride 1,000 ml @ 75 mls/hr [id number] IV Last administered on 11/24/20at 17:10; Start 11/24/20 at 10:00; Stop 11/25/20 at 11:13; Status DC Furosemide (Lasix) 20 mg 1X ONCE IVP Last administered on 11/25/20at 13:28; Start 11/25/20 at 13:00; Stop 11/25/20 at 13:03; Status DC Potassium Chloride (Klor-Con) 20 meq [id number] PO Last administered on 11/26/20at 09:51; Start 11/26/20 at 09:15; Stop 11/26/20 at 10:12; Status DC Potassium Bicarbonate (Potassium Effervescent Tablet) 20 meq [id number] PO Last administered on 11/27/20at 09:35; Start 11/26/20 at 11:00 Levetiracetam 750 mg/Dextrose 107.5 ml @ 420 mls/hr Q12HR IV Last administered on 11/27/20at 21:00; Start 11/27/20 at 21:00 Methylprednisolone Sodium Succinate (SOLU-Medrol 40MG VIAL) 40 mg DAILY IV ; Start 11/28/20 at 09:00 Dextrose/Sodium Chloride 1,000 ml @ 75 mls/hr [id number] IV Last administered on 11/27/20at 14:47; Start 11/27/20 at 14:45 Active Scripts Active Prednisone (Prednisone) 10 Mg Tablet 5 Mg PO DAILY 5 Days Valproic Acid (Valproic Acid (As Sodium Salt)) 250 Mg/5 Ml Solution 500 Mg PO BID 30 Days Keppra (Levetiracetam) 500 Mg Tablet 1,000 Mg PO BID 30 Days Reported Lansoprazole 30 Mg Capsule.dr 1 Cap PO DAILY Diclofenac Sodium 100 Gm Gel..gram. 4 Gm TP QID Proair Hfa (Albuterol Sulfate) 8.5 Gm Hfa.aer.ad 2 Puff IH PRN Q4HRS PRN 21 Days Keppra (Levetiracetam) 250 Mg Tablet 1 Tab PO BID 30 Days Furosemide 40 Mg Tablet 1 Tab PO DAILY Aspirin Ec (Aspirin) 81 Mg Tablet.dr 1 Tab PO DAILY Breo Ellipta 100-25 Mcg Inh (Fluticasone/Vilanterol) 1 Each Aer.pow.ba 1 Puff IH DAILY Folic Acid 1 Mg Tablet 400 Mcg PO BID Vitamin B-12 (Cyanocobalamin (Vitamin B-12)) 1,000 Mcg Tablet 500 Mcg PO BID Trihexyphenidyl Hcl 2 Mg Tablet 2 Mg PO HS Divalproex Sodium 500 Mg Tablet.dr 250 Mg PO DAILY Lipitor (Atorvastatin Calcium) 80 Mg Tablet 80 Mg PO HS Duoneb 0.5 Mg-3 Mg/3 Ml Soln (Ipratropium/Albuterol Sulfate) 3 Ml Ampul.neb 3 Ml IH TID Miralax (Polyethylene Glycol 3350) 17 Gm Powd.pack 17 Gm PO DAILY Invega (Paliperidone) 6 Mg Tab.er.24 6 Mg PO HS Carvedilol (Carvedilol) 12.5 Mg Tablet 12.5 Mg PO BID Hydralazine Hcl 50 Mg Tablet 50 Mg PO BID Clonidine Tts-3 (Clonidine) 1 Each Patch.tdwk 1 Each TD WEEKLY Klor-Con M20 (Potassium Chloride) 20 Meq Tab.er.prt 20 Meq PO BID Divalproex Sodium 500 Mg Tablet.dr 500 Mg PO HS Amlodipine Besylate 10 Mg Tablet 10 Mg PO DAILY Vitamin D3 1,000 Unit Tablet (Ca Cmb No.1/Vit D3/B-6/Fa/B12) 1 Each Tablet 1 Each PO DAILY Flonase (Fluticasone Propionate) 16 Gm [place].susp 1 Spr NS BID Vitals/I & O Vital Sign - Last 24 Hours 11/27/20 11/27/20 11/27/20 11/27/20 16:00 19:00 20:00 23:00 Temp 97.5 98.0 97.5 98.0 Pulse 78 77 67 Resp 14 20 18 B/P (MAP) 173/104 (127) 143/88 (106) 147/90 (109) Pulse Ox 90 93 100 O2 Delivery Nasal Cannula O2 Flow Rate 2.0 11/28/20 11/28/20 03:00 08:00 Temp 98.3 97.4 98.3 97.4 Pulse 69 76 Resp 18 18 B/P (MAP) 138/80 (99) 137/82 (100) Pulse Ox 94 96 Intake and Output 11/27/20 11/27/20 11/28/20 15:00 23:00 07:00 Intake Total 215.0 ml Output Total 1850 ml 900 ml 375 ml Balance -1850 ml -900 ml -160.0 ml Justicifation of Admission Dx: Justifications for Admission: Justification of Admission Dx: Yes KRISTINE GLEZ MD Nov 28, 2020 08:46
[2020-11-28] MEDS: VALPROIC ACID (AS SODIUM SALT) 750 MG in IV DEXTROSE 5% 50 ML IV SCH ×2 (09:00→22:31)
[2020-11-28] MEDS: levETIRAcetam 750 MG in IV DEXTROSE 5% 100ML 100 ML IV SCH ×2 (09:00→21:00)
[2020-11-28] MEDS: methylPREDNISolone SOD SUCC PF 40 MG/ML VIAL. IV SCH (09:01)
[2020-11-28] MEDS: PANTOPRAZOLE IV PUSH 40 MG VIAL. IVP SCH (09:01)
--- NOTE | 2020-11-28 09:10 | PDOC ---
PROGRESS NOTES Date of Service: DATE: 11/28/20 TIME: 09:06 Subjective Subjective pt is more awake and talking Objective Objective Vital Signs Date Time Temp Pulse Resp B/P (MAP) Pulse Ox O2 Delivery O2 Flow Rate FiO2 11/28/20 08:00 97.4 76 18 137/82 (100) 96 97.4 11/27/20 20:00 Nasal Cannula 2.0 Intake and Output 11/28/20 07:00 Intake Total 215.0 ml Output Total 3125 ml Balance -2910.0 ml IV Total 215.0 ml Output Urine Total 3125 ml Physical Exam Abdomen: Soft Heart: Regular rate, Normal S1, Normal S2 Extremities: Other (no edema ) General: Other (intubated ) HEENT: Atraumatic Lungs: Normal air movement Neck: No JVD Neuro: Other (vent, unresponsive) Psych/Mental Status: Mood NL, Other Skin: No significant lesion COMMENT pérez Diagnosis Problem List Problems Medical Problems: (1) Acute respiratory failure with hypoxia Status: Acute (2) Sinus bradycardia Status: Acute (3) Status epilepticus Status: Acute Assessment Assessment Problems Medical Problems: (1) Acute respiratory failure with hypoxia Status: Acute (2) Sinus bradycardia Status: Acute (3) Status epilepticus Status: Acute FINAL IMPRESSION:Hypothermia and hypotension resolved 1. Status epilepticus. 2. Respiratory failure requiring intubation on mechanical ventilator. 3. Schizophrenia. 4. Hyponatremia 5. Hypertension. 6. Hyperlipidemia. 7. Chronic schizophrenia. 8. Anemia of chronic disease. 9. Morbid obesity. 10.Low Platelets PLAN:NPO for now Extubated over the weekend. speech consult cxr improvement. lab s noted , pot 3.2 replace , platelets trending up 66,000 d/c iv antibiotics completed 7 days of antibiotics , c/s neg keppra+depokate iv keppra leves 70, dose decreased moved out of ICU For details please refer to the orders. Plan Plan of Care Problems Medical Problems: (1) Acute respiratory failure with hypoxia Status: Acute (2) Sinus bradycardia Status: Acute (3) Status epilepticus Status: Acute Comment Review of Relevant I have reviewed the following items melanie (where applicable) has been applied. Labs Laboratory Tests Test 11/27/20 12:12 11/27/20 18:35 11/27/20 19:04 11/28/20 00:08 Glucose (Fingerstick) 102 mg/dL (70-99) 125 mg/dL (70-99) 81 mg/dL (70-99) 98 mg/dL (70-99) Test 11/28/20 06:15 White Blood Count 8.1 x10^3/uL (4.0-11.0) Red Blood Count 3.23 x10^6/uL (3.50-5.40) Hemoglobin 9.7 g/dL (12.0-15.5) Hematocrit 29.4 % (36.0-47.0) Mean Corpuscular Volume 91 fL (79-100) Mean Corpuscular Hemoglobin 30 pg (25-35) Mean Corpuscular Hemoglobin Concent 33 g/dL (31-37) Red Cell Distribution Width 18.7 % (11.5-14.5) Platelet Count 67 x10^3/uL (140-400) Neutrophils (%) (Auto) 69 % (31-73) Lymphocytes (%) (Auto) 20 % (24-48) Monocytes (%) (Auto) 10 % (0-9) Eosinophils (%) (Auto) 0 % (0-3) Basophils (%) (Auto) 0 % (0-3) Neutrophils # (Auto) 5.6 x10^3/uL (1.8-7.7) Lymphocytes # (Auto) 1.6 x10^3/uL (1.0-4.8) Monocytes # (Auto) 0.8 x10^3/uL (0.0-1.1) Eosinophils # (Auto) 0.0 x10^3/uL (0.0-0.7) Basophils # (Auto) 0.0 x10^3/uL (0.0-0.2) Sodium Level 136 mmol/L (136-145) Potassium Level 3.3 mmol/L (3.5-5.1) Chloride Level 98 mmol/L (98-107) Carbon Dioxide Level 33 mmol/L (21-32) Anion Gap 5 (6-14) Blood Urea Nitrogen 22 mg/dL (7-20) Creatinine 1.0 mg/dL (0.6-1.0) Estimated GFR (Cockcroft-Gault) 65.8 Glucose Level 83 mg/dL (70-99) Calcium Level 9.0 mg/dL (8.5-10.1) Microbiology 9/22/21 Blood Culture - Final, Complete NO GROWTH AFTER 5 DAYS Medications Current Medications Dextrose/Sodium Chloride 1,000 ml @ 75 mls/hr [id number] IV Last administered on 11/27/20at 14:47; Start 11/27/20 at 14:45 Levetiracetam 750 mg/Dextrose 107.5 ml @ 420 mls/hr Q12HR IV Last administered on 11/28/20at 09:00; Start 11/27/20 at 21:00 Methylprednisolone Sodium Succinate (SOLU-Medrol 40MG VIAL) 40 mg DAILY IV Last administered on 11/28/20at 09:01; Start 11/28/20 at 09:00 Vitals/I & O Vital Sign - Last 24 Hours 11/27/20 11/27/20 11/27/20 11/27/20 16:00 19:00 20:00 23:00 Temp 97.5 98.0 97.5 98.0 Pulse 78 77 67 Resp 14 20 18 B/P (MAP) 173/104 (127) 143/88 (106) 147/90 (109) Pulse Ox 90 93 100 O2 Delivery Nasal Cannula O2 Flow Rate 2.0 11/28/20 11/28/20 03:00 08:00 Temp 98.3 97.4 98.3 97.4 Pulse 69 76 Resp 18 18 B/P (MAP) 138/80 (99) 137/82 (100) Pulse Ox 94 96 Intake and Output 11/27/20 11/27/20 11/28/20 15:00 23:00 07:00 Intake Total 215.0 ml Output Total 1850 ml 900 ml 375 ml Balance -1850 ml -900 ml -160.0 ml Justifications for Admission Other Justification JOSE WILLINGHAM MD Nov 28, 2020 09:10
[2020-11-28] MEDS ORDERED: POTASSIUM CHLORIDE 20MEQ 100 ML IV ONE (09:15)
[2020-11-28] MEDS: POTASSIUM CHLORIDE 10MEQ 100 ML IV SCH ×2 (10:14→12:34)
--- NOTE | 2020-11-28 10:27 | PDOC ---
PULMONARY PROGRESS NOTES DATE: 11/28/20 TIME: 10:26 Subjective extubated 11/25 on RA, NO SOA Vitals Vital Signs Date Time Temp Pulse Resp B/P (MAP) Pulse Ox O2 Delivery O2 Flow Rate FiO2 11/28/20 08:00 97.4 76 18 137/82 (100) 96 97.4 11/27/20 20:00 Nasal Cannula 2.0 ROS: No Nausea, No Chest Pain, No Increase Cough General: Alert, No acute distress Lungs: Clear Cardiovascular: S1 Abdomen: Soft, Non-tender Extremities: Other (Some edema) Skin: Warm Labs Laboratory Tests Test 11/26/20 12:27 11/26/20 23:57 11/27/20 03:25 11/27/20 12:12 Glucose (Fingerstick) 123 mg/dL (70-99) 100 mg/dL (70-99) 102 mg/dL (70-99) White Blood Count 8.4 x10^3/uL (4.0-11.0) Red Blood Count 3.30 x10^6/uL (3.50-5.40) Hemoglobin 9.7 g/dL (12.0-15.5) Hematocrit 30.0 % (36.0-47.0) Mean Corpuscular Volume 91 fL (79-100) Mean Corpuscular Hemoglobin 30 pg (25-35) Mean Corpuscular Hemoglobin Concent 33 g/dL (31-37) Red Cell Distribution Width 18.4 % (11.5-14.5) Platelet Count 72 x10^3/uL (140-400) Neutrophils (%) (Auto) 86 % (31-73) Lymphocytes (%) (Auto) 11 % (24-48) Monocytes (%) (Auto) 3 % (0-9) Eosinophils (%) (Auto) 0 % (0-3) Basophils (%) (Auto) 0 % (0-3) Neutrophils # (Auto) 7.2 x10^3/uL (1.8-7.7) Lymphocytes # (Auto) 0.9 x10^3/uL (1.0-4.8) Monocytes # (Auto) 0.2 x10^3/uL (0.0-1.1) Eosinophils # (Auto) 0.0 x10^3/uL (0.0-0.7) Basophils # (Auto) 0.0 x10^3/uL (0.0-0.2) Segmented Neutrophils % 83 % (35-66) Band Neutrophils % 1 % (0-9) Lymphocytes % 15 % (24-48) Monocytes % 1 % (0-10) Nucleated Red Blood Cells 12 Toxic Granulation Mod Toxic Vacuolation Slight Platelet Estimate Decreased (ADEQUATE) Polychromasia Slight Hypochromasia Slight Poikilocytosis Slight Basophilic Stippling Present Anisocytosis Slight Spherocytes Occ Target Cells Occ [place] Cells Few Crenated Cell Present Sodium Level 134 mmol/L (136-145) Potassium Level 3.7 mmol/L (3.5-5.1) Chloride Level 97 mmol/L (98-107) Carbon Dioxide Level 33 mmol/L (21-32) Anion Gap 4 (6-14) Blood Urea Nitrogen 10 mg/dL (7-20) Creatinine 0.7 mg/dL (0.6-1.0) Estimated GFR (Cockcroft-Gault) 99.2 BUN/Creatinine Ratio 14 (6-20) Glucose Level 102 mg/dL (70-99) Calcium Level 9.2 mg/dL (8.5-10.1) Total Bilirubin 0.5 mg/dL (0.2-1.0) Aspartate Amino Transf (AST/SGOT) 36 U/L (15-37) Alanine Aminotransferase (ALT/SGPT) 30 U/L (14-59) Alkaline Phosphatase 55 U/L (46-116) Total Protein 6.6 g/dL (6.4-8.2) Albumin 2.1 g/dL (3.4-5.0) Albumin/Globulin Ratio 0.5 (1.0-1.7) Test 11/27/20 18:35 11/27/20 19:04 11/28/20 00:08 11/28/20 06:15 Glucose (Fingerstick) 125 mg/dL (70-99) 81 mg/dL (70-99) 98 mg/dL (70-99) White Blood Count 8.1 x10^3/uL (4.0-11.0) Red Blood Count 3.23 x10^6/uL (3.50-5.40) Hemoglobin 9.7 g/dL (12.0-15.5) Hematocrit 29.4 % (36.0-47.0) Mean Corpuscular Volume 91 fL (79-100) Mean Corpuscular Hemoglobin 30 pg (25-35) Mean Corpuscular Hemoglobin Concent 33 g/dL (31-37) Red Cell Distribution Width 18.7 % (11.5-14.5) Platelet Count 67 x10^3/uL (140-400) Neutrophils (%) (Auto) 69 % (31-73) Lymphocytes (%) (Auto) 20 % (24-48) Monocytes (%) (Auto) 10 % (0-9) Eosinophils (%) (Auto) 0 % (0-3) Basophils (%) (Auto) 0 % (0-3) Neutrophils # (Auto) 5.6 x10^3/uL (1.8-7.7) Lymphocytes # (Auto) 1.6 x10^3/uL (1.0-4.8) Monocytes # (Auto) 0.8 x10^3/uL (0.0-1.1) Eosinophils # (Auto) 0.0 x10^3/uL (0.0-0.7) Basophils # (Auto) 0.0 x10^3/uL (0.0-0.2) Sodium Level 136 mmol/L (136-145) Potassium Level 3.3 mmol/L (3.5-5.1) Chloride Level 98 mmol/L (98-107) Carbon Dioxide Level 33 mmol/L (21-32) Anion Gap 5 (6-14) Blood Urea Nitrogen 22 mg/dL (7-20) Creatinine 1.0 mg/dL (0.6-1.0) Estimated GFR (Cockcroft-Gault) 65.8 Glucose Level 83 mg/dL (70-99) Calcium Level 9.0 mg/dL (8.5-10.1) Laboratory Tests Test 11/27/20 12:12 11/27/20 18:35 11/27/20 19:04 11/28/20 00:08 Glucose (Fingerstick) 102 mg/dL (70-99) 125 mg/dL (70-99) 81 mg/dL (70-99) 98 mg/dL (70-99) Test 11/28/20 06:15 White Blood Count 8.1 x10^3/uL (4.0-11.0) Red Blood Count 3.23 x10^6/uL (3.50-5.40) Hemoglobin 9.7 g/dL (12.0-15.5) Hematocrit 29.4 % (36.0-47.0) Mean Corpuscular Volume 91 fL (79-100) Mean Corpuscular Hemoglobin 30 pg (25-35) Mean Corpuscular Hemoglobin Concent 33 g/dL (31-37) Red Cell Distribution Width 18.7 % (11.5-14.5) Platelet Count 67 x10^3/uL (140-400) Neutrophils (%) (Auto) 69 % (31-73) Lymphocytes (%) (Auto) 20 % (24-48) Monocytes (%) (Auto) 10 % (0-9) Eosinophils (%) (Auto) 0 % (0-3) Basophils (%) (Auto) 0 % (0-3) Neutrophils # (Auto) 5.6 x10^3/uL (1.8-7.7) Lymphocytes # (Auto) 1.6 x10^3/uL (1.0-4.8) Monocytes # (Auto) 0.8 x10^3/uL (0.0-1.1) Eosinophils # (Auto) 0.0 x10^3/uL (0.0-0.7) Basophils # (Auto) 0.0 x10^3/uL (0.0-0.2) Sodium Level 136 mmol/L (136-145) Potassium Level 3.3 mmol/L (3.5-5.1) Chloride Level 98 mmol/L (98-107) Carbon Dioxide Level 33 mmol/L (21-32) Anion Gap 5 (6-14) Blood Urea Nitrogen 22 mg/dL (7-20) Creatinine 1.0 mg/dL (0.6-1.0) Estimated GFR (Cockcroft-Gault) 65.8 Glucose Level 83 mg/dL (70-99) Calcium Level 9.0 mg/dL (8.5-10.1) Medications Active Scripts Medications Dose Route/Sig Max Daily Dose Days Date Category Lansoprazole 30 Mg Capsule.dr 1 Cap PO DAILY 11/22/20 Reported Diclofenac Sodium 100 Gm Gel..gram. 4 Gm TP QID 11/22/20 Reported Prednisone (Prednisone) 10 Mg Tablet 5 Mg PO DAILY 5 10/26/20 Rx Valproic Acid (Valproic Acid (As Sodium Salt)) 250 Mg/5 Ml Solution 500 Mg PO BID 30 10/26/20 Rx Keppra (Levetiracetam) 500 Mg Tablet 1,000 Mg PO BID 30 10/26/20 Rx Proair Hfa (Albuterol Sulfate) 8.5 Gm Hfa.aer.ad 2 Puff IH PRN Q4HRS PRN 21 10/10/20 Reported Keppra (Levetiracetam) 250 Mg Tablet 1 Tab PO BID 30 10/10/20 Reported Furosemide 40 Mg Tablet 1 Tab PO DAILY 10/10/20 Reported Aspirin Ec (Aspirin) 81 Mg Tablet.dr 1 Tab PO DAILY 10/10/20 Reported Breo Ellipta 100-25 Mcg Inh (Fluticasone/Vilanterol) 1 Each Aer.pow.ba 1 Puff IH DAILY 07/23/16 Reported Folic Acid 1 Mg Tablet 400 Mcg PO BID 07/23/16 Reported Vitamin B-12 (Cyanocobalamin (Vitamin B-12)) 1,000 Mcg Tablet 500 Mcg PO BID 07/23/16 Reported Trihexyphenidyl Hcl 2 Mg Tablet 2 Mg PO HS 07/23/16 Reported Divalproex Sodium 500 Mg Tablet.dr 250 Mg PO DAILY 07/23/16 Reported Lipitor (Atorvastatin Calcium) 80 Mg Tablet 80 Mg PO HS 12/21/13 Reported Duoneb 0.5 Mg-3 Mg/3 Ml Soln (Ipratropium/Albuterol Sulfate) 3 Ml Ampul.neb 3 Ml IH TID 04/28/13 Reported Miralax (Polyethylene Glycol 3350) 17 Gm Powd.pack 17 Gm PO DAILY 04/28/13 Reported Invega (Paliperidone) 6 Mg Tab.er.24 6 Mg PO HS 04/28/13 Reported Carvedilol (Carvedilol) 12.5 Mg Tablet 12.5 Mg PO BID 04/28/13 Reported Hydralazine Hcl 50 Mg Tablet 50 Mg PO BID 04/28/13 Reported Clonidine Tts-3 (Clonidine) 1 Each Patch.tdwk 1 Each TD WEEKLY 04/28/13 Reported Klor-Con M20 (Potassium Chloride) 20 Meq Tab.er.prt 20 Meq PO BID 04/28/13 Reported Divalproex Sodium 500 Mg Tablet.dr 500 Mg PO HS 04/28/13 Reported Amlodipine Besylate 10 Mg Tablet 10 Mg PO DAILY 04/28/13 Reported Vitamin D3 1,000 Unit Tablet (Ca Cmb No.1/Vit D3/B-6/Fa/B12) 1 Each Tablet 1 Each PO DAILY 04/28/13 Reported Flonase (Fluticasone Propionate) 16 Gm [place].susp 1 Spr NS BID 04/28/13 Reported Comments cxr 11/24 reviewed 1. Stable bilateral basilar predominant opacities. 2. Stable small bilateral pleural effusions. ett ok Impression . IMPRESSION: 1. Acute hypoxemic respiratory failure secondary to breakthrough seizures. 2. Breakthrough seizures. 3. Electrolyte abnormalities including hyponatremia, hypomagnesemia. 4. Severe protein malnutrition, present upon admission. 5. Multiple other comorbidities including schizophrenia, hypertension, hypothyroidism, sleep apnea, tardive dyskinesia. Plan . Patient extubated 11/25 Doing well cxr with resolved CHF, small effusions Advance diet WILL SEE HER PRN D/W SISTER 11/26 extubated 11/25 on 02 1 lpm speech eval Follow neurology input solumedrol 40 bid stress ulcer dvt prophylaxis elevate hob ABX ? joselyn psg as out pt discussed w rn rt 11/25 cont vent support setting reviewed off sedation sbt when fully awake Follow neurology input solumedrol 40 bid stress ulcer dvt prophylaxis elevate hob ABX discussed w rn rt Updated 11/24 Discussed with RN and RT will DC sedation trial Follow neurology input Monitor electrolytes ABG noted EDNA GARCIA MD Nov 28, 2020 10:27
[2020-11-28 11:14] VITALS: BP 155/90
--- NOTE | 2020-11-28 11:21 | NUR ---
SW following. Discussed with RN, pt from home with 24 hour care, 2L (does not use oxygen at home), RN attempting to wean, NPO. ST eval today. COVID-19 negative. Pt has home health at home. SW will continue to follow.
[2020-11-28] MEDS ORDERED: hydrALAZINE 20 MG/ML VIAL. IVP PRN (12:30)
--- NOTE | 2020-11-28 12:33 | PDOC ---
NELLY MONTIEL [employer]ORER 11/28/20 1233: CARDIO Progress Notes Date and Time Date of Service 11/28/2020 Time of Evaluation 1220 Subjective Subjective: No Chest Pain, No shortness of breath, No Palpitations Vitals Vitals Vital Signs Date Time Temp Pulse Resp B/P (MAP) Pulse Ox O2 Delivery O2 Flow Rate FiO2 11/28/20 11:14 98.7 70 18 155/90 (111) 91 98.7 11/27/20 20:00 Nasal Cannula 2.0 Weight Weight [ ] Input and Output Intake and Output Intake and Output 11/28/20 07:00 Intake Total 215.0 ml Output Total 3125 ml Balance -2910.0 ml IV Total 215.0 ml Output Urine Total 3125 ml Laboratory Labs Laboratory Tests Test 11/27/20 18:35 11/27/20 19:04 11/28/20 00:08 11/28/20 06:15 Glucose (Fingerstick) 125 mg/dL (70-99) 81 mg/dL (70-99) 98 mg/dL (70-99) White Blood Count 8.1 x10^3/uL (4.0-11.0) Red Blood Count 3.23 x10^6/uL (3.50-5.40) Hemoglobin 9.7 g/dL (12.0-15.5) Hematocrit 29.4 % (36.0-47.0) Mean Corpuscular Volume 91 fL (79-100) Mean Corpuscular Hemoglobin 30 pg (25-35) Mean Corpuscular Hemoglobin Concent 33 g/dL (31-37) Red Cell Distribution Width 18.7 % (11.5-14.5) Platelet Count 67 x10^3/uL (140-400) Neutrophils (%) (Auto) 69 % (31-73) Lymphocytes (%) (Auto) 20 % (24-48) Monocytes (%) (Auto) 10 % (0-9) Eosinophils (%) (Auto) 0 % (0-3) Basophils (%) (Auto) 0 % (0-3) Neutrophils # (Auto) 5.6 x10^3/uL (1.8-7.7) Lymphocytes # (Auto) 1.6 x10^3/uL (1.0-4.8) Monocytes # (Auto) 0.8 x10^3/uL (0.0-1.1) Eosinophils # (Auto) 0.0 x10^3/uL (0.0-0.7) Basophils # (Auto) 0.0 x10^3/uL (0.0-0.2) Sodium Level 136 mmol/L (136-145) Potassium Level 3.3 mmol/L (3.5-5.1) Chloride Level 98 mmol/L (98-107) Carbon Dioxide Level 33 mmol/L (21-32) Anion Gap 5 (6-14) Blood Urea Nitrogen 22 mg/dL (7-20) Creatinine 1.0 mg/dL (0.6-1.0) Estimated GFR (Cockcroft-Gault) 65.8 Glucose Level 83 mg/dL (70-99) Calcium Level 9.0 mg/dL (8.5-10.1) Test 11/28/20 11:42 Glucose (Fingerstick) 108 mg/dL (70-99) Microbiology Micro Microbiology 11/22/20 Blood Culture - Final, Complete NO GROWTH AFTER 5 DAYS Physical Exam HEENT: Neck Supple W Full Motion Chest: Symmetric LUNGS: Other (ddiminished bases) Heart: RRR (SR) Abdomen: Soft N/T, Other (obese) Extremities: No Calf Tenderness Neurology: alert, follow commands Assessment Assessment 1. Seizures - neuro following 2. Acute respiratory failure; secondary to above. s/p intubation 3. Hypothermia: resolved 4. Pancytopenia 5. Sinus bradycardia; probably due to hypothermia - none further, maintaining SR 6. Mild acute on chronic diastolic CHF - better compensated 7. Hypokalemia - per IM 8. Hypertension; presently controlled 9. Hyperlipidemia: on statin 10. Bipolar, schizophrenia Recommendations 1. Hydralazine IV PRN. 2. Remains NPO on home norvasc, coreg, clonidine and hydralazine. Will resume once PO is allowed Justicifation of Admission Dx: Justifications for Admission: Justification of Admission Dx: Yes MILE SCOTT MD 11/29/20 0943: CARDIO Progress Notes Assessment Assessment Patient seen and examined 11/28/2020. Agree with S[employer] DEVELOPER's assessment and plan. Sinus bradycardia resolved Acute on chronic diastolic heart failure better compensated Neurology following for seizure disorder Resume home antihypertensives when able to take p.o. NELLY MONTIEL M [employer] Nov 28, 2020 12:33 MILE SCOTT MD Nov 29, 2020 09:43
[2020-11-28] MEDS: IV DEXTROSE 5% - 0.9 % NACL 1,000 ML IV SCH ×2 (12:35→17:25)
--- NOTE | 2020-11-28 13:33 | NUR ---
Bedside Swallow evaluation completed. Please refer to full report in interventions section for additional information. Impressions: Moderate oropharyngeal dysphagia post intubation. Pt w/ decreased hyolaryngeal excursion via palp as well as decreased management of saliva on occasions and prolonged oral phase/holding of boluses at times. Currently pt is at risk of aspiration for all consistencies and is unable to follow directions to cough/clear throat if indicated. Pt was previously seen by speech therapy for dysphagia in October 2020 w/ recommended diet at that time of puree and honey thick liquids. Recommendations: NPO, frequent oral care. ST f/u for dysphagia per POC. D/w Jonathan
[2020-11-28 16:00] VITALS: BP 164/96
[2020-11-28 19:48] VITALS: BP 160/92
[2020-11-28 23:38] VITALS: BP 173/98
[2020-11-29 03:48] VITALS: BP 156/93
[2020-11-29] MEDS: IV DEXTROSE 5% - 0.9 % NACL 1,000 ML IV SCH ×2 (04:53→20:05)
[2020-11-29] MEDS: INSULIN LISPRO 300 UNITS/3 ML VIAL. SQ SCH ×4 (06:00→17:33)
[2020-11-29 07:00] VITALS: BP 162/90
[2020-11-29] MEDS: PANTOPRAZOLE IV PUSH 40 MG VIAL. IVP SCH (08:16)
[2020-11-29] MEDS: methylPREDNISolone SOD SUCC PF 40 MG/ML VIAL. IV SCH (08:16)
--- NOTE | 2020-11-29 09:12 | PDOC ---
PROGRESS NOTES Date of Service: DATE: 11/29/20 TIME: 09:10 Subjective Subjective wide awake and answering questions Objective Objective Vital Signs Date Time Temp Pulse Resp B/P (MAP) Pulse Ox O2 Delivery O2 Flow Rate FiO2 11/29/20 07:00 99.2 91 18 162/90 (114) 97 Room Air 99.2 Intake and Output 11/29/20 07:00 Intake Total 1165.0 ml Output Total 1700 ml Balance -535.0 ml Intake Oral 0 ml IV Total 1165.0 ml Output Urine Total 1700 ml Physical Exam Abdomen: Soft Heart: Regular rate, Normal S1, Normal S2 Extremities: Other (no edema ) General: Other (intubated ) HEENT: Atraumatic Lungs: Normal air movement Neck: No JVD Neuro: Other (vent, unresponsive) Psych/Mental Status: Mood NL, Other Skin: No significant lesion COMMENT elisa Diagnosis Problem List Problems Medical Problems: (1) Acute respiratory failure with hypoxia Status: Acute (2) Sinus bradycardia Status: Acute (3) Status epilepticus Status: Acute Assessment Assessment Problems Medical Problems: (1) Acute respiratory failure with hypoxia Status: Acute (2) Sinus bradycardia Status: Acute (3) Status epilepticus Status: Acute FINAL IMPRESSION:Hypothermia and hypotension resolved 1. Status epilepticus. 2. Respiratory failure requiring intubation on mechanical ventilator. 3. Schizophrenia. 4. Hyponatremia 5. Hypertension. 6. Hyperlipidemia. 7. Chronic schizophrenia. 8. Anemia of chronic disease. 9. Morbid obesity. 10.Low Platelets PLAN:Rehab consult NPO for now, speech folllowing Extubated over the weekend. speech consult cxr improvement. lab s noted , pot 3.2 replace , platelets trending up 66,000 d/c iv antibiotics completed 7 days of antibiotics , c/s neg keppra+depokate iv keppra leves 70, dose decreased moved out of ICU For details please refer to the orders. Plan Plan of Care Problems Medical Problems: (1) Acute respiratory failure with hypoxia Status: Acute (2) Sinus bradycardia Status: Acute (3) Status epilepticus Status: Acute Comment Review of Relevant I have reviewed the following items melanie (where applicable) has been applied. Labs Laboratory Tests Test 11/28/20 11:42 11/28/20 18:55 11/29/20 00:07 11/29/20 05:50 Glucose (Fingerstick) 108 mg/dL (70-99) 102 mg/dL (70-99) 92 mg/dL (70-99) 96 mg/dL (70-99) Microbiology 11/22/20 Blood Culture - Final, Complete NO GROWTH AFTER 5 DAYS Medications Current Medications Hydralazine HCl (Apresoline Inj) 10 mg PRN Q4HRS PRN IVP ELEVATED BP, SEE COMMENTS; Start 11/28/20 at 12:30 Potassium Chloride/Water 100 ml @ 100 mls/hr 1X ONCE IV ; Start 11/28/20 at 09:15; Stop 11/28/20 at 10:14; Status UNV Potassium Chloride/Water 100 ml @ 100 mls/hr Q1H IV Last administered on 11/28/20at 12:34; Start 11/28/20 at 10:00; Stop 11/28/20 at 11:59; Status DC Vitals/I & O Vital Sign - Last 24 Hours 11/28/20 11/28/20 11/28/20 11/28/20 11:14 16:00 19:48 20:00 Temp 98.7 99.4 99.1 98.7 99.4 99.1 Pulse 70 79 75 Resp 18 18 18 B/P (MAP) 155/90 (111) 164/96 (118) 160/92 (114) Pulse Ox 91 93 O2 Delivery Room Air Room Air 11/28/20 11/29/20 11/29/20 23:38 03:48 07:00 Temp 98.8 98.3 99.2 98.8 98.3 99.2 Pulse 79 82 91 Resp 16 16 18 B/P (MAP) 173/98 (123) 156/93 (114) 162/90 (114) Pulse Ox 93 90 97 O2 Delivery Room Air Room Air Room Air Intake and Output 11/28/20 11/28/20 11/29/20 15:00 23:00 07:00 Intake Total 0 ml 1165.0 ml Output Total 1700 ml Balance 0 ml -535.0 ml Justifications for Admission Other Justification JOSE WILLINGHAM MD Nov 29, 2020 09:12
[2020-11-29] MEDS: levETIRAcetam 750 MG in IV DEXTROSE 5% 100ML 100 ML IV SCH (09:29)
[2020-11-29] MEDS ORDERED: BUPIVACAINE MPF 0.25% 10 ML VIAL. IJ ONE (09:30)
[2020-11-29] MEDS ORDERED: methylPREDNISolone ACETATE 40 MG/ML VIAL. IM ONE (09:30)
[2020-11-29] MEDS ORDERED: methylPREDNISolone ACETATE 40 MG/ML VIAL. INJ ONE (09:30)
[2020-11-29 09:37] LABS: BASO % 0 % (0-3); EOS # 0.1 x10^3/uL (0.0-0.7); EOS % 1 % (0-3); HEMATOCRIT 28.2 % (36.0-47.0); HEMOGLOBIN 9.3 g/dL (12.0-15.5); LYMPH # 1.9 x10^3/uL (1.0-4.8); LYMPH % 24 % (24-48); MEAN CORPUSCULAR HEMOGLOBIN 30 pg (25-35); MEAN CORPUSCULAR HGB CONC 33 g/dL (31-37); MEAN CORPUSCULAR VOLUME 91 fL (79-100); MONO # 0.8 x10^3/uL (0.0-1.1); MONO % 11 % (0-9); NEUT # 5.1 x10^3/uL (1.8-7.7); NEUT % 64 % (31-73); PLATELET COUNT 60 x10^3/uL (140-400); RED CELL DISTRIBUTION WIDTH 18.4 % (11.5-14.5); WHITE BLOOD COUNT 7.9 x10^3/uL (4.0-11.0)
[2020-11-29 09:41] LABS: CALCIUM 8.6 mg/dL (8.5-10.1); CREATININE 0.8 mg/dL (0.6-1.0); GFR 85.1; POTASSIUM 3.1 mmol/L (3.5-5.1)
[2020-11-29] MEDS ORDERED: methylPREDNISolone ACETATE 80 MG/ML VIAL. IM ONE (09:45)
[2020-11-29] MEDS: FERROUS SULFATE 325 MG TABLET. PO SCH (10:00)
--- NOTE | 2020-11-29 10:06 | PDOC4 ---
PROCEDURE Procedure At her request,I have injected painful knee joints bilaterally under asptic skin technique with betadine skin prep using 4 ml of 0.25% marcaine solution mixed with 1ml of depomedrol 80 mg/ 1 ml solution and she tolerated the procedures satisfactorily without any side effects. HAI MARADIAGA MD Nov 29, 2020 10:06
--- NOTE | 2020-11-29 10:10 | CONS ---
DATE OF CONSULTATION: 11/29/2020 LOCATION: She is in room 526. ATTENDING PHYSICIAN: Dr. Nino. REASON FOR CONSULTATION: The patient was seen at the request of Dr. Nino for rehab evaluation. HISTORY OF PRESENT ILLNESS: This is a 75-year-old female known to me. 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 Had a Mariola lift at home and also she requires help with self-care and transfers. The patient usually gets steroid injection to her knees by Dr. Mustafa once in every 3 months. The patient admits some pain in her knees. She was admitted on 11/22/2020 with status epilepticus, requiring intubation. CT scan of the brain was negative. She had a history of seizures. She takes Depakote and Keppra. The patient was in the hospital about a month ago with similar problem. At that time, she was also treated for hyponatremia, bradycardia, hypotension, sepsis, thrombocytopenia, all things got better in the course of 2-3 weeks and went back home to her apartment. During her last admission, Keppra levels were high, so it was cut down the dose to 1000 mg twice daily from 1500 mg and she takes Depakote 500 mg b.i.d. Also history of schizophrenia, tardive dyskinesia, hypertension, heart failure, morbid obesity, gastroesophageal reflux disease and history of previous stroke, chronic obstructive pulmonary disease, sleep apnea, dementia, borderline diabetes, hypothyroidism, osteoporosis, status post hysterectomy, anemia of chronic disease, family history of hypertension. Basically, she is in bed, gets up with help with wheelchair and propels the wheelchair by herself. THE PATIENT IS KNOWN ALLERGIC TO NONSTEROIDAL ANTI-INFLAMMATORY MEDICATION, ISOPROPYL ALCOHOL AND LISINOPRIL. The patient has been extubated right now, but she is still n.p.o. The patient required maximal help with bed mobility as per physical therapy. PHYSICAL EXAMINATION: GENERAL: Today revealed an elderly female. She is alert, oriented to time, place, person and circumstance and follows commands appropriately. NEUROLOGIC: Moves all 4 extremities voluntarily. She had flexion contracture of both knees with significant weakness of her knee extensors. She had crepitus on attempted movements of her knee joints with mild knee joint effusion. No significant pain on range of motion of her hip joints. Overall, she had 4/5 to 4+/5 grade muscle strength with relatively increased weakness in knee extensors where she had only 2-/5 grade muscle strength. Deep tendon reflexes are absent at both knees and ankles and she had equal perception of touch and pinprick sensation bilaterally. She requires help with bed mobility. I have not tested her transfers or ambulation skills at this time. ASSESSMENT: Elderly female with recent hospitalization for status epilepticus and respiratory failure with deconditioned state. The patient with painful degenerative joint disease of both knees with flexion contractures and clinical evidence of peripheral neuropathy, obesity, also with known hypertension, hyperlipidemia, congestive heart failure, chronic obstructive pulmonary disease, sleep apnea, dementia, seizure disorder, tardive dyskinesia, schizophrenia, dementia, thyroid, diabetes and osteoporosis. RECOMMENDATIONS: To proceed with injecting painful knee joint, to help ease her pain to try to obtain her hinged knee brace to support her knees, to prison care unit when medically stable for continued care. Dr. Nino, I appreciate asking me to participate in the care of this interesting patient. I will be glad to see her for followup with you on as needed basis. RIVER DR: Mary TID: [id number]
[2020-11-29] MEDS: VALPROIC ACID (AS SODIUM SALT) 750 MG in IV DEXTROSE 5% 50 ML IV SCH (10:20)
[2020-11-29 11:00] VITALS: BP 143/98
--- NOTE | 2020-11-29 14:19 | NUR ---
SW following. Discussed with RN, therapy recommending SNF. Pt was accepted at [facility] last admission but was unable to go due to a hold at [facility]. JAVAD spoke with Michelle ([facility]) she is agreeable to [facility], and can bring the inhaler requested by [place] from home. New COVID swab being obtained for placement. RN notified. Awaiting insurance auth. JAVAD will continue to follow.
[2020-11-29 15:00] VITALS: BP 134/82
[2020-11-29] MEDS ORDERED: HYDROcodone/APAP 5/325MG 1 TAB TABLET PO PRN (15:00)
[2020-11-29] MEDS: POTASSIUM CHLORIDE 10MEQ 100 ML IV SCH ×4 (15:22→18:24)
[2020-11-29 19:36] VITALS: BP 132/83
[2020-11-29] MEDS: VALPROIC ACID (AS SODIUM SALT) 250 MG/5 ML SOLUTION. PO SCH (20:38)
[2020-11-29] MEDS: levETIRAcetam 500 MG/5 ML ORAL SOLUTION. PO SCH (20:39)
[2020-11-29 23:25] VITALS: BP 142/82
[2020-11-30 03:27] VITALS: BP 145/86
[2020-11-30] MEDS: INSULIN LISPRO 300 UNITS/3 ML VIAL. SQ SCH ×3 (06:00→12:00)
[2020-11-30 07:00] VITALS: BP 149/77
[2020-11-30] MEDS: PANTOPRAZOLE IV PUSH 40 MG VIAL. IVP SCH (07:30)
[2020-11-30] MEDS: VALPROIC ACID (AS SODIUM SALT) 250 MG/5 ML SOLUTION. PO SCH (09:12)
[2020-11-30] MEDS: FERROUS SULFATE 325 MG TABLET. PO SCH (09:13)
[2020-11-30] MEDS: levETIRAcetam 500 MG/5 ML ORAL SOLUTION. PO SCH (09:14)
--- NOTE | 2020-11-30 09:15 | PDOC ---
PROGRESS NOTES Date of Service DATE: 11/30/20 TIME: 09:12 Subjective Subjective No new complaints. Knee joints feel better. Objective Objective Vital Signs Date Time Temp Pulse Resp B/P (MAP) Pulse Ox O2 Delivery O2 Flow Rate FiO2 11/30/20 07:00 98.7 83 18 149/77 (101) 96 Nasal Cannula 4.0 98.7 Intake and Output 11/30/20 07:00 Intake Total 390 ml Balance 390 ml Intake Oral 390 ml # Voids 4 Physical Exam Physical Exam She is awake,eating pureed breakfast and she is moving all 4 extremities to commands and she continues with significant weakness of her quadriceps muscles. Assessment Assessment Problems Medical Problems: (1) Acute respiratory failure with hypoxia Status: Acute (2) Sinus bradycardia Status: Acute (3) Status epilepticus Status: Acute Plan Plan of Care I gave her a prescription for hinge knee braces for her use to support her knee joints during transfers and hopedully keep them from buckling. Comment Review of Relevant I have reviewed the following items melanie (where applicable) has been applied. Labs Laboratory Tests Test 11/28/20 11:42 11/28/20 18:55 11/29/20 00:07 11/29/20 05:50 Glucose (Fingerstick) 108 mg/dL (70-99) 102 mg/dL (70-99) 92 mg/dL (70-99) 96 mg/dL (70-99) Test 11/29/20 08:00 11/29/20 11:29 11/29/20 17:04 11/29/20 20:43 White Blood Count 7.9 x10^3/uL (4.0-11.0) Red Blood Count 3.10 x10^6/uL (3.50-5.40) Hemoglobin 9.3 g/dL (12.0-15.5) Hematocrit 28.2 % (36.0-47.0) Mean Corpuscular Volume 91 fL (79-100) Mean Corpuscular Hemoglobin 30 pg (25-35) Mean Corpuscular Hemoglobin Concent 33 g/dL (31-37) Red Cell Distribution Width 18.4 % (11.5-14.5) Platelet Count 60 x10^3/uL (140-400) Neutrophils (%) (Auto) 64 % (31-73) Lymphocytes (%) (Auto) 24 % (24-48) Monocytes (%) (Auto) 11 % (0-9) Eosinophils (%) (Auto) 1 % (0-3) Basophils (%) (Auto) 0 % (0-3) Neutrophils # (Auto) 5.1 x10^3/uL (1.8-7.7) Lymphocytes # (Auto) 1.9 x10^3/uL (1.0-4.8) Monocytes # (Auto) 0.8 x10^3/uL (0.0-1.1) Eosinophils # (Auto) 0.1 x10^3/uL (0.0-0.7) Basophils # (Auto) 0.0 x10^3/uL (0.0-0.2) Sodium Level 140 mmol/L (136-145) Potassium Level 3.1 mmol/L (3.5-5.1) Chloride Level 101 mmol/L (98-107) Carbon Dioxide Level 34 mmol/L (21-32) Anion Gap 5 (6-14) Blood Urea Nitrogen 18 mg/dL (7-20) Creatinine 0.8 mg/dL (0.6-1.0) Estimated GFR (Cockcroft-Gault) 85.1 Glucose Level 88 mg/dL (70-99) Calcium Level 8.6 mg/dL (8.5-10.1) Glucose (Fingerstick) 152 mg/dL (70-99) 112 mg/dL (70-99) 94 mg/dL (70-99) Test 11/30/20 06:24 11/30/20 07:33 Glucose (Fingerstick) 77 mg/dL (70-99) 74 mg/dL (70-99) Laboratory Tests Test 11/29/20 11:29 11/29/20 17:04 11/29/20 20:43 11/30/20 06:24 Glucose (Fingerstick) 152 mg/dL (70-99) 112 mg/dL (70-99) 94 mg/dL (70-99) 77 mg/dL (70-99) Test 11/30/20 07:33 Glucose (Fingerstick) 74 mg/dL (70-99) Microbiology 11/22/20 Blood Culture - Final, Complete NO GROWTH AFTER 5 DAYS Medications Current Medications Lorazepam (Ativan Inj) 2 mg 1X ONCE IVP Last administered on 11/22/20at 12:23; Start 11/22/20 at 11:15; Stop 11/22/20 at 11:16; Status DC Sodium Chloride 1,000 ml @ 1,000 mls/hr 1X ONCE IV Last administered on 11/22/20at 11:15; Start 11/22/20 at 11:15; Stop 11/22/20 at 12:14; Status DC Lorazepam (Ativan Inj) 2 mg STK-MED ONCE .ROUTE ; Start 11/22/20 at 11:12; Stop 11/22/20 at 11:12; Status DC Etomidate (Amidate) 20 mg STK-MED ONCE IV ; Start 11/22/20 at 11:17; Stop 11/22/20 at 11:17; Status DC Succinylcholine Chloride (Anectine) 200 mg STK-MED ONCE .ROUTE ; Start 11/22/20 at 11:17; Stop 11/22/20 at 11:18; Status DC Sodium Chloride 1,000 ml @ 1,000 mls/hr 1X ONCE IV Last administered on 11/22/20at 11:30; Start 11/22/20 at 11:30; Stop 11/22/20 at 12:29; Status DC Levetiracetam 1000 mg/Dextrose 110 ml @ 440 mls/hr 1X ONCE IV Last administered on 11/22/20at 11:45; Start 11/22/20 at 11:45; Stop 11/22/20 at 11:59; Status DC Midazolam HCl 100 ml @ 1 mls/hr CONT PRN IV SEE I/O RECORD Last administered on 11/23/20at 09:11; Start 11/22/20 at 12:00; Stop 11/27/20 at 11:56; Status DC Valproic Acid 750 mg/Dextrose 57.5 ml @ 55 mls/hr 1X STAT IV Last admini stered on 11/22/20at 15:24; Start 11/22/20 at 15:24; Stop 11/22/20 at 16:26; Status DC Valproic Acid 750 mg/Dextrose 57.5 ml @ 55 mls/hr Q12HR IV Last administered on 11/29/20at 10:20; Start 11/22/20 at 21:00; Stop 11/29/20 at 14:49; Status DC Levetiracetam 1000 mg/Dextrose 110 ml @ 440 mls/hr Q12HR IV Last administered on 11/26/20at 21:01; Start 11/22/20 at 21:00; Stop 11/26/20 at 23:44; Status DC Sodium Chloride 1,000 ml @ 125 mls/hr 1X ONCE IV Last administered on 11/22/20at 15:30; Start 11/22/20 at 15:30; Stop 11/22/20 at 23:29; Status DC Magnesium Sulfate 50 ml @ 25 mls/hr 1X ONCE IV Last administered on 11/22/20at 16:42; Start 11/22/20 at 16:30; Stop 11/22/20 at 18:29; Status DC Piperacillin Sod/ Tazobactam Sod (Zosyn Per Pharmacy) 1 each PRN DAILY PRN MC SEE COMMENTS; Start 11/22/20 at 15:45; Status Cancel Piperacillin Sod/ Tazobactam Sod 3.375 gm/Sodium Chloride 50 ml @ 100 mls/hr Q6HRS IV Last administered on 11/28/20at 18:06; Start 11/22/20 at 17:00; Stop 11/28/20 at 20:00; Status DC Methylprednisolone Sodium Succinate (SOLU-Medrol 125MG VIAL) 125 mg 1X ONCE IV ; Start 11/22/20 at 18:30; Stop 11/22/20 at 18:35; Status DC Methylprednisolone Sodium Succinate (SOLU-Medrol 40MG VIAL) 40 mg Q12HR IV Last administered on 11/27/20at 21:15; Start 11/23/20 at 09:00; Stop 11/27/20 at 21:00; Status DC Pantoprazole Sodium (PROTONIX VIAL for IV PUSH) 40 mg DAILYAC IVP Last administered on 11/29/20at 08:16; Start 11/23/20 at 07:30 Pantoprazole Sodium (PROTONIX VIAL for IV PUSH) 40 mg 1X ONCE IVP ; Start 11/22/20 at 18:30; Stop 11/22/20 at 18:35; Status DC Insulin Human Lispro (HumaLOG) 0-7 UNITS Q6HRS SQ Last administered on 11/29/20at 12:55; Start 11/23/20 at 00:00 Dextrose (Dextrose 50%-Water Syringe) 12.5 gm PRN Q15MIN PRN IV SEE COMMENTS; Start 11/22/20 at 18:30 Norepinephrine Bitartrate 8 mg/ Dextrose 258 ml @ 17.996 mls/ hr CONT PRN IV PER PROTOCOL; Start 11/22/20 at 20:15; Stop 11/27/20 at 11:56; Status DC Info (FLU VACCINE SCREEN per RX) 1 each 1X ONCE MC ; Start 11/22/20 at 23:00; Stop 11/22/20 at 23:01; Status Cancel Pharmacy Consult (C.diff Med Screen By Rx) 1 each 1X ONCE MC ; Start 11/22/20 at 23:00; Stop 11/22/20 at 23:01; Status DC Info (FLU VACCINE SCREEN per RX) 1 each PRN DAILY PRN MC SEE COMMENTS; Start 11/22/20 at 23:15 Potassium Chloride/Water 100 ml @ 100 mls/hr 1X ONCE IV Last administered on 11/23/20at 09:11; Start 11/23/20 at 08:00; Stop 11/23/20 at 08:59; Status DC Sodium Chloride 1,000 ml @ 75 mls/hr [id number] IV Last administered on 11/24/20at 17:10; Start 11/24/20 at 10:00; Stop 11/25/20 at 11:13; Status DC Furosemide (Lasix) 20 mg 1X ONCE IVP Last administered on 11/25/20at 13:28; St art 11/25/20 at 13:00; Stop 11/25/20 at 13:03; Status DC Potassium Chloride (Klor-Con) 20 meq [id number] PO Last administered on 11/26/20at 09:51; Start 11/26/20 at 09:15; Stop 11/26/20 at 10:12; Status DC Potassium Bicarbonate (Potassium Effervescent Tablet) 20 meq BIDWMEALS PO Last administered on 11/27/20at 09:35; Start 11/26/20 at 11:00; Stop 11/28/20 at 09:06; Status DC Levetiracetam 750 mg/Dextrose 107.5 ml @ 420 mls/hr Q12HR IV Last administered on 11/29/20at 09:29; Start 11/27/20 at 21:00; Stop 11/29/20 at 14:48; Status DC Methylprednisolone Sodium Succinate (SOLU-Medrol 40MG VIAL) 40 mg DAILY IV Last administered on 11/29/20at 08:16; Start 11/28/20 at 09:00 Dextrose/Sodium Chloride 1,000 ml @ 75 mls/hr [id number] IV Last administered on 11/29/20at 20:05; Start 11/27/20 at 14:45 Potassium Chloride/Water 100 ml @ 100 mls/hr 1X ONCE IV ; Start 11/28/20 at 09:15; Stop 11/28/20 at 10:14; Status UNV Potassium Chloride/Water 100 ml @ 100 mls/hr Q1H IV Last administered on 11/28/20at 12:34; Start 11/28/20 at 10:00; Stop 11/28/20 at 11:59; Status DC Hydralazine HCl (Apresoline Inj) 10 mg PRN Q4HRS PRN IVP ELEVATED BP, SEE COMMENTS; Start 11/28/20 at 12:30 Methylprednisolone Acetate (DEPO-Medrol 40MG VIAL) 40 mg 1X ONCE IM ; Start 11/29/20 at 09:30; Stop 11/29/20 at 09:31; Status Cancel Methylprednisolone Acetate (DEPO-Medrol 40MG VIAL) 40 mg 1X ONCE INJ Last administered on 11/29/20at 10:00; Start 11/29/20 at 09:30; Stop 11/29/20 at 09:38; Status DC Bupivacaine HCl (Sensorcaine-Mpf 0.25%) 10 ml 1X ONCE IJ Last administered on 11/29/20at 10:00; Start 11/29/20 at 09:30; Stop 11/29/20 at 09:38; Status DC Ferrous Sulfate (Feosol) 325 mg DAILYWBKFT PO ; Start 11/29/20 at 10:00 Methylprednisolone Acetate (DEPO-Medrol 80MG VIAL) 80 mg 1X ONCE IM Last administered on 11/29/20at 10:00; Start 11/29/20 at 09:45; Stop 11/29/20 at 09:46; Status DC Levetiracetam (Keppra Oral Soln) 750 mg BID PO Last administered on 11/29/20at 20:39; Start 11/29/20 at 21:00 Valproic Acid (Depakene) 750 mg BID PO Last administered on 11/29/20at 20:38; Start 11/29/20 at 21:00 Acetaminophen/ Hydrocodone Bitart (Lortab 5/325) 1 tab PRN Q6HRS PRN PO PAIN Last administered on 11/29/20at 15:21; Start 11/29/20 at 15:00 Potassium Chloride/Water 100 ml @ 100 mls/hr Q1H IV Last administered on 11/29/20at 18:24; Start 11/29/20 at 15:30; Stop 11/29/20 at 19:29; Status DC Active Scripts Active Prednisone (Prednisone) 10 Mg Tablet 5 Mg PO DAILY 5 Days Valproic Acid (Valproic Acid (As Sodium Salt)) 250 Mg/5 Ml Solution 500 Mg PO BID 30 Days Keppra (Levetiracetam) 500 Mg Tablet 1,000 Mg PO BID 30 Days Reported Lansoprazole 30 Mg Capsule.dr 1 Cap PO DAILY Diclofenac Sodium 100 Gm Gel..gram. 4 Gm TP QID Proair Hfa (Albuterol Sulfate) 8.5 Gm Hfa.aer.ad 2 Puff IH PRN Q4HRS PRN 21 Days Keppra (Levetiracetam) 250 Mg Tablet 1 Tab PO BID 30 Days Furosemide 40 Mg Tablet 1 Tab PO DAILY Aspirin Ec (Aspirin) 81 Mg Tablet.dr 1 Tab PO DAILY Breo Ellipta 100-25 Mcg Inh (Fluticasone/Vilanterol) 1 Each Aer.pow.ba 1 Puff IH DAILY Folic Acid 1 Mg Tablet 400 Mcg PO BID Vitamin B-12 (Cyanocobalamin (Vitamin B-12)) 1,000 Mcg Tablet 500 Mcg PO BID Trihexyphenidyl Hcl 2 Mg Tablet 2 Mg PO HS Divalproex Sodium 500 Mg Tablet.dr 250 Mg PO DAILY Lipitor (Atorvastatin Calcium) 80 Mg Tablet 80 Mg PO HS Duoneb 0.5 Mg-3 Mg/3 Ml Soln (Ipratropium/Albuterol Sulfate) 3 Ml Ampul.neb 3 Ml IH TID Miralax (Polyethylene Glycol 3350) 17 Gm Powd.pack 17 Gm PO DAILY Invega (Paliperidone) 6 Mg Tab.er.24 6 Mg PO HS Carvedilol (Carvedilol) 12.5 Mg Tablet 12.5 Mg PO BID Hydralazine Hcl 50 Mg Tablet 50 Mg PO BID Clonidine Tts-3 (Clonidine) 1 Each Patch.tdwk 1 Each TD WEEKLY Klor-Con M20 (Potassium Chloride) 20 Meq Tab.er.prt 20 Meq PO BID Divalproex Sodium 500 Mg Tablet.dr 500 Mg PO HS Amlodipine Besylate 10 Mg Tablet 10 Mg PO DAILY Vitamin D3 1,000 Unit Tablet (Ca Cmb No.1/Vit D3/B-6/Fa/B12) 1 Each Tablet 1 Each PO DAILY Flonase (Fluticasone Propionate) 16 Gm [place].susp 1 Spr NS BID Vitals/I & O Vital Sign - Last 24 Hours 11/29/20 11/29/20 11/29/20 11/29/20 11:00 15:00 15:21 17:33 Temp 98.5 99.2 98.5 99.2 Pulse 80 85 Resp 18 18 B/P (MAP) 143/98 (113) 134/82 (99) Pulse Ox 93 90 O2 Delivery Room Air Room Air Room Air Room Air O2 Flow Rate 2.0 11/29/20 11/29/20 11/29/20 11/30/20 19:36 20:00 23:25 03:27 Temp 99.0 99.2 99.4 99.0 99.2 99.4 Pulse 92 90 94 Resp 16 16 16 B/P (MAP) 132/83 (99) 142/82 (102) 145/86 (105) Pulse Ox 90 91 92 O2 Delivery Room Air Room Air Room Air 11/30/20 07:00 Temp 98.7 98.7 Pulse 83 Resp 18 B/P (MAP) 149/77 (101) Pulse Ox 96 O2 Delivery Nasal Cannula O2 Flow Rate 4.0 Intake and Output 11/29/20 11/29/20 11/30/20 15:00 23:00 07:00 Intake Total 120 ml 240 ml 30 ml Balance 120 ml 240 ml 30 ml Justifications for Admission Other Justification HAI MARADIAGA MD Nov 30, 2020 09:15
--- NOTE | 2020-11-30 09:25 | PDOC ---
PROGRESS NOTES Date of Service: DATE: 11/30/20 TIME: 09:25 Subjective Subjective pt is doing well, Objective Objective Vital Signs Date Time Temp Pulse Resp B/P (MAP) Pulse Ox O2 Delivery O2 Flow Rate FiO2 11/30/20 07:00 98.7 83 18 149/77 (101) 96 Nasal Cannula 4.0 98.7 Intake and Output 11/30/20 07:00 Intake Total 390 ml Balance 390 ml Intake Oral 390 ml # Voids 4 Physical Exam Abdomen: Soft Heart: Regular rate, Normal S1, Normal S2 Extremities: Other (no edema ) General: Other (intubated ) HEENT: Atraumatic Lungs: Normal air movement Neck: No JVD Neuro: Other (vent, unresponsive) Psych/Mental Status: Mood NL, Other Skin: No significant lesion COMMENT d/tanja pérez Diagnosis Problem List Problems Medical Problems: (1) Acute respiratory failure with hypoxia Status: Acute (2) Sinus bradycardia Status: Acute (3) Status epilepticus Status: Acute Assessment Assessment Problems Medical Problems: (1) Acute respiratory failure with hypoxia Status: Acute (2) Sinus bradycardia Status: Acute (3) Status epilepticus Status: Acute FINAL IMPRESSION:Hypothermia and hypotension resolved 1. Status epilepticus. 2. Respiratory failure requiring intubation on mechanical ventilator. 3. Schizophrenia. 4. Hyponatremia 5. Hypertension. 6. Hyperlipidemia. 7. Chronic schizophrenia. 8. Anemia of chronic disease. 9. Morbid obesity. 10.Low Platelets PLAN: SNU screen. changed to oral meds. po prednisone. Rehab consult dyaphagia diet, speech folllowing Extubated over the weekend. cxr improvement. lab s noted , pot 3.2 replace , platelets trending up 66,000 d/c iv antibiotics completed 7 days of antibiotics , c/s neg keppra+depokate iv keppra leves 70, dose decreased moved out of ICU For details please refer to the orders. Plan Plan of Care Problems Medical Problems: (1) Acute respiratory failure with hypoxia Status: Acute (2) Sinus bradycardia Status: Acute (3) Status epilepticus Status: Acute Comment Review of Relevant I have reviewed the following items melanie (where applicable) has been applied. Labs Laboratory Tests Test 11/29/20 11:29 11/29/20 17:04 11/29/20 20:43 11/30/20 06:24 Glucose (Fingerstick) 152 mg/dL (70-99) 112 mg/dL (70-99) 94 mg/dL (70-99) 77 mg/dL (70-99) Test 11/30/20 07:33 Glucose (Fingerstick) 74 mg/dL (70-99) Microbiology 11/22/20 Blood Culture - Final, Complete NO GROWTH AFTER 5 DAYS Medications Current Medications Acetaminophen/ Hydrocodone Bitart (Lortab 5/325) 1 tab PRN Q6HRS PRN PO PAIN Last administered on 11/29/20at 15:21; Start 11/29/20 at 15:00 Bupivacaine HCl (Sensorcaine-Mpf 0.25%) 10 ml 1X ONCE IJ Last administered on 11/29/20at 10:00; Start 11/29/20 at 09:30; Stop 11/29/20 at 09:38; Status DC Ferrous Sulfate (Feosol) 325 mg DAILYWBKFT PO ; Start 11/29/20 at 10:00 Levetiracetam (Keppra Oral Soln) 750 mg BID PO Last administered on 11/29/20at 20:39; Start 11/29/20 at 21:00 Methylprednisolone Acetate (DEPO-Medrol 40MG VIAL) 40 mg 1X ONCE IM ; Start 11/29/20 at 09:30; Stop 11/29/20 at 09:31; Status Cancel Methylprednisolone Acetate (DEPO-Medrol 40MG VIAL) 40 mg 1X ONCE INJ Last administered on 11/29/20at 10:00; Start 11/29/20 at 09:30; Stop 11/29/20 at 09:38; Status DC Methylprednisolone Acetate (DEPO-Medrol 80MG VIAL) 80 mg 1X ONCE IM Last administered on 11/29/20at 10:00; Start 11/29/20 at 09:45; Stop 11/29/20 at 09:46; Status DC Potassium Chloride/Water 100 ml @ 100 mls/hr Q1H IV Last administered on 11/29/20at 18:24; Start 11/29/20 at 15:30; Stop 11/29/20 at 19:29; Status DC Valproic Acid (Depakene) 750 mg BID PO Last administered on 11/29/20at 20:38; Start 11/29/20 at 21:00 Vitals/I & O Vital Sign - Last 24 Hours 11/29/20 11/29/20 11/29/20 11/29/20 11:00 15:00 15:21 17:33 Temp 98.5 99.2 98.5 99.2 Pulse 80 85 Resp 18 18 B/P (MAP) 143/98 (113) 134/82 (99) Pulse Ox 93 90 O2 Delivery Room Air Room Air Room Air Room Air O2 Flow Rate 2.0 11/29/20 11/29/20 11/29/20 11/30/20 19:36 20:00 23:25 03:27 Temp 99.0 99.2 99.4 99.0 99.2 99.4 Pulse 92 90 94 Resp 16 16 16 B/P (MAP) 132/83 (99) 142/82 (102) 145/86 (105) Pulse Ox 90 91 92 O2 Delivery Room Air Room Air Room Air 11/30/20 07:00 Temp 98.7 98.7 Pulse 83 Resp 18 B/P (MAP) 149/77 (101) Pulse Ox 96 O2 Delivery Nasal Cannula O2 Flow Rate 4.0 Intake and Output 11/29/20 11/29/20 11/30/20 15:00 23:00 07:00 Intake Total 120 ml 240 ml 30 ml Balance 120 ml 240 ml 30 ml Justifications for Admission Other Justification JOSE WILLINGHAM MD Nov 30, 2020 09:25
[2020-11-30] MEDS ORDERED: predniSONE 10 MG TABLET PO ONE (10:00)
[2020-11-30 11:00] VITALS: BP 132/74
[2020-11-30 11:06] LABS: BASO % 0 % (0-3); EOS # 0.1 x10^3/uL (0.0-0.7); EOS % 2 % (0-3); HEMATOCRIT 27.5 % (36.0-47.0); LYMPH # 1.8 x10^3/uL (1.0-4.8); LYMPH % 22 % (24-48); MEAN CORPUSCULAR HEMOGLOBIN 30 pg (25-35); MEAN CORPUSCULAR HGB CONC 33 g/dL (31-37); MEAN CORPUSCULAR VOLUME 93 fL (79-100); MONO # 0.7 x10^3/uL (0.0-1.1); MONO % 10 % (0-9); NEUT # 5.2 x10^3/uL (1.8-7.7); NEUT % 66 % (31-73); PLATELET COUNT 52 x10^3/uL (140-400); RED BLOOD COUNT 2.95 x10^6/uL (3.50-5.40); WHITE BLOOD COUNT 7.8 x10^3/uL (4.0-11.0)
--- NOTE | 2020-11-30 11:17 | NUR ---
SW following. Discussed with RN, insurance approved SNF placement, awaiting repeat COVID result. RN, pt's sister and Dr. Nino notified. JAVAD will continue to follow. Addendum: 11/30/20 at 1559 by BROOKS F[facility] LATE NOTE Pt's repeat COVID negative. Discharge orders for SNF. JAVAD arranged wheelchair transportation with [facility]. RN and [facility] notified. RN notifying pt's sister. No further SW needs.
[2020-11-30 11:23] LABS: CALCIUM 8.3 mg/dL (8.5-10.1); CREATININE 0.9 mg/dL (0.6-1.0); GFR 74.3; POTASSIUM 3.6 mmol/L (3.5-5.1)
--- NOTE | 2020-11-30 13:20 | PDOC ---
PROGRESS NOTES Date of Service DATE: 11/30/20 TIME: 13:17 Assessment Problems Medical Problems: (1) Acute respiratory failure with hypoxia Status: Acute (2) Sinus bradycardia Status: Acute (3) Status epilepticus Status: Acute Epilepsy, breakthrough seizures, had a subtherapeutic valproic acid level, levetiracetam level elevated Morning of 11/23 developed severe hypothermia and bradycardia At admission had hyponatremia, hyperkalemia, hypocalcemia, hypomagnesemia Respiratory failure, extubated on 11/25 History of schizophrenia and tardive dyskinesia Plan Increased Depakote dose Decreased levetiracetam dose Check levels tomorrow Subjective no complaints Objective Vital Signs Date Time Temp Pulse Resp B/P (MAP) Pulse Ox O2 Delivery O2 Flow Rate FiO2 11/30/20 08:10 Room Air 11/30/20 07:00 98.7 83 18 149/77 (101) 96 4.0 98.7 Intake and Output 11/30/20 07:00 Intake Total 390 ml Balance 390 ml Intake Oral 390 ml # Voids 4 PHYSICAL EXAM Alert, more conversational, does not know date or location PERRL. EOMI. right eye strabismus CN: no focal findings. Muscle tone: normal. Muscle strength: 3/5, weaker on left DTR: 1+ Plantar reflex: flexor Gait: not examined in bed. Sensory exam: no abnormal findings. No cerebellar signs elicited. Minimal oral dyskinesias. Review of Relevant I have reviewed the following items melanie (where applicable) has been applied. Labs Laboratory Tests Test 11/28/20 18:55 11/29/20 00:07 11/29/20 05:50 11/29/20 08:00 Glucose (Fingerstick) 102 mg/dL (70-99) 92 mg/dL (70-99) 96 mg/dL (70-99) White Blood Count 7.9 x10^3/uL (4.0-11.0) Red Blood Count 3.10 x10^6/uL (3.50-5.40) Hemoglobin 9.3 g/dL (12.0-15.5) Hematocrit 28.2 % (36.0-47.0) Mean Corpuscular Volume 91 fL (79-100) Mean Corpuscular Hemoglobin 30 pg (25-35) Mean Corpuscular Hemoglobin Concent 33 g/dL (31-37) Red Cell Distribution Width 18.4 % (11.5-14.5) Platelet Count 60 x10^3/uL (140-400) Neutrophils (%) (Auto) 64 % (31-73) Lymphocytes (%) (Auto) 24 % (24-48) Monocytes (%) (Auto) 11 % (0-9) Eosinophils (%) (Auto) 1 % (0-3) Basophils (%) (Auto) 0 % (0-3) Neutrophils # (Auto) 5.1 x10^3/uL (1.8-7.7) Lymphocytes # (Auto) 1.9 x10^3/uL (1.0-4.8) Monocytes # (Auto) 0.8 x10^3/uL (0.0-1.1) Eosinophils # (Auto) 0.1 x10^3/uL (0.0-0.7) Basophils # (Auto) 0.0 x10^3/uL (0.0-0.2) Sodium Level 140 mmol/L (136-145) Potassium Level 3.1 mmol/L (3.5-5.1) Chloride Level 101 mmol/L (98-107) Carbon Dioxide Level 34 mmol/L (21-32) Anion Gap 5 (6-14) Blood Urea Nitrogen 18 mg/dL (7-20) Creatinine 0.8 mg/dL (0.6-1.0) Estimated GFR (Cockcroft-Gault) 85.1 Glucose Level 88 mg/dL (70-99) Calcium Level 8.6 mg/dL (8.5-10.1) Test 11/29/20 11:29 11/29/20 17:04 11/29/20 20:43 11/30/20 06:24 Glucose (Fingerstick) 152 mg/dL (70-99) 112 mg/dL (70-99) 94 mg/dL (70-99) 77 mg/dL (70-99) Test 11/30/20 07:33 11/30/20 10:42 11/30/20 11:30 Glucose (Fingerstick) 74 mg/dL (70-99) 124 mg/dL (70-99) White Blood Count 7.8 x10^3/uL (4.0-11.0) Red Blood Count 2.95 x10^6/uL (3.50-5.40) Hemoglobin 9.0 g/dL (12.0-15.5) Hematocrit 27.5 % (36.0-47.0) Mean Corpuscular Volume 93 fL (79-100) Mean Corpuscular Hemoglobin 30 pg (25-35) Mean Corpuscular Hemoglobin Concent 33 g/dL (31-37) Red Cell Distribution Width 19.0 % (11.5-14.5) Platelet Count 52 x10^3/uL (140-400) Neutrophils (%) (Auto) 66 % (31-73) Lymphocytes (%) (Auto) 22 % (24-48) Monocytes (%) (Auto) 10 % (0-9) Eosinophils (%) (Auto) 2 % (0-3) Basophils (%) (Auto) 0 % (0-3) Neutrophils # (Auto) 5.2 x10^3/uL (1.8-7.7) Lymphocytes # (Auto) 1.8 x10^3/uL (1.0-4.8) Monocytes # (Auto) 0.7 x10^3/uL (0.0-1.1) Eosinophils # (Auto) 0.1 x10^3/uL (0.0-0.7) Basophils # (Auto) 0.0 x10^3/uL (0.0-0.2) Sodium Level 141 mmol/L (136-145) Potassium Level 3.6 mmol/L (3.5-5.1) Chloride Level 102 mmol/L (98-107) Carbon Dioxide Level 34 mmol/L (21-32) Anion Gap 5 (6-14) Blood Urea Nitrogen 15 mg/dL (7-20) Creatinine 0.9 mg/dL (0.6-1.0) Estimated GFR (Cockcroft-Gault) 74.3 Glucose Level 112 mg/dL (70-99) Calcium Level 8.3 mg/dL (8.5-10.1) Laboratory Tests Test 11/29/20 17:04 11/29/20 20:43 11/30/20 06:24 11/30/20 07:33 Glucose (Fingerstick) 112 mg/dL (70-99) 94 mg/dL (70-99) 77 mg/dL (70-99) 74 mg/dL (70-99) Test 11/30/20 10:42 11/30/20 11:30 White Blood Count 7.8 x10^3/uL (4.0-11.0) Red Blood Count 2.95 x10^6/uL (3.50-5.40) Hemoglobin 9.0 g/dL (12.0-15.5) Hematocrit 27.5 % (36.0-47.0) Mean Corpuscular Volume 93 fL (79-100) Mean Corpuscular Hemoglobin 30 pg (25-35) Mean Corpuscular Hemoglobin Concent 33 g/dL (31-37) Red Cell Distribution Width 19.0 % (11.5-14.5) Platelet Count 52 x10^3/uL (140-400) Neutrophils (%) (Auto) 66 % (31-73) Lymphocytes (%) (Auto) 22 % (24-48) Monocytes (%) (Auto) 10 % (0-9) Eosinophils (%) (Auto) 2 % (0-3) Basophils (%) (Auto) 0 % (0-3) Neutrophils # (Auto) 5.2 x10^3/uL (1.8-7.7) Lymphocytes # (Auto) 1.8 x10^3/uL (1.0-4.8) Monocytes # (Auto) 0.7 x10^3/uL (0.0-1.1) Eosinophils # (Auto) 0.1 x10^3/uL (0.0-0.7) Basophils # (Auto) 0.0 x10^3/uL (0.0-0.2) Sodium Level 141 mmol/L (136-145) Potassium Level 3.6 mmol/L (3.5-5.1) Chloride Level 102 mmol/L (98-107) Carbon Dioxide Level 34 mmol/L (21-32) Anion Gap 5 (6-14) Blood Urea Nitrogen 15 mg/dL (7-20) Creatinine 0.9 mg/dL (0.6-1.0) Estimated GFR (Cockcroft-Gault) 74.3 Glucose Level 112 mg/dL (70-99) Calcium Level 8.3 mg/dL (8.5-10.1) Glucose (Fingerstick) 124 mg/dL (70-99) Microbiology 11/22/20 Blood Culture - Final, Complete NO GROWTH AFTER 5 DAYS Medications Current Medications Lorazepam (Ativan Inj) 2 mg 1X ONCE IVP Last administered on 11/22/20at 12:23; Start 11/22/20 at 11:15; Stop 11/22/20 at 11:16; Status DC Sodium Chloride 1,000 ml @ 1,000 mls/hr 1X ONCE IV Last administered on 11/22/20at 11:15; Start 11/22/20 at 11:15; Stop 11/22/20 at 12:14; Status DC Lorazepam (Ativan Inj) 2 mg STK-MED ONCE .ROUTE ; Start 11/22/20 at 11:12; Stop 11/22/20 at 11:12; Status DC Etomidate (Amidate) 20 mg STK-MED ONCE IV ; Start 11/22/20 at 11:17; Stop 11/22/20 at 11:17; Status DC Succinylcholine Chloride (Anectine) 200 mg STK-MED ONCE .ROUTE ; Start 11/22/20 at 11:17; Stop 11/22/20 at 11:18; Status DC Sodium Chloride 1,000 ml @ 1,000 mls/hr 1X ONCE IV Last administered on 11/22/20at 11:30; Start 11/22/20 at 11:30; Stop 11/22/20 at 12:29; Status DC Levetiracetam 1000 mg/Dextrose 110 ml @ 440 mls/hr 1X ONCE IV Last administered on 11/22/20at 11:45; Start 11/22/20 at 11:45; Stop 11/22/20 at 11:59; Status DC Midazolam HCl 100 ml @ 1 mls/hr CONT PRN IV SEE I/O RECORD Last administered on 11/23/20at 09:11; Start 11/22/20 at 12:00; Stop 11/27/20 at 11:56; Status DC Valproic Acid 750 mg/Dextrose 57.5 ml @ 55 mls/hr 1X STAT IV Last administered on 11/22/20at 15:24; Start 11/22/20 at 15:24; Stop 11/22/20 at 16:26; Status DC Valproic Acid 750 mg/Dextrose 57.5 ml @ 55 mls/hr Q12HR IV Last administered on 11/29/20at 10:20; Start 11/22/20 at 21:00; Stop 11/29/20 at 14:49; Status DC Levetiracetam 1000 mg/Dextrose 110 ml @ 440 mls/hr Q12HR IV Last administered on 11/26/20at 21:01; Start 11/22/20 at 21:00; Stop 11/26/20 at 23:44; Status DC Sodium Chloride 1,000 ml @ 125 mls/hr 1X ONCE IV Last administered on 11/22/20at 15:30; Start 11/22/20 at 15:30; Stop 11/22/20 at 23:29; Status DC Magnesium Sulfate 50 ml @ 25 mls/hr 1X ONCE IV Last administered on 11/22/20at 16:42; Start 11/22/20 at 16:30; Stop 11/22/20 at 18:29; Status DC Piperacillin Sod/ Tazobactam Sod (Zosyn Per Pharmacy) 1 each PRN DAILY PRN MC SEE COMMENTS; Start 11/22/20 at 15:45; Status Cancel Piperacillin Sod/ Tazobactam Sod 3.375 gm/Sodium Chloride 50 ml @ 100 mls/hr Q6HRS IV Last administered on 11/28/20at 18:06; Start 11/22/20 at 17:00; Stop 11/28/20 at 20:00; Status DC Methylprednisolone Sodium Succinate (SOLU-Medrol 125MG VIAL) 125 mg 1X ONCE IV ; Start 11/22/20 at 18:30; Stop 11/22/20 at 18:35; Status DC Methylprednisolone Sodium Succinate (SOLU-Medrol 40MG VIAL) 40 mg Q12HR IV Last administered on 11/27/20at 21:15; Start 11/23/20 at 09:00; Stop 11/27/20 at 21:00; Status DC Pantoprazole Sodium (PROTONIX VIAL for IV PUSH) 40 mg DAILYAC IVP Last administered on 11/29/20at 08:16; Start 11/23/20 at 07:30 Pantoprazole Sodium (PROTONIX VIAL for IV PUSH) 40 mg 1X ONCE IVP ; Start 11/22/20 at 18:30; Stop 11/22/20 at 18:35; Status DC Insulin Human Lispro (HumaLOG) 0-7 UNITS Q6HRS SQ Last administered on 11/29/20at 12:55; Start 11/23/20 at 00:00 Dextrose (Dextrose 50%-Water Syringe) 12.5 gm PRN Q15MIN PRN IV SEE COMMENTS; Start 11/22/20 at 18:30 Norepinephrine Bitartrate 8 mg/ Dextrose 258 ml @ 17.996 mls/ hr CONT PRN IV PER PROTOCOL; Start 11/22/20 at 20:15; Stop 11/27/20 at 11:56; Status DC Info (FLU VACCINE SCREEN per RX) 1 each 1X ONCE MC ; Start 11/22/20 at 23:00; Stop 11/22/20 at 23:01; Status Cancel Pharmacy Consult (C.diff Med Screen By Rx) 1 each 1X ONCE MC ; Start 11/22/20 at 23:00; Stop 11/22/20 at 23:01; Status DC Info (FLU VACCINE SCREEN per RX) 1 each PRN DAILY PRN MC SEE COMMENTS; Start 11/22/20 at 23:15 Potassium Chloride/Water 100 ml @ 100 mls/hr 1X ONCE IV Last administered on 11/23/20at 09:11; Start 11/23/20 at 08:00; Stop 11/23/20 at 08:59; Status DC Sodium Chloride 1,000 ml @ 75 mls/hr [id number] IV Last administered on 11/24/20at 17:10; Start 11/24/20 at 10:00; Stop 11/25/20 at 11:13; Status DC Furosemide (Lasix) 20 mg 1X ONCE IVP Last administered on 11/25/20at 13:28; Start 11/25/20 at 13:00; Stop 11/25/20 at 13:03; Status DC Potassium Chloride (Klor-Con) 20 meq [id number] PO Last administered on 11/26/20at 09:51; Start 11/26/20 at 09:15; Stop 11/26/20 at 10:12; Status DC Potassium Bicarbonate (Potassium Effervescent Tablet) 20 meq BIDWMEALS PO Last administered on 11/27/20at 09:35; Start 11/26/20 at 11:00; Stop 11/28/20 at 09:06; Status DC Levetiracetam 750 mg/Dextrose 107.5 ml @ 420 mls/hr Q12HR IV Last administered on 11/29/20at 09:29; Start 11/27/20 at 21:00; Stop 11/29/20 at 14:48; Status DC Methylprednisolone Sodium Succinate (SOLU-Medrol 40MG VIAL) 40 mg DAILY IV Last administered on 11/29/20at 08:16; Start 11/28/20 at 09:00; Stop 11/30/20 at 09:32; Status DC Dextrose/Sodium Chloride 1,000 ml @ 75 mls/hr [id number] IV Last administered on 11/29/20at 20:05; Start 11/27/20 at 14:45; Stop 11/30/20 at 09:26; Status DC Potassium Chloride/Water 100 ml @ 100 mls/hr 1X ONCE IV ; Start 11/28/20 at 09:15; Stop 11/28/20 at 10:14; Status UNV Potassium Chloride/Water 100 ml @ 100 mls/hr Q1H IV Last administered on 11/28/20at 12:34; Start 11/28/20 at 10:00; Stop 11/28/20 at 11:59; Status DC Hydralazine HCl (Apresoline Inj) 10 mg PRN Q4HRS PRN IVP ELEVATED BP, SEE COMMENTS; Start 11/28/20 at 12:30 Methylprednisolone Acetate (DEPO-Medrol 40MG VIAL) 40 mg 1X ONCE IM ; Start 11/29/20 at 09:30; Stop 11/29/20 at 09:31; Status Cancel Methylprednisolone Acetate (DEPO-Medrol 40MG VIAL) 40 mg 1X ONCE INJ Last administered on 11/29/20at 10:00; Start 11/29/20 at 09:30; Stop 11/30/20 at 09:26; Status DC Bupivacaine HCl (Sensorcaine-Mpf 0.25%) 10 ml 1X ONCE IJ Last administered on 11/29/20at 10:00; Start 11/29/20 at 09:30; Stop 11/29/20 at 09:38; Status DC Ferrous Sulfate (Feosol) 325 mg [id number] PO Last administered on 11/30/20at 09:13; Start 11/29/20 at 10:00 Methylprednisolone Acetate (DEPO-Medrol 80MG VIAL) 80 mg 1X ONCE IM ; Start 11/29/20 at 09:45; Stop 11/29/20 at 09:46; Status Cancel Levetiracetam (Keppra Oral Soln) 750 mg BID PO Last administered on 11/30/20at 09:14; Start 11/29/20 at 21:00 Valproic Acid (Depakene) 750 mg BID PO Last administered on 11/30/20at 09:12; Start 11/29/20 at 21:00 Acetaminophen/ Hydrocodone Bitart (Lortab 5/325) 1 tab PRN Q6HRS PRN PO PAIN Last administered on 11/29/20at 15:21; Start 11/29/20 at 15:00 Potassium Chloride/Water 100 ml @ 100 mls/hr Q1H IV Last administered on 11/29/20at 18:24; Start 11/29/20 at 15:30; Stop 11/29/20 at 19:29; Status DC Prednisone (Prednisone) 30 mg 1X ONCE PO Last administered on 11/30/20at 12:40; Start 11/30/20 at 10:00; Stop 11/30/20 at 10:01; Status DC Prednisone (Prednisone) 20 mg DAILY PO ; Start 12/01/20 at 09:00 Active Scripts Active Prednisone (Prednisone) 10 Mg Tablet 5 Mg PO DAILY 5 Days Valproic Acid (Valproic Acid (As Sodium Salt)) 250 Mg/5 Ml Solution 500 Mg PO BID 30 Days Keppra (Levetiracetam) 500 Mg Tablet 1,000 Mg PO BID 30 Days Reported Lansoprazole 30 Mg Capsule.dr 1 Cap PO DAILY Diclofenac Sodium 100 Gm Gel..gram. 4 Gm TP QID Proair Hfa (Albuterol Sulfate) 8.5 Gm Hfa.aer.ad 2 Puff IH PRN Q4HRS PRN 21 Days Keppra (Levetiracetam) 250 Mg Tablet 1 Tab PO BID 30 Days Furosemide 40 Mg Tablet 1 Tab PO DAILY Aspirin Ec (Aspirin) 81 Mg Tablet. 1 Tab PO DAILY Breo Ellipta 100-25 Mcg Inh (Fluticasone/Vilanterol) 1 Each Aer.pow.ba 1 Puff IH DAILY Folic Acid 1 Mg Tablet 400 Mcg PO BID Vitamin B-12 (Cyanocobalamin (Vitamin B-12)) 1,000 Mcg Tablet 500 Mcg PO BID Trihexyphenidyl Hcl 2 Mg Tablet 2 Mg PO HS Divalproex Sodium 500 Mg Tablet.dr 250 Mg PO DAILY Lipitor (Atorvastatin Calcium) 80 Mg Tablet 80 Mg PO HS Duoneb 0.5 Mg-3 Mg/3 Ml Soln (Ipratropium/Albuterol Sulfate) 3 Ml Ampul.neb 3 Ml IH TID Miralax (Polyethylene Glycol 3350) 17 Gm Powd.pack 17 Gm PO DAILY Invega (Paliperidone) 6 Mg Tab.er.24 6 Mg PO HS Carvedilol (Carvedilol) 12.5 Mg Tablet 12.5 Mg PO BID Hydralazine Hcl 50 Mg Tablet 50 Mg PO BID Clonidine Tts-3 (Clonidine) 1 Each Patch.tdwk 1 Each TD WEEKLY Klor-Con M20 (Potassium Chloride) 20 Meq Tab.er.prt 20 Meq PO BID Divalproex Sodium 500 Mg Tablet.dr 500 Mg PO HS Amlodipine Besylate 10 Mg Tablet 10 Mg PO DAILY Vitamin D3 1,000 Unit Tablet (Ca Cmb No.1/Vit D3/B-6/Fa/B12) 1 Each Tablet 1 Each PO DAILY Flonase (Fluticasone Propionate) 16 Gm [place].susp 1 Spr NS BID Vitals/I & O Vital Sign - Last 24 Hours 11/29/20 11/29/20 11/29/20 11/29/20 15:00 15:21 17:33 19:36 Temp 99.2 99.0 99.2 99.0 Pulse 85 92 Resp 18 16 B/P (MAP) 134/82 (99) 132/83 (99) Pulse Ox 90 90 O2 Delivery Room Air Room Air Room Air Room Air O2 Flow Rate 2.0 11/29/20 11/29/20 11/30/20 11/30/20 20:00 23:25 03:27 07:00 Temp 99.2 99.4 98.7 99.2 99.4 98.7 Pulse 90 94 83 Resp 16 16 18 B/P (MAP) 142/82 (102) 145/86 (105) 149/77 (101) Pulse Ox 91 92 96 O2 Delivery Room Air Room Air Nasal Cannula O2 Flow Rate 4.0 11/30/20 08:10 O2 Delivery Room Air Intake and Output 9/29/21 9/29/21 9/30/21 15:00 23:00 07:00 Intake Total 120 ml 240 ml 30 ml Balance 120 ml 240 ml 30 ml Justicifation of Admission Dx: Justifications for Admission: Justification of Admission Dx: Yes KRISTINE GLEZ MD Nov 30, 2020 13:20
[2020-11-30] MEDS ORDERED: PRED20TA PO (13:39)
--- NOTE | 2020-11-30 13:41 | SNU/HH DC ---
DISCHARGE ORDERS DISCHARGE INFORMATION: DISCHARGE DATE: Nov 30, 2020 FINAL DIAGNOSIS Problems Medical Problems: (1) Acute respiratory failure with hypoxia Status: Acute (2) Sinus bradycardia Status: Acute (3) Status epilepticus Status: Acute CONDITION ON DISCHARGE: Stable CODE STATUS: Code Status: Full [facility]ENIOR LIVING: SNF STAY <30 DAYS: Yes HOSPICE: HOSPICE: No HOSPICE EVAL & TREAT: No LTAC: ADMIT TO LTAC: No POST DISCHARGE ORDERS: ACTIVITY ORDERS: Activity as tolerated WEIGHT BEARING STATUS: As tolerated DIET AFTER DISCHARGE: purred diet FOLLOW-UP: LAB ORDERS FOR FOLLOW-UP: cbc ,cmp weekly, TREATMENT/EQUIPMENT ORDERS: ADAPTIVE EQUIPMENT NEEDED: Wheelchair RESPIRATORY EQUIPMENT NEEDED: Oxygen (2L nasal canula) Physical Therapy For: Evalulation/Treatment Occupational Therapy For: Evaluation/Treatment Speech Language Pathology For: Evaluation/Treatment DISCHARGE MEDICATIONS: Home Meds Active Scripts Prednisone (PREDNISONE) 20 Mg Tablet, 20 MG PO DAILY for lungs for 3 Days, #3 TA B Prov:JOSE WILLINGHAM MD 11/30/20 Prednisone (PREDNISONE ) 10 Mg Tablet, 5 MG PO DAILY for stress for 5 Days, #3 TAB Prov:JOSE WILLINGHAM MD 10/26/20 Valproic Acid (As Sodium Salt) (Valproic Acid) 250 Mg/5 Ml Solution, 500 MG PO BID for seizures for 30 Days, MISC Prov:JOSE WILLINGHAM MD 10/26/20 Levetiracetam (KEPPRA) 500 Mg Tablet, 1000 MG PO BID for seizures for 30 Days, #120 TAB Prov:JOSE WILLINGHAM MD 10/26/20 Reported Medications Lansoprazole (LANSOPRAZOLE) 30 Mg Capsule.dr, 1 CAP PO DAILY for gerd 11/22/20 Diclofenac Sodium (Diclofenac Sodium) 100 Gm Gel..gram., 4 GM TP QID for knee pain 11/22/20 Albuterol Sulfate (Proair Hfa) 8.5 Gm Hfa.aer.ad, 2 PUFF IH PRN Q4HRS PRN for wheezing for 21 Days, #1 INHALER 0 Refills 10/10/20 Furosemide (FUROSEMIDE) 40 Mg Tablet, 1 TAB PO DAILY for CHF, #30 TAB 5 Refills 10/10/20 Aspirin (ASPIRIN EC) 81 Mg Tablet.dr, 1 TAB PO DAILY for Prophylaxis, #30 TAB 3 Refills 10/10/20 Fluticasone/Vilanterol (BREO ELLIPTA 100-25 MCG INH) 1 Each Aer.pow.ba, 1 PUFF IH DAILY, INHALER 07/23/16 Folic Acid (FOLIC ACID) 1 Mg Tablet, 400 MCG PO BID, TAB 07/23/16 Cyanocobalamin (Vitamin B-12) (VITAMIN B-12) 1,000 Mcg Tablet, 500 MCG PO BID, TAB 07/23/16 Trihexyphenidyl Hcl (TRIHEXYPHENIDYL HCL) 2 Mg Tablet, 2 MG PO HS, TAB 07/23/16 Divalproex Sodium (DIVALPROEX SODIUM) 500 Mg Tablet.dr, 250 MG PO DAILY, TAB 07/23/16 Atorvastatin Calcium (LIPITOR) 80 Mg Tablet, 80 MG PO HS for FOR CHOLESTEROL, #30 TAB 0 Refills 12/21/13 Ipratropium/Albuterol Sulfate (DUONEB 0.5 MG-3 MG/3 ML SOLN) 3 Ml Ampul.neb, 3 ML IH TID for COPD 04/28/13 Polyethylene Glycol 3350 (MIRALAX) 17 Gm Powd.pack, 17 GM PO DAILY 04/28/13 Paliperidone (INVEGA) 6 Mg Tab.er.24, 6 MG PO HS for SCHIZOPHRENIA 04/28/13 Carvedilol (CARVEDILOL ) 12.5 Mg Tablet, 12.5 MG PO BID 04/28/13 Hydralazine Hcl (HYDRALAZINE HCL) 50 Mg Tablet, 50 MG PO BID 04/28/13 Clonidine (CLONIDINE TTS-3 ) 1 Each Patch.tdwk, 1 EACH TD WEEKLY, PATCH 04/28/13 Potassium Chloride (KLOR-CON M20) 20 Meq Tab.er.prt, 20 MEQ PO BID 04/28/13 Divalproex Sodium (DIVALPROEX SODIUM) 500 Mg Tablet.dr, 500 MG PO HS 04/28/13 Amlodipine Besylate (AMLODIPINE BESYLATE) 10 Mg Tablet, 10 MG PO DAILY 04/28/13 Ca Cmb No.1/Vit D3/B-6/Fa/B12 (VITAMIN D3 1,000 UNIT TABLET) 1 Each Tablet, 1 EACH PO DAILY 04/28/13 Fluticasone Propionate (FLONASE) 16 Gm [place].susp, 1 SPR NS BID 04/28/13 Discontinued Reported Medications Levetiracetam (KEPPRA) 250 Mg Tablet, 1 TAB PO BID for SEIZURES for 30 Days, #60 TAB 0 Refills 10/10/20 JOSE WILLINGHAM MD Nov 30, 2020 13:41
[2020-11-30 15:00] VITALS: BP 134/73
--- NOTE | 2020-11-30 15:45 | NUR ---
Wound/Ostomy Care Wound Type/Assessment: Patient seen per wound care follow up, see wound assessment. Patient has a stage III pressure ulcer to sacrum/coccyx areas. Wound with yellow slough, but also has some granulation and epithelization present, no odor or fluctuance noted. Wound cleansed, measured and photographed for d/c to [facility] at this time. Treatment Recommendations/Plan: Recommendations for honey alginate to wound bed and cover with foam dressing, change every 3 days and prn when soiled. Nystatin powder to yeasty, reddened pannus folds. Education provided: to pt re: POC Offloading surface/device: wedge and pillows for offloading Recommended Referrals/Tests: N/A Discharge Recommendations for dressings: see treatment plan above. Soiled brief changed, transport at bedside to tranfer to [facility].
--- NOTE | 2020-11-30 16:30 | NUR ---
Discharge Note: Patient was discharged to [facility] for rehab. Patient and family agreeable with discharge plans. Patients sister was made aware of discharge plans and was aware of discharge plans. Wound care took discharge wound pictures. Patient was taken over to facility by wheelchair van, patient was placed in wheelchair with Mariola lift. All discharge paperwork was sent over with patient. Report was given via phone to HANNY Singh. Patient had no belongings with her.
[2020-12-01] MEDS ORDERED: predniSONE 20 MG TABLET PO SCH (09:00)
== END 2020-11-30 16:30 | DRG 208 ==
LOC: ER 11:00 → 1 WEST ICU 11:28 → 5 NORTH 11-27 11:54
PROVIDERS: ADMIT Internal Medicine; ATTEND Internal Medicine
PROC: 5A1945Z Respiratory Ventilation, 24-96 Consecutive Hours (ICD-10-PCS; principal; 2020-11-22)
PROC: 0BH17EZ Insertion of Endotracheal Airway into Trachea, Via Natural or Artificial Opening (ICD-10-PCS; 2020-11-22)
PROC: 3E0U33Z Introduction of Anti-inflammatory into Joints, Percutaneous Approach (ICD-10-PCS; 2020-11-29)
PROC: 3E0U3BZ Introduction of Anesthetic Agent into Joints, Percutaneous Approach (ICD-10-PCS; 2020-11-29)
DX: J96.01 Acute respiratory failure with hypoxia (principal); I50.33 Acute on chronic diastolic (congestive) heart failure; E43 Unspecified severe protein-calorie malnutrition; D61.818 Other pancytopenia; E87.1 Hypo-osmolality and hyponatremia; I69.354 Hemiplegia and hemiparesis following cerebral infarction affecting left non-dominant side; G40.901 Epilepsy, unspecified, not intractable, with status epilepticus; D63.8 Anemia in other chronic diseases classified elsewhere; E03.9 Hypothyroidism, unspecified; E11.42 Type 2 diabetes mellitus with diabetic polyneuropathy; E66.01 Morbid (severe) obesity due to excess calories; E78.00 Pure hypercholesterolemia, unspecified; E78.5 Hyperlipidemia, unspecified; E83.42 Hypomagnesemia; E83.51 Hypocalcemia; E87.5 Hyperkalemia; E87.6 Hypokalemia; F03.90 Unspecified dementia, unspecified severity, without behavioral disturbance, psychotic disturbance, mood disturbance, and anxiety; F20.9 Schizophrenia, unspecified; F31.9 Bipolar disorder, unspecified; G24.01 Drug induced subacute dyskinesia; G47.30 Sleep apnea, unspecified; I11.0 Hypertensive heart disease with heart failure; I25.10 Atherosclerotic heart disease of native coronary artery without angina pectoris; J44.9 Chronic obstructive pulmonary disease, unspecified; M17.0 Bilateral primary osteoarthritis of knee; M81.0 Age-related osteoporosis without current pathological fracture; Z79.899 Other long term (current) drug therapy; Z81.8 Family history of other mental and behavioral disorders; Z82.49 Family history of ischemic heart disease and other diseases of the circulatory system; Z86.16 Personal history of COVID-19; Z90.710 Acquired absence of both cervix and uterus; Z99.3 Dependence on wheelchair; G47.33 Obstructive sleep apnea (adult) (pediatric); M19.90 Unspecified osteoarthritis, unspecified site; K21.9 Gastro-esophageal reflux disease without esophagitis; Z20.822 Contact with and (suspected) exposure to COVID-19; Z88.8 Allergy status to other drugs, medicaments and biological substances
CPT/HCPCS: 31500; 36415; 36600; 51702; 70450; 71045; 80048; 80053; 80164; 80177; 80307; 81001; 82140; 82550; 82805; 82962; 83605; 83735; 83880; 84145; 84443; 84481; 84484; 85007; 85025; 87040; 87086; 87426; 93005; 94002; 94003; 96361; 96365; C9113; J1030; J1040; J1940; J1953; J2060; J2250; J2543; J2920; J3475; J3480; J3490; J7030; J7042; J7060; J7512; U0003; U0005; 92526-GN; 92610-GN; 97530-GO; 97535-GO; 99291-25; G0378